=== PATIENT | male | born 1965 | race Caucasian/White ===

== ENCOUNTER → 2020-04-22 16:27 | Outpatient (BNVA) | payer MEDICAID, SELFPAY | PROVIDERS: Family Provider Nurse Practitioner; PCP Nurse Practitioner; Visit Provider Nurse Practitioner | DX: I25.10 Atherosclerotic heart disease of native coronary artery without angina pectoris (principal) | CPT/HCPCS: 80053; 80061; 81003 ==

== ENCOUNTER → 2020-05-21 09:15 | Outpatient (BNVA) | payer MEDICAID, SELFPAY | PROVIDERS: Family Provider Nurse Practitioner; PCP Nurse Practitioner; Visit Provider Nurse Practitioner | DX: R73.09 Other abnormal glucose (principal); N39.0 Urinary tract infection, site not specified; R73.9 Hyperglycemia, unspecified | CPT/HCPCS: 81000; 83036 ==

== ENCOUNTER 2020-07-03 09:45 | Inpatient (IN) | payer MEDICAID, SELFPAY ==
[2020-07-03] VITALS (14 sets, daily range): BP systolic 143–165; BP diastolic 86–100; PULSE 74–83; RESP 16–22; TEMP 36.4–36.7; O2SAT 93–100; BMI 29.9
--- NOTE | 2020-07-03 10:39 | W.ED.ABDPA2 ---
Documented by User: ALPHONSE Rocha 07/03/20 10:41 HPI - Abdominal Pain General: Chief Complaint: Abdominal Pain Stated Complaint: N/V/D Time Seen by Provider: 07/03/20 10:28 History of Present Illness: HPI narrative: Patient complains about abdominal pain for the last couple days. Says pain is worse this morning. Says it is consistent with his pancreatitis he had to 3 years ago. He has been on medication for pancreatitis but he continues to drink 1 pint of whiskey a day and a few beers while at work. Whiskey is after work. Has been nauseous has had some vomiting. Slight diarrhea. Pancreatitis and alcoholism MD elicited complaint: abdominal pain Pertinent past history: other (Pancreatitis and alcoholism) Onset (ago): day(s) Pain Consistency: constant Location: Epigastric, RLQ and LLQ Severity: moderate Pain scale (0-10): 6 Quality: aching Relieving factors: nothing Associated Symptoms: Reports diarrhea, nausea, poor appetite and vomiting; Denies chills and fever(s) Review of Systems Const: Denies: fever(s), chills or body aches Eyes: Denies: change in vision or blurry vision ENMT: Denies: throat pain or nasal congestion Card: Denies: chest pain or dyspnea on exertion Resp: Denies: dyspnea, productive cough or non-productive cough GI: Reports: abdominal pain, nausea, vomiting and diarrhea : Denies: difficulty urinating Musc: Denies: extremity pain Skin/Breast: Denies: rash Neuro: Denies: headache(s) Psych: Denies: anxiety or depression Jah/Lymph: Denies: easy bruising PFSH ED PFSH: Medical History Acute pancreatitis CAD (coronary artery disease) Chronic obstructive pulmonary disease Depression with anxiety History of [place] (myocardial infarction) Hyperlipidemia Surgical History S/P CABG (coronary artery bypass graft) S/P PTCA (percutaneous transluminal coronary angioplasty) Family History Other Diabetes Heart disease Social History Smoking and tobacco status: current every day smoker Second hand smoke exposure: Yes Smoking risk assessment/counseling performed?: Yes Alcohol intake: current Alcohol intake frequency: 3 or more drinks per day Alcohol type: hard liquor Desire information about alcohol rehabilitation?: No Counseling given: Yes Desire information about substance/drug rehabilitation?: No Counseling given: No Adopted: No Caregiver/support person: No Lives independently: Yes Household members: significant other Housing: House Marital status: Single Number of children: 2 service: No Current occupational status: employed Pets and animals: Yes History of recent travel: No Current gender identity: Male Physical Exam Const: COMMON NORMALS: no acute distress, average body habitus and patient oriented x3 HENMT: COMMON NORMALS: normocephalic HEAD & SCALP: normal to inspection and normocephalic FACE & SINUS: normal facial exam Eye: COMMON NORMALS: conjunctivae normal GENERAL EYE: appearance normal, both eyes and all related structures CONJUNCTIVA: Yes conjunctivae normal Neck/C-Spine: COMMON NORMALS: no JVD Chest: COMMONS NORMALS: normal inspection of the chest Resp: COMMON NORMALS: normal respiratory effort and clear to auscultation bilaterally AUSCULTATION: clear to auscultation bilaterally Cardio: COMMON NORMALS: no JVD, regular rate and regular rhythm RATE: regular rate RHYTHM: regular rhythm GI: COMMON NORMALS: Normal to inspection, nondistended, normoactive bowel sounds present PALPATION: Yes Tenderness to palpation present (GI) (Generalized) Extremity: COMMON NORMALS: normal to inspection and full ROM Neuro: COMMON NORMALS: patient oriented x3 Course Vital Signs: Vital signs: Vital Signs Temperature 97.6 F 07/05/20 01:25 Pulse Rate 110 H 07/05/20 04:43 Respiratory Rate 22 H 07/05/20 04:44 Blood Pressure 89/62 07/05/20 04:20 Pulse Oximetry 96 07/05/20 04:43 MDM - Abdominal Pain Lab Data: Labs: Lab Results 07/03/20 07/03/20 07/03/20 Range/Units 10:38 10:43 10:43 WBC 17.0 H (4.0-10.0) 10^3/ uL RBC 4.85 (4.1-5.3) 10^6/u L Hgb 15.8 (11.7-16.6) g/dL Hct 45.8 (42.0-52.0) % MCV 94.4 H (80-94) fL MCH 32.6 (28.0-34.0) pg MCHC 34.5 (30.0-36.0) g/dL RDW 11.8 L (12.1-15.1) % Plt Count 289 (130-400) 10^3/c mm MPV 9.5 (7.4-10.4) fL Neut % (Auto) 73.2 % Lymph % (Auto) 19.5 % [place] % (Auto) 5.8 % Eos % (Auto) 0.5 % Baso % (Auto) 0.5 % Neut # (Auto) 12.42 H (1.8-7.7) 10^3/u L Lymph # (Auto) 3.3 (0.8-4.8) 10^3/u L [place] # (Auto) 1.0 H (0.2-0.9) 10^3/u L Eos # (Auto) 0.1 (0.0-0.8) 10^3/u L Baso # (Auto) 0.1 (0.0-0.1) 10^3/u L Nucleated RBC % (a uto) 0 % Nucleated RBCs # 0.0 /100WBC Sodium 136 (136-145) mmol/L Potassium 4.1 (3.5-5.1) mmol/L Chloride 101 (98-107) mmol/L Carbon Dioxide 24 (22-29) mmol/L Anion Gap 15.1 (5-19) BUN 16 (6-20) mg/dL Creatinine 0.9 (0.7-1.2) mg/dL GFR Calculation 87.3 L (90-130) mL/min Glucose 98 (65-115) mg/dL Calculated Osmolal ity 278 L (285-295) mOsm/k g Calcium 7.9 L (8.5-10.5) mg/dL Total Bilirubin 0.7 (0.15-1.2) mg/dL AST 51 H (0-40) U/L ALT < 5 (0-41) U/L Alkaline Phosphata se 110 (40-130) IU/L Total Protein 7.3 (6.6-8.7) g/dL Albumin 4.1 (3.5-5.2) g/dL Globulin 3.2 (1.3-4.6) g/dL Lipase 263 H (13-60) U/L Urine Color Yellow (Yellow) Urine Appearance Clear (CLEAR) Urine pH 5 (5-7) Ur Specific Gravit y 1.025 (1.005-1.030) Urine Protein 2+ H (Negative) Urine Glucose (UA) Norm (Normal) Urine Ketones Negative (Negative) Urine Blood Neg (Negative) Urine Nitrate Negative (Negative) Urine Bilirubin Neg (NEGATIVE) Urine Urobilinogen Neg (Negative) mg/dL Ur Leukocyte Alea ase Negative (Negative) Urine RBC None (0-2) /hpf Urine WBC Rare (0-5) /hpf Ur Squamous Epith Cells None (0-5) Amorphous Sediment Not Reportable Urine Bacteria Trace (NONE) Hyaline Casts 0-4 H Urine Mucus 2+ Discharge Plan Discharge Patient Disposition: Home Clinical Impression: Acute pancreatitis, Alcohol abuse Condition: Stable Interventions: ED Discharge Assessment Last Done: 07/03/20 13:46 ED Charges Last Done: 07/03/20 13:46 Discharge Date/Time: 07/03/20 13:47 Sign Out Sign Out Data: Patient Sign Out occurred on 07/03/20 at 11:43. Patient's care was discussed, and care was transferred from to Nicholas Marin DO. 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 He still is drinking heavily has had issues with pancreatitis in the past he has not had any hematemesis. MD elicited complaint: abdominal pain Pertinent past history: gastritis Onset (ago): day(s) Pain Consistency: constant Location: Epigastric Severity: severe Quality: cramping Radiation: none Migration to: no migration Exacerbating factors: eating Associated Symptoms: Reports anorexia, bloating, dyspepsia, nausea, poor appetite and vomiting; Denies coffee ground emesis, diarrhea, dysuria, fever(s), hematochezia, hematuria, hematemesis, melena and syncope Review of Systems Const: Denies: fever(s) Card: Denies: syncope GI: Reports: nausea, vomiting and bloating; Denies: hematemesis, coffee ground emesis, diarrhea, hematochezia or melena : Denies: dysuria or hematuria PFSH ED PFSH: Medical History Acute pancreatitis CAD (coronary artery disease) Chronic obstructive pulmonary disease Depression with anxiety History of [place] (myocardial infarction) Hyperlipidemia Surgical History S/P CABG (coronary artery bypass graft) S/P PTCA (percutaneous transluminal coronary angioplasty) Family History Other Diabetes Heart disease Social History Smoking and tobacco status: current every day smoker Second hand smoke exposure: Yes Smoking risk assessment/counseling performed?: Yes Alcohol intake: current Alcohol intake frequency: 3 or more drinks per day Alcohol type: hard liquor Desire information about alcohol rehabilitation?: No Counseling given: Yes Desire information about substance/drug rehabilitation?: No Counseling given: No Adopted: No Caregiver/support person: No Lives independently: Yes Household members: significant other Housing: House Marital status: Single Number of children: 2 service: No Current occupational status: employed Pets and animals: Yes History of recent travel: No Current gender identity: Male Physical Exam Const: COMMON NORMALS: no acute distress GENERAL APPEARANCE: cooperative and comfortable ORIENTATION/CONSCIOUSNESS: Yes awake, Yes oriented to person, Yes oriented to place and Yes oriented to time HENMT: COMMON NORMALS: normocephalic, atraumatic and hearing grossly normal bilaterally HEAD & SCALP: normocephalic and atraumatic Neck/C-Spine: COMMON NORMALS: no JVD Resp: COMMON NORMALS: normal respiratory effort, No retractions, No use of accessory muscles and clear to auscultation bilaterally AUSCULTATION: clear to auscultation bilaterally Cardio: COMMON NORMALS: no JVD, regular rate, regular rhythm and No murmurs present (Cardio) RATE: regular rate RHYTHM: regular rhythm GI: COMMON NORMALS: No hepatosplenomegaly present AUSCULTATION: Yes normoactive bowel sounds PALPATION: Yes Tenderness to palpation present (GI), No Guarding due to palpation present (GI) and Yes No hepatosplenomegaly present Extremity: COMMON NORMALS: normal to inspection, capillary refill normal, no clubbing, cyanosis or edema, no calf tenderness and no pedal edema Neuro: SENSORIUM/ORIENTATION: Yes oriented to person, Yes oriented to place and Yes oriented to time Skin: COMMON NORMALS: no rashes or lesions noted GENERAL SKIN EXAM: no rashes or lesions noted Course Vital Signs: Vital signs: Vital Signs Temperature 97.6 F 07/05/20 01:25 Pulse Rate 110 H 07/05/20 04:43 Respiratory Rate 22 H 07/05/20 04:44 Blood Pressure 89/62 07/05/20 04:20 Pulse Oximetry 96 07/05/20 04:43 MDM - Abdominal Pain MDM Narrative: Medical decision making narrative: Reviewed case with Shawn Pacheco NP who seen the patient in the emergency room. Agree with admission. Discussed with hospitalist orders written. Lab Data: Labs: Lab Results 07/03/20 07/03/20 07/03/20 Range/Units 10:38 10:43 10:43 WBC 17.0 H (4.0-10.0) 10^3/ uL RBC 4.85 (4.1-5.3) 10^6/u L Hgb 15.8 (11.7-16.6) g/dL Hct 45.8 (42.0-52.0) % MCV 94.4 H (80-94) fL MCH 32.6 (28.0-34.0) pg MCHC 34.5 (30.0-36.0) g/dL RDW 11.8 L (12.1-15.1) % Plt Count 289 (130-400) 10^3/c mm MPV 9.5 (7.4-10.4) fL Neut % (Auto) 73.2 % Lymph % (Auto) 19.5 % [place] % (Auto) 5.8 % Eos % (Auto) 0.5 % Baso % (Auto) 0.5 % Neut # (Auto) 12.42 H (1.8-7.7) 10^3/u L Lymph # (Auto) 3.3 (0.8-4.8) 10^3/u L [place] # (Auto) 1.0 H (0.2-0.9) 10^3/u L Eos # (Auto) 0.1 (0.0-0.8) 10^3/u L Baso # (Auto) 0.1 (0.0-0.1) 10^3/u L Nucleated RBC % (a uto) 0 % Nucleated RBCs # 0.0 /100WBC Sodium 136 (136-145) mmol/L Potassium 4.1 (3.5-5.1) mmol/L Chloride 101 (98-107) mmol/L Carbon Dioxide 24 (22-29) mmol/L Anion Gap 15.1 (5-19) BUN 16 (6-20) mg/dL Creatinine 0.9 (0.7-1.2) mg/dL GFR Calculation 87.3 L (90-130) mL/min Glucose 98 (65-115) mg/dL Calculated Osmolal ity 278 L (285-295) mOsm/k g Calcium 7.9 L (8.5-10.5) mg/dL Total Bilirubin 0.7 (0.15-1.2) mg/dL AST 51 H (0-40) U/L ALT < 5 (0-41) U/L Alkaline Phosphata se 110 (40-130) IU/L Total Protein 7.3 (6.6-8.7) g/dL Albumin 4.1 (3.5-5.2) g/dL Globulin 3.2 (1.3-4.6) g/dL Lipase 263 H (13-60) U/L Urine Color Yellow (Yellow) Urine Appearance Clear (CLEAR) Urine pH 5 (5-7) Ur Specific Gravit y 1.025 (1.005-1.030) Urine Protein 2+ H (Negative) Urine Glucose (UA) Norm (Normal) Urine Ketones Negative (Negative) Urine Blood Neg (Negative) Urine Nitrate Negative (Negative) Urine Bilirubin Neg (NEGATIVE) Urine Urobilinogen Neg (Negative) mg/dL Ur Leukocyte Alea ase Negative (Negative) Urine RBC None (0-2) /hpf Urine WBC Rare (0-5) /hpf Ur Squamous Epith Cells None (0-5) Amorphous Sediment Not Reportable Urine Bacteria Trace (NONE) Hyaline Casts 0-4 H Urine Mucus 2+ Discharge Plan Discharge Patient Disposition: Home Clinical Impression: Acute pancreatitis, Alcohol abuse Condition: Stable Interventions: ED Discharge Assessment Last Done: 07/03/20 13:46 ED Charges Last Done: 07/03/20 13:46 Discharge Date/Time: 07/03/20 13:47 Sign Out Sign Out Data: Patient Sign Out occurred on 07/03/20 at 11:43. Patient's care was discussed, and care was transferred from to Nicholas Marin DO. 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
--- NOTE | 2020-07-03 10:41 | CT_ITS ---
WS: [id number] CT ABDOMEN AND PELVIS WITH CONTRAST HISTORY: Pancreatitis and abdominal pain TECHNIQUE: Imaging performed of the abdomen and pelvis with IV contrast. Single phase imaging of the abdomen. Coronal and sagittal reformats are submitted. All CT scans at [facility] use at least one of these dose optimization techniques: automated exposure control; mA and/or kV adjustment per patient size (includes targeted exams where dose is matched to clinical indication); or iterativ e reconstruction. IV CONTRAST: Omnipaque 300; 95 mL IV. Oral contrast: No DLP: 1055.95 mGy.cm COMPARISON: None available. Lower thorax: Lung bases are clear. Heart is normal size. No hiatal hernia. Liver/biliary system: Mild hepatic steatosis with no enlargement of the liver. Gallbladder: Mildly contracted gallbladder, no stones identified. Pancreas: Normal size pancreas. There is mild peripancreatic edema surrounding the body and tail of t he pancreas. No fluid collections or abscess. Spleen: Normal. Adrenal glands: Normal. Right kidney: Normal. Left kidney: Mild perinephric stranding. Cortical hypodensity in the mid kidney similar to the prior study measured 1.5 x 0.6 cm. No solid mass. No obstruction. Aorta: Mild atherosclerosis with no aneurysm. Lymphadenopathy: None. Free fluid: None. GI tract: Normal appendix. No GI tract obstruction or diverticular disease. Abdominal wall: Fat containing umbilical hernia. Pelvis: Normal. Bones: Mild degenerative disc disease and desiccation at L3-4 and L4-5. CT/CT abdomen pelvis w con* [id number] IMPRESSION: 1. Mild acute pancreatitis with no pseudocyst or abscess. No free fluid. 2. Mildly contracted gallbladder. 3. Normal appendix.
[2020-07-03] MEDS: sodium chloride 0.9% 1,000 ML 999 ML IV (10:45)
[2020-07-03] MEDS: ondansetron 2 mg/ML SDV 2 mL 4 MG IVP (10:46)
[2020-07-03] MEDS: morphine 4 mg/mL SDV 1 mL IVP (10:47)
[2020-07-03 10:54] LABS: Urine Appearance Clear (CLEAR); Urine Color Yellow (Yellow); pH Urine 5 (5-7)
[2020-07-03] MEDS: iohexol 300 mg/mL 100 mL Btl IV (10:54)
[2020-07-03 10:55] LABS: Add Urine Microscopic? YES; Bilirubin Urine Neg (NEGATIVE); Blood Urine Neg (Negative); Glucose Urine UA Norm (Normal); Ketones Urine Negative (Negative); Leukocyte Esterase Urine Negative (Negative); Nitrate Urine Negative (Negative); Protein Urine 2+ (Negative); Specific Gravity, Urine 1.025 (1.005-1.030); Urobilinogen Urine Neg (Negative)
--- NOTE | 2020-07-03 10:55 | PC.NURSE ---
report received from [facility].
[2020-07-03 10:56] LABS: Basophils # 0.1 10^3/uL (0.0-0.1); Basophils % 0.5 %; Eosinophils # 0.1 10^3/uL (0.0-0.8); Eosinophils % 0.5 %; Hematocrit 45.8 % (42.0-52.0); Hemoglobin 15.8 g/dL (11.7-16.6); Lymphocytes # 3.3 10^3/uL (0.8-4.8); Lymphocytes % 19.5 %; Mean Corpuscular HGB Conc 34.5 g/dL (30.0-36.0); Mean Corpuscular Hemoglobin 32.6 pg (28.0-34.0); Mean Corpuscular Volume 94.4 fL (80-94); Mean Platelet Volume 9.5 fL (7.4-10.4); Monocytes % 5.8 %; Neutrophils # 12.42 10^3/uL (1.8-7.7); Neutrophils % 73.2 %; Nucleated Red Blood Cells % 0 %; Platelet Count 289 10^3/cmm (130-400); Red Blood Count 4.85 10^6/uL (4.1-5.3); Red Cell Distribution Width 11.8 % (12.1-15.1)
[2020-07-03 11:00] LABS: Add Urine Culture? No; Bacteria Urine TRACE; Hyaline Casts Urine 0-4; Mucus Urine 2+; WBC Urine RARE /hpf (0-5)
[2020-07-03 11:11] LABS: Albumin Level 4.1 g/dL (3.5-5.2); Alkaline Phosphatase 110 IU/L (40-130); Blood Urea Nitrogen 16 mg/dL (6-20); Calcium 7.9 mg/dL (8.5-10.5); Carbon Dioxide 24 mmol/L (22-29); Chloride 101 mmol/L (98-107); Globulin 3.2 g/dL (1.3-4.6); Glomerular Filtration Rate 87.3 mL/min (90-130); Glucose 98 mg/dL (65-115); Lipase 263 U/L (13-60); Osmolality Calculated 278 mOsm/kg (285-295); Sodium 136 mmol/L (136-145); Total Bilirubin 0.7 mg/dL (0.15-1.2); Total Protein 7.3 g/dL (6.6-8.7)
[2020-07-03 11:16] LABS: Anion Gap 15.1 (5-19); Potassium 4.1 mmol/L (3.5-5.1)
[2020-07-03 11:22] LABS: Alanine Aminotransferase < 5 U/L (0-41); Aspartate Amino Transferase 51 U/L (0-40)
--- NOTE | 2020-07-03 11:22 | PC.NURSE ---
while at bedside pt is in nad.
[2020-07-03] MEDS: morphine 4 mg/mL SDV 1 mL 2 MG IVP ×3 (12:49→19:50)
--- NOTE | 2020-07-03 13:04 | PC.NURSE ---
report called to jessie hale rn on med surg.
--- NOTE | 2020-07-03 15:15 | P.HP_ITS ---
Providers/Chief Complaint Admitting Physician: Ree Young DO Primary Care Provider: CECILY Mitchell Chief Complaint: N/V/D History of Present Illness Shadi Hill is a 54 year old male with a past medical history of chronic pancreatitis, coronary artery disease and alcoholism that presented to the emergency department today for increasing abdominal pain. Patient reports that his symptoms have progressed over the past 2 to 3 days. He reported that he is having severe pain in his epigastric region that radiates to his back, associated nausea vomiting and diarrhea. He denies any recent fevers or chills, no sick contacts. Patient denies any exposure to anyone under investigation are positive for COVID-19. He denies any chest pain or shortness of breath, does have a history of coronary artery disease requiring open heart surgery in the past but denies any recent exertional symptoms. Patient reports that he has been under worse depression and is continued to increase the amount of alcohol consumption. He denies any suicidal or homicidal ideation. Patient did note that food seem to make his symptoms worse. Patient was seen and evaluated in the emergency department noted to have concern for acute pancreatitis and admitted for further evaluation and treatment. Given IV fluids antiemetics and IV medication for pain control in the ED. Review of Systems Const: Denies: fever(s) or chills Eyes: Denies: change in vision ENMT: Denies: nasal congestion Card: Denies: chest pain, palpitations or edema Resp: Denies: dyspnea, productive cough or hemoptysis GI: Reports: abdominal pain, nausea, vomiting and diarrhea; Denies: constipation, hematochezia or melena : Denies: dysuria or hematuria Musc: Denies: extremity pain or muscle cramps Skin/Breast: Denies: rash or new lesions Neuro: Denies: headache(s) or dizziness Psych: Reports: depression; Denies: anxiety or suicidal ideation Endo: Denies: polyuria or hot flashes Jah/Lymph: Denies: easy bruising or easy bleeding Medications/Allergies Home Medications Medication Instructions Recorded Confirmed Last Taken Type aspirin 81 mg tablet,delayed 81 mg PO DAILY 01/01/20 07/03/20 07/03/20 History release nitroglycerin 0.4 mg sublingual 0.4 mg SUBLINGUAL Q5M PRN 01/01/20 07/03/20 Unknown History tablet albuterol sulfate 90 mcg/actuation 2 puff INHALATION Q6H PRN #18 gm 04/23/20 07/03/20 Unknown Rx aerosol inhaler budesonide-formoterol HFA 80 2 puff INHALATION BID #10.2 gm 04/23/20 07/03/20 Unknown Rx mcg-4.5 mcg/actuation aerosol inhaler bupropion HCl 150 mg tablet,12 hr 150 mg PO BID #60 tab 04/23/20 07/03/20 07/03/20 Rx sustained-release diltiazem HCl 60 mg tablet 60 mg PO BID #60 tab 04/23/20 07/03/20 07/03/20 Rx metoprolol tartrate 50 mg tablet 25 mg PO BID #30 tab 04/23/20 07/03/20 07/03/20 Rx pantoprazole 40 mg tablet,delayed 40 mg PO DAILY #30 tab 04/23/20 07/03/20 07/03/20 Rx release Mylanta Maximum Strength See Rx Instructions .ROUTE .COMPLEX 07/03/20 07/03/20 07/02/20 History Pepto-Bismol See Rx Instructions .ROUTE .COMPLEX 07/03/20 07/03/20 07/02/20 History simvastatin 40 mg PO DAILY 07/03/20 07/03/20 07/02/20 History Allergies Allergy/AdvReac Type Severity Reaction Status Date / Time No Known Allergies Allergy Verified 07/03/20 12:05 PFSH Acute PFSH: Medical History (Updated 07/03/20 @ 15:22 by Ree Young DO) Alcohol abuse CAD (coronary artery disease) Chronic obstructive pulmonary disease Depression with anxiety History of [place] (myocardial infarction) Hyperlipidemia Personal history of nicotine dependence Surgical History S/P CABG (coronary artery bypass graft) S/P PTCA (percutaneous transluminal coronary angioplasty) Family History Other Diabetes Heart disease Social History Smoking and tobacco status: current every day smoker Second hand smoke exposure: Yes Smoking risk assessment/counseling performed?: Yes Alcohol intake: current Alcohol intake frequency: 3 or more drinks per day Alcohol type: hard liquor Desire information about alcohol rehabilitation?: No Counseling given: Yes Desire information about substance/drug rehabilitation?: No Counseling given: No Adopted: No Caregiver/support person: No Lives independently: Yes Household members: significant other Housing: House Marital status: Single Number of children: 2 service: No Current occupational status: employed Pets and animals: Yes History of recent travel: No Current gender identity: Male Vitals/I&O/Wt Last Vital Signs Temp 97.6 F 07/03/20 14:31 Pulse 79 07/03/20 14:31 Resp 16 07/03/20 14:31 BP 146/96 07/03/20 14:31 Pulse Ox 95 07/03/20 14:31 Weight last 48 hrs Weight 97.522 kg Physical Exam Const: COMMON NORMALS: patient oriented x3 and alert GENERAL APPEARANCE: cooperative and ill appearing ORIENTATION/CONSCIOUSNESS: Yes awake, Yes oriented to person, Yes oriented to place and Yes oriented to time HENMT: COMMON NORMALS: normocephalic and atraumatic HEAD & SCALP: normocephalic and atraumatic Eye: COMMON NORMALS: Equal, round and reactive pupils present PUPIL: Yes Equal, round and reactive pupils present Neck/C-Spine: COMMON NORMALS: supple GENERAL: Yes normal visual inspection Resp: COMMON NORMALS: normal respiratory effort and clear to auscultation bilaterally EFFORT & INSPECTION: Yes able to speak in complete sentences AUSCULTATION: clear to auscultation bilaterally, no rhonchi and no wheezes Cardio: COMMON NORMALS: regular rate, regular rhythm and No murmurs present (Cardio) RATE: regular rate RHYTHM: regular rhythm GI: OTHER: Soft, tenderness to palpation epigastric region, no guarding or rigidity, normal bowel sounds, no appreciable masses Extremity: COMMON NORMALS: no clubbing, cyanosis or edema and no calf tenderness Neuro: COMMON NORMALS: patient oriented x3, CN's II-XII intact bilaterally, moves all extremities and no focal motor deficits SENSORIUM/ORIENTATION: Yes alert, Yes oriented to person, Yes oriented to place and Yes oriented to time SPEECH: speech normal Psych: COMMON NORMALS: mental status grossly normal and cooperative Skin: COMMON NORMALS: no rashes or lesions noted GENERAL SKIN EXAM: no rashes or lesions noted Data : 07/03/20 10:43 07/03/20 10:43 CT Abd/Pel: I personally reviewed and interpreted this imaging study as follows: Radiologist's impression: IMPRESSION: 1. Mild acute pancreatitis with no pseudocyst or abscess. No free fluid. 2. Mildly contracted gallbladder. 3. Normal appendix. A&P Assessment and plan (1) Acute pancreatitis: Admit to the hospital for further evaluation and treatment CT scan of the abdomen and pelvis as above Strongly encouraged alcohol cessation, discussed with patient on admission N.p.o. status for bowel rest IV fluids, antiemetics and IV pain control No evidence of any common bile duct dilatation, no cholelithiasis evident on imaging Status: Acute (2) Chronic obstructive pulmonary disease: Without acute exacerbation, oxygen per protocol Status: Chronic (3) Alcohol abuse: Strongly encourage alcohol cessation, will discuss with case management to provide community resources to patient Status: Chronic (4) CAD (coronary artery disease): With a history of coronary artery bypass grafting and stent placement Continue on aspirin, statin, metoprolol Status: Chronic Qualifiers: Coronary Disease-Associated Artery/Lesion type: [place] artery [place] vs. transplanted heart: [place] heart Associated angina: without angina Qualified Code(s): I25.10 - Atherosclerotic heart disease of [place] coronary artery without angina pectoris Additional A&P Information GI prophylaxis: PPI Diet: N.p.o. 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 transplanted heart: [place] heart Associated angina: without angina
[2020-07-03] MEDS: lactated ringers 1,000 ML 100 ML IV (15:41)
[2020-07-03] MEDS: enoxaparin 40 mg/0.4 mL Syringe SUBCUT (15:50)
[2020-07-03] MEDS: nicotine 21 mg Patch 1 PATCH TRANSDERMA (15:50)
[2020-07-03] MEDS: metoprolol tartrate 25 mg Tablet PO (18:17)
[2020-07-03] MEDS: buPROPion SR (12 HR) 150 mg Tablet PO (18:17)
[2020-07-03] MEDS: dilTIAZem 60 mg Tablet PO (18:17)
[2020-07-03] MEDS: HYDROmorphone 1 mg/mL INJ 1 mL IVP (22:40)
[2020-07-04] VITALS (80 sets, daily range): BP systolic 77–170; BP diastolic 43–103; PULSE 78–114; RESP 14–27; TEMP 36.4–37.1; O2SAT 95–100
[2020-07-04] MEDS: lactated ringers 1,000 ML 100 ML IV ×3 (00:34→19:18)
[2020-07-04] MEDS: morphine 4 mg/mL SDV 1 mL 2 MG IVP (01:47)
[2020-07-04] MEDS: HYDROmorphone 1 mg/mL INJ 1 mL IVP ×3 (04:43→15:17)
[2020-07-04 05:23] LABS: Basophils % 0.2 %; Eosinophils % 0.1 %; Hemoglobin 15.9 g/dL (11.7-16.6); Lymphocytes # 1.1 10^3/uL (0.8-4.8); Lymphocytes % 6.2 %; Mean Corpuscular HGB Conc 34.6 g/dL (30.0-36.0); Mean Corpuscular Hemoglobin 32.8 pg (28.0-34.0); Mean Corpuscular Volume 94.8 fL (80-94); Monocytes # 0.7 10^3/uL (0.2-0.9); Monocytes % 3.8 %; Neutrophils # 15.94 10^3/uL (1.8-7.7); Neutrophils % 89.1 %; Nucleated Red Blood Cells % 0 %; Platelet Count 246 10^3/cmm (130-400); Red Blood Count 4.85 10^6/uL (4.1-5.3); Red Cell Distribution Width 11.8 % (12.1-15.1); White Blood Count 17.9 10^3/uL (4.0-10.0)
--- NOTE | 2020-07-04 05:29 | PC.NURSE ---
SHIFT SUMMARY Has had quite a bit of pain tonight. Morphine IV was not providing good relief for him so order was changed to IV Dilaudid. More comfortable with this. Abdomen is quite tender across upper abdomen. Remains NPO. Has denied any nauses. IV fluids infusing. Ambulates to bathroom and uses urinal for I&O.
[2020-07-04 05:44] LABS: Alanine Aminotransferase 30 U/L (0-41); Albumin Level 3.5 g/dL (3.5-5.2); Alkaline Phosphatase 114 IU/L (40-130); Anion Gap 17.7 (5-19); Aspartate Amino Transferase 42 U/L (0-40); Blood Urea Nitrogen 11 mg/dL (6-20); Calcium 7.5 mg/dL (8.5-10.5); Carbon Dioxide 18 mmol/L (22-29); Chloride 100 mmol/L (98-107); Globulin 3.3 g/dL (1.3-4.6); Glomerular Filtration Rate 116.7 mL/min (90-130); Glucose 99 mg/dL (65-115); Osmolality Calculated 270 mOsm/kg (285-295); Potassium 3.7 mmol/L (3.5-5.1); Sodium 132 mmol/L (136-145); Total Bilirubin 1.2 mg/dL (0.15-1.2); Total Protein 6.8 g/dL (6.6-8.7)
[2020-07-04 08:20] LABS: Lipase 2037 U/L (13-60)
--- NOTE | 2020-07-04 10:22 | CT_ITS ---
WS: [id number] CT ABDOMEN AND PELVIS WITH CONTRAST HISTORY: worsening pain, increased lipase with pancreatitis TECHNIQUE: Imaging performed of the abdomen and pelvis with IV contrast. Single phase imaging of the abdomen. Coronal and sagittal reformats are submitted. All CT scans at [facility] use at least one of these dose optimization techniques: automated exposure control; mA and/or kV adjustment per patient size (includes targeted exams where dose is matched to clinical indication); or iterativ e reconstruction. IV CONTRAST: Omnipaque 300; 95 mL IV. Oral contrast: Yes. DLP: 1093.64 mGy.cm COMPARISON: 07/03/2020 Lower thorax: Subsegmental atelectasis at the RIGHT lung base. Heart is normal size. Small hiatal her efrain. Liver/biliary system: Normal size with no intrahepatic dilatation. Gallbladder: Increased density in the gallbladder from vicarious excretion. Pancreas: Markedly abnormal appearance of the pancreas. There is significant peripancreatic inflammat ion and fluid with marked progression since the study performed on 07/03/2020. Fluid extends along the paracolic gutters. There is also inflammatory change surrounding the duodenal C-loop and SMA. Spleen: Normal. Adrenal glands: Normal. Right kidney: No obstruction or mass. Left kidney: Cortical cyst. No obstruction. Aorta: Mild atherosclerosis. Lymphadenopathy: None. Free fluid: Increase fluid along the paracolic gutters and a small amount of free fluid in the pelvis . GI tract: Significant amount of inflammation surrounding the duodenum and small bowel within the RIGH T abdomen from the pancreatitis. There is wall thickening with no obstruction. Abdominal wall: Small umbilical hernia. Pelvis: New small amount of free fluid in the pelvis. Bones: No interval change. CT/CT abdomen pelvis w con* [id number] IMPRESSION: 1. Significant change in appearance of the abdomen since the prior study. Ther e is marked peripancreatic inflammation and fluid which has significantly progr essed. There is fluid extending along the gutters and surrounding the duodenum and the SMA. Free fluid in the pelvis. Favor this is probably all progression o f the severe pancreatitis. No perforation is evident at this time. Patient is a t risk for developing ischemia due to the involvement of the SMA and duodenum. 2. No free air. Notified Ree Young DO at 07/04/2020 4:13 PM.
--- NOTE | 2020-07-04 10:24 | P.PN_ITS ---
Subjective Subjective: Interval history: Patient resting in bed at time of exam this morning. Upon waking he reported that he continues to have epigastric pain, reports that Dilaudid was given overnight for pain control but continues to have discomfort when it wears off. He reports that he has been swishing water then spitting it out, has not had anything to drink. Discussed with patient concern for pancreatitis and will repeat imaging today, he verbalized understanding and agreed with plan. Vitals/I&O/Wt Last Vital Signs Temp 97.9 F 07/04/20 07:48 Pulse 88 07/04/20 07:48 Resp 18 07/04/20 07:48 BP 152/99 07/04/20 07:48 Pulse Ox 97 07/04/20 07:48 07/03/20 07/04/20 07/04/20 22:59 06:59 14:59 Intake Total 888.333 / 1888.333 Output Total 350 / 350 700 / 1050 Balance -350 / 650 188.333 / 838.333 Weight last 48 hrs Weight 98.248 kg Weight 97.522 kg Physical Exam Const: COMMON NORMALS: patient oriented x3 and alert GENERAL APPEARANCE: cooperative and ill appearing ORIENTATION/CONSCIOUSNESS: Yes awake, Yes oriented to person, Yes oriented to place and Yes oriented to time HENMT: COMMON NORMALS: normocephalic and atraumatic HEAD & SCALP: normocephalic and atraumatic Eye: COMMON NORMALS: Equal, round and reactive pupils present PUPIL: Yes Equal, round and reactive pupils present Neck/C-Spine: COMMON NORMALS: supple GENERAL: Yes normal visual inspection Resp: COMMON NORMALS: normal respiratory effort and clear to auscultation bilaterally EFFORT & INSPECTION: Yes able to speak in complete sentences AUSCULTATION: clear to auscultation bilaterally, no rhonchi and no wheezes Cardio: COMMON NORMALS: regular rate, regular rhythm and No murmurs present (Cardio) RATE: regular rate RHYTHM: regular rhythm GI: OTHER: Soft, tenderness to palpation epigastric region, no guarding or rigidity, normal bowel sounds, no appreciable masses Extremity: COMMON NORMALS: no clubbing, cyanosis or edema and no calf tenderness Neuro: COMMON NORMALS: patient oriented x3, CN's II-XII intact bilaterally, moves all extremities and no focal motor deficits SENSORIUM/ORIENTATION: Yes alert, Yes oriented to person, Yes oriented to place and Yes oriented to time SPEECH: speech normal Psych: COMMON NORMALS: mental status grossly normal and cooperative Skin: COMMON NORMALS: no rashes or lesions noted GENERAL SKIN EXAM: no rashes or lesions noted Data : 07/04/20 04:52 07/04/20 04:52 A&P Assessment and plan (1) Acute pancreatitis: Continue n.p.o. status Continue with IV fluids Increasing lipase today and increasing abdominal pain therefore will repeat abdominal imaging to ensure no acute changes Status: Acute (2) Chronic obstructive pulmonary disease: Without acute exacerbation, oxygen per protocol Status: Chronic (3) Alcohol abuse: Strongly encourage alcohol cessation, will discuss with case management to provide community resources to patient Status: Chronic (4) CAD (coronary artery disease): With a history of coronary artery bypass grafting and stent placement Continue on aspirin, statin, metoprolol Status: Chronic Qualifiers: Coronary Disease-Associated Artery/Lesion type: [place] artery [place] vs. transplanted heart: [place] heart Associated angina: without angina Qualified Code(s): I25.10 - Atherosclerotic heart disease of [place] coronary artery without angina pectoris Additional A&P Information GI prophylaxis: PPI Diet: N.p.o. status DVT prophylaxis: Lovenox CODE STATUS: Full code Attestations Medical Necessity Statement*: Patient requires further hospitalization due to concern for acute pancreatitis Coding Level of Care Code Acute Facetor for Aislinn Swanson Diagnoses Acute pancreatitis K85.90 Chronic obstructive pulmonary disease J44.9 Alcohol abuse F10.10 CAD (coronary artery disease) I25.10 Coronary Disease-Associated Artery/Lesion type: [place] artery [place] vs. transplanted heart: [place] heart Associated angina: without angina
[2020-07-04] MEDS: dilTIAZem 60 mg Tablet PO ×2 (10:52→15:16)
[2020-07-04] MEDS: hyDRALAzine 20 mg/mL INJ 1 mL 10 MG IVP (10:54)
[2020-07-04] MEDS: ondansetron 2 mg/ML SDV 2 mL 4 MG IVP (10:54)
[2020-07-04] MEDS: LORazepam 2 mg/mL INJ 1 mL IM ×2 (10:55→15:17)
[2020-07-04] MEDS: buPROPion SR (12 HR) 150 mg Tablet PO ×2 (10:56→15:16)
[2020-07-04] MEDS: atorvastatin 40 mg Tablet 20 MG PO (11:03)
[2020-07-04] MEDS: pantoprazole DR 40 mg Tablet PO (11:05)
[2020-07-04] MEDS: aspirin 81 mg EC Tablet PO (11:05)
[2020-07-04] MEDS: metoprolol tartrate 25 mg Tablet PO ×2 (11:06→15:16)
[2020-07-04] MEDS: thiamine 100 mg Tablet PO (11:07)
[2020-07-04] MEDS: multivitamin therapeutic Tablet 1 TAB PO (11:08)
[2020-07-04] MEDS: nicotine 21 mg Patch 1 PATCH TRANSDERMA (11:08)
[2020-07-04] MEDS: folic acid 1 mg Tablet PO (11:08)
[2020-07-04] MEDS: enoxaparin 40 mg/0.4 mL Syringe SUBCUT (15:16)
[2020-07-04] MEDS: iohexol 300 mg/mL 100 mL Btl IV (15:43)
--- NOTE | 2020-07-04 16:47 | PM.CONSULT ---
Providers/Reason For Consult Consulting Physican/Specialty*: Dr. Young Reason for Consult*: Attending Physician: Ree Young DO Primary Care Provider: CECILY Mitchell History of Present Illness History of Present Illness Information obtained from the patient's ex- since he is not awake and oriented. Shadi Hill is a 54 year old male who is admitted to the hospital on 07/03/2020 after he had been complaining of worsening abdominal pain associated with nausea and vomiting for the last 48 hours. Patient usually drinks 1 pint of whiskey and sixpack of beers daily since the and has had multiple admissions for acute pancreatitis. He has not been hospitalized for the last couple of years. Patient has been having chronic diarrhea for at least the last 2 to 3 months. Review of Systems General: Reports: ROS unobtainable due to mental status Meds/Allergies Home Medications and Allergies Home Medications Medication Instructions Recorded Confirmed Last Taken Type aspirin 81 mg tablet,delayed 81 mg PO DAILY 01/01/20 07/03/20 07/03/20 History release nitroglycerin 0.4 mg sublingual 0.4 mg SUBLINGUAL Q5M PRN 01/01/20 07/03/20 Unknown History tablet albuterol sulfate 90 mcg/actuation 2 puff INHALATION Q6H PRN #18 gm 04/23/20 07/03/20 Unknown Rx aerosol inhaler budesonide-formoterol HFA 80 2 puff INHALATION BID #10.2 gm 04/23/20 07/03/20 Unknown Rx mcg-4.5 mcg/actuation aerosol inhaler bupropion HCl 150 mg tablet,12 hr 150 mg PO BID #60 tab 04/23/20 07/03/20 07/03/20 Rx sustained-release diltiazem HCl 60 mg tablet 60 mg PO BID #60 tab 04/23/20 07/03/20 07/03/20 Rx metoprolol tartrate 50 mg tablet 25 mg PO BID #30 tab 04/23/20 07/03/20 07/03/20 Rx pantoprazole 40 mg tablet,delayed 40 mg PO DAILY #30 tab 04/23/20 07/03/20 07/03/20 Rx release Mylanta Maximum Strength See Rx Instructions .ROUTE .COMPLEX 07/03/20 07/03/20 07/02/20 History Pepto-Bismol See Rx Instructions .ROUTE .COMPLEX 07/03/20 07/03/20 07/02/20 History simvastatin 40 mg PO DAILY 07/03/20 07/03/20 07/02/20 History Allergies Allergy/AdvReac Type Severity Reaction Status Date / Time No Known Allergies Allergy Verified 07/03/20 12:05 Current Medications Current Medications Generic Name Dose Route Start Last Admin Trade Name Freq PRN Reason Stop Dose Admin Aspirin 81 mg 07/04/20 09:00 07/04/20 11:05 Aspirin Ec PO 81 mg DAILY TAMERA Administration Atorvastatin Calcium 20 mg 07/04/20 09:00 07/04/20 11:03 Lipitor PO 20 mg DAILY TAMERA Administration Bupropion HCl 150 mg 07/03/20 18:00 07/04/20 15:16 Wellbutrin Sr (12 Hr) PO 150 mg BID TAMERA Administration Diltiazem HCl 60 mg 07/03/20 18:00 07/04/20 15:16 Cardizem PO 60 mg BID TAMERA Administration Enoxaparin Sodium 40 mg 07/03/20 16:00 07/04/20 15:16 Lovenox SUBCUT 40 mg Q24H TAMERA Administration Folic Acid 1 mg 07/04/20 09:00 07/04/20 11:08 Folic Acid PO 1 mg DAILY TAMERA Administration Hydralazine HCl 10 mg 07/04/20 00:19 07/04/20 10:54 Apresoline IVP 10 mg Q4H PRN Administration SBP>180 or DBP>100 Hydromorphone HCl 1 mg 07/04/20 04:27 07/04/20 15:17 Dilaudid Inj IVP 1 mg Q4H PRN Administration SEVERE PAIN Lactated Ringer's 1,000 mls @ 100 mls/hr 07/03/20 15:15 07/04/20 11:09 Lactated Ringers IV 100 mls/hr .Q10H TMAERA Administration Lorazepam 2 mg 07/03/20 15:12 07/04/20 15:17 Ativan IM 2 mg PROTOCOL PRN Administration ALCOWD Protocol Metoprolol Tartrate 25 mg 07/03/20 18:00 07/04/20 15:16 Lopressor PO 25 mg BID TAMERA Administration Multivitamins Therapeutic 1 tab 07/04/20 09:00 07/04/20 11:08 Multivitamin Tab PO 1 tab DAILY TAMERA Administration Nicotine 1 patch 07/03/20 15:15 07/04/20 11:08 Nicoderm 21 Mg Patch TRANSDERMA 1 patch DAILY TAMERA Administration Ondansetron HCl 4 mg 07/03/20 13:50 07/04/20 10:54 Zofran IVP 4 mg Q6H PRN Administration NAUSEA AND VOMITING Fluticasone/Salmeterol 1 puff 07/03/20 20:00 07/04/20 07:31 Advair Diskus 250-50 INHALATION 1 puff BID.RESPIRATORY TAMERA Administration Thiamine Mononitrate 100 mg 07/04/20 09:00 07/04/20 11:07 Vitamin B-1 PO 100 mg DAILY TAMERA Administration PFSH Acute PFSH: Medical History Alcohol abuse CAD (coronary artery disease) Chronic obstructive pulmonary disease Depression with anxiety History of NV (myocardial infarction) Hyperlipidemia Personal history of nicotine dependence Surgical History S/P CABG (coronary artery bypass graft) S/P PTCA (percutaneous transluminal coronary angioplasty) Family History Other Diabetes Heart disease Social History Smoking and tobacco status: current every day smoker Second hand smoke exposure: Yes Smoking risk assessment/counseling performed?: Yes Alcohol intake: current Alcohol intake frequency: 3 or more drinks per day Alcohol type: hard liquor Desire information about alcohol rehabilitation?: No Counseling given: Yes Desire information about substance/drug rehabilitation?: No Counseling given: No Adopted: No Caregiver/support person: No Lives independently: Yes Household members: significant other Housing: House Marital status: Single Number of children: 2 service: No Current occupational status: employed Pets and animals: Yes History of recent travel: No Current gender identity: Male Vitals/I&O/Wt Last Vital Signs Temp 97.6 F 07/04/20 15:25 Pulse 114 H 07/04/20 15:25 Resp 16 07/04/20 15:25 BP 103/73 07/04/20 15:25 Pulse Ox 96 07/04/20 15:25 07/04/20 07/04/20 07/04/20 06:59 14:59 22:59 Intake Total 888.333 / 0170.313 6451 / 1075 Output Total 700 / 1050 250 / 250 Balance 188.333 / 683.070 6002 / 825 -250 / 825 Weight last 48 hrs Weight 216 lb 9.6 oz Weight 215 lb Physical Exam Narrative: EXAM NARRATIVE: HEENT: Normocephalic Eye: Sclera /conjunctiva normal Respiratory and chest: Bilateral clear breath sounds on auscultation Cardiovascular: Normal S1 and S2 heart sounds Abdomen: Soft to palpation abdomen is slightly distended, no guarding, no rigidity no evidence of peritonitis. Hypoactive bowel sounds Neurological: Oriented to place person and time Skin: Intact, no lesions appreciated on gross exam Data Other Data: Other data: I have reviewed the CT abdomen pelvis from 12/03/2019 and 07/04/2020. There is significant progression of pancreatitis, no pneumatosis or evidence of free air. A&P Assessment and plan (1) Acute pancreatitis: 54-year-old gentleman with longstanding history of significant alcohol intake who presents with acute pancreatitis. Patient is hemodynamically stable with no evidence of peritonitis. CT abdomen and pelvis shows significant progression of pancreatitis with peripancreatic and mesenteric edema, no evidence of perforation. His white count is stable at 17, lipase is increased from 263 to 2037 today. Surprisingly his LFTs are not significantly elevated. Transfer patient to ICU for close monitoring Betts catheter for accurate I/O monitoring Continue imipenem CIWA protocol Patient could need an NG tube if he starts having nausea and vomiting. Stool cultures due to history of chronic diarrhea Patient probably will need a PICC line placement and be started on TPN as he is unlikely to be able to meet his nutritional goals orally in the near future. At this point patient does not need to be explored surgically and will need aggressive resuscitation and intensive care support. Status: Acute Coding Level of Care Code Acute Study Abroad Coordinator for Aislinn Swanson Diagnoses Acute pancreatitis K85.90
[2020-07-04] MEDS: dexmedetomidine 400 MCG in sodium chloride 0.9% (100 ml) 100 ML 5.1 MCG IV (17:12)
[2020-07-04 17:23] LABS: Lactic Sepsis W/Reflex 2.9 mmol/L (0.5-2.2)
[2020-07-04] MEDS: midazolam 1 mg/mL INJ 5 ML 5 MG (17:43)
[2020-07-04] MEDS: fentaNYL 50 mcg/mL INJ 2mL IVP (17:44)
[2020-07-04] MEDS: rocuronium 10 mg/mL INJ 5mL 50 MG IV (17:47)
[2020-07-04 18:21] LABS: Alanine Aminotransferase 25 U/L (0-41); Albumin Level 3.4 g/dL (3.5-5.2); Alkaline Phosphatase 82 IU/L (40-130); Aspartate Amino Transferase 37 U/L (0-40); Blood Urea Nitrogen 22 mg/dL (6-20); Calcium 6.4 mg/dL (8.5-10.5); Carbon Dioxide 17 mmol/L (22-29); Chloride 99 mmol/L (98-107); Globulin 2.6 g/dL (1.3-4.6); Glomerular Filtration Rate 36.9 mL/min (90-130); Glucose 132 mg/dL (65-115); Osmolality Calculated 269 mOsm/kg (285-295); Sodium 130 mmol/L (136-145); Total Bilirubin 1.3 mg/dL (0.15-1.2)
[2020-07-04] MEDS: propofol 1,000 MG/100 ML INJ 2.9 MG IV (18:40)
--- NOTE | 2020-07-04 18:45 | XR_ITS ---
WS: [id number] Portable AP semiupright chest, 07/04/2020 Clinical Data: et,tube ng,tube,cvl line Comparison: PA and lateral chest, 10/27/2019 Findings: The nasogastric tube, left subclavian catheter, and oral gastric tube are in good position. Endotracheal tube is above the june. The orogastric tube overlies the stomach. Monitor leads are o n the chest wall. No nodules, masses or effusions are seen. The heart is normal. The pulmonary vascul arity is not increased. No pneumonia or pneumothorax is seen. XR/XR chest 1V portable [id number] Impression: 1. Satisfactory position of multiple tubes. 2. No acute cardiopulmonary disease is seen.
[2020-07-04 18:49] LABS: Reflex Lactate Order REFLEX LACTIC ORDERD
--- NOTE | 2020-07-04 19:05 | PM.CONSULT ---
Providers/Reason For Consult Consulting Physican/Specialty*: Pulmonary and critical care medicine Reason for Consult*: Worsening pancreatitis, alcohol withdrawal worsening metabolic acidosis and LENA Attending Physician: Ree Young DO Primary Care Provider: CECILY Mitchell History of Present Illness History of Present Illness Shadi Hill is a 54 year old male with a history of coronary artery disease, alcohol and tobacco abuse who presented to the hospital on July 03 with worsening abdominal pain for 2 to 3 days. The pain was in the epigastric region with radiation to the back. The patient has significant history of coronary artery disease. He had a stent placed in 2014. It appears that following stent placement the patient had not followed up with the cardiology for a year and a half. Patient was evaluated again in 2018 for coronary artery disease and subsequently underwent a single-vessel CABG in 2018. The patient also has a significant history of smoking. He has been smoking since he was 12 a pack a day. Based on his medical record, the patient was on Symbicort at home. I could not find any previous pulmonary function test. The patient recently lost a friend and had been drinking heavily. He was evaluated by his primary care doctor on April 22 for alcohol abuse. It appears that the patient had insight into his addiction however he also stated that he was suicidal. Following presentation to the hospital this time, the patient was found to be suffering from alcoholic pancreatitis. His lipase level was 263. Mild hypocalcemia and leukocytosis. A CT scan of the abdomen and pelvis revealed mild pancreatitis with inflammatory stranding around the pancreas. There was no evidence of bowel ischemia or perforation. The CT scan included the lower part of the chest which revealed emphysematous changes. There is no pleural effusion. The patient was treated with IV fluid, pain control. Today the patient started developing a change in his mental status likely secondary to alcohol withdrawal, worsening abdominal pain and distention as well as questionable mottling of the abdominal wall. The patient received a repeat CT scan of the abdomen pelvis with IV contrast. On the CT scan today there was significant progression of the inflammation. The inflammatory changes also involve the duodenum and the colon. On the blood work the patient had persistent leukocytosis, he has developed acute kidney injury with doubling of the creatinine to 1.9 from 0.7. The patient also has mild anion gap metabolic acidosis. His lactic acid level is 2.9. The patient also has mild elevation of the bilirubin levels to 1.3. His calcium level has dropped to 6.4 and the lipase level today is 2036. I had evaluated the patient in the ICU. Patient appeared confused and not able to answer questions appropriately. The abdomen was visibly tender. His blood pressure was hovering in the low 90s. His was present at bedside. After discussion with the we have decided to have a protected airway to prevent any further episode of aspiration which might complicate the process. Following intubation the abdominal pressure measurement was performed the intra-abdominal pressure was 8. The left internal jugular vein central line was placed. On bedside ultrasound the IVC diameter could not be assessed because of the peripancreatic inflammation. There is no pleural effusion. There is no evidence of RV pressure overload or volume overload. No pericardial effusion, ejection fraction about 50%. Review of Systems Narrative: Unable to obtain because of clinical condition. Meds/Allergies Home Medications and Allergies Home Medications Medication Instructions Recorded Confirmed Last Taken Type aspirin 81 mg tablet,delayed 81 mg PO DAILY 01/01/20 07/03/20 07/03/20 History release nitroglycerin 0.4 mg sublingual 0.4 mg SUBLINGUAL Q5M PRN 01/01/20 07/03/20 Unknown History tablet albuterol sulfate 90 mcg/actuation 2 puff INHALATION Q6H PRN #18 gm 04/23/20 07/03/20 Unknown Rx aerosol inhaler budesonide-formoterol HFA 80 2 puff INHALATION BID #10.2 gm 04/23/20 07/03/20 Unknown Rx mcg-4.5 mcg/actuation aerosol inhaler bupropion HCl 150 mg tablet,12 hr 150 mg PO BID #60 tab 04/23/20 07/03/20 07/03/20 Rx sustained-release diltiazem HCl 60 mg tablet 60 mg PO BID #60 tab 04/23/20 07/03/20 07/03/20 Rx metoprolol tartrate 50 mg tablet 25 mg PO BID #30 tab 04/23/20 07/03/20 07/03/20 Rx pantoprazole 40 mg tablet,delayed 40 mg PO DAILY #30 tab 04/23/20 07/03/20 07/03/20 Rx release Mylanta Maximum Strength See Rx Instructions .ROUTE .COMPLEX 07/03/20 07/03/20 07/02/20 History Pepto-Bismol See Rx Instructions .ROUTE .COMPLEX 07/03/20 07/03/20 07/02/20 History simvastatin 40 mg PO DAILY 07/03/20 07/03/20 07/02/20 History Allergies Allergy/AdvReac Type Severity Reaction Status Date / Time No Known Allergies Allergy Verified 07/03/20 12:05 Current Medications Current Medications Generic Name Dose Route Start Last Admin Trade Name Freq PRN Reason Stop Dose Admin Aspirin 81 mg 07/04/20 09:00 07/04/20 11:05 Aspirin Ec PO 81 mg DAILY TAMERA Administration Atorvastatin Calcium 20 mg 07/04/20 09:00 07/04/20 11:03 Lipitor PO 20 mg DAILY TAMERA Administration Bupropion HCl 150 mg 07/03/20 18:00 07/04/20 15:16 Wellbutrin Sr (12 Hr) PO 150 mg BID TAMERA Administration Diltiazem HCl 60 mg 07/03/20 18:00 07/04/20 15:16 Cardizem PO 60 mg BID TAMERA Administration Enoxaparin Sodium 40 mg 07/03/20 16:00 07/04/20 15:16 Lovenox SUBCUT 40 mg Q24H TAMERA Administration Folic Acid 1 mg 07/04/20 09:00 07/04/20 11:08 Folic Acid PO 1 mg DAILY TAMERA Administration Hydralazine HCl 10 mg 07/04/20 00:19 07/04/20 10:54 Apresoline IVP 10 mg Q4H PRN Administration SBP>180 or DBP>100 Hydromorphone HCl 1 mg 07/04/20 04:27 07/04/20 15:17 Dilaudid Inj IVP 1 mg Q4H PRN Administration SEVERE PAIN Lactated Ringer's 1,000 mls @ 100 mls/hr 07/03/20 15:15 07/04/20 11:09 Lactated Ringers IV 100 mls/hr .Q10H TAMERA Administration Dexmedetomidine HCl 400 mcg/ 104 mls @ 0 mls/hr 07/04/20 16:45 07/04/20 17:12 Sodium Chloride IV 0.2 mcg/kg/hr .Q0M TAMERA 5.1 mls/hr Administration Protocol Per Protocol Norepinephrine Bitartrate 4 mg 254 mls @ 0 mls/hr 07/04/20 17:15 07/04/20 17:46 / Dextrose IV 16 mcg/min .Q0M TAMERA 61 mls/hr Administration Protocol Per Protocol Fentanyl 1,000 mcg/ Sodium 100 mls @ 0 mls/hr 07/04/20 17:15 07/04/20 18:09 Chloride IV 100 mcg/hr .Q0M TAMERA 10 mls/hr Administration Protocol Per Protocol Lorazepam 2 mg 07/03/20 15:12 07/04/20 15:17 Ativan IM 2 mg PROTOCOL PRN Administration ALCOWD Protocol Metoprolol Tartrate 25 mg 07/03/20 18:00 07/04/20 15:16 Lopressor PO 25 mg BID TAMERA Administration Multivitamins Therapeutic 1 tab 07/04/20 09:00 07/04/20 11:08 Multivitamin Tab PO 1 tab DAILY TAMERA Administration Nicotine 1 patch 07/03/20 15:15 07/04/20 11:08 Nicoderm 21 Mg Patch TRANSDERMA 1 patch DAILY TAMERA Administration Ondansetron HCl 4 mg 07/03/20 13:50 07/04/20 10:54 Zofran IVP 4 mg Q6H PRN Administration NAUSEA AND VOMITING Fluticasone/Salmeterol 1 puff 07/03/20 20:00 07/04/20 07:31 Advair Diskus 250-50 INHALATION 1 puff BID.RESPIRATORY TAMERA Administration Thiamine Mononitrate 100 mg 07/04/20 09:00 07/04/20 11:07 Vitamin B-1 PO 100 mg DAILY TAMERA Administration PFSH Acute PFSH: Medical History (Updated 07/04/20 @ 19:46 by Lacey Hooks MD) Acute pancreatitis CAD (coronary artery disease) Chronic obstructive pulmonary disease Depression with anxiety History of MO (myocardial infarction) Hyperlipidemia Surgical History S/P CABG (coronary artery bypass graft) S/P PTCA (percutaneous transluminal coronary angioplasty) Family History Other Diabetes Heart disease Social History Smoking and tobacco status: current every day smoker Second hand smoke exposure: Yes Smoking risk assessment/counseling performed?: Yes Alcohol intake: current Alcohol intake frequency: 3 or more drinks per day Alcohol type: hard liquor Desire information about alcohol rehabilitation?: No Counseling given: Yes Desire information about substance/drug rehabilitation?: No Counseling given: No Adopted: No Caregiver/support person: No Lives independently: Yes Household members: significant other Housing: House Marital status: Single Number of children: 2 service: No Current occupational status: employed Pets and animals: Yes History of recent travel: No Current gender identity: Male Vitals/I&O/Wt Last Vital Signs Temp 97.6 F 07/04/20 15:25 Pulse 114 H 07/04/20 15:25 Resp 14 07/04/20 18:07 BP 103/73 07/04/20 15:25 Pulse Ox 96 07/04/20 15:25 07/04/20 07/04/20 07/04/20 06:59 14:59 22:59 Intake Total 888.333 / 7245.637 8821 / 1075 Output Total 700 / 1050 250 / 250 Balance 188.333 / 568.041 1127 / 1075 -250 / 825 Weight last 48 hrs Weight 216 lb 9.6 oz Weight 215 lb Physical Exam Narrative: EXAM NARRATIVE: General: Patient is intubated and sedated Neck: No JVD Respiratory: Auscultation: Bilateral clear to auscultation both anterior and posteriorly, no crackles wheezing or rhonchi Cardiovascular: Regular rate and rhythm, S1-S2 present, no murmur, no right ventricular heave, no peripheral edema. Abdomen: Soft, distended, very sluggish bowel sound Skin: Mild erythema over the abdomen, no Dill Sagastume sign Neuro: Patient is intubated and sedated Urinary Catheter Management^: Betts: Cath Placed During This Visit: yes Urinary Catheter Date of Insertion: 07/04/20 Urinary Catheter Time of Insertion: 16:45 Data Micro: Micro: Microbiology 07/04/20 16:50 Blood Culture - Pr eliminary Blood SPECIMEN COLLEC VISHAL 07/04/20 16:53 Blood Culture - Pr eliminary Blood SPECIMEN COLLE VISHAL Other Data: Attestation for Other Data: I personally reviewed and interpreted the following: Other data: I have reviewed the laboratory, microbiologic and radiologic data. Please see HPI for detail A&P Assessment and plan (1) Acute pancreatitis: This is a 54-year-old gentleman with alcoholic pancreatitis. Based on the CT scan from yesterday it appears that the patient was suffering from acute interstitial pancreatitis. However currently there is significant progression radiologically. There is no evidence of necrosis on the CT scan. There is significant peripancreatic inflammation and there is a possibility that this could represent hemorrhagic pancreatitis. Patient is currently n.p.o. NG tube with low wall suction. His pain is adequately controlled with fentanyl. He is on IV fluids with lactated Ringer's. Given his acute kidney injury and mild acidosis the lactated Ringer's will be more helpful for him. There is no evidence of abdominal compartment syndrome. His intra-abdominal pressure was 8 mmHg. The patient at this point will require supportive therapy. In the absence of development of multiorgan failure I expect this to get better in the next 72 hours. The patient is empirically covered with imipenem currently. Status: Acute (2) Acute kidney injury: The patient has multiple etiologies for LENA. The patient seems to have intravascular volume depletion on bedside ultrasound. There was hemodynamic instability as well today. I am going to continue with IV hydration for the patient however it is important to make sure that the patient does not get over hydrated which can easily result in ARDS-like picture. The patient will need intense input and output monitoring. The patient had received IV contrast today, there is a possibility that his creatinine level will go up for the next 48 hours. With supportive therapy I expect this to get better as well. Status: Acute (3) Lactic acidosis: The patient is receiving IV fluid we will repeat a lactic acid level around 10:00 tonight. Status: Acute (4) Alcohol withdrawal: The patient is an alcoholic and drinks heavily. Currently the patient is on propofol and Precedex. I am hoping over the next 48 hours his alcohol withdrawal symptoms will be better controlled. He needs to have stable mental status before he can be extubated. The patient was intubated with altered mental status in the setting of borderline hypotension and worsening organ failure. Status: Acute (5) Hyponatremia: The hyponatremia is likely secondary to hypovolemia. We will follow-up with repeat labs. Status: Acute (6) Coronary artery disease: The patient has a history of coronary artery disease and underwent CABG in 2018. Given his borderline hypotension the antihypertensives are currently discontinued. The first antihypertensive medication that will be given to the patient when safely possible would be a beta-fidencio. Thank you for the consultation. Status: Acute Coding Level of Care Code Acute Floor Coverings Salesperson for Chg Fwd Diagnoses Acute pancreatitis K85.90 Acute kidney injury N17.9 Lactic acidosis E87.2 Alcohol withdrawal F10.239 Hyponatremia E87.1 Coronary artery disease I25.10
[2020-07-04 19:10] LABS: Glucose Point of Care 146 mg/dL (70-110)
--- NOTE | 2020-07-04 19:17 | PC.NURSE ---
1814 Time out for Left subclavian central line, placed by Dr. Hooks.
--- NOTE | 2020-07-04 19:21 | PC.NURSE ---
1745 Patient intubated at approx 1745, see MAR for medication administration. 8.0 cm ET tube, 24 at the lip, OG placed. Placement confirmed by auscultation, color changes, and CXR. Vitals WNL. See provider notes.
--- NOTE | 2020-07-04 19:59 | PM.ACPR ---
Procedure/Consent Time out: Time Out Performed: Yes Consent: Consent for Procedure: Consent obtained from other (indicate) Procedure Narrative: Name of the procedure: Endotracheal intubation. Indication: Acute encephalopathy secondary to alcohol withdrawal Medications: Versed: 2 mg IV, fentanyl 50 mcg IV, etomidate 20 mg IV, rocuronium 50 mg. Procedure: Following administration of the appropriate IV medications, the patient was positioned optimally. The patient was oxygenated with 100% oxygen with bag mask ventilation. The laryngoscope was introduced and advanced to vocal cords are visualized. The endotracheal tube was advanced through the vocal cords under direct visualization. There was fogging of the ET tube, positive change in end-tidal CO2 monitor, bilateral chest rise, bilateral positive breath sound. The ET tube was secured at 24 cm at the lips. Complications: There was no immediate complications. Chest x-ray: The ET tube was in good position. Acute Procedures Epistaxis Control: Time out performed: Yes
--- NOTE | 2020-07-04 20:01 | PM.ACPR ---
Procedure/Consent Time out: Time Out Performed: Yes Consent: Consent for Procedure: Consent obtained from other (indicate) Procedure Narrative: Name of the Procedure: Left Internal Jugular Central venous catheter placement under ultrasound guidance. Indication: need for vasopressor Anesthesiia: Lidocaine 1%, 5 ml Description of the procedure: The left IJ vein was identified with the Ultrasound from collapsibility and lack of pulsatility. The site was prepared using sterile technique. The skin and subcuteneous tissue was anesthetized using lidocaine. The introducer needle was advanced under US guidance till flash back was noted. Dark, non pulsatile blood noted. Using seldinger technique the CVC was put in.Blood return was noted in all ports. Catheter was secured with suture and covered with transparent dressing. Complications: None X-ray: The triple-lumen catheter is in the lower SVC. Acute Procedures Epistaxis Control: Time out performed: Yes
[2020-07-04 20:05] LABS: Lactic Acid level (Lactate) 2.5 mmol/L (0.5-2.2)
[2020-07-04 21:01] LABS: ABG PCO2 32.8 mmHg (35-45); ABG PH Result 7.31 (7.35-7.45); Arterial Blood Gas Hematocrit 54.3 % (42-52); Base Excess ABG -8.4 mmol/L (-2.0-2.0); Blood Gas Sample Site Brachial, right; Blood Gas Sample Type Arterial; HCO3 ABG 16.6 mmol/L (22-26); Oxygen Device VENT
[2020-07-04] MEDS: budesonide 0.5 mg/2 mL Neb INHALATION (21:33)
[2020-07-04] MEDS: ipratropium-albuterol 3 mL Neb INHALATION (21:33)
[2020-07-04] MEDS: pantoprazole 40 mg SDV IVP (21:33)
[2020-07-04] MEDS: doxycycline 100 MG in sodium chloride 0.9% (plus) 100 ML IV (22:30)
--- NOTE | 2020-07-04 22:35 | PC.NURSE ---
Two ticks found on groin area, and on right upper leg. Reported find to . ordered for removal of ticks, and start Doxycycline 100mg IV as prophylaxis measures. Ticks removed and intact. Abx hung as well.
[2020-07-05] VITALS (120 sets, daily range): BP systolic 74–143; BP diastolic 55–95; PULSE 88–119; RESP 17–30; TEMP 36.4–37.9; O2SAT 92–99
[2020-07-05] MEDS: dexmedetomidine 400 MCG in sodium chloride 0.9% (100 ml) 100 ML 10.2 MCG IV ×3 (01:34→18:02)
[2020-07-05 04:36] LABS: Basophils % 0.3 %; Eosinophils % 0.2 %; Hematocrit 46.2 % (42.0-52.0); Hemoglobin 15.6 g/dL (11.7-16.6); Lymphocytes # 1.8 10^3/uL (0.8-4.8); Lymphocytes % 12.9 %; Mean Corpuscular HGB Conc 33.8 g/dL (30.0-36.0); Mean Corpuscular Hemoglobin 32.8 pg (28.0-34.0); Mean Corpuscular Volume 97.1 fL (80-94); Mean Platelet Volume 10.5 fL (7.4-10.4); Monocytes # 0.8 10^3/uL (0.2-0.9); Neutrophils # 11.23 10^3/uL (1.8-7.7); Neutrophils % 80.2 %; Nucleated Red Blood Cells % 0 %; Platelet Count 219 10^3/cmm (130-400); Red Blood Count 4.76 10^6/uL (4.1-5.3); Red Cell Distribution Width 12.3 % (12.1-15.1)
[2020-07-05] MEDS: ipratropium-albuterol 3 mL Neb INHALATION ×4 (04:42→20:08)
[2020-07-05 05:01] LABS: INR 1.08 (0.8-1.2)
[2020-07-05 05:16] LABS: Alanine Aminotransferase 20 U/L (0-41); Albumin Level 2.9 g/dL (3.5-5.2); Alkaline Phosphatase 69 IU/L (40-130); Anion Gap 19.4 (5-19); Aspartate Amino Transferase 43 U/L (0-40); Blood Urea Nitrogen 31 mg/dL (6-20); Calcium 6.5 mg/dL (8.5-10.5); Carbon Dioxide 19 mmol/L (22-29); Chloride 99 mmol/L (98-107); Creatinine Clr Calc Pharmacy 33.9859; Globulin 3.3 g/dL (1.3-4.6); Glomerular Filtration Rate 22.6 mL/min (90-130); Glucose 124 mg/dL (65-115); Osmolality Calculated 275 mOsm/kg (285-295); Potassium 4.4 mmol/L (3.5-5.1); Sodium 133 mmol/L (136-145); Total Bilirubin 1.1 mg/dL (0.15-1.2); Total Protein 6.2 g/dL (6.6-8.7)
[2020-07-05] MEDS: sodium chloride 0.9% 500 ML IV (05:22)
[2020-07-05 05:26] LABS: Lipase 1139 U/L (13-60)
--- NOTE | 2020-07-05 05:28 | PC.NURSE ---
LR at 100mL/hr until 0500. Little to no output of 175 throughout shift measured. Pressures continue to remain 70-80's systolic and 50-60's diastolic regardless of the titration of sedatives, and pressors throughout shift. PLR-Cheetah preformed with a not fluid responsive result given. HR climbing into the 123-130's, and BP suddenly dropping regardless of titration throughout shift. MD Guy notified by phone of Cheetah results. then ordered for a 500mL bolus to be initiated, which resulted in a 22% change in SVI. Pressures raised to 102/66 immediately after Bolus initiated within 100 ml into NS Bolus. notified and approved for 500mL bolus of NS, with continued LR fluids running after completion at 100ml/hr. Patient pulses weak by doppler before shift, and profusely sweating regardless of cooling measures. Skin cool to touch. Patient alert at times, and would complain of being hot. After fluid bolus, patient's color returned to a normal shade, and sweating decreased with pulses becoming louder by doppler and felt stronger by palpation.
[2020-07-05 05:41] LABS: ABG PCO2 25.9 mmHg (35-45); ABG PH Result 7.39 (7.35-7.45); Arterial Blood Gas Hematocrit 47.3 % (42-52); Base Excess ABG -7.2 mmol/L (-2.0-2.0); Blood Gas Sample Site Brachial, left; Blood Gas Sample Type Arterial; Carboxyhemoglobin 0.9 %THgb (0.4-20.1); HCO3 ABG 15.8 mmol/L (22-26); HGB O2 Sat 95.1 % (95-100); Ionized Calcium Level - ABG 0.9 mmol/L (1.1-1.4); Methemoglobin 0.8 % (0.4-1.5); Oxygen Device VENT; Oxygen Saturation ABG 96.8; PO2 ABG 78.2 mmHg (80.0-100.0); Potassium Level - ABG 4.1 mmol/L (3.5-5.0); Total Hemoglobin 15.4 g/dL (14-18)
--- NOTE | 2020-07-05 06:00 | USCV_ITS ---
Shadi Hill Age: 54 Gender: M : 1965 Exam Date: 07/05/2020 05:48 Ordering Phys: Ree Young DO Technologist: Dafne Cabrera Exam Location: [facility] – [place] Indication: EVALUATION OF EF BP: 92 / 71 HR: 103 Rhythm: Sinus Technical Quality: Adequate MEASUREMENTS (Male / Female) Normal Values 2D ECHO LV Diastolic Diameter PLAX 4.5 cm 4.2 - 5.9 / 3.9 - 5.3 cm LV Systolic Diameter PLAX 3.3 cm LV Chamber Size 3.8 cm IVS Diastolic Thickness 1.8 cm 0.6 - 1.0 / 0.6 - 0.9 cm IVS Systolic Thickness 1.9 cm LVPW Diastolic Thickness 1.1 cm 0.6 - 1.0 / 0.6 - 0.9 cm LVPW Systolic Thickness 1.5 cm RV Chamber Size 2.3 cm LVOT Diameter 2.0 cm LV Ejection Fraction 2D Teich 54.2 % LV Ejection Fraction MOD 2C 28.3 % LV Ejection Fraction 2C AL 27.2 % LA Diameter 4.3 cm LA Width 2.5 cm LA Height 4.9 cm RA Width 2.8 cm RA Height 4.6 cm Aorta at Sinotubular Diameter 3.9 cm M-MODE LV Diastolic Diameter MM 5.3 cm 4.2 - 5.9 / 3.9 - 5.3 cm LV Systolic Diameter MM 3.6 cm LV Ejection Fraction MM Teich 58.1 % IVS Diastolic Thickness MM 1.2 cm 0.6 - 1.0 / 0.6 - 0.9 cm IVS Systolic Thickness MM 1.5 cm LVPW Diastolic Thickness MM 1.3 cm 0.6 - 1.0 / 0.6 - 0.9 cm LVPW Systolic Thickness MM 2.0 cm RV Diastolic Diameter MM 1.5 cm Aortic Annulus Diameter 4.0 cm LA Ao Ratio MM 1.1 MV E Point Septal Separation 1.9 cm FINDINGS Left Ventricle Normal left ventricular cavity size. Mildly increased left ventricular wall thickness. Mildly decreased left ventricular systolic function. Left ventricular ejection fraction is estimated at 45-50 %. There is hypokinesis of septal and inferior wall. Abnormal (paradoxical) septal motion consistent with postoperative status. Right Ventricle Normal right ventricular size and systolic function. Right Atrium Normal right atrial size. Left Atrium Normal left atrial size. Mitral Valve Structurally normal mitral valve. Aortic Valve Structurally normal trileaflet aortic valve. Tricuspid Valve Structurally normal tricuspid valve. Pulmonic Valve Structurally normal pulmonic valve. Pericardium No pericardial effusion. Echo free space anterior to the right ventricle likely represents a fat pad. Aorta Normal-sized aortic root. CONCLUSIONS 1. This is a limited 2D echo only. 2. Normal left ventricular cavity size. Mildly increased left ventricular wall thickness. Mildly decreased left ventricular systolic function. Left ventricular ejection fraction is estimated at 45-50 %. There is hypokinesis of septal wall. 3. When compared to previous echocardiogram dated 02/03/2019, there may not have been any significant change. Isa Blum MD (Electronically Signed) Final Date: 05 July 2020 12:54 S
[2020-07-05] MEDS: lactated ringers 1,000 ML 100 ML IV (06:19)
--- NOTE | 2020-07-05 07:09 | P.PN_ITS ---
Subjective Subjective: Interval history: The patient was seen and examined this morning. Overnight the patient remained hemodynamically stable. He received IV fluid. He is about 3 L positive since yesterday. Urine output is minimal. The patient is oliguric ATN. His leukocytosis is coming down. Lactate level is normalized. Patient is doing well on the current ventilator setting. His arterial blood gas this morning was good. The patient seems to have a mental status. He was able to look at me on verbal command however he was not following any commands. Currently the patient is sedated with propofol, Precedex and fentanyl. The patient received a dose of doxycycline for tickborne diseases overnight. Medications: Reviewed: Yes Vitals/I&O/Wt Last Vital Signs Temp 97.6 F 07/05/20 01:25 Pulse 110 H 07/05/20 04:43 Resp 22 H 07/05/20 04:44 BP 89/62 07/05/20 04:20 Pulse Ox 96 07/05/20 04:43 07/04/20 07/05/20 07/05/20 22:59 06:59 14:59 Intake Total 1361.887 / 2436.887 1179.9 / 3616.787 Output Total 350 / 350 175 / 525 Balance 1011.887 / 2086.887 1004.9 / 3091.787 Weight last 48 hrs Weight 231 lb Weight 216 lb 9.6 oz Weight 215 lb Physical Exam Narrative: EXAM NARRATIVE: General: Patient is intubated and sedated, opens eyes to command Neck: No JVD Respiratory: Auscultation: Bilateral clear to auscultation both anterior and posteriorly, no crackles wheezing or rhonchi Cardiovascular: Regular rate and rhythm, S1-S2 present, no murmur, no peripheral edema. Abdomen: Soft, mildly distended, very sluggish bowel sound Skin: The erythema over the abdomen is better today, no Dill Sagastume sign Neuro: Patient is intubated and sedated Urinary Catheter Management^: Betts: Cath Placed During This Visit: yes Reason for Continuing Indwelling Catheter: Accurate Measurement of Urinary Output in Critically Ill Patients Urinary Catheter Date of Insertion: 07/04/20 Urinary Catheter Time of Insertion: 16:45 Data : 07/05/20 04:08 07/05/20 04:08 Other Labs: I have reviewed the patient's laboratory, microbiologic and radiologic data. Micro: Microbiology 07/04/20 16:50 Blood Culture - Preliminary Blood SPECIMEN COLLECTED 07/04/20 16:53 Blood Culture - Preliminary Blood SPECIMEN COLLECTED A&P Assessment and plan (1) Acute pancreatitis: This is a 54-year-old gentleman with likely hemorrhagic pancreatitis without any evidence of necrosis on the CT scan of the pancreas with contrast. Currently the patient is covered with imipenem. Overall the patient is getting better. His leukocytosis is coming down, his lactate has normalized his hyponatremia has resolved. We will continue the supportive therapy. Keep him n.p.o. today, will likely be able to start tube feeds tomorrow. Status: Acute (2) Acute kidney injury: The patient has multiple etiologies for LENA. Currently the patient is in oliguric acute tubular necrosis. This is likely to get better with time. The patient will need supportive therapy. The most important thing at this point is to avoid getting the patient profoundly volume overloaded. The patient is 3 L fluid positive. I am discontinuing the maintenance IV fluid. Just with the sedation and vasopressor the patient will receive about 75 cc of fluid an hour. I expect the urine output to get better in the next 48 hours. The patient might benefit from IV diuretics if there is evidence of fluid overload. The patient has a history of coronary artery disease and CABG he is likely to go into heart failure with overhydration. We need to make sure that the patient is not volume overloaded prior to extubation. Status: Acute (3) Lactic acidosis: The patient is receiving IV fluid we will repeat a lactic acid level around 10:00 tonight. Status: Acute (4) Alcohol withdrawal: The patient is on Precedex and propofol. We can continue the Precedex for the time being. Once the patient's mental status is better he will be ready for extubation Status: Acute (5) Hyponatremia: Hyponatremia has resolved with IV fluid resuscitation. Status: Acute (6) Coronary artery disease: Hold off antihypertensives for the time being. Once her blood pressure is stable and off of pressors he will be a candidate to restart intravenous beta-blockers. Status: Acute (7) Hypocalcemia: Likely secondary to deposition of calcium in the inflamed tissue in the peripancreatic area. We should check the ionized calcium level and replace calcium as needed. I expect the patient to get better in the next 48 hours. Status: Acute Attestations Medical Necessity Statement*: Will defer to the primary team Coding Level of Care Code Acute Toe Former Stitchdowns for Aislinn Fwd Diagnoses Acute pancreatitis K85.90 Acute kidney injury N17.9 Lactic acidosis E87.2 Alcohol withdrawal F10.239 Hyponatremia E87.1 Coronary artery disease I25.10 Hypocalcemia E83.51
--- NOTE | 2020-07-05 08:11 | PM.PN ---
Subjective Subjective: Interval history: Patient was intubated last night due to agitation, has been stable overnight. Vitals/I&O/Wt Last Vital Signs Temp 97.6 F 07/05/20 01:25 Pulse 110 H 07/05/20 04:43 Resp 22 H 07/05/20 04:44 BP 89/62 07/05/20 04:20 Pulse Ox 96 07/05/20 04:43 07/04/20 07/05/20 07/05/20 22:59 06:59 14:59 Intake Total 1361.887 / 3616.787 1179.9 / 3616.787 Output Total 350 / 525 175 / 525 Balance 1011.887 / 3091.787 1004.9 / 3091.787 Weight last 48 hrs Weight 231 lb Weight 216 lb 9.6 oz Weight 215 lb Physical Exam Narrative: EXAM NARRATIVE: Abdomen: Soft, distended, no guarding or rigidity Urinary Catheter Management^: Betts: Cath Placed During This Visit: yes Reason for Continuing Indwelling Catheter: Accurate Measurement of Urinary Output in Critically Ill Patients Urinary Catheter Date of Insertion: 07/04/20 Urinary Catheter Time of Insertion: 16:45 Data : 07/06/20 04:20 07/06/20 04:20 Micro: Microbiology 07/04/20 16:50 Blood Culture - Preliminary Blood SPECIMEN COLLECTED 07/04/20 16:53 Blood Culture - Preliminary Blood SPECIMEN COLLECTED A&P Assessment and plan (1) Acute pancreatitis: 54-year-old gentleman with history of alcoholism who is now developed acute pancreatitis with agitation/delirium secondary to alcohol withdrawal and acute renal failure secondary to third spacing. Abdomen is distended but not concerning for compartment syndrome at this point Continue IV antibiotics Aggressive fluid resuscitation to compensate for third spacing No surgical intervention required at this point Status: Acute Attestations Medical Necessity Statement*: Acute pancreatitis with renal failure on the ventilator requiring continued inpatient stay Coding Level of Care Code Acute Sex Offender Treatment Professional for Aislinn Swanson Diagnoses Acute pancreatitis K85.90
[2020-07-05] MEDS: pantoprazole 40 mg SDV IVP ×2 (09:43→21:07)
[2020-07-05] MEDS: propofol 1,000 MG/100 ML INJ 2.9 MG IV ×2 (10:25→18:02)
[2020-07-05] MEDS: bumetanide 0.25 mg/mL SDV 10 mL 1 MG IV (12:00)
--- NOTE | 2020-07-05 12:10 | PC.NURSE ---
severe restless kicking legs etc.. resp faster and diaphoritic called and Bumex given at this time and fentynl restarted
[2020-07-05] MEDS: norepinephrine 8 MG in dextrose 5 % 500 ML 45.7 MG IV (12:59)
--- NOTE | 2020-07-05 14:31 | P.PN_ITS ---
Subjective Subjective: Interval history: Patient intubated and sedated this morning at time of exam. RN at bedside during exam reported the patient has been resting comfortably, no acute concerns Medications: Reviewed: Yes Vitals/I&O/Wt Last Vital Signs Temp 100.3 F H 07/05/20 13:00 Pulse 102 H 07/05/20 14:19 Resp 27 H 07/05/20 14:19 BP 74/55 07/05/20 13:00 Pulse Ox 95 07/05/20 14:19 07/04/20 07/05/20 07/05/20 22:59 06:59 14:59 Intake Total 1361.887 / 2436.887 1179.9 / 3616.787 137.985 / 137.985 Output Total 350 / 350 175 / 525 50 / 50 Balance 1011.887 / 2086.887 1004.9 / 3091.787 87.985 / 87.985 Weight last 48 hrs Weight 104.78 kg Weight 98.248 kg Physical Exam Const: OTHER: Intubated, sedated HENMT: COMMON NORMALS: normocephalic and atraumatic HEAD & SCALP: normocephalic and atraumatic OTHER: ETT in place Eye: COMMON NORMALS: Equal, round and reactive pupils present PUPIL: Yes Equal, round and reactive pupils present Neck/C-Spine: COMMON NORMALS: supple GENERAL: Yes normal visual inspection Resp: AUSCULTATION: no rhonchi and no wheezes OTHER: Intubated, normal breath sounds bilaterally no appreciable wheezing or rhonchi Cardio: COMMON NORMALS: regular rhythm and No murmurs present (Cardio) RATE: tachycardic RHYTHM: regular rhythm GI: OTHER: Soft, tenderness to palpation epigastric region, no guarding or rigidity, normal bowel sounds, no appreciable masses Extremity: COMMON NORMALS: no clubbing, cyanosis or edema and no calf tenderness Psych: OTHER: Sedated, intubated Skin: COMMON NORMALS: no rashes or lesions noted GENERAL SKIN EXAM: no rashes or lesions noted Urinary Catheter Management^: Betts: Cath Placed During This Visit: yes Reason for Continuing Indwelling Catheter: Accurate Measurement of Urinary Output in Critically Ill Patients Urinary Catheter Date of Insertion: 07/04/20 Urinary Catheter Time of Insertion: 16:45 Data : 07/05/20 04:08 07/05/20 04:08 Micro: Microbiology 07/04/20 16:50 Blood Culture - Preliminary Blood SPECIMEN COLLECTED 07/04/20 16:53 Blood Culture - Preliminary Blood SPECIMEN COLLECTED A&P Assessment and plan (1) Acute pancreatitis: N.p.o. Surgery consult, Dr. Gray, appreciate recommendations and assistance in patient's care We will continue with conservative management IVF decreased as do not wish to overload patient due to his history of coronary artery disease status post CABG Repeat CT scan of the abdomen and pelvis yesterday showed significantly increased inflammation and edema surrounding the pancreas we will continue with close monitoring Patient intubated and sedated due to concern for severe alcohol withdrawal and for close monitoring of abdominal pressures Status: Acute (2) Chronic obstructive pulmonary disease: Without acute exacerbation, oxygen per protocol Status: Chronic (3) Alcohol abuse: Concern for severe alcohol withdrawal, appreciate recommendations from critical care consultation Patient remains on CIWA protocol with Ativan Propofol and Precedex drip for sedation Status: Chronic (4) CAD (coronary artery disease): With a history of coronary artery bypass grafting and stent placement Continue on aspirin, statin, metoprolol Status: Chronic Qualifiers: Coronary Disease-Associated Artery/Lesion type: [place] artery [place] vs. transplanted heart: [place] heart Associated angina: without angina Qualified Code(s): I25.10 - Atherosclerotic heart disease of [place] coronary artery without angina pectoris Additional A&P Information Acute kidney injury: Patient has increase in BUN and creatinine due to sepsis secondary to pancreatitis. We will continue to monitor intake and output cl osely, currently 3 L positive. May require IV diuresis but will continue to monitor hemodynamic status Lactic acidosis Hyponatremia Hypocalcemia GI prophylaxis: PPI Diet: NPO DVT prophylaxis: Lovenox CODE STATUS: Full code Attestations Medical Necessity Statement*: Patient requires further hospitalization due to severe alcohol withdrawal and severe alcoholic pancreatitis Coding Level of Care Code Acute Inbound Call Center Representative for [facility] Fwd Diagnoses Acute pancreatitis K85.90 Chronic obstructive pulmonary disease J44.9 Alcohol abuse F10.10 CAD (coronary artery disease) I25.10 Coronary Disease-Associated Artery/Lesion type: [place] artery [place] vs. transplanted heart: [place] heart Associated angina: without angina
[2020-07-05] MEDS: enoxaparin 40 mg/0.4 mL Syringe SUBCUT (15:48)
--- NOTE | 2020-07-05 16:12 | PC.NURSE ---
password [facility]
--- NOTE | 2020-07-05 19:00 | PC.NURSE ---
Report received, care assumed. Monitor alarms, plan of care et previous orders reviewed. Please see physical assessment et vital sign flowsheet for details.
[2020-07-05] MEDS: budesonide 0.5 mg/2 mL Neb INHALATION (20:09)
[2020-07-05] MEDS: propofol 1,000 MG/100 ML INJ 17.7 MG IV (23:55)
[2020-07-06] VITALS (112 sets, daily range): BP systolic 72–131; BP diastolic 55–82; PULSE 84–105; RESP 12–23; TEMP 36.6–37.4; O2SAT 92–98
--- NOTE | 2020-07-06 01:04 | PC.NURSE ---
Patient is intubated et on Precedex gtt. Patient is not showing any signs of ETOH withdrawal on current medications.
--- NOTE | 2020-07-06 01:06 | PC.NURSE ---
Gastric tube is orally placed
--- NOTE | 2020-07-06 01:08 | PC.NURSE ---
Propofol gtt tubing was changed with new bottle. Distal line prn adapter changed.
[2020-07-06] MEDS: norepinephrine 8 MG in dextrose 5 % 500 ML 34.3 MG IV (03:09)
[2020-07-06] MEDS: dexmedetomidine 400 MCG in sodium chloride 0.9% (100 ml) 100 ML 10.2 MCG IV (03:37)
[2020-07-06] MEDS: propofol 1,000 MG/100 ML INJ 17.7 MG IV (03:40)
[2020-07-06 04:39] LABS: Hematocrit 41.4 % (42.0-52.0); Hemoglobin 13.8 g/dL (11.7-16.6); Mean Corpuscular HGB Conc 33.3 g/dL (30.0-36.0); Mean Corpuscular Hemoglobin 32.7 pg (28.0-34.0); Mean Corpuscular Volume 98.1 fL (80-94); Mean Platelet Volume 10.6 fL (7.4-10.4); Platelet Count 153 10^3/cmm (130-400); Red Blood Count 4.22 10^6/uL (4.1-5.3); Red Cell Distribution Width 12.9 % (12.1-15.1); White Blood Count 14.3 10^3/uL (4.0-10.0)
[2020-07-06 04:54] LABS: INR 1.09 (0.8-1.2)
[2020-07-06 05:00] LABS: Arterial Blood Gas Hematocrit 42.3 % (42-52); Base Excess ABG -6.5 mmol/L (-2.0-2.0); Blood Gas Sample Site Brachial, right; Blood Gas Sample Type Arterial; HCO3 ABG 16.8 mmol/L (22-26); Oxygen Device VENT; PO2 ABG 87.6 mmHg (80.0-100.0)
[2020-07-06 05:07] LABS: Alanine Aminotransferase 16 U/L (0-41); Albumin Level 2.5 g/dL (3.5-5.2); Alkaline Phosphatase 62 IU/L (40-130); Aspartate Amino Transferase 36 U/L (0-40); Blood Urea Nitrogen 45 mg/dL (6-20); Calcium 6.3 mg/dL (8.5-10.5); Carbon Dioxide 19 mmol/L (22-29); Chloride 99 mmol/L (98-107); Globulin 3.8 g/dL (1.3-4.6); Glomerular Filtration Rate 22.6 mL/min (90-130); Glucose 153 mg/dL (65-115); Osmolality Calculated 277 mOsm/kg (285-295); Sodium 133 mmol/L (136-145); Total Bilirubin 0.8 mg/dL (0.15-1.2); Total Protein 6.3 g/dL (6.6-8.7)
[2020-07-06 05:08] LABS: Slide Review Slide Review Perform
[2020-07-06 05:10] LABS: Anion Gap 19.5 (5-19); Potassium 4.5 mmol/L (3.5-5.1)
[2020-07-06 05:22] LABS: Absolute Eosinophils 0.1 10^3/cmm (0.0-0.7); Absolute Segmented Neutrophil 5.7 10/cmm (1.6-7.1); Band Neutrophils Absolute 3.9 10^3/cmm (0.0-1.2); Eosinophils 1 %; Lymphocytes 14 %; Monocytes Absolute 1.9 10^3/cmm (0.1-0.6); Segmented Neutrophils 40 %; Total Cells Counted 100 (0-100)
[2020-07-06 05:23] LABS: Absolute Neutrophil 9.6 10^3/cmm (1.4-6.5); Platelet Estimate Normal (Normal); Poikilocytosis Trace; Polychromasia Trace
--- NOTE | 2020-07-06 05:54 | PC.NURSE ---
Patient's lab results reviewed. No critical values to report.
--- NOTE | 2020-07-06 06:38 | PC.NURSE ---
Report given to next shift.
--- NOTE | 2020-07-06 07:10 | XRR_ITS ---
PROCEDURE INFORMATION: Exam: XR Chest, 1 View Exam date and time: 07/06/2020 8:02 AM Age: 54 years old Clinical indication: Cardiovascular condition or disease; Coronary artery disease (cad) or atherosclerosis; Without angina pectoris; Prior surgery; Surgery date: 3-7 days post-operative; Surgery type: Cabg; Additional info: Intubated TECHNIQUE: Imaging protocol: XR of the chest Views: 1 view. COMPARISON: CR XR chest 1V portable [id number] 07/04/2020 6:44 PM FINDINGS: Tubes, catheters and devices: Enteric tube extends to the left abdomen. Central vascular catheter tip resides at the upper superior vena cava. Endotracheal tube tip resides 3.3 cm above the june. Lungs: Unremarkable. No consolidation. Pleural space: Unremarkable. No pleural effusion. No pneumothorax. Heart/Mediastinum: Cardiomegaly. Bones/joints: Chronic fracture deformity lateral lower right rib. XR/XR chest 1V portable [id number] IMPRESSION: No focal consolidation. Stable chest.
--- NOTE | 2020-07-06 07:17 | P.PN_ITS ---
Subjective Subjective: Interval history: Patient remains intubated and sedated. On examination patient is on propofol, fentanyl, Precedex. Patient is on Levophed of 9. Patient is currently intubated on settings of FiO2 35%, PEEP of 10, respiratory rate of 19 the patient is breathing over the vent at rate of 22. Medications: Reviewed: Yes Vitals/I&O/Wt Last Vital Signs Temp 98.9 F 07/06/20 00:00 Pulse 104 H 07/06/20 04:45 Resp 19 H 07/06/20 05:35 BP 107/77 07/06/20 04:45 Pulse Ox 96 07/06/20 04:45 07/05/20 07/06/20 07/06/20 22:59 06:59 14:59 Intake Total 744.053 / 982.038 479.438 / 1461.476 Output Total 450 / 500 1450 / 1950 Balance 294.053 / 482.038 -970.562 / -488.524 Weight last 48 hrs Weight 102.512 kg Weight 104.78 kg Physical Exam Narrative: EXAM NARRATIVE: General: Sedated on ventilator, arousable HEENT: PERRLA, pupils bilaterally equal and reactive Chest: Normal vesicular breath sounds, decreased breath sounds bilaterally in lower zone, no added sounds, equal good air entry bilaterally CVS: S1-S2 regular, no murmurs, no tachycardia, no gallops, no rubs Abdomen: Distended, bowel sounds sluggish, tympanic, no rebound Neuro: Sedated on ventilator, following simple commands on arousal. Urinary Catheter Management^: Betts: Cath Placed During This Visit: yes Reason for Continuing Indwelling Catheter: Accurate Measurement of Urinary Output in Critically Ill Patients Urinary Catheter Date of Insertion: 07/04/20 Urinary Catheter Time of Insertion: 16:45 Data : 07/06/20 04:20 07/06/20 04:20 Micro: Microbiology 07/04/20 16:50 Blood Culture - Preliminary Blood NEGATIVE TO DATE 07/04/20 16:53 Blood Culture - Preliminary Blood NEGATIVE TO DATE A&P Assessment and plan (1) Shock: Status: Acute (2) Acute pancreatitis: Status: Acute (3) Alcohol abuse: Status: Chronic (4) Alcohol withdrawal: Status: Acute (5) Acute kidney injury: Status: Acute (6) Hypocalcemia: Status: Acute (7) Hyponatremia: Status: Acute (8) S/P CABG (coronary artery bypass graft): Status: Acute (9) Chronic obstructive pulmonary disease: Without acute exacerbation, oxygen per protocol Status: Chronic (10) CAD (coronary artery disease): With a history of coronary artery bypass grafting and stent placement Continue on aspirin, statin, metoprolol Status: Chronic Qualifiers: Associated angina: without angina Coronary Disease-Associated Artery/Lesion type: [place] artery [place] vs. transplanted heart: [place] heart Qualified Code(s): I25.10 - Atherosclerotic heart disease of [place] coronary artery without angina pectoris Additional A&P Information 54-year-old gentleman past medical history of CAD with post CABG came in because of alcohol abuse found to be in pancreatitis. He was intubated after he started having abdominal distention and was in shock. Neurology: Acute metabolic encephalopathy most likely because of alcohol withdrawal and walk. Sedation vacation. We will try to wean off propofol. Continue with Precedex and fentanyl. Can increase fentanyl at that point have analgesia as well. Continue with IV thiamine. Cardiovascular: At present patient is in shock. Most likely a combination of hypovolemic and sepsis. Patient has history of CABG. Last echocardiogram in May 2019 shows an EF of 50% with global LV hypokinesis. Keep mean arterial pressure was 65 mmHg. Try weaning of Levophed accordingly. 500 cc IV bolus with normal saline followed by 100 cc/h. Cheetah examination the patient will be false because of abdominal distention. Repeat echocardiogram. For now we will hold off on aspirin. Hold off on antihypertensives as patient is on inotropes at present. Pulmonology: Patient is intubated. Keep saturation over 90%. ABG appreciated. Patient is breathing over the vent. Continue with budesonide and DuoNeb's every 4 hourly. Start chest x-ray today morning. We will plan to keep patient intubated for now. Gastroenterology: Acute pancreatitis. Patient CT abdomen appreciated. Continue with NG tube. Overall patient had 900 cc overnight. Continue with Protonix 40 mg IV twice daily. We will start patient on Reglan. Keep n.p.o. for now. Surgical recommendations appreciated. Nephrology: Patient is in LENA. Most likely from ATN. Cannot rule out abdominal compartment syndrome. Urine output still minimal. Patient is around 3.5 L positive. Creatinine and BUN trending up today. Check urine lites, urinalysis, urine eosinophils. Check magnesium, phosphorus. Give patient 500 cc normal saline bolus followed by 500 cc/h. We will also give patient Lasix 80 mg IV stat. If urine output does not improve we will check abdominal pressures. If creatinine continues to worsen will most likely need to involve nephrology for possible dialysis. Hypocalcemia: Calcium level 6.3. Corrected 7. 2 g IV calcium and 1 mg IV magnesium. Hyponatremia: Sodium 133. We will continue to monitor. High anion gap acidosis: Most likely from acute kidney injury. Infectious disease: Repeat blood cultures. T-max in last 24 hours 100.4 Fahrenheit. Patient is on imipenem. Blood cultures have remained negative. Add vancomycin. We will have to dose antibiotics renally. Nutrition: Patient will most likely be kept n.p.o. for some future. Will most likely plan for TPN. Lines intact. Full code. Lovenox for DVT prophylaxis Protonix for PUD prophylaxis Attestations Medical Necessity Statement*: Shock, acute pancreatitis, alcohol withdrawal, mechanically ventilated Critical Care Time: Critical Care Time (min): 80 Coding Level of Care Code Acute Flyer Maker for [facility] Fwd Diagnoses Shock R57.9 Acute pancreatitis K85.90 Alcohol abuse F10.10 Alcohol withdrawal F10.239 Acute kidney injury N17.9 Hypocalcemia E83.51 Hyponatremia E87.1 S/P CABG (coronary artery bypass graft) Z95.1 Chronic obstructive pulmonary disease J44.9 CAD (coronary artery disease) I25.10 Associated angina: without angina Coronary Disease-Associated Artery/Lesion type: [place] artery [place] vs. transplanted heart: [place] heart
[2020-07-06] MEDS: ipratropium-albuterol 3 mL Neb INHALATION ×4 (07:39→19:52)
[2020-07-06] MEDS: budesonide 0.5 mg/2 mL Neb INHALATION ×2 (07:39→19:52)
[2020-07-06 07:45] LABS: Magnesium 1.4 mg/dL (1.7-2.3); Phosphorus 4.4 mg/dL (2.5-4.5)
[2020-07-06] MEDS: sodium chloride 0.9% 1,000 ML 100 ML IV ×3 (07:54→20:26)
[2020-07-06] MEDS: sodium chloride 0.9% 500 ML 999 ML IV ×2 (07:55→08:03)
[2020-07-06 08:02] LABS: Amorphous Sediment Urine 4+; Bacteria Urine 1+; Bilirubin Urine 1+ (NEGATIVE); Blood Urine 2+ (Negative); Glucose Urine UA Norm (Normal); Ketones Urine 1+ (Negative); Leukocyte Esterase Urine Trace (Negative); Nitrate Urine Negative (Negative); Protein Urine 1+ (Negative); RBC Urine 0-4 /hpf (0-2); Urine Appearance Turbid (CLEAR); Urine Color Dark Yellow (Yellow); Urobilinogen Urine 1 mg/dL (Negative); WBC Urine 0-4 /hpf (0-5); pH Urine 5 (5-7)
[2020-07-06 08:03] LABS: Add Urine Culture? No; Coarse Granular Casts Urine 25-40 /lpf
[2020-07-06 08:20] LABS: Potassium, Radom Urine 49 mmol/L; Urine Creatinine 257 mg/dL (39-259)
[2020-07-06 08:23] LABS: Urine Random Chloride 11 mmol/L; Urine Random Sodium 14 mmol/L
--- NOTE | 2020-07-06 08:34 | PC.NURSE ---
weaning levophed after ivf bouls urine spec down to lab along with sputum spec.. propofol decreased and fentynl increased
[2020-07-06] MEDS: FUROsemide 10 mg/mL SDV 10mL 80 MG IVP (08:45)
[2020-07-06] MEDS: pantoprazole 40 mg SDV IVP ×2 (09:28→20:25)
[2020-07-06 09:30] LABS: Eosinophil Urine No Eosinophils Seen; Urine Eosinophil Count 0 (0-0)
[2020-07-06] MEDS: dexmedetomidine 400 MCG in sodium chloride 0.9% (100 ml) 100 ML 12.8 MCG IV ×2 (11:49→20:26)
--- NOTE | 2020-07-06 14:03 | P.PN_ITS ---
Subjective Subjective: Interval history: Patient is awake today, following commands, receiving IV fluid boluses is currently on 2 mcg of Levophed Vitals/I&O/Wt Last Vital Signs Temp 99.3 F 07/06/20 11:15 Pulse 93 07/06/20 12:15 Resp 22 H 07/06/20 11:44 BP 100/66 07/06/20 12:15 Pulse Ox 97 07/06/20 12:15 07/05/20 07/06/20 07/06/20 22:59 06:59 14:59 Intake Total 744.053 / 1461.476 479.438 / 1461.476 431.893 / 431.893 Output Total 450 / 1950 1450 / 1950 50 / 50 Balance 294.053 / -488.524 -970.562 / -488.524 381.893 / 381.893 Weight last 48 hrs Weight 226 lb Weight 231 lb Physical Exam Narrative: EXAM NARRATIVE: Abdomen: Soft, distended, no guarding or rigidity Urinary Catheter Management^: Betts: Cath Placed During This Visit: yes Reason for Continuing Indwelling Catheter: Accurate Measurement of Urinary Output in Critically Ill Patients Urinary Catheter Date of Insertion: 07/04/20 Urinary Catheter Time of Insertion: 16:45 Data : 07/06/20 04:20 07/06/20 04:20 Micro: Microbiology 07/06/20 07:54 Gram Stain - Final Sputum - Endotracheal Tube Aspirate 07/04/20 16:50 Blood Culture - Preliminary Blood NEGATIVE TO DATE 07/04/20 16:53 Blood Culture - Preliminary Blood NEGATIVE TO DATE A&P Assessment and plan (1) Acute pancreatitis: 54-year-old gentleman with history of alcoholism who is now developed acute pancreatitis with agitation/delirium secondary to alcohol withdrawal and acute renal failure secondary to third spacing. Abdomen is distended but not concerning for compartment syndrome at this point Continue IV antibiotics Recommend starting TPN as patient is likely to have a prolonged ileus based on the last CT scan Aggressive fluid resuscitation to compensate for third spacing No surgical intervention required at this point Status: Acute Attestations Medical Necessity Statement*: Acute pancreatitis requiring continued ICU stay Coding Level of Care Code Acute Radio Adjuster for [facility] Diagnoses Acute pancreatitis K85.90
[2020-07-06] MEDS: metoclopramide 5 mg/mL SDV 2 mL IVP ×2 (14:46→21:54)
--- NOTE | 2020-07-06 14:50 | PC.NURSE ---
weaned off levophed gtt at this time and sat up in bed more alert tv on wathcing at this time total of 1000 urine out
[2020-07-06] MEDS: enoxaparin 40 mg/0.4 mL Syringe SUBCUT (15:41)
--- NOTE | 2020-07-06 16:37 | PC.NURSE ---
son called requesting information has no password ..started threatening to come up here talked with security
--- NOTE | 2020-07-06 16:59 | PC.NURSE ---
lainey Mcdaniel and christos are the 2 that are threating to come to hospital and see dad no matter what
[2020-07-06 18:40] LABS: Anion Gap 17.5 (5-19); Blood Urea Nitrogen 41 mg/dL (6-20); Calcium 6.6 mg/dL (8.5-10.5); Carbon Dioxide 21 mmol/L (22-29); Chloride 99 mmol/L (98-107); Glomerular Filtration Rate 29.6 mL/min (90-130); Glucose 130 mg/dL (65-115); Osmolality Calculated 275 mOsm/kg (285-295); Potassium 4.5 mmol/L (3.5-5.1); Sodium 133 mmol/L (136-145)
--- NOTE | 2020-07-06 19:00 | PC.NURSE ---
Fentanyl gtt infusing at 50 mcg/ hr. MAR has it documented as running at 100 mcg/hr. Dose corrected in MAR as current dose as 50 mcg/hr.
--- NOTE | 2020-07-06 22:09 | PC.NURSE ---
Patient is orally intubated et receiving mechanical ventilation. Patient is also on Fentanyl et Precedex gtts for ETT tolerance et sedation for mechanical ventilation. Some of the assessment questions are not able to be fully assessed at this time. Will continue to monitor.
--- NOTE | 2020-07-06 22:19 | PC.NURSE ---
Left IJ triple lumen line's dressing changed, all primary et secondary tubing changed et all prn adaptors/ end caps changed. Line is patent but unable to get a blood return from the medial et proximal lumens when assessing/ flushing.
--- NOTE | 2020-07-06 23:05 | PC.NURSE ---
Fentanyl bag chagned. Fentanyl gtt currently infusing at 50 mcg/hr. Previous bag has 0 mls to waste. Fentanyl gtt tubing changed at the start of this bag.
[2020-07-06] MEDS: propofol 1,000 MG/100 ML INJ 8.8 MG IV (23:59)
[2020-07-07] VITALS (113 sets, daily range): BP systolic 92–145; BP diastolic 52–88; PULSE 78–98; RESP 10–22; TEMP 36.8–37.2; O2SAT 73–100
--- NOTE | 2020-07-07 00:08 | PC.NURSE ---
Patient orally intubated et on Fentanyl et Precedex gtts. Adjustments in patient's gtt rates have been made d/t patient's inability to rest et tolerate his ETT. Please see MAR for further details.
--- NOTE | 2020-07-07 00:10 | PC.NURSE ---
Patient isn't agitated or aggressive. Patient is having difficulty tolerating ETT et resting. Precedex gtt decreased to 0.3 mcg/kg/ hr et Propofol gtt started at 15 mcg/kg/min. Will follow reassess et follow up in 15 mins.
--- NOTE | 2020-07-07 00:15 | PC.NURSE ---
Patient on fentanyl gtt et states that pain is manageable currently. Will continue to monitor.
--- NOTE | 2020-07-07 00:26 | PC.NURSE ---
Patient is currently resting with eyes closed in bed (Mathur of 2) Vital signs are within normal limits. Will continue to monitor.
[2020-07-07] MEDS: dexmedetomidine 400 MCG in sodium chloride 0.9% (100 ml) 100 ML 7.7 MCG IV ×3 (02:02→17:49)
--- NOTE | 2020-07-07 03:03 | PC.NURSE ---
Patient's fentanyl increased to 75mcg/hr. Will reassess in 15-30 mins.
[2020-07-07 04:43] LABS: Basophils # 0.1 10^3/uL (0.0-0.1); Basophils % 0.5 %; Eosinophils # 0.1 10^3/uL (0.0-0.8); Eosinophils % 0.9 %; Hematocrit 32.2 % (42.0-52.0); Hemoglobin 10.6 g/dL (11.7-16.6); Lymphocytes # 1.1 10^3/uL (0.8-4.8); Lymphocytes % 10.9 %; Mean Corpuscular HGB Conc 32.9 g/dL (30.0-36.0); Mean Corpuscular Hemoglobin 32.4 pg (28.0-34.0); Mean Corpuscular Volume 98.5 fL (80-94); Mean Platelet Volume 10.8 fL (7.4-10.4); Monocytes % 9.9 %; Neutrophils # 8.02 10^3/uL (1.8-7.7); Neutrophils % 76.7 %; Nucleated Red Blood Cells % 0 %; Platelet Count 152 10^3/cmm (130-400); Red Blood Count 3.27 10^6/uL (4.1-5.3); Red Cell Distribution Width 13.2 % (12.1-15.1); White Blood Count 10.5 10^3/uL (4.0-10.0)
[2020-07-07 05:03] LABS: ABG PH Result 7.38 (7.35-7.45); Arterial Blood Gas Hematocrit 34.1 % (42-52); Base Excess ABG -4.7 mmol/L (-2.0-2.0); Blood Gas Allen Test Pos; Blood Gas Sample Site Radial, left; Blood Gas Sample Type Arterial; HCO3 ABG 19.6 mmol/L (22-26); Oxygen Device VENT; PO2 ABG 72.9 mmHg (80.0-100.0)
[2020-07-07 05:07] LABS: Alanine Aminotransferase 12 U/L (0-41); Albumin Level 2.3 g/dL (3.5-5.2); Alkaline Phosphatase 62 IU/L (40-130); Aspartate Amino Transferase 35 U/L (0-40); Blood Urea Nitrogen 38 mg/dL (6-20); Calcium 6.4 mg/dL (8.5-10.5); Carbon Dioxide 21 mmol/L (22-29); Chloride 105 mmol/L (98-107); Globulin 3.4 g/dL (1.3-4.6); Glomerular Filtration Rate 48.4 mL/min (90-130); Glucose 109 mg/dL (65-115); Osmolality Calculated 286 mOsm/kg (285-295); Sodium 139 mmol/L (136-145); Total Bilirubin 0.9 mg/dL (0.15-1.2); Total Protein 5.7 g/dL (6.6-8.7)
--- NOTE | 2020-07-07 05:20 | PC.NURSE ---
Patient confirms that pain level is at a manageable level for him. Will continue to monitor
[2020-07-07] MEDS: metoclopramide 5 mg/mL SDV 2 mL IVP ×3 (07:20→21:32)
[2020-07-07] MEDS: ondansetron 2 mg/ML SDV 2 mL 4 MG IVP (07:20)
[2020-07-07] MEDS: sodium chloride 0.9% 1,000 ML 100 ML IV (07:23)
--- NOTE | 2020-07-07 07:50 | XRR_ITS ---
PROCEDURE INFORMATION: Exam: XR Chest, 1 View Exam date and time: 07/07/2020 7:52 AM Age: 54 years old Clinical indication: Device placement; Ett placement (vent status); Additional info: Intubated TECHNIQUE: Imaging protocol: XR of the chest Views: Frontal portable upright view of the chest. COMPARISON: CR (CHEST, ) 07/06/2020 7:50 AM FINDINGS: Tubes, catheters and devices: The feeding tube enters the stomach with the tip off the limits of the image. The endotracheal tube tip is approximately 4.5 cm above the june. The left internal jugular venous catheter tip is in the mid SVC. Lungs: The lungs are clear bilaterally. The pulmonary vasculature is normal. Pleural space: No pleural effusion. No pneumothorax. Heart/Mediastinum: The heart is normal in size and contour. Mediastinum: Stable. Bones/joints: The patient is status post median sternotomy with intact sternal cerclage wires. XR/XR chest 1V portable [id number] IMPRESSION: 1. No acute cardiopulmonary abnormality identified. 2. Endotracheal tube placement as above.
[2020-07-07] MEDS: budesonide 0.5 mg/2 mL Neb INHALATION ×2 (08:05→19:45)
[2020-07-07] MEDS: ipratropium-albuterol 3 mL Neb INHALATION ×4 (08:05→19:45)
[2020-07-07] MEDS: pantoprazole 40 mg SDV IVP ×2 (08:55→21:32)
[2020-07-07] MEDS: propofol 1,000 MG/100 ML INJ 8.8 MG IV ×3 (09:07→17:33)
--- NOTE | 2020-07-07 09:09 | PM.PN ---
Subjective Subjective: Interval history: No acute events overnight. Patient's hemodynamics are a lot better. Levophed has been stopped. Today morning on evaluation patient is wide awake following simple commands and able to converse through sign language. He still has had a lot of output through the NG tube. Overnight he had over 600 cc. Urine output has improved as well. At present he is on fentanyl 25 and Precedex 0.5. He is on pressure support through ventilator support with FiO2 of 28% and PEEP of 5. Vitals, lab, input output appreciated. Medications: Reviewed: Yes Vitals/I&O/Wt Last Vital Signs Temp 99 F 07/07/20 07:00 Pulse 84 07/07/20 08:15 Resp 21 H 07/07/20 08:09 BP 124/72 07/07/20 08:15 Pulse Ox 93 07/07/20 08:15 07/06/20 07/07/20 07/07/20 22:59 06:59 14:59 Intake Total 1454 / 2235.893 1181.822 / 3417.715 112.623 / 112.623 Output Total 500 / 1550 1550 / 3100 Balance 954 / 685.893 -368.178 / 317.715 112.623 / 112.623 Weight last 48 hrs Weight 101.605 kg Weight 102.512 kg Physical Exam Narrative: EXAM NARRATIVE: General: Awake and alert on ventilator, calm HEENT: PERRLA, pupils bilaterally equal and reactive Chest: Normal vesicular breath sounds, decreased breath sounds bilaterally in lower zone, no added sounds, equal good air entry bilaterally CVS: S1-S2 regular, no murmurs, no tachycardia, no gallops, no rubs Abdomen: Distended, bowel sounds sluggish, tympanic, no rebound Neuro: Sedated on ventilator, following simple commands on arousal. Urinary Catheter Management^: Betts: Cath Placed During This Visit: yes Reason for Continuing Indwelling Catheter: Accurate Measurement of Urinary Output in Critically Ill Patients Urinary Catheter Date of Insertion: 07/04/20 Urinary Catheter Time of Insertion: 16:45 Data : 07/07/20 04:15 07/07/20 04:15 Micro: Microbiology 07/06/20 07:54 Gram Stain - Final Sputum - Endotracheal Tube Aspirate A&P Assessment and plan (1) Shock: Status: Acute (2) Acute pancreatitis: Status: Acute (3) Alcohol abuse: Status: Chronic (4) Alcohol withdrawal: Status: Acute (5) Acute kidney injury: Status: Acute (6) Hypocalcemia: Status: Acute (7) Hyponatremia: Status: Acute (8) S/P CABG (coronary artery bypass graft): Status: Acute (9) Chronic obstructive pulmonary disease: Without acute exacerbation, oxygen per protocol Status: Chronic (10) CAD (coronary artery disease): With a history of coronary artery bypass grafting and stent placement Continue on aspirin, statin, metoprolol Status: Chronic Qualifiers: Coronary Disease-Associated Artery/Lesion type: [place] artery [place] vs. transplanted heart: [place] heart Associated angina: without angina Qualified Code(s): I25.10 - Atherosclerotic heart disease of [place] coronary artery without angina pectoris Additional A&P Information 54-year-old gentleman past medical history of CAD with post CABG came in because of alcohol abuse found to be in pancreatitis. He was intubated after he started having abdominal distention and was in shock. Neurology: Acute metabolic encephalopathy most likely because of alcohol withdrawal and walk. Mentation is improving. He is more awake. Sedation vacation. We will try to wean off propofol. Continue with Precedex and fentanyl. Can increase fentanyl at that point have analgesia as well. Put him back on sedation later in the day. Continue with IV thiamine. Cardiovascular: Shock resolved. Most likely a combination of hypovolemic and sepsis. Patient has history of CABG. Last echocardiogram in May 2019 shows an EF of 50% with global LV hypokinesis. Keep mean arterial pressure was 65 mmHg. Normal saline 100 cc/h for now. Once the TPN is started we will cut down to make sure that patient takes overall 100 cc of fluid per hour. Echocardiogram shows an EF of 45 to 50%, hypokinesia of septal wall. For now we will hold off on aspirin. Hold off on antihypertensives as patient is on inotropes at present. Pulmonology: Patient is intubated. Keep saturation over 90%. ABG appreciated. Continue with budesonide and DuoNeb's every 4 hourly. Even though as of now he is on minimal ventilator support, patient is having a lot of GI secretions as high as 1800 cc in last 24 hours which keeps him had a high risk of aspiration so for now we will keep him intubated. We will put him back on sedation. Gastroenterology: Acute pancreatitis. Patient CT abdomen appreciated. Increased secretions through the OG tube. Once patient is completely sedated would put him on NG tube. Continue with Protonix 40 mg IV twice daily. We will start patient on Reglan. N.p.o. for now. Start TPN for nutrition. Surgical recommendations appreciated. Plan for CT abdomen tomorrow morning. Nephrology: Patient is in LENA. Most likely from ATN. Creatinine down to 1.5. Output has improved yesterday. Overall 2400 cc of urine output in last 24 hours. We will give him 40 mg of IV Lasix today along with continuing the IV fluid. Hypocalcemia: Calcium level 6.3. Corrected 7. 2 g IV calcium and 1 mg IV magnesium. Hyponatremia: Resolving. We will continue to monitor. High anion gap acidosis: Resolved. Infectious disease: Repeat blood cultures. T-max in last 24 hours 100.4 Fahrenheit. Patient has remained hemodynamically stable, afebrile. For now we will continue on imipenem and vancomycin as patient is at high risk of developing infection. Check MRSA swab Nutrition: Patient will most likely be kept n.p.o. for some future. Will most likely plan for TPN. Lines intact. Full code. Lovenox for DVT prophylaxis Protonix for PUD prophylaxis Patient's care discussed in detail with Alma on [phone]. She is patient's D POA. All the questions were answered. Attestations Medical Necessity Statement*: Hypoxic respiratory failure, acute pancreatitis Critical Care Time: Critical Care Time (min): 80 Coding Level of Care Code Acute Field Reviewer for [facility] Diagnoses Shock R57.9 Acute pancreatitis K85.90 Alcohol abuse F10.10 Alcohol withdrawal F10.239 Acute kidney injury N17.9 Hypocalcemia E83.51 Hyponatremia E87.1 S/P CABG (coronary artery bypass graft) Z95.1 Chronic obstructive pulmonary disease J44.9 CAD (coronary artery disease) I25.10 Coronary Disease-Associated Artery/Lesion type: [place] artery [place] vs. transplanted heart: [place] heart Associated angina: without angina
--- NOTE | 2020-07-07 09:31 | PC.NURSE ---
increased secrtions with increase in oral care .. sx large amts doctor here with exam done ... magui restarted today and vent in place
[2020-07-07 10:09] LABS: Magnesium 1.7 mg/dL (1.7-2.3)
--- NOTE | 2020-07-07 10:40 | P.PN_ITS ---
Subjective Subjective: Interval history: Patient is awake, follows commands, significant NG output yesterday Vitals/I&O/Wt Last Vital Signs Temp 99 F 07/07/20 07:00 Pulse 84 07/07/20 08:15 Resp 12 07/07/20 10:21 BP 124/72 07/07/20 08:15 Pulse Ox 93 07/07/20 08:15 07/06/20 07/07/20 07/07/20 22:59 06:59 14:59 Intake Total 1454 / 3417.715 1181.822 / 3417.715 112.623 / 112.623 Output Total 500 / 3100 1550 / 3100 Balance 954 / 317.715 -368.178 / 317.715 112.623 / 112.623 Weight last 48 hrs Weight 224 lb Weight 226 lb Physical Exam Narrative: EXAM NARRATIVE: Abdomen: Soft, nondistended, minimally tender, no guarding or rigidity Urinary Catheter Management^: Betts: Cath Placed During This Visit: yes Reason for Continuing Indwelling Catheter: Accurate Measurement of Urinary Output in Critically Ill Patients Urinary Catheter Date of Insertion: 07/04/20 Urinary Catheter Time of Insertion: 16:45 Data : 07/07/20 04:15 07/07/20 04:15 Micro: Microbiology 07/06/20 07:54 Gram Stain - Final Sputum - Endotracheal Tube Aspirate A&P Assessment and plan (1) Acute pancreatitis: 54-year-old gentleman with history of alcoholism who has now developed acute pancreatitis with agitation/delirium secondary to alcohol withdrawal. Abdomen is distended but not concerning for compartment syndrome at this point Continue IV antibiotics Significant NG output consistent with ileus/functional obstruction - start TPN Creatinine down to 1.5 today with aggressive resuscitation No surgical intervention required at this point Status: Acute Attestations Medical Necessity Statement*: Acute pancreatitis with acute renal failure which is improved, requiring continued inpatient stay as he is on the ventilator Coding Level of Care Code Acute Garage Door Service Technician for Aislinn Swanson Diagnoses Acute pancreatitis K85.90
[2020-07-07] MEDS: LORazepam 2 mg/mL INJ 1 mL IVP ×3 (11:12→23:47)
[2020-07-07] MEDS: FUROsemide 10 mg/mL SDV 4mL 40 MG IVP (11:13)
[2020-07-07 11:23] LABS: Glucose Point of Care 119 mg/dL (70-110)
[2020-07-07 17:16] LABS: Glucose Point of Care 150 mg/dL (70-110)
[2020-07-07] MEDS: enoxaparin 40 mg/0.4 mL Syringe SUBCUT (17:16)
[2020-07-07] MEDS: nicotine 14 mg Patch 1 PATCH TRANSDERMA (18:29)
--- NOTE | 2020-07-07 18:35 | PC.NURSE ---
abdomen now mottled and pt more restless requesting cigarette ect dr garces and dr vitale here
[2020-07-08] VITALS (106 sets, daily range): BP systolic 97–164; BP diastolic 55–99; PULSE 82–111; RESP 13–20; TEMP 36.9–38.5; O2SAT 88–97
[2020-07-08] MEDS: propofol 1,000 MG/100 ML INJ 8.8 MG IV (00:09)
[2020-07-08] MEDS: dexmedetomidine 400 MCG in sodium chloride 0.9% (100 ml) 100 ML 7.7 MCG IV ×2 (00:10→06:46)
[2020-07-08 00:27] LABS: Glucose Point of Care 127 mg/dL (70-110)
[2020-07-08] MEDS: LORazepam 2 mg/mL INJ 1 mL IVP ×3 (03:19→23:08)
[2020-07-08] MEDS: propofol 1,000 MG/100 ML INJ 29.5 MG IV ×3 (03:34→09:39)
--- NOTE | 2020-07-08 03:38 | PC.NURSE ---
Diprivan running at 50 mcg/hr during shift change at 1900. Titrated the medication in Dec.
[2020-07-08] MEDS: ipratropium-albuterol 3 mL Neb INHALATION ×5 (03:47→19:37)
[2020-07-08 04:53] LABS: Basophils # 0.1 10^3/uL (0.0-0.1); Basophils % 0.6 %; Eosinophils # 0.1 10^3/uL (0.0-0.8); Eosinophils % 0.8 %; Hematocrit 30.2 % (42.0-52.0); Hemoglobin 10.1 g/dL (11.7-16.6); Lymphocytes # 0.9 10^3/uL (0.8-4.8); Lymphocytes % 9.6 %; Mean Corpuscular HGB Conc 33.4 g/dL (30.0-36.0); Mean Corpuscular Hemoglobin 32.3 pg (28.0-34.0); Mean Corpuscular Volume 96.5 fL (80-94); Mean Platelet Volume 10.6 fL (7.4-10.4); Monocytes # 1.7 10^3/uL (0.2-0.9); Neutrophils # 6.15 10^3/uL (1.8-7.7); Neutrophils % 63.9 %; Nucleated Red Blood Cells % 0.2 %; Platelet Count 176 10^3/cmm (130-400); Red Blood Count 3.13 10^6/uL (4.1-5.3); Red Cell Distribution Width 13.3 % (12.1-15.1); White Blood Count 9.6 10^3/uL (4.0-10.0)
[2020-07-08 05:14] LABS: ABG PH Result 7.42 (7.35-7.45); Arterial Blood Gas Hematocrit 32.4 % (42-52); Base Excess ABG -0.9 mmol/L (-2.0-2.0); Blood Gas Sample Site Brachial, left; Blood Gas Sample Type Arterial; HCO3 ABG 23.3 mmol/L (22-26); Oxygen Device VENT; PO2 ABG 68.4 mmHg (80.0-100.0)
[2020-07-08 05:22] LABS: Alanine Aminotransferase 10 U/L (0-41); Albumin Level 2.4 g/dL (3.5-5.2); Alkaline Phosphatase 67 IU/L (40-130); Anion Gap 14.4 (5-19); Aspartate Amino Transferase 25 U/L (0-40); Blood Urea Nitrogen 25 mg/dL (6-20); Calcium 7.4 mg/dL (8.5-10.5); Carbon Dioxide 22 mmol/L (22-29); Chloride 104 mmol/L (98-107); Creatinine Clr Calc Pharmacy 91.0233; Globulin 3.4 g/dL (1.3-4.6); Glomerular Filtration Rate 69.2 mL/min (90-130); Glucose 134 mg/dL (65-115); Osmolality Calculated 283 mOsm/kg (285-295); Potassium 3.4 mmol/L (3.5-5.1); Sodium 137 mmol/L (136-145); Total Bilirubin 1.3 mg/dL (0.15-1.2); Total Protein 5.8 g/dL (6.6-8.7)
--- NOTE | 2020-07-08 06:00 | CTR_ITS ---
PROCEDURE INFORMATION: Exam: CT Abdomen And Pelvis Without Contrast Exam date and time: 07/08/2020 7:57 AM Age: 54 years old Clinical indication: Prior surgery; Surgery type: Cabg; Patient HX: Persistent pancreatitis. Intubated. TECHNIQUE: Imaging protocol: Computed tomography of the abdomen and pelvis without contrast. Radiation optimization: All CT scans at this facility use at least one of these dose optimization techniques: automated exposure control; mA and/or kV adjustment per patient size (includes targeted exams where dose is matched to clinical indication); or iterative reconstruction. COMPARISON: CT abdomen pelvis w con* [id number] 07/04/2020 3:37 PM RADIATION DOSE METRICS: Total DLP (mGy-cm): 1436.76 FINDINGS: Tubes, catheters and devices: The feeding tube enters the stomach with the tip in the second portion duodenum. Abandoned epicardial pacemaker leads. Lungs: Bibasilar posterior pulmonary partial atelectasis is present. Pleural space: Small left pleural effusion. Minimal right pleural effusion. Heart: Moderate cardiomegaly. Liver: Mural edema of the colonic splenic and hepatic flexures which is felt to be secondary. Gallbladder and bile ducts: The nondistended gallbladder is filled with high attenuation contrast remaining from prior vicarious excretion. Pancreas: The pancreas is mildly enlarged with severe peripancreatic edema. Thickening of the anterior bilateral Gerota fascia is present. No pancreatic ductal dilatation. No definite intrapancreatic or peripancreatic pseudocyst identified. Spleen: Normal. No splenomegaly. Adrenals: Normal. No mass. Kidneys and ureters: Mild left pelvic ureteral dilatation without evidence of renal hydronephrosis, probably representing ureteral peristalsis. Stomach and bowel: Possible developing fluid collection of the transverse mesocolon measuring approximately 7.1 x 3.9 x 2.9 cm (series 2, image 45; series 602, image 55), interval increase. Appendix: The vermiform appendix is normal. Intraperitoneal space: Unremarkable. No free air. No significant fluid collection. Vasculature: Left pelvic phleboliths. Mild aortic atherosclerotic calcification without aneurysm. The iliac arteries show mild bilateral atherosclerotic calcifications without evidence of aneurysm. Lymph nodes: No enlarged lymph nodes. Bladder: The urinary bladder is drained by a Betts catheter. Reproductive: Unremarkable as visualized. Bones/joints: The patient is status post median sternotomy with sternal cerclage wires. Soft tissues: Unremarkable. CT/CT abdomen pelvis wo con [id number] IMPRESSION: 1. Pancreatitis, interval increase in peripancreatic edema. 2. Possible developing transverse mesocolonic pseudocyst. 3. Feeding tube tip in the second portion duodenum. 4. Small left pleural effusion. 5. Minimal right pleural effusion. Radiation Dose CTDIVOL = (mGy): DLP = 1436.76 (mGy-cm)
[2020-07-08] MEDS: metoclopramide 5 mg/mL SDV 2 mL IVP ×3 (06:29→21:51)
--- NOTE | 2020-07-08 06:58 | PC.NURSE ---
Change of shift report given to oncoming shift RN. Pt remains asleep in bed with pain and sedation meds running. Vent settings running at 30 FiO2 with RR at 10. TPN, Precedex, Propofol, Fentanyl, and NS running into Left IJ. Some mottling noted across the abdomen, with red heat rash to upper chest. No events overnight. Vital Signs remain stable. 650mL U/O through indwelling cath, with 400 measured in NG suction device.
[2020-07-08] MEDS: budesonide 0.5 mg/2 mL Neb INHALATION ×2 (07:40→19:37)
--- NOTE | 2020-07-08 07:47 | XRR_ITS ---
PROCEDURE INFORMATION: Exam: XR Chest, 1 View Exam date and time: 07/08/2020 11:03 AM Age: 54 years old Clinical indication: Shortness of breath; Prior surgery; Surgery type: Cabg; Patient HX: SOB. Intubated. TECHNIQUE: Imaging protocol: XR of the chest Views: Frontal portable semiupright view of the chest. COMPARISON: CR (CHEST, ) 07/07/2020 7:50 AM FINDINGS: Tubes, catheters and devices: The left internal jugular venous catheter tip is in the upper SVC. The feeding tube enters the stomach with the tip off the limits of the image. The endotracheal tube tip is approximately 2.2 cm above the june. Lungs: Increased left basilar pulmonary subsegmental atelectasis. The pulmonary vasculature is slightly more congested and ill-defined. Pleural space: No definite pleural effusion. No pneumothorax. Heart/Mediastinum: Stable mild cardiomegaly. Mediastinum: Stable. Bones/joints: The patient is status post median sternotomy with intact sternal cerclage wires. XR/XR chest 1V portable [id number] IMPRESSION: 1. Increased left basilar pulmonary subsegmental atelectasis. 2. Slightly increased pulmonary vascular congestion.
--- NOTE | 2020-07-08 07:51 | PC.NURSE ---
prop at 50 and fentanyl at 100 from previous nightshift RN. came in room and stated to turn down sedation and plan to extubate but leave precedex on
--- NOTE | 2020-07-08 08:00 | PC.NURSE ---
report taken and propofol at 50, fentanyl at 100, and precedex at 0.7.
[2020-07-08 08:31] LABS: Magnesium 1.9 mg/dL (1.7-2.3); Vancomycin Trough < 4.0 ug/mL (10-15)
--- NOTE | 2020-07-08 09:01 | PC.NURSE ---
md moss called to let me know to go ahead and do CT this morning and keep sedation on and then work on weaning off sedation when return and plan to extubate as long as patient not agitated, also md order to d/c NS fluids.
[2020-07-08] MEDS: FUROsemide 10 mg/mL SDV 4mL 40 MG IVP ×2 (09:40→11:44)
[2020-07-08] MEDS: pantoprazole 40 mg SDV IVP ×2 (09:40→21:03)
[2020-07-08] MEDS: nicotine 14 mg Patch 1 PATCH TRANSDERMA (09:43)
--- NOTE | 2020-07-08 10:25 | PM.PN ---
Subjective Subjective: Interval history: Patient is currently on the ventilator, has been hemodynamically stable on minimal vent settings. He continues to be on Precedex and was started on TPN yesterday Vitals/I&O/Wt Last Vital Signs Temp 98.5 F 07/08/20 08:30 Pulse 87 07/08/20 09:15 Resp 14 07/08/20 10:00 BP 113/68 07/08/20 09:15 Pulse Ox 96 07/08/20 09:15 07/07/20 07/08/20 07/08/20 22:59 06:59 14:59 Intake Total 291.208 / 2454.582 1433.455 / 2454.582 116.083 / 116.083 Output Total 2350 / 4250 1000 / 4250 250 / 250 Balance -2058.792 / -1795.418 433.455 / -1795.418 -133.917 / -133.917 Weight last 48 hrs Weight 234 lb 8.254 oz Weight 224 lb Physical Exam Narrative: EXAM NARRATIVE: Abdomen: Soft, distended, no guarding or rigidity Urinary Catheter Management^: Betts: Cath Placed During This Visit: yes Reason for Continuing Indwelling Catheter: Accurate Measurement of Urinary Output in Critically Ill Patients Urinary Catheter Date of Insertion: 07/04/20 Urinary Catheter Time of Insertion: 16:45 Data : 07/16/20 03:55 07/16/20 03:55 Micro: Microbiology 07/06/20 07:54 Gram Stain - Final Sputum - Endotracheal Tube Aspirate Sputum Culture - Final 07/06/20 14:40 MRSA Culture - Final Nose A&P Assessment and plan (1) Acute pancreatitis: 54-year-old gentleman with acute severe pancreatitis currently on the ventilator due to altered mental status. Precedex is being weaned off Patient is expected to have continued ileus and will need nutrition through TPN for the foreseeable future No evidence of peritonitis, continue with observation, no surgical intervention required at this point Status: Acute Attestations Medical Necessity Statement*: Acute severe pancreatitis on the ventilator requiring continued ICU stay Coding Level of Care Code Acute Decorating Equipment Setter for Aislinn Swanson Diagnoses Acute pancreatitis K85.90
--- NOTE | 2020-07-08 11:40 | PC.NURSE ---
returned from CT. vitals stable.
[2020-07-08] MEDS: potassium chloride premix 40 MEQ/100 ML PREMIX 25 MEQ IV (11:43)
[2020-07-08 11:45] LABS: Glucose Point of Care 132 mg/dL (70-110)
[2020-07-08] MEDS: dexmedetomidine 400 MCG in sodium chloride 0.9% (100 ml) 100 ML 17.9 MCG IV ×2 (12:27→19:43)
--- NOTE | 2020-07-08 14:02 | PC.NURSE ---
gave report to nereyda lindsey. handed over propofol at 25 with 15mls remaining, fentanyl at 50mcg with 43 mls remaining. Patient stable and vital signs wnl.
[2020-07-08] MEDS: enoxaparin 40 mg/0.4 mL Syringe SUBCUT (16:09)
--- NOTE | 2020-07-08 16:31 | P.PN_ITS ---
Subjective Subjective: Interval history: This morning patient was seen in the ICU, currently intubated, sedated, T-max of 101 overnight, had 400 cc output from his OG tube, abdomen is still distended, TPN was started last night, reviewed CT scan shows increased peripancreatic edema, chest x-ray shows increased [place] vascular congestion, was given 40 mg of Lasix, put out 1100 cc, patient was re examined this afternoon, on minimal pressure support, 30% FiO2, RSB I in the 30s, follows commands on Precedex, currently weaning Precedex, passed weaning trial, plan on extubating onto minimal Precedex, will place an NG tube before extubation Medications: Reviewed: Yes Vitals/I&O/Wt Last Vital Signs Temp 101 F H 07/08/20 15:00 Pulse 96 07/08/20 16:15 Resp 18 07/08/20 16:11 BP 125/73 07/08/20 16:15 Pulse Ox 94 07/08/20 16:15 07/08/20 07/08/20 07/08/20 06:59 14:59 22:59 Intake Total 1433.455 / 2454.582 1726.204 / 1726.204 Output Total 1000 / 4250 2175 / 2175 Balance 433.455 / -1795.418 -448.796 / -448.796 Weight last 48 hrs Weight 106.375 kg Weight 101.605 kg Physical Exam Narrative: EXAM NARRATIVE: Intubated sedated, but does follow commands on minimal sedation Const: COMMON NORMALS: no acute distress Neck/C-Spine: COMMON NORMALS: no JVD Chest: COMMONS NORMALS: normal inspection of the chest Resp: COMMON NORMALS: normal respiratory effort, No retractions, No use of accessory muscles and clear to auscultation bilaterally AUSCULTATION: clear to auscultation bilaterally Cardio: COMMON NORMALS: no JVD, regular rate, regular rhythm, S1 normal heart sound present and S2 normal heart sound present RATE: regular rate RHYTHM: regular rhythm HEART SOUNDS: S1 normal heart sound present and S2 normal heart sound present GI: COMMON NORMALS: negative for No hepatosplenomegaly present INSPECTION: Yes abdominal distension AUSCULTATION: Yes Hypoactive bowel sounds present PALPATION: No Tenderness to palpation present (GI), No Guarding due to palpation present (GI), No Rigid due to palpation and No No hepatosplenomegaly present : OTHER: Betts catheter in place Extremity: COMMON NORMALS: full ROM and capillary refill normal NARRATIVE EXTREMITY EXAM: 1+ edema Neuro: OTHER: Does follow commands on minimal sedation, gets up in the thumbs up about extubation Urinary Catheter Management^: Betts: Cath Placed During This Visit: yes Reason for Continuing Indwelling Catheter: Accurate Measurement of Urinary Outpu t in Critically Ill Patients Urinary Catheter Date of Insertion: 07/04/20 Urinary Catheter Time of Insertion: 16:45 Data : 07/08/20 04:26 07/08/20 04:26 Micro: Microbiology 07/06/20 07:54 Gram Stain - Final Sputum - Endotracheal Tube Aspirate Sputum Culture - Final A&P Assessment and plan (1) Shock: Status: Acute (2) Acute pancreatitis: Status: Acute (3) Alcohol abuse: Status: Chronic (4) Alcohol withdrawal: Status: Acute (5) Acute kidney injury: Status: Acute (6) Hypocalcemia: Status: Acute (7) Hyponatremia: Status: Acute (8) S/P CABG (coronary artery bypass graft): Status: Acute (9) Chronic obstructive pulmonary disease: Without acute exacerbation, oxygen per protocol Status: Chronic (10) CAD (coronary artery disease): With a history of coronary artery bypass grafting and stent placement Continue on aspirin, statin, metoprolol Status: Chronic Qualifiers: Coronary Disease-Associated Artery/Lesion type: [place] artery [place] vs. transplanted heart: [place] heart Associated angina: without angina Qualified Code(s): I25.10 - Atherosclerotic heart disease of [place] coronary artery without angina pectoris Additional A&P Information 54-year-old gentleman past medical history of CAD with post CABG came in because of alcohol abuse found to be in pancreatitis. He was intubated after he started having abdominal distention and was in shock. Neurology: Acute metabolic encephalopathy most likely because of alcohol withdrawal and walk. Mentation is improving. He is more awake. Follows commands on sedation, plan extubation today Extubate him to minimal Precedex, place NG tube Continue with IV thiamine. Cardiovascular: Shock resolved. Most likely a combination of hypovolemic and sepsis. Patient has history of CABG. Last echocardiogram in May 2019 shows an EF of 50% with global LV hypokinesis. Keep mean arterial pressure was 65 mmHg. Stop IV fluids. Continue TPN Echocardiogram shows an EF of 45 to 50%, hypokinesia of septal wall. For now we will hold off on aspirin. Hold off on antihypertensives as patient is on inotropes at present. Pulmonology: Patient is intubated. Keep saturation over 90%. ABG appreciated. Continue with budesonide and DuoNeb's every 4 hourly. Minimal secretions, did well with weaning trial, plan on extubation today, decreasing OG tube output to 400 cc Gastroenterology: Acute pancreatitis. Patient CT abdomen appreciated. OG tube output [address] NG tube before extubating Continue with Protonix 40 mg IV twice daily. Continue Reglan N.p.o. for now. Continue TPN Surgical recommendations appreciated. CT scan of the abdomen today shows increased peripancreatic edema, pancreatitis Nephrology: Patient is in LENA. Most likely from ATN. Creatinine down to 1.1. Output has improved yesterday. Put out 1100 cc after giving 40 mg of Lasix Hypocalcemia: Calcium level 7.4 . Hyponatremia: Resolving. We will continue to monitor. High anion gap acidosis: Resolved. Infectious disease: Repeat blood cultures. T-max in last 24 hours 100.4 Fahrenheit. Patient has remained hemodynamically stable, afebrile. For now we will continue on imipenem and vancomycin as patient is at high risk of developing infection. Check MRSA swab Nutrition: Patient will most likely be kept n.p.o. for some future. Continue TPN, NG tube placement Lines intact. Full code. Lovenox for DVT prophylaxis Protonix for PUD prophylaxis Patient's care discussed in detail with Alma on [phone]. She is patient's D POA. All the questions were answered. 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 transplanted heart: [place] heart Associated angina: without angina
[2020-07-08 17:35] LABS: Glucose Point of Care 113 mg/dL (70-110)
--- NOTE | 2020-07-08 18:58 | XRR_ITS ---
PROCEDURE INFORMATION: Exam: XR Abdomen, 1 View Exam date and time: 07/08/2020 9:00 PM Age: 54 years old Clinical indication: Device placement; Gi device; Nasogastric tube; Additional info: Ng tube placement TECHNIQUE: Imaging protocol: XR of the abdomen. Views: Frontal supine view of the abdomen. 1 View. COMPARISON: CT abdomen pelvis wo con [id number] 07/08/2020 11:07 AM FINDINGS: Tubes, catheters and devices: exam tailored for nasogastric tube placement. Limited characterization of the lung bases and soft tissues below the diaphragm. Nevertheless, nasogastric tube is seen to extend below the diaphragm with the tip adjacent to the antrum. Gastrointestinal tract: Limited. Air-filled transverse colon. Bones/joints: Unremarkable. XR/XR abdomen 1V* [id number] IMPRESSION: Limited exam. Nasogastric tube adjacent to the gastric antrum
--- NOTE | 2020-07-08 19:44 | PC.NURSE ---
Addendum entered by Ashley Zurita RN 07/08/20 20:04: Fentanyl infusion stopped @ 1500 and propofol infusion stopped at about 15:45. Original Note: Pt successfully extubated at 17:15. Pt doing well on 4L/min oxygen per nasal cannula. VSS. He is alert and oriented, and cooperative, but constantly asking for water and ice chips. Dr. Villafana advised to keep pt NPO for now. Mouth swab provided with small amount of water and mouth moisturizer. Reminded pt that the mouth swabs will not be frequent because pt is not supposed to be swallowing any water at this time. Pt verbalized understanding. NG tube in place per order from Dr. Villafana, and is connected to low intermittent suction. Abdominal x-ray ordered to confirm placement. Spoke with Alma via telephone at about 17:25; all questions answered. Precedex currently infusing at 0.5 mcg/kg/min and being weaned slowly as pt tolerates. Report given to Jamey GRAMAJO and Karma GRAMAJO.
--- NOTE | 2020-07-08 19:57 | PC.NURSE ---
Addendum entered by Kayleen Dunaway RN 07/08/20 20:02: Witnessed 62.5 mL waste from Fentanyl drip by Ashley Escamilla RN. Original Note: Fentanyl wasted from stopped infusion, 62.5ml wasted plus volume in tubing. Waste witnessed by Karma Dunaway RN.
[2020-07-08] MEDS: ondansetron 2 mg/ML SDV 2 mL 4 MG IVP (21:14)
[2020-07-08 21:58] LABS: Glucose Point of Care 134 mg/dL (70-110)
--- NOTE | 2020-07-08 23:14 | PC.NURSE ---
Pt showing increased episodes of anxiety, restlessness, agitation, and fidgeting. IVP Ativan 2mg given at 1900, and again at 2310. Educated and directed pt on deep breathing exercises, repositioning, and distraction techniques to try and decrease episodes of anxiety.
[2020-07-09] VITALS (87 sets, daily range): BP systolic 78–149; BP diastolic 46–85; PULSE 85–113; RESP 15–30; TEMP 36.9–37.7; O2SAT 87–98
[2020-07-09] MEDS: dexmedetomidine 400 MCG in sodium chloride 0.9% (100 ml) 100 ML 17.9 MCG IV ×2 (02:15→23:02)
[2020-07-09] MEDS: ondansetron 2 mg/ML SDV 2 mL 4 MG IVP ×2 (03:01→07:36)
[2020-07-09] MEDS: LORazepam 2 mg/mL INJ 1 mL IVP ×4 (03:01→21:33)
[2020-07-09] MEDS: ipratropium-albuterol 3 mL Neb INHALATION ×4 (04:15→20:49)
[2020-07-09 04:28] LABS: Basophils # 0.1 10^3/uL (0.0-0.1); Basophils % 0.7 %; Eosinophils # 0.1 10^3/uL (0.0-0.8); Eosinophils % 0.4 %; Hemoglobin 8.8 g/dL (11.7-16.6); Lymphocytes # 1.4 10^3/uL (0.8-4.8); Lymphocytes % 8.4 %; Mean Corpuscular HGB Conc 32.6 g/dL (30.0-36.0); Mean Corpuscular Hemoglobin 32.5 pg (28.0-34.0); Mean Corpuscular Volume 99.6 fL (80-94); Mean Platelet Volume 10.8 fL (7.4-10.4); Monocytes # 2.5 10^3/uL (0.2-0.9); Monocytes % 15.2 %; Neutrophils # 11.16 10^3/uL (1.8-7.7); Neutrophils % 67.3 %; Nucleated Red Blood Cells % 0.1 %; Platelet Count 256 10^3/cmm (130-400); Red Blood Count 2.71 10^6/uL (4.1-5.3); Red Cell Distribution Width 13.4 % (12.1-15.1); White Blood Count 16.6 10^3/uL (4.0-10.0)
[2020-07-09 04:48] LABS: Phosphorus 2.7 mg/dL (2.5-4.5)
[2020-07-09 04:51] LABS: Alanine Aminotransferase 12 U/L (0-41); Albumin Level 2.5 g/dL (3.5-5.2); Alkaline Phosphatase 80 IU/L (40-130); Aspartate Amino Transferase 28 U/L (0-40); Blood Urea Nitrogen 19 mg/dL (6-20); C Reactive Protein 325.1 mg/L (0.0-4.9); Calcium 7.7 mg/dL (8.5-10.5); Carbon Dioxide 24 mmol/L (22-29); Chloride 106 mmol/L (98-107); Globulin 3.7 g/dL (1.3-4.6); Glucose 128 mg/dL (65-115); Osmolality Calculated 290 mOsm/kg (285-295); Sodium 141 mmol/L (136-145); Total Bilirubin 2.1 mg/dL (0.15-1.2); Total Protein 6.2 g/dL (6.6-8.7)
[2020-07-09 04:55] LABS: Anion Gap 14.5 (5-19); Potassium 3.5 mmol/L (3.5-5.1)
--- NOTE | 2020-07-09 05:18 | PC.NURSE ---
Mottling spread noted to bilateral lower extremities, with darker shades/more noticeable spread across abdomen.
[2020-07-09] MEDS: metoclopramide 5 mg/mL SDV 2 mL IVP ×3 (06:03→21:33)
--- NOTE | 2020-07-09 06:44 | PC.NURSE ---
Change of shift report given to ROX Ramirez. Pt currently restless in bed. Has had multiple episodes of anxiety, pain, and restlessness with a total of 1hr slept. 2mg Ativan IVP, and Zofran 4mg IVP given to try and decrease anxiety and abdominal pain throughout shift. Pt states at times he is leaving AMA, and states he is going to go home and have a glass of whiskey to drink Mottled color shades appear darker and more prominent on abdomen, and has started to spread down to bilateral lower leg extremities. 1250 u/o 850 NG suction output. TPN running at 50mL/hr Precedex titrated up to 0.7mcg NS 5mL/hr
--- NOTE | 2020-07-09 07:50 | XR_ITS ---
WS: [id number] CHEST XRAY TECHNIQUE: Portable chest. CLINICAL INFORMATION: requirong 4L o2 COMPARISON: July 08, 2020 FINDINGS: Heart: Cardiomegaly. Sternotomy. Enteric tube with tip in stomach. Left central venous catheter tip i n the proximal SVC. Lungs: Improved lung aeration today. Patchy hazy infiltrates in right upper lobe are new. Subsegmenta l atelectasis left hilum and right lower lobe. Bones: Normal visualized bony structures. XR/XR chest 1V portable [id number] IMPRESSION: 1. New hazy groundglass infiltrates in the right upper lobe. Correlation for p neumonia. 2. Lung volumes are improved since July 08, 2020 with slight subsegmental atelectasis left hilum and right lower lobe. 3. Interval removal of ETT.
[2020-07-09] MEDS: budesonide 0.5 mg/2 mL Neb INHALATION ×2 (07:56→20:48)
[2020-07-09 08:24] LABS: Vancomycin Trough 10.8 ug/mL (10-15)
[2020-07-09] MEDS: chlordiazePOXIDE 25 mg Capsule PO ×3 (08:48→21:07)
[2020-07-09] MEDS: nicotine 14 mg Patch 1 PATCH TRANSDERMA (08:49)
[2020-07-09] MEDS: FUROsemide 10 mg/mL SDV 4mL 40 MG IVP (08:49)
[2020-07-09] MEDS: pantoprazole 40 mg SDV IVP ×2 (08:49→21:07)
--- NOTE | 2020-07-09 11:34 | CT_ITS ---
WS: [id number] CT CHEST, ABDOMEN, AND PELVIS TECHNIQUE: Contrast-enhanced CT of the chest, abdomen, and pelvis with coronal and sagittal reformatt ed images. CLINICAL INFORMATION: shortness of breath increased o2 requirment COMPARISON: CT abdomen pelvis July 08, 2020 DLP: 2202.[address] scans at [facility] use at least one of these dose optimization techniques: automat ed exposure control; mA and/or kV adjustment per patient size (includes targeted exams where dose is matched to clinical indication); or iterative reconstruction. CT CHEST: Moderate chronic erythematous changes. Small bilateral pleural effusions. Compressive atelectasis in the lung bases. Patchy nodular infiltrates right upper lobe with pleural thickening. Additional patchy infiltrates along the right fissure in the right upper lobe. Normal thyroid gland. No mediastinal or hilar lymphadenopathy. Coronary stent. No axillary lymphadeno alex. Correlation for pneumonia. CT ABDOMEN AND PELVIS: Mild diffuse fatty infiltration the liver. Normal portal vein. Enteric tube with tip in stomach. Diff use peripancreatic edema similar to yesterday consistent with pancreatitis. Poor flow in the distal s plenic vein suspicious for splenic artery thrombosis. Small filling defect in the SMV suspicious for small amount of thrombus. Fluid along the transverse mesocolon. No pseudocyst. Peripancreatic edema a nd mesenteric fluid similar to yesterday. Slightly heterogeneous pancreatic parenchymal enhancement. No definite evidence of necrotizing pancreatitis. Persistent parenchymal enhancement Normal adrenal glands. No hydronephrosis. Normal renal parenchymal enhancement. Slightly ectatic dist al left ureter unchanged. Betts catheter in place. Bladder is decompressed. Small amount of fluid in the pelvis. CT/CT chest abd pel w con* IMPRESSION: 1. Patchy infiltrates within the right upper lobe suspicious for pneumonia. 2. Small bilateral pleural effusions with compressive atelectasis in the lung bases. 3. Changes of pancreatitis as described above with similar appearing peripancr eatic edema and fluid. No pseudocyst. 4. Poor flow in the distal splenic vein today suspicious for thrombus. Small f illing defect in the SMV suspicious for thrombus Notified Lisandro Villafana MD at 07/09/2020 12:47 PM.
[2020-07-09 11:40] LABS: Glucose Point of Care 128 mg/dL (70-110)
[2020-07-09] MEDS: iohexol 300 mg/mL 100 mL Btl IV (12:17)
[2020-07-09 12:45] LABS: Procalcitonin 1.44 ng/mL (0-0.5)
[2020-07-09 12:57] LABS: Lyme AB Screen <0.90 index
--- NOTE | 2020-07-09 14:01 | XRR_ITS ---
PROCEDURE INFORMATION: Exam: XR Abdomen, 1 View Exam date and time: 07/09/2020 2:02 PM Age: 54 years old Clinical indication: Device placement; Gi device; Nasogastric tube; Additional info: Ng tube placement TECHNIQUE: Imaging protocol: XR of the abdomen. Views: Frontal supine view of the abdomen. 1 View. COMPARISON: CT chest abd pel w con* 07/09/2020 12:08 PM FINDINGS: Tubes, catheters and devices: There is a nasogastric tube whose tip is in the gastric antrum. Gastrointestinal tract: There is bowel gas without dilation. Bones/joints: Unremarkable. XR/XR abdomen 1V* [id number] IMPRESSION: There is a nasogastric tube whose tip is in the gastric antrum.
--- NOTE | 2020-07-09 14:01 | PC.NURSE ---
Pt found with NG tube out. When asked why he pulled his NG tube out, pt stated, it was in the way. He was instructed several times throughout the day to leave all of his lines alone, but still he managed to pull the NG tube out. NG tube replaced without difficulty. Abdominal x-ray ordered to confirm placement. Pt is still constantly asking to eat and drink. Dr. Gray rounded earlier did permit pt to have ice chips while NG tube is connected to low intermittent suction. Pt is oriented to person, place, date, and situation, but is still having frequent periods of restlessness and agitation. Unable to wean Precedex infusion so far today; current rate is 0.7mcg/kg/min. Pt taken to CT earlier without incident; results pending.
[2020-07-09] MEDS: heparin 5,000 unit/mL INJ 1 mL IV (18:00)
[2020-07-09] MEDS: heparin drip 25,000 UNIT/500 ML PREMIX 29.8 UNIT IV (18:01)
[2020-07-09 18:08] LABS: Partial Thromboplastin Time 30.3 SECONDS (23.9-36.7)
--- NOTE | 2020-07-09 18:13 | PM.PN ---
Subjective Subjective: Interval history: This morning patient was examined in the ICU, he is alert oriented x3, answers most questions appropriately, he is wondering when he can eat something, still has not had a bowel movement, abdomen still distended, has generalized abdominal pain, no cough, no shortness of breath, he did have fevers overnight, NG tube is in place, minimal output, no episodes of agitation overnight, Vitals/I&O/Wt Last Vital Signs Temp 98.4 F 07/09/20 07:00 Pulse 99 07/09/20 15:15 Resp 24 H 07/09/20 15:15 BP 130/69 07/09/20 15:15 Pulse Ox 93 07/09/20 15:15 07/09/20 07/09/20 07/09/20 06:59 14:59 22:59 Intake Total 1554 / 3515.387 100 / 100 Output Total 1300 / 4875 1400 / 1400 Balance 254 / -1359.613 -1300 / -1300 Weight last 48 hrs Weight 106.396 kg Weight 106.375 kg Physical Exam Const: COMMON NORMALS: no acute distress and patient oriented x3 GENERAL APPEARANCE: cooperative Eye: COMMON NORMALS: Equal, round and reactive pupils present and EOMs intact bilaterally PUPIL: Yes Equal, round and reactive pupils present Neck/C-Spine: COMMON NORMALS: no JVD Lymph: LYMPHATIC: no lymphadenopathy noted Resp: COMMON NORMALS: normal respiratory effort, No retractions, No use of accessory muscles and clear to auscultation bilaterally AUSCULTATION: clear to auscultation bilaterally and crackles Cardio: COMMON NORMALS: no JVD, regular rate, regular rhythm, S1 normal heart sound present and S2 normal heart sound present RATE: regular rate RHYTHM: regular rhythm HEART SOUNDS: S1 normal heart sound present and S2 normal heart sound present GI: INSPECTION: Yes abdominal distension AUSCULTATION: Yes Hypoactive bowel sounds present PALPATION: Yes Firmness to palpation present (GI), Yes Tenderness to palpation present (GI) (Generalized), No Guarding due to palpation present (GI) and No Rigid due to palpation PERCUSSION: tympanic to percussion OTHER: Skin mottling over abdomen, : COMMON NORMALS: Yes no CVA tenderness BLADDER/KIDNEY EXAM: Yes no CVA tenderness Back/Pelvis: COMMON NORMALS: no CVA tenderness Extremity: COMMON NORMALS: capillary refill normal and no clubbing, cyanosis or edema NARRATIVE EXTREMITY EXAM: 1+ pitting edema Neuro: COMMON NORMALS: patient oriented x3 Psych: COMMON NORMALS: mental status grossly normal Urinary Catheter Management^: Betts: Cath Placed During This Visit: yes Reason for Continuing Indwelling Catheter: Accurate Measurement of Urinary Output in Critically Ill Patients Urinary Catheter Date of Insertion: 07/04/20 Urinary Catheter Time of Insertion: 16:45 Data : 07/09/20 03:50 07/09/20 03:50 Micro: Microbiology 07/04/20 16:50 Blood Culture - Final Blood NO GROWTH AFTER 5 DAYS 07/04/20 16:53 Blood Culture - Final Blood NO GROWTH AFTER 5 DAYS 07/09/20 13:24 Blood Culture - Preliminary Blood SPECIMEN COLLECTED 07/09/20 13:22 Blood Culture - Preliminary Blood SPECIMEN COLLECTED A&P Assessment and plan (1) Acute respiratory failure with hypoxia: -Patient was intubated 07/03/2020 for acute encephalopathy secondary to alcohol withdrawal, concerns for acute respiratory failure -Successfully extubated on 07/08/2020 -Fevers overnight T-max 101.3, white blood cell count elevated to 16,000, pro-Scott 1.44, chest x-ray this morning shows new hazy groundglass infiltrates in the right upper lobe -I am concerned for the risk of recurrent aspiration pneumonia, given fevers, elevated white count, crackles heard on exam -He is requiring 3 to 4 L nasal cannula -Is on vancomycin and Primaxin since admission -Patient is a high risk of reintubation Plan: -Continue to monitor respiratory status closely - unfortunately patient will be a poor candidate for BiPAP, given the risk of aspiration, I am not sure if he is able to tolerate BiPAP, high flow if needed -We will consult pulmonary -Continue broad-spectrum antibiotics vancomycin and Primaxin -Redraw blood cultures, sputum cultures, urine bacterial antigens -Aspiration precautions, keep head of bed elevated -We will repeat CT of the chest today Status: Acute (2) Aspiration pneumonia: Status: Acute (3) Severe acute pancreatitis: -Severe and pancreatitis -G-tube in place, minimal output -CT scan yesterday showed pancreatitis, with interval increase in peripancreatic edema, no significant pancreatic necrosis, no abscess, small bilateral pleural effusions -White blood cell count 16.6, glucose 128, CRP 325 -Serum calcium 7.7 -Blood sugars 100-130's -Decrease IV fluids to 50 cc/h -Has concerns for ileus, NG tube in place, continue TPN, central line will be removed, culture trip, PICC line to be placed -This morning is a bit more distended, a bit more rigid, has skin mottling -Will monitor for abdominal compartment syndrome, skin mottling -We will repeat CT scan with contrast today, to evaluate for pancreatic necrosis, abscess, hemorrhagic pancreatitis -Continue Precedex drip, for agitation -Continue Librium for alcohol withdrawal -Pain control with Dilaudid -General surgery on consult Status: Acute (4) Shock: Resolved- Status: Acute (5) Alcohol withdrawal: -Continue Librium, Precedex, Ativan as needed Status: Acute (6) Acute pancreatitis: Status: Acute (7) Alcohol abuse: Status: Chronic (8) Acute kidney injury: Status: Acute (9) Hypocalcemia: Status: Acute (10) Hyponatremia: Status: Acute (11) S/P CABG (coronary artery bypass graft): Status: Acute (12) Chronic obstructive pulmonary disease: Without acute exacerbation, oxygen per protocol Status: Chronic (13) CAD (coronary artery disease): With a history of coronary artery bypass grafting and stent placement Continue on aspirin, statin, metoprolol Status: Chronic Qualifiers: Coronary Disease-Associated Artery/Lesion type: [place] artery Teller vs. transplanted heart: [place] heart Associated angina: without angina Qualified Code(s): I25.10 - Atherosclerotic heart disease of [place] coronary artery without angina pectoris Additional A&P Information 54-year-old gentleman past medical history of CAD with post CABG came in because of alcohol abuse found to be in pancreatitis. He was intubated after he started having abdominal distention and was in shock. Overnight patient had T-max of one 1.3, white blood cell count elevated 16.3, requiring up to 3 to 4 L nasal cannula -Repeat blood cultures, urine cultures, will remove central line culture tip -We will place PICC line for TPN -We will repeat CT scan of the abdomen to evaluate for pancreatic necrosis, or abscess -Patient does have concerns for recurrent aspiration, placed on aspiration precautions, dysphasia diet, will order CT of the chest -Is on vancomycin and Primaxin -We will give him another dose of Lasix today -We will consult pulmonary Neurology: Acute metabolic encephalopathy, has mostly resolved, minimal agitation, Successfully extubated yesterday, currently on Precedex, NG tube in place Continue with IV thiamine. Cardiovascular: Shock resolved. Most likely a combination of hypovolemic and sepsis. Patient has history of CABG. Last echocardiogram in May 2019 shows an EF of 50% with global LV hypokinesis. Keep mean arterial pressure was 65 mmHg. Stop IV fluids. Continue TPN Echocardiogram shows an EF of 45 to 50%, hypokinesia of septal wall. For now we will hold off on aspirin. Hold off on antihypertensives as patient is on inotropes at present. Pulmonology: Concerns for aspiration pneumonia, currently on 3 to 4 L nasal cannula Gastroenterology: Acute pancreatitis. Patient CT abdomen appreciated. Nephrology: Patient is in LENA. Resolved, monitor for now Hypocalcemia: Calcium level 7.4 . Hyponatremia: Resolving. We will continue to monitor. High anion gap acidosis: Resolved. Infectious disease: Repeat blood cultures. T-max in last 24 hours 101.3Fahrenheit. Patient has remained hemodynamically stable, afebrile. For now we will continue on imipenem and vancomycin as patient is at high risk of developing infection. Nutrition: NG tube in place, continue TPN Will remove central line, place PICC line Full code. Lovenox for DVT prophylaxis Protonix for PUD prophylaxis Patient's care discussed in detail with Alma on [phone]. She is patient's D POA. All the questions were answered. 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 transplanted heart: [place] heart Associated angina: without angina
[2020-07-09 18:36] LABS: Glucose Point of Care 147 mg/dL (70-110)
[2020-07-09 20:17] LABS: Glucose Point of Care 147 mg/dL (70-110)
[2020-07-09] MEDS: sodium chloride 0.9% 1,000 ML 50 ML IV (20:44)
[2020-07-09 21:01] LABS: Glucose Point of Care 130 mg/dL (70-110)
[2020-07-09] MEDS: haloperidol inj 5 mg/mL INJ 1 mL 2 MG IVP (23:19)
[2020-07-09] MEDS: LORazepam 2 mg Tablet PO (23:19)
[2020-07-10] VITALS (38 sets, daily range): BP systolic 91–152; BP diastolic 54–85; PULSE 81–103; RESP 18–36; TEMP 36.3–38; O2SAT 87–96
--- NOTE | 2020-07-10 | PC.NURSE ---
Patient still remains agitated et moving around in bed. Patient does not redirect. Patient states he is miserable et is attempting to get up out of bed. Precedex gtt increased.
--- NOTE | 2020-07-10 | PC.NURSE ---
Precedex gtt increased to 1.0 mcg/kg/hr. Dr. Maurice provided a telephone order allowing Precedex to be increased to a max of 1.4 mcg/kg/hr.
--- NOTE | 2020-07-10 00:15 | PC.NURSE ---
Precedex gtt increased to 1.4 mcg/kg/hr due to patients elevated CIWA. Will continue to monitor.
[2020-07-10] MEDS: ipratropium-albuterol 3 mL Neb INHALATION ×5 (00:18→20:17)
--- NOTE | 2020-07-10 00:33 | PC.NURSE ---
Please see CIWA assessments for changes in patient condition et reason for ETOH withdrawal medications.
[2020-07-10 00:37] LABS: Partial Thromboplastin Time 41.7 SECONDS (23.9-36.7)
--- NOTE | 2020-07-10 00:41 | PC.NURSE ---
Patient resting in bed after increasing precedex gtt. Will continue to monitor.
[2020-07-10] MEDS: HYDROmorphone 1 mg/mL INJ 1 mL IVP (01:03)
[2020-07-10] MEDS: LORazepam 2 mg Tablet PO (01:04)
[2020-07-10] MEDS: heparin 5,000 unit/mL INJ 1 mL IV ×2 (01:08→21:20)
--- NOTE | 2020-07-10 01:15 | PC.NURSE ---
Patient's PTT 41.7. Heparin bolused et gtt titrated per protocol. See MAR for details.
[2020-07-10] MEDS: chlordiazePOXIDE 25 mg Capsule PO ×4 (01:36→21:38)
[2020-07-10] MEDS: dexmedetomidine 400 MCG in sodium chloride 0.9% (100 ml) 100 ML 17.9 MCG IV (02:14)
[2020-07-10] MEDS: LORazepam 2 mg/mL INJ 1 mL IVP (03:19)
[2020-07-10 04:44] LABS: Ionized Calcium 1.1 mmol/L (1.1-1.4)
[2020-07-10 04:45] LABS: Hematocrit 29.4 % (42.0-52.0); Hemoglobin 9.8 g/dL (11.7-16.6); Mean Corpuscular HGB Conc 33.3 g/dL (30.0-36.0); Mean Corpuscular Hemoglobin 32.6 pg (28.0-34.0); Mean Corpuscular Volume 97.7 fL (80-94); Mean Platelet Volume 10.6 fL (7.4-10.4); Platelet Count 245 10^3/cmm (130-400); Red Blood Count 3.01 10^6/uL (4.1-5.3); Red Cell Distribution Width 13.3 % (12.1-15.1); White Blood Count 20.5 10^3/uL (4.0-10.0)
[2020-07-10 05:35] LABS: Lactic Sepsis W/Reflex 0.9 mmol/L (0.5-2.2)
[2020-07-10 05:51] LABS: Lipase 57 U/L (13-60); Phosphorus 3.6 mg/dL (2.5-4.5)
[2020-07-10 05:52] LABS: Alanine Aminotransferase 17 U/L (0-41); Albumin Level 2.6 g/dL (3.5-5.2); Alkaline Phosphatase 83 IU/L (40-130); Anion Gap 13.4 (5-19); Aspartate Amino Transferase 37 U/L (0-40); Blood Urea Nitrogen 19 mg/dL (6-20); C Reactive Protein 241.2 mg/L (0.0-4.9); Calcium 7.5 mg/dL (8.5-10.5); Carbon Dioxide 27 mmol/L (22-29); Chloride 108 mmol/L (98-107); Globulin 2.5 g/dL (1.3-4.6); Glucose 141 mg/dL (65-115); Osmolality Calculated 299 mOsm/kg (285-295); Potassium 3.4 mmol/L (3.5-5.1); Sodium 145 mmol/L (136-145); Total Bilirubin 1.7 mg/dL (0.15-1.2); Total Protein 5.1 g/dL (6.6-8.7)
[2020-07-10 06:08] LABS: Slide Review Slide Review Perform
[2020-07-10 06:11] LABS: Absolute Eosinophils 0.2 10^3/cmm (0.0-0.7); Absolute Segmented Neutrophil 7.4 10/cmm (1.6-7.1); Band Neutrophils Absolute 10.5 10^3/cmm (0.0-1.2); Eosinophils 1 %; Lymphocytes 3 %; Monocytes Absolute 1.2 10^3/cmm (0.1-0.6); Segmented Neutrophils 36 %; Total Cells Counted 100 (0-100)
[2020-07-10 06:12] LABS: Absolute Neutrophil 17.8 10^3/cmm (1.4-6.5); Platelet Estimate Normal (Normal)
[2020-07-10] MEDS: metoclopramide 5 mg/mL SDV 2 mL IVP ×3 (06:42→22:27)
[2020-07-10] MEDS: dexmedetomidine 400 MCG in sodium chloride 0.9% (100 ml) 100 ML 35.8 MCG IV (06:43)
[2020-07-10 07:42] LABS: Glucose Point of Care 127 mg/dL (70-110)
[2020-07-10 07:48] LABS: Partial Thromboplastin Time 52.5 SECONDS (23.9-36.7)
[2020-07-10] MEDS: budesonide 0.5 mg/2 mL Neb INHALATION ×2 (07:58→20:17)
--- NOTE | 2020-07-10 08:06 | USCV_ITS ---
Shadi Hill Age: 54 Gender: M : 1965 Exam Date: 07/10/2020 09:24 Ordering Phys: Lisandro Villafana MD Technologist: Francisco Merlos [place] [facility] [place]B BP: 121 / 67 HR: 88 Rhythm: Sinus Technical Quality: Adequate MEASUREMENTS (Male / Female) Normal Values 2D ECHO LV Diastolic Diameter PLAX 5.5 cm 4.2 - 5.9 / 3.9 - 5.3 cm LV Systolic Diameter PLAX 3.3 cm IVS Diastolic Thickness 0.8 cm 0.6 - 1.0 / 0.6 - 0.9 cm IVS Systolic Thickness 1.1 cm LVPW Diastolic Thickness 1.0 cm 0.6 - 1.0 / 0.6 - 0.9 cm LVPW Systolic Thickness 1.3 cm LVOT Diameter 2.0 cm LV Ejection Fraction 2D Teich 69.2 % LA Diameter 4.7 cm LA Width 4.8 cm LA Height 6.1 cm RA Width 3.6 cm RA Height 5.6 cm M-MODE LV Diastolic Diameter MM 4.7 cm 4.2 - 5.9 / 3.9 - 5.3 cm LV Systolic Diameter MM 3.9 cm LV Ejection Fraction MM Teich 37.2 % IVS Diastolic Thickness MM 1.9 cm 0.6 - 1.0 / 0.6 - 0.9 cm IVS Systolic Thickness MM 1.6 cm LVPW Diastolic Thickness MM 1.3 cm 0.6 - 1.0 / 0.6 - 0.9 cm LVPW Systolic Thickness MM 2.1 cm RV Diastolic Diameter MM 2.3 cm Aortic Annulus Diameter 4.0 cm LA Ao Ratio MM 1.2 MV E Point Septal Separation 1.4 cm DOPPLER AV Peak Velocity 171.0 cm/s LVOT Peak Velocity 102.0 cm/s AV Area Cont Eq vti 1.8 cm squared AV Area Cont Eq pk 1.9 cm squared MV Area PHT 5.0 cm squared Mitral E to A Ratio 1.1 MV E' Velocity 15.0 cm/s Mitral E to MV E' Ratio 6.0 Mitral E to LV E' Lateral Ratio 5.0 Mitral E to LV E' Septal Ratio 7.7 TR Peak Velocity 141.0 cm/s TR Peak Gradient 8.0 mmHg TV Peak E Velocity 116.0 cm/s Right Atrial Pressure 3.0 mmHg Pulmonary Artery Systolic Pressu 11.0 mmHg PV Peak Velocity 136.0 cm/s FINDINGS Left Ventricle Normal left ventricular cavity size. Normal left ventricular systolic function. No regional wall motion abnormalities. Left ventricular ejection fraction is estimated at 55 %. Grade II/IV diastolic dysfunction, moderately elevated filling pressures. Right Ventricle The right ventricle is normal in size and function. Right Atrium The right atrium is normal in size. Left Atrium The left atrium is normal in size. Mitral Valve Moderately thickened mitral valve. Moderate mitral annular calcification. No mitral valve stenosis. No mitral valve regurgitation. Aortic Valve Moderate aortic valve calcification. No aortic valve stenosis. Trace aortic valve regurgitation. Tricuspid Valve Structurally normal tricuspid valve without significant stenosis or regurgitation. Pulmonary artery systolic pressure is normal. Pulmonic Valve Structurally normal pulmonic valve without significant stenosis. There is no pulmonic regurgitation. Pericardium Normal pericardium without effusion. Aorta Normal ascending aorta dimension. CONCLUSIONS 1-Normal left ventricular cavity size. Normal left ventricular systolic function. No regional wall motion abnormalities. Left ventricular ejection fraction is estimated at 55 %. Grade II/IV diastolic dysfunction, moderately elevated filling pressures. 2-Moderate aortic valve calcification. No aortic valve stenosis. Trace aortic valve regurgitation. 3-Moderately thickened mitral valve. Moderate mitral annular calcification. No mitral valve stenosis. No mitral valve regurgitation. 4-There is no pericardial effusion. 5-Pulmonary artery systolic pressure is within normal limits. 6-When compared to the prior echocardiogram dated 07/05/2020 left ventricle ejection fraction has slightly improved from 45 to 50% to 55% now. Mioses Herring MD (Electronically Signed) Final Date: 10 July 2020 22:23 S
--- NOTE | 2020-07-10 08:24 | PC.NURSE ---
staff called Marian with the PICC team to get a line. Consent was signed.
--- NOTE | 2020-07-10 08:55 | XR_ITS ---
WS: [id number] CHEST XRAY TECHNIQUE: Portable chest. CLINICAL INFORMATION: PICC PLACEMENT COMPARISON: None. FINDINGS: Right PICC line with tip in the mid SVC in good position. No pneumothorax. Left Port-A-Cath stable. E nteric tube tip below the diaphragm. Cardiomegaly. Sternotomy. XR/XR chest 1V portable [id number] IMPRESSION: Right PICC line with tip in the mid SVC position. No pneumothorax.
--- NOTE | 2020-07-10 10:15 | PC.NURSE ---
abdomen pressure reading done. reads at 15. Dr. Villafana notified.
--- NOTE | 2020-07-10 10:47 | PM.PN ---
Subjective Subjective: Interval history: Patient continues to be distended, had over 1,000 L cc in NG output yesterday, no nausea or vomiting, no flatus or BM Vitals/I&O/Wt Last Vital Signs Temp 97.4 F L 07/10/20 09:00 Pulse 86 07/10/20 09:00 Resp 23 H 07/10/20 08:00 BP 121/65 07/10/20 09:00 Pulse Ox 90 07/10/20 09:00 07/09/20 07/10/20 07/10/20 22:59 06:59 14:59 Intake Total 500 / 2649.840 1695.840 / 2649.840 Output Total 1350 / 3675 925 / 3675 Balance -850 / -1025.160 770.840 / -1025.160 Weight last 48 hrs Weight 224 lb 4.8 oz Weight 234 lb 9 oz Physical Exam Narrative: EXAM NARRATIVE: Abdomen: Soft, distended, nontender, no guarding or rigidity Urinary Catheter Management^: Betts: Cath Placed During This Visit: yes Reason for Continuing Indwelling Catheter: Accurate Measurement of Urinary Output in Critically Ill Patients Urinary Catheter Date of Insertion: 07/04/20 Urinary Catheter Time of Insertion: 16:45 Data : 07/16/20 03:55 07/16/20 03:55 Micro: Microbiology 07/09/20 18:24 Bacterial Antigens - Final Urine Kidney 07/04/20 16:50 Blood Culture - Final Blood NO GROWTH AFTER 5 DAYS 07/04/20 16:53 Blood Culture - Final Blood NO GROWTH AFTER 5 DAYS 07/09/20 13:24 Blood Culture - Preliminary Blood SPECIMEN COLLECTED 07/09/20 13:22 Blood Culture - Preliminary Blood SPECIMEN COLLECTED A&P Assessment and plan (1) Acute pancreatitis: 54-year-old gentleman with history of alcoholism who has now developed acute pancreatitis with agitation/delirium secondary to alcohol withdrawal with expected ileus Continue NG tube to low intermittent suction, TPN for nutrition No surgical intervention required at this point Patient has been spiking fevers currently on vancomycin and Primaxin, might need to add antifungal therapy in the future Patient continues to have leukocytosis though is been stable. 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
[2020-07-10] MEDS: heparin drip 25,000 UNIT/500 ML PREMIX 33 UNIT IV (11:14)
[2020-07-10] MEDS: nicotine 14 mg Patch 1 PATCH TRANSDERMA (11:15)
[2020-07-10] MEDS: FUROsemide 10 mg/mL SDV 4mL 40 MG IVP ×2 (11:17→22:26)
[2020-07-10] MEDS: pantoprazole 40 mg SDV IVP ×2 (11:20→21:20)
[2020-07-10] MEDS: potassium chloride premix 40 MEQ/100 ML PREMIX 25 MEQ IV (11:23)
[2020-07-10 11:50] LABS: Glucose Point of Care 120 mg/dL (70-110)
[2020-07-10 14:22] LABS: Partial Thromboplastin Time 40.7 SECONDS (23.9-36.7)
[2020-07-10] MEDS: sodium chloride 0.9% 1,000 ML 34.3 ML IV (15:26)
--- NOTE | 2020-07-10 15:56 | P.PN_ITS ---
Subjective Subjective: Interval history: This morning patient was examined, he is a bit sleepy as he got Dilaudid over night due to complaints of pain and agitation, has no specific complaints just complaining of hunger, has been eating ice chips, overall he is doing better, abdomen is slightly but is less distended, still slightly mottled, NG tube output was 1000 cc, afebrile, respiratory rate between 50 and 220s, still on 4 L nasal cannula Medications: Reviewed: Yes Vitals/I&O/Wt Last Vital Signs Temp 98.9 F 07/10/20 13:00 Pulse 90 07/10/20 13:00 Resp 30 H 07/10/20 13:00 BP 106/62 07/10/20 13:00 Pulse Ox 91 07/10/20 13:00 07/10/20 07/10/20 07/10/20 06:59 14:59 22:59 Intake Total 1695.840 / 2649.840 385.44 / 385.44 487.632 / 873.072 Output Total 925 / 3675 Balance 770.840 / -1025.160 385.44 / 385.44 487.632 / 873.072 Weight last 48 hrs Weight 101.741 kg Weight 106.396 kg Physical Exam Const: COMMON NORMALS: no acute distress and alert GENERAL APPEARANCE: cooperative ORIENTATION/CONSCIOUSNESS: Yes oriented to person and Yes oriented to place; not oriented to time Neck/C-Spine: COMMON NORMALS: no JVD Lymph: LYMPHATIC: no lymphadenopathy noted Chest: COMMONS NORMALS: normal inspection of the chest Resp: COMMON NORMALS: normal respiratory effort, No retractions, No use of accessory muscles and clear to auscultation bilaterally AUSCULTATION: clear to auscultation bilaterally and crackles Cardio: COMMON NORMALS: no JVD, regular rate, regular rhythm, S1 normal heart sound present and S2 normal heart sound present RATE: regular rate RHYTHM: regular rhythm HEART SOUNDS: S1 normal heart sound present and S2 normal heart sound present GI: COMMON NORMALS: negative for No hepatosplenomegaly present INSPECTION: Yes abdominal distension AUSCULTATION: Yes Hypoactive bowel sounds present PALPATION: Yes Firmness to palpation present (GI), Yes Tenderness to palpation present (GI) (Generalized), No Guarding due to palpation present (GI), No Rigid due to palpation and No No hepatosplenomegaly present PERCUSSION: tympanic to percussion OTHER: Skin mottling over abdomen, : OTHER: Betts catheter in place Extremity: COMMON NORMALS: full ROM, capillary refill normal and no clubbing, cyanosis or edema NARRATIVE EXTREMITY EXAM: 1+ pitting edema Neuro: SENSORIUM/ORIENTATION: Yes alert, Yes oriented to person, Yes oriented to place and No oriented to time OTHER: Is sleeping this morning Psych: COMMON NORMALS: mental status grossly normal Urinary Catheter Management^: Betts: Cath Placed During This Visit: yes Reason for Continuing Indwelling Catheter: Accurate Measurement of Urinary Output in Critically Ill Patients Urinary Catheter Date of Insertion: 07/04/20 Urinary Catheter Time of Insertion: 16:45 Data : 07/10/20 04:27 07/10/20 04:27 Micro: Microbiology 07/09/20 13:24 Blood Culture - Preliminary Blood NEGATIVE TO DATE 07/09/20 13:22 Blood Culture - Preliminary Blood NEGATIVE TO DATE 07/09/20 18:24 Bacterial Antigens - Final Urine Kidney 07/04/20 16:50 Blood Culture - Final Blood NO GROWTH AFTER 5 DAYS 07/04/20 16:53 Blood Culture - Final Blood NO GROWTH AFTER 5 DAYS A&P Assessment and plan (1) Acute respiratory failure with hypoxia: -Patient was intubated 07/03/2020 for acute encephalopathy secondary to alcohol withdrawal, concerns for acute respiratory failure -Successfully extubated on 07/08/2020 -Fevers T-max 101.3 on 07/08/2020, -white blood cell count elevated to 20.5, with bandemia, CRP to 41.2, pro-Scott 1.44 -chest x-ray this morning shows new hazy groundglass infiltrates in the right upper lobe -CT of the chest with contrast yesterday did not show any pulmonary embolism, patchy infiltrates in the right upper lobe suspicious for pneumonia -I am concerned for the risk of recurrent aspiration pneumonia, given fevers, elevated white count, crackles heard on exam -He is requiring 3 to 4 L nasal cannula -Is on vancomycin and Primaxin since admission -Patient is a high risk of reintubation -The other thought is is that he is at high risk of fungal infection Plan: -Continue to monitor respiratory status closely -unfortunately patient will be a poor candidate for BiPAP, given the risk of aspiration, I am not sure if he is able to tolerate BiPAP, high flow if needed -Continue broad-spectrum antibiotics vancomycin and Primaxin -Redraw blood cultures, sputum cultures, urine bacterial antigens -Central line removed, tip cultured -PICC line placed -Encourage incentive spirometer use, inhaler therapy budesonide and DuoNeb -Aspiration precautions, keep head of bed elevated -Encourage ambulation, up out of bed as best as he can Status: Acute (2) Aspiration pneumonia: Status: Acute (3) Severe acute pancreatitis: -Severe and pancreatitis -NG-tube in place, m output 1100 inimal output -CT scan yesterday showed pancreatitis, with interval increase in peripancreatic edema, no significant pancreatic necrosis, no abscess, small bilateral pleural effusions -White blood cell count 20.5, glucose 128, CRP 241.2 -Serum calcium 7.5 -Blood sugars 100-15, on sliding scale -Decrease IV fluids to 50 cc/h -Has concerns for ileus, NG tube in place, continue TPN, central line will be removed, culture trip, PICC line in place -This morning abdomen is still slightly distended, less rigid, still has skin mottling, measured abdominal compartment was 15, elevated, continue to monitor abdominal compartment pressures every shift -Will monitor for abdominal compartment syndrome, skin mottling -Repeat CT scan shows significant peripancreatic edema, no significant necrosis, or hemorrhagic pancreatitis, no abscess, no cyst -Continue Librium for alcohol withdrawal -Pain control with Dilaudid -General surgery on consult Status: Acute (4) Shock: Resolved- Status: Acute (5) Alcohol withdrawal: -Continue Librium, Precedex, Ativan as needed Status: Acute (6) Acute pancreatitis: Status: Acute (7) Alcohol abuse: Status: Chronic (8) Acute kidney injury: Status: Acute (9) Hypocalcemia: Status: Acute (10) Hyponatremia: Status: Acute (11) S/P CABG (coronary artery bypass graft): Status: Acute (12) Chronic obstructive pulmonary disease: Without acute exacerbation, oxygen per protocol Status: Chronic (13) CAD (coronary artery disease): With a history of coronary artery bypass grafting and stent placement Continue on aspirin, statin, metoprolol Status: Chronic Qualifiers: Coronary Disease-Associated Artery/Lesion type: [place] artery [place] vs. transplanted heart: [place] heart Associated angina: without angina Qualifi ed Code(s): I25.10 - Atherosclerotic heart disease of [place] coronary artery without angina pectoris (14) Abdominal compartment syndrome: Status: Acute Additional A&P Information 54-year-old gentleman past medical history of CAD with post CABG came in because of alcohol abuse found to be in pancreatitis. He was intubated after he started having abdominal distention and was in shock. Neurology: Acute metabolic encephalopathy, has mostly resolved, minimal agitation, Successfully extubated yesterday, currently on Precedex, NG tube in place Continue with IV thiamine. Cardiovascular: Shock resolved. Most likely a combination of hypovolemic and sepsis. Patient has history of CABG. Last echocardiogram in May 2019 shows an EF of 50% with global LV hypokinesis. Keep mean arterial pressure was 65 mmHg. Echocardiogram shows an EF of 45 to 50%, hypokinesia of septal wall. For now we will hold off on aspirin. Hold off on antihypertensives as patient is on inotropes at present. Pulmonology: Concerns for aspiration pneumonia, currently on 3 to 4 L nasal cannula Gastroenterology: Acute pancreatitis. Nephrology: Patient is in LENA. Resolved, monitor for now Hypocalcemia: Calcium level 7.5 . Hyponatremia: Resolving. We will continue to monitor. High anion gap acidosis: Resolved. Infectious disease: Repeat blood cultures. Patient has remained hemodynamically stable, afebrile. For now we will continue on imipenem and vancomycin as patient is at high risk of developing infection. Nutrition: NG tube in place, to suction, continue TPN Left central line note, PICC line in place Full code. Lovenox for DVT prophylaxis Protonix for PUD prophylaxis Patient's care discussed in detail with Alma on [phone]. She is patient's D POA. All the questions were answered. Attestations Medical Necessity Statement*: Patient requires hospitalization for acute respiratory failure, acute severe pancreatitis Coding Level of Care Code Acute Staff Development Manager for [facility] Diagnoses Acute respiratory failure with hypoxia J96.01 Aspiration pneumonia J69.0 Severe acute pancreatitis K85.90 Shock R57.9 Alcohol withdrawal F10.239 Acute pancreatitis K85.90 Alcohol abuse F10.10 Acute kidney injury N17.9 Hypocalcemia E83.51 Hyponatremia E87.1 S/P CABG (coronary artery bypass graft) Z95.1 Chronic obstructive pulmonary disease J44.9 CAD (coronary artery disease) I25.10 Coronary Disease-Associated Artery/Lesion type: [place] artery [place] vs. transplanted heart: [place] heart Associated angina: without angina Abdominal compartment syndrome T79.A3XA
[2020-07-10 16:52] LABS: RMSF IGG NOT DETECTED; RMSF IGM NOT DETECTED
[2020-07-10 17:22] LABS: E. Chaffeensis AB IGG <1:64; E. Chaffeensis AB IGM <1:20
[2020-07-10 17:24] LABS: Glucose Point of Care 110 mg/dL (70-110)
[2020-07-10 21:01] LABS: Partial Thromboplastin Time 52.1 SECONDS (23.9-36.7)
[2020-07-10 21:35] LABS: Glucose Point of Care 132 mg/dL (70-110)
--- NOTE | 2020-07-10 21:43 | PC.NURSE ---
CHANGE OF SHIFT/DRIPS Report given to current nurse from [facility] at 1845. DRIPS at 1900 Precedex found at 1.4 mcg/kg/hr per physician order Heparin found at 39 mL/hour per heparin protocol. Last titration documentation from day shift nurse shows 33 mL/hr, so increased titration to 39 mL/hour on DEC at 1900.
--- NOTE | 2020-07-10 21:47 | PC.NURSE ---
PTT/HEPARIN GTT Upon change of shift report, day shift nurse informed current nurse of 6 hour PTT ordered for 1930. Lab called at 2014 to remind of timed PTT. Lab came to draw at 2029. Resulted at 2114 at 52.1. Per heparin protocol, 2100 unit bolus given to patient and drip increased by 2 mL/hour. 2nd RN verification with Kenisha Koroma RN.
--- NOTE | 2020-07-10 23:29 | XRR_ITS ---
PROCEDURE INFORMATION: Exam: XR Chest, 1 View Exam date and time: 07/10/2020 11:51 PM Age: 54 years old Clinical indication: Device placement; Picc; Additional info: Picc verification TECHNIQUE: Imaging protocol: XR of the chest Views: 1 view. COMPARISON: CR XR chest 1V portable [id number] 07/10/2020 8:58 AM FINDINGS: Tubes, catheters and devices: The nasogastric tube is positioned in the stomach, well beyond the diaphragmatic hiatus. The tip is not imaged. The right PICC line has been withdrawn. The tip projects over the right clavicular head. Lungs: Lungs are clear. Pleural space: There is no pleural effusion or pneumothorax. Heart/Mediastinum: Mild cardiac enlargement. Bones/joints: Sternal wires are present. There is no displacement to suggest sternal dehiscence. XR/XR chest 1V portable [id number] IMPRESSION: 1. The right PICC line tip has been withdrawn into the subclavian vein. 2. NG tube is in the stomach. The tip is not imaged.
[2020-07-11] VITALS (81 sets, daily range): BP systolic 80–162; BP diastolic 48–90; PULSE 79–102; RESP 16–39; TEMP 36.2–36.8; O2SAT 69–96
[2020-07-11] MEDS: HYDROmorphone 1 mg/mL INJ 1 mL IVP ×2 (00:39→20:32)
--- NOTE | 2020-07-11 00:57 | PC.NURSE ---
PICC LINE Patient PICC line resistant and hard to flush in both lumens. Nurse maneuvered arm into different positions to attempt to check blood return and flush. Line still extremely resistant to flush. Chest X-ray ordered to check line placement and showed that PICC line tip had been withdrawn and is projecting over the right clavicular head. Dr. Maurice called to notify of findings and clarify TPN. Gave order to attempt peripheral line to give TPN through with close monitoring until PICC placement could be corrected in AM. If additional IV access could not be established, physician stated to hold TPN until PICC line could be corrected. Additional IV access established and TPN running again at 50 mL/hour through 18 guage in right AC.
--- NOTE | 2020-07-11 01:17 | PC.NURSE ---
INTRA-ABDOMINAL PRESSURE Obtained intra-abdominal pressure on patient. Reading of 8. Will recheck in early AM.
[2020-07-11] MEDS: chlordiazePOXIDE 25 mg Capsule PO (01:53)
[2020-07-11] MEDS: sodium chloride 0.9% 1,000 ML 50 ML IV (02:54)
[2020-07-11 03:29] LABS: Ionized Calcium 1.1 mmol/L (1.1-1.4)
[2020-07-11 03:35] LABS: Basophils # 0.1 10^3/uL (0.0-0.1); Basophils % 0.4 %; Eosinophils # 0.1 10^3/uL (0.0-0.8); Eosinophils % 0.3 %; Hematocrit 28.9 % (42.0-52.0); Hemoglobin 9.7 g/dL (11.7-16.6); Lymphocytes # 1.9 10^3/uL (0.8-4.8); Lymphocytes % 6.9 %; Mean Corpuscular HGB Conc 33.6 g/dL (30.0-36.0); Mean Corpuscular Hemoglobin 32.3 pg (28.0-34.0); Mean Corpuscular Volume 96.3 fL (80-94); Monocytes # 1.7 10^3/uL (0.2-0.9); Monocytes % 6.3 %; Neutrophils # 21.27 10^3/uL (1.8-7.7); Neutrophils % 79.1 %; Nucleated Red Blood Cells % 0.1 %; Platelet Count 277 10^3/cmm (130-400); Red Cell Distribution Width 13.3 % (12.1-15.1); White Blood Count 26.9 10^3/uL (4.0-10.0)
[2020-07-11] MEDS: ipratropium-albuterol 3 mL Neb INHALATION ×4 (03:46→19:56)
[2020-07-11 03:57] LABS: Lactic Sepsis W/Reflex 0.8 mmol/L (0.5-2.2)
[2020-07-11 03:58] LABS: Alanine Aminotransferase 15 U/L (0-41); Albumin Level 2.1 g/dL (3.5-5.2); Alkaline Phosphatase 88 IU/L (40-130); Anion Gap 12.1 (5-19); Aspartate Amino Transferase 37 U/L (0-40); Blood Urea Nitrogen 20 mg/dL (6-20); Calcium 7.9 mg/dL (8.5-10.5); Carbon Dioxide 27 mmol/L (22-29); Chloride 109 mmol/L (98-107); Globulin 3.6 g/dL (1.3-4.6); Glomerular Filtration Rate 69.2 mL/min (90-130); Glucose 149 mg/dL (65-115); Magnesium 1.9 mg/dL (1.7-2.3); Osmolality Calculated 299 mOsm/kg (285-295); Potassium 3.1 mmol/L (3.5-5.1); Sodium 145 mmol/L (136-145); Total Bilirubin 2.1 mg/dL (0.15-1.2); Total Protein 5.7 g/dL (6.6-8.7)
[2020-07-11 04:06] LABS: Partial Thromboplastin Time 65.7 SECONDS (23.9-36.7)
[2020-07-11 04:28] LABS: Slide Review Slide Review Perform
[2020-07-11 04:29] LABS: C Reactive Protein 273.3 mg/L (0.0-4.9)
[2020-07-11 04:33] LABS: Lipase 71 U/L (13-60)
--- NOTE | 2020-07-11 05:19 | PC.NURSE ---
Due to patient requiring PICC line placement verification around midnight, morning chest x-ray cancelled as this would be a duplicate image.
[2020-07-11] MEDS: metoclopramide 5 mg/mL SDV 2 mL IVP ×3 (05:32→22:10)
--- NOTE | 2020-07-11 05:57 | PC.NURSE ---
SHIFT SUMMARY Patient rested well this shift. Last PTT came back within therapeutic level at 65.7 so no change was made to heparin gtt, remains at 41 mL/hour. Precedex gtt remained at 1.4 mcg/kg/hr. NS @ 50 mL/hr. TPN @ 50 mL/hr. Patient has had minimal complaints of pain tonight with one instance and dilaudid was given with relief. Patient remained sinus rhythm in the 80s this shift and an oxygen saturation above 92% on 4L NC. 2850 mL urine output. 900 mL gastric contents from NG tube. Patient has been afebrile. Dr. Maurice notified of potassium of 3.1. Patient needed no HS insulin coverage. Chest x-ray obtained for PICC line resistance with flush to reveal misplacement. Dr. Maurice okay'd TPN through peripheral line until PICC line placement corrected. First intra-abdominal pressure this shift was 8, with a reading of 5 at 0600.
[2020-07-11] MEDS: potassium chloride premix 40 MEQ/100 ML PREMIX 25 MEQ IV (06:49)
[2020-07-11] MEDS: lidocaine 1% INJ 20 mL 5 ML IV (06:50)
[2020-07-11] MEDS: budesonide 0.5 mg/2 mL Neb INHALATION ×2 (07:35→19:55)
[2020-07-11 08:51] LABS: Procalcitonin 0.99 ng/mL (0-0.5)
--- NOTE | 2020-07-11 09:38 | P.PN_ITS ---
Subjective Subjective: Interval history: This morning patient was examined, nurses at bedside, patient states that he is really hungry, really wants to drink something, abdomen is less distended this morning, no bowel movement, no fevers overnight, still on 3 to 4 L nasal cannula, normotensive, has episodes of tachypnea, has complaints of abdominal pain, states that he just feels ill, patient did get up to a chair yesterday, is ambulating a bit more, had 900 cc of NG tube output, had 2.1 L of urine output, white blood cell count elevated to 26.9, there is been issues with his PICC line, which needs to be repositioned Vitals/I&O/Wt Last Vital Signs Temp 98.1 F 07/11/20 04:00 Pulse 83 07/11/20 07:44 Resp 22 H 07/11/20 07:36 BP 119/76 07/11/20 04:00 Pulse Ox 93 07/11/20 07:36 07/10/20 07/11/20 07/11/20 22:59 06:59 14:59 Intake Total 2414.582 / 3050.022 733.307 / 3783.329 Output Total 3075 / 3075 2400 / 5475 Balance -660.418 / -24.978 -1666.693 / -1691.671 Weight last 48 hrs Weight 102.24 kg Weight 101.741 kg Physical Exam Const: COMMON NORMALS: no acute distress and patient oriented x3 HENMT: COMMON NORMALS: normocephalic HEAD & SCALP: normocephalic OTHER: NG tube in place Neck/C-Spine: COMMON NORMALS: no JVD Resp: COMMON NORMALS: normal respiratory effort, No retractions, No use of accessory muscles and clear to auscultation bilaterally AUSCULTATION: clear to auscultation bilaterally Cardio: COMMON NORMALS: no JVD, regular rate, regular rhythm, S1 normal heart sound present and S2 normal heart sound present RATE: regular rate RHYTHM: regular rhythm HEART SOUNDS: S1 normal heart sound present and S2 normal heart sound present GI: COMMON NORMALS: Soft to palpation INSPECTION: Yes abdominal distension AUSCULTATION: Yes Hypoactive bowel sounds present PALPATION: Yes Soft to palpation, Yes Tenderness to palpation present (GI) (diffus tenderness), No Guarding due to palpation present (GI) and No Rigid due to palpation OTHER: Mottling over abdomen, improved Extremity: COMMON NORMALS: capillary refill normal, no clubbing, cyanosis or edema, no calf tenderness and no pedal edema Neuro: COMMON NORMALS: patient oriented x3 Psych: COMMON NORMALS: mental status grossly normal Urinary Catheter Management^: Betts: Cath Placed During This Visit: yes Reason for Continuing Indwelling Catheter: Accurate Measurement of Urinary Output in Critically Ill Patients Urinary Catheter Date of Insertion: 07/04/20 Urinary Catheter Time of Insertion: 16:45 Data : 07/11/20 03:15 07/11/20 03:15 Micro: Microbiology 07/09/20 13:24 Blood Culture - Preliminary Blood NEGATIVE TO DATE 07/09/20 13:22 Blood Culture - Preliminary Blood NEGATIVE TO DATE 07/09/20 18:24 Bacterial Antigens - Final Urine Kidney A&P Assessment and plan (1) Acute respiratory failure with hypoxia: -Patient was intubated 07/03/2020 for acute encephalopathy secondary to alcohol withdrawal, concerns for acute respiratory failure -Successfully extubated on 07/08/2020 -Fevers T-max 101.3 on 07/08/2020, -white blood cell count elevated to 26.9, with bandemia, CRP to 273.3, pro-Scott 0.99 -Still on 3 to 4 L nasal cannula -CT of the chest with contrast yesterday did not show any pulmonary embolism, patchy infiltrates in the right upper lobe suspicious for pneumonia -Concerns for recurrent aspiration pneumonia, aspiration pneumonitis, other concerns for possible fungal infection -He is requiring 3 to 4 L nasal cannula -Is on vancomycin and Primaxin since admission -Patient is a high risk of reintubation -Change out Betts, send catheter tip -Central line removed, catheter tip sent for culture -Repeat blood cultures, urine cultures pending -Given patient's persistent elevation in his white blood cell count, antibiotic use, there is concern for C. difficile Plan: -Continue to monitor respiratory status closely -unfortunately patient will be a poor candidate for BiPAP, given the risk of aspiration, I am not sure if he is able to tolerate BiPAP, high flow if needed -Continue br 6 oad-spectrum antibiotics vancomycin and Primaxin -Send stool for C. difficile, start p.o. vancomycin for possible C. difficile -Follow blood cultures, sputum cultures, urine bacterial antigens, urine cultures, Betts catheter tip culture, central line tip culture -PICC line placed needs to be fixed -Encourage incentive spirometer use, inhaler therapy budesonide and DuoNeb -Aspiration precautions, keep head of bed elevated -Encourage ambulation, up out of bed as best as he can Status: Acute (2) Aspiration pneumonia: Status: Acute (3) Severe acute pancreatitis: -Severe pancreatitis -Splenic vein thrombosis seen on CAT scan, currently on heparin drip -NG-tube in place, m output 900cc -CT scan on 07/09/2020 showed pancreatitis, with interval increase in peripancreatic edema, no significant pancreatic necrosis, no abscess, small bilateral pleural effusions -White blood cell count 26.9, glucose 128, CRP 241.2 -Serum calcium 7.9, ionized calcium 1.1 -Blood sugars 100-15, on sliding scale -Decrease IV fluids to 50 cc/h -Has concerns for ileus, NG tube in place -PICC line position issues, to be fixed, continue TPN -This morning abdomen is still slightly distended, less rigid, still has skin mottling, measured abdominal compartment was 5 -Will monitor for abdominal compartment syndrome, skin mottling -Repeat CT scan possibly tomorrow -Continue Librium for alcohol withdrawal -Pain control with Dilaudid -General surgery on consult Status: Acute (4) Shock: Resolved- Status: Acute (5) Alcohol withdrawal: -Continue Librium, Precedex, Ativan as needed Status: Acute (6) Acute pancreatitis: Status: Acute (7) Alcohol abuse: Status: Chronic (8) Acute kidney injury: Status: Acute (9) Hypocalcemia: Status: Acute (10) Hyponatremia: Status: Acute (11) S/P CABG (coronary artery bypass graft): Status: Acute (12) Chronic obstructive pulmonary disease: Without acute exacerbation, oxygen per protocol Status: Chronic (13) CAD (coronary artery disease): With a history of coronary artery bypass grafting and stent placement Continue on aspirin, statin, metoprolol Status: Chronic Qualifiers: Associated angina: without angina Coronary Disease-Associated Artery/ Lesion type: [place] artery [place] vs. transplanted heart: [place] heart Qualified Code(s): I25.10 - Atherosclerotic heart disease of [place] coronary artery without angina pectoris (14) Abdominal compartment syndrome: Status: Acute (15) Splenic vein thrombosis: Status: Acute Additional A&P Information 54-year-old gentleman past medical history of CAD with post CABG came in because of alcohol abuse found to be in pancreatitis. He was intubated after he started having abdominal distention and was in shock. Neurology: Acute metabolic encephalopathy, has mostly resolved, minimal agitation, Successfully extubated yesterday, currently on Precedex, NG tube in place Continue with IV thiamine. Cardiovascular: Shock resolved. Most likely a combination of hypovolemic and sepsis. Patient has history of CABG. Last echocardiogram in May 2019 shows an EF of 50% with global LV hypokinesis. Keep mean arterial pressure was 65 mmHg. Echocardiogram shows an EF of 45 to 50%, hypokinesia of septal wall. For now we will hold off on aspirin. Hold off on antihypertensives as patient is on inotropes at present. Pulmonology: Concerns for aspiration pneumonia, currently on 3 to 4 L nasal cannula Gastroenterology: Acute pancreatitis. Nephrology: Patient is in LENA. Resolved, monitor for now . Hyponatremia: Resolving. We will continue to monitor. High anion gap acidosis: Resolved. Infectious disease: Repeat blood cultures. Patient has remained hemodynamically stable, afebrile. For now we will continue on imipenem and vancomycin as patient is at high risk of developing infection. Nutrition: NG tube in place, to suction, continue TPN Left central line removed, PICC line in place Full code. Lovenox for DVT prophylaxis Protonix for PUD prophylaxis Patient's care discussed in detail with Alma on [phone]. She is patient's D POA. All the questions were answered. Attestations Medical Necessity Statement*: She requires hospitalization for acute respiratory failure, pancreatitis Coding Level of Care Code Acute Science And Operations Officer for [facility] Fwd Exam Comprehensive Diagnoses Acute respiratory failure with hypoxia J96.01 Aspiration pneumonia J69.0 Severe acute pancreatitis K85.90 Shock R57.9 Alcohol withdrawal F10.239 Acute pancreatitis K85.90 Alcohol abuse F10.10 Acute kidney injury N17.9 Hypocalcemia E83.51 Hyponatremia E87.1 S/P CABG (coronary artery bypass graft) Z95.1 Chronic obstructive pulmonary disease J44.9 CAD (coronary artery disease) I25.10 Associated angina: without angina Coronary Disease-Associated Artery/Lesion type: [place] artery [place] vs. transplanted heart: [place] heart Abdominal compartment syndrome T79.A3XA Splenic vein thrombosis I82.890
[2020-07-11] MEDS: nicotine 14 mg Patch 1 PATCH TRANSDERMA (10:55)
[2020-07-11] MEDS: chlordiazePOXIDE 25 mg Capsule 50 MG PO ×3 (10:55→20:31)
[2020-07-11] MEDS: pantoprazole 40 mg SDV IVP ×2 (10:56→20:31)
[2020-07-11 11:23] LABS: Partial Thromboplastin Time 50.1 SECONDS (23.9-36.7)
--- NOTE | 2020-07-11 11:23 | PC.NURSE ---
Pharmacy called regarding vanc. trough. medication to be held.
[2020-07-11] MEDS: heparin 5,000 unit/mL INJ 1 mL IV ×2 (11:34→20:31)
--- NOTE | 2020-07-11 12:17 | PM.PN ---
Subjective Subjective: Interval history: Patient is awake and alert, follows commands, complains of mild abdominal pain, no BM, Vitals/I&O/Wt Last Vital Signs Temp 98.3 F 07/11/20 08:00 Pulse 88 07/11/20 12:01 Resp 36 H 07/11/20 12:01 BP 92/55 07/11/20 12:01 Pulse Ox 92 07/11/20 12:01 07/10/20 07/11/20 07/11/20 22:59 06:59 14:59 Intake Total 2414.582 / 3883.329 833.307 / 3883.329 310 / 310 Output Total 3075 / 5475 2400 / 5475 650 / 650 Balance -660.418 / -1591.671 -1566.693 / -1591.671 -340 / -340 Weight last 48 hrs Weight 225 lb 6.4 oz Weight 224 lb 4.8 oz Physical Exam Narrative: EXAM NARRATIVE: Abdomen: Soft, distended, minimally tender, no guarding or rigidity, output is bilious Urinary Catheter Management^: Betts: Cath Placed During This Visit: yes Reason for Continuing Indwelling Catheter: Accurate Measurement of Urinary Output in Critically Ill Patients Urinary Catheter Date of Insertion: 07/04/20 Urinary Catheter Time of Insertion: 16:45 Data : 07/11/20 03:15 07/11/20 03:15 Micro: Microbiology 07/09/20 18:24 Urine Culture - Preliminary Urine Catheterized 07/09/20 13:24 Blood Culture - Preliminary Blood NEGATIVE TO DATE 07/09/20 13:22 Blood Culture - Preliminary Blood NEGATIVE TO DATE 07/09/20 18:24 Bacterial Antigens - Final Urine Kidney A&P Assessment and plan (1) Acute pancreatitis: 54-year-old gentleman with history of alcoholism who has now developed acute pancreatitis with agitation/delirium secondary to alcohol withdrawal. Abdomen is distended but not concerning for compartment syndrome at this point WBC trending up, patient's T-max was 100.4 but otherwise has been afebrile, tachycardic - continue IV antibiotics, will need repeat CT abdomen pelvis to identify extent of pancreatitic necrosis Significant NG output consistent with ileus/functional obstruction - continue TPN No surgical intervention required at this point Status: Acute Attestations Medical Necessity Statement*: Acute severe pancreatitis requiring continued inpatient stay Coding Level of Care Code Acute Screw Machine Operator [place] Type for Chg Fwd Diagnoses Acute pancreatitis K85.90
[2020-07-11 13:33] LABS: Glucose Point of Care 123 mg/dL (70-110)
[2020-07-11] MEDS: heparin drip 25,000 UNIT/500 ML PREMIX 41 UNIT IV (13:54)
--- NOTE | 2020-07-11 16:32 | XRR_ITS ---
PROCEDURE INFORMATION: Exam: XR Chest, 1 View Exam date and time: 07/11/2020 5:01 PM Age: 54 years old Clinical indication: Device placement; Picc; Prior surgery; Surgery date: 6+ months; Additional info: Picc placement////please call [facility] for placement verification TECHNIQUE: Imaging protocol: XR of the chest Views: 1 view. COMPARISON: CR XR chest 1V portable [id number] 07/10/2020 11:38 PM FINDINGS: Tubes, catheters and devices: Right PICC line with tip over the proximal SVC. NG tube extends into the gastric body, beyond the field of view. Lungs: Shallow inspiration with mild basilar atelectasis. Pleural space: Unremarkable. No pleural effusion. No pneumothorax. Heart/Mediastinum: Unremarkable. No cardiomegaly. Bones/joints: Median sternotomy wires. XR/XR chest 1V portable [id number] IMPRESSION: 1. PICC line tip over the proximal SVC.
[2020-07-11 17:09] LABS: Glucose Point of Care 148 mg/dL (70-110)
[2020-07-11 21:15] LABS: Glucose Point of Care 137 mg/dL (70-110)
--- NOTE | 2020-07-11 21:49 | PC.NURSE ---
URINARY CATHETER REMOVAL Day shift RN removed urinary catheter. Current nurse charted removal to complete off worklist.
[2020-07-11] MEDS: alteplase 1 mg/mL SDV 2 mL 2 MG INTRACATH (23:21)
[2020-07-12] VITALS (93 sets, daily range): BP systolic 88–155; BP diastolic 41–106; PULSE 83–96; RESP 19–36; TEMP 37.2–37.7; O2SAT 87–99
[2020-07-12] MEDS: sodium chloride 0.9% 1,000 ML 50 ML IV ×2 (00:06→20:24)
[2020-07-12] MEDS: LORazepam 2 mg Tablet PO ×3 (00:16→22:18)
[2020-07-12] MEDS: HYDROmorphone 1 mg/mL INJ 1 mL IVP ×5 (00:16→23:30)
--- NOTE | 2020-07-12 00:49 | PC.NURSE ---
CATHFLO Cathflo was instilled into PICC line at 0000. After 30 minutes, PICC was aspirated to check for blood return. Catheter was still not funtional, so will be assessed again at 0200 after 120 minutes per Cathflo administration directions.
[2020-07-12] MEDS: ipratropium-albuterol 3 mL Neb INHALATION ×4 (02:16→12:30)
[2020-07-12] MEDS: chlordiazePOXIDE 25 mg Capsule 50 MG PO ×4 (02:44→20:26)
[2020-07-12 02:46] LABS: Basophils # 0.1 10^3/uL (0.0-0.1); Basophils % 0.4 %; Eosinophils # 0.1 10^3/uL (0.0-0.8); Eosinophils % 0.4 %; Hematocrit 30.8 % (42.0-52.0); Hemoglobin 9.9 g/dL (11.7-16.6); Lymphocytes % 7.4 %; Mean Corpuscular HGB Conc 32.1 g/dL (30.0-36.0); Mean Corpuscular Volume 99.7 fL (80-94); Mean Platelet Volume 11.1 fL (7.4-10.4); Monocytes # 1.6 10^3/uL (0.2-0.9); Monocytes % 5.9 %; Neutrophils # 21.18 10^3/uL (1.8-7.7); Neutrophils % 80.1 %; Nucleated Red Blood Cells % 0.1 %; Platelet Count 306 10^3/cmm (130-400); Red Blood Count 3.09 10^6/uL (4.1-5.3); Red Cell Distribution Width 13.8 % (12.1-15.1); White Blood Count 26.4 10^3/uL (4.0-10.0)
--- NOTE | 2020-07-12 02:57 | PC.NURSE ---
PICC/CATHFLO After 120 minutes, aspiration of blood from line was attempted with no success. Will evaluate placement with AM chest x-ray.
[2020-07-12] MEDS: dexmedetomidine 400 MCG in sodium chloride 0.9% (100 ml) 100 ML 15.3 MCG IV (03:06)
[2020-07-12 03:16] LABS: Partial Thromboplastin Time 57.6 SECONDS (23.9-36.7)
[2020-07-12 03:26] LABS: Alanine Aminotransferase 20 U/L (0-41); Alkaline Phosphatase 92 IU/L (40-130); Anion Gap 14.1 (5-19); Aspartate Amino Transferase 46 U/L (0-40); Blood Urea Nitrogen 19 mg/dL (6-20); Calcium 8.1 mg/dL (8.5-10.5); Carbon Dioxide 23 mmol/L (22-29); Chloride 114 mmol/L (98-107); Glomerular Filtration Rate 69.2 mL/min (90-130); Glucose 165 mg/dL (65-115); Magnesium 2.3 mg/dL (1.7-2.3); Osmolality Calculated 306 mOsm/kg (285-295); Phosphorus 3.5 mg/dL (2.5-4.5); Potassium 3.1 mmol/L (3.5-5.1); Sodium 148 mmol/L (136-145); Total Bilirubin 1.7 mg/dL (0.15-1.2)
[2020-07-12 03:27] LABS: C Reactive Protein 287.1 mg/L (0.0-4.9)
[2020-07-12 04:08] LABS: Slide Review Slide Review Perform
[2020-07-12] MEDS: heparin drip 25,000 UNIT/500 ML PREMIX 45 UNIT IV ×2 (04:15→13:50)
[2020-07-12 04:32] LABS: Ionized Calcium 1.1 mmol/L (1.1-1.4)
[2020-07-12 05:02] LABS: Procalcitonin 1.07 ng/mL (0-0.5)
[2020-07-12 05:12] LABS: Lipase 69 U/L (13-60)
[2020-07-12 05:16] LABS: Lactic Sepsis W/Reflex 1.1 mmol/L (0.5-2.2)
[2020-07-12] MEDS: metoclopramide 5 mg/mL SDV 2 mL IVP ×3 (06:01→22:17)
--- NOTE | 2020-07-12 06:27 | PC.NURSE ---
SHIFT SUMMARY Patient had restless night with complaints of back pain. Patient received pain medication frequently throughout the shift and only slept in small intervals. Patients last dose of dilaudid at 0414. Patient had 750 mL out of NG tube. 865 mL urine output with one small liquid BM. Last PTT was within therapeutic range, so Heparin gtt remains the same at 45 mL/hour. Precedex drip at 0.8 mcg/kg/hour. TPN @ 50 mL/hour. NS @ 50 mL/hour. PICC line continues to not flush or aspirate blood.
--- NOTE | 2020-07-12 07:00 | XR_ITS ---
WS: [id number] Portable AP upright chest, 07/12/2020, 0515 hours. Clinical Data: sob Comparison: Portable chest, 07/11/2020 Findings: The oral gastric tube and right PICC line remain in same position. There is a right lower l obe patchy opacity. There is blunting of both costophrenic angles. The heart is enlarged. Midline masha rnotomy sutures are present. No pneumothorax is seen. Monitor leads are on the chest wall. XR/XR chest 1V portable [id number] Impression: 1. Right lower lobe patchy opacity which may represent atelectasis and/or pneum onia. 2. Blunting of both costophrenic angles which could indicate small effusions. 3. Cardiomegaly. 4. Right PICC line barely enters superior vena cava and the oral gastric tube r emains in good position.
[2020-07-12 07:17] LABS: Glucose Point of Care 132 mg/dL (70-110)
[2020-07-12] MEDS: budesonide 0.5 mg/2 mL Neb INHALATION (07:41)
--- NOTE | 2020-07-12 08:32 | XR_ITS ---
WS: [id number] CHEST XRAY TECHNIQUE: Portable chest. CLINICAL INFORMATION: PICC Line Placement COMPARISON: July 12, 2020 FINDINGS: Right PICC line with tip in mid SVC. No visualized pneumothorax. Enteric tube with tip belo w the diaphragm. No other significant changes from previous. XR/XR chest 1V portable [id number] IMPRESSION: Right PICC line with tip in the mid SVC. No pneumothorax.
[2020-07-12] MEDS: nicotine 14 mg Patch 1 PATCH TRANSDERMA (08:54)
[2020-07-12] MEDS: pantoprazole 40 mg SDV IVP ×2 (08:54→20:26)
[2020-07-12] MEDS: potassium chloride premix 40 MEQ/100 ML PREMIX 25 MEQ IV (08:57)
[2020-07-12 10:26] LABS: Partial Thromboplastin Time 66.3 SECONDS (23.9-36.7)
--- NOTE | 2020-07-12 14:24 | PC.NURSE ---
Intra-abdominal pressure measured 10 mmHG. Patient tolerated well.
--- NOTE | 2020-07-12 14:40 | P.PN_ITS ---
Subjective Subjective: Interval history: This morning patient was examined, in the intensive care unit, nurses present, abdomen is less distended, less mottled, afebrile overnight, currently working on ice chips, wants to try something more substantial, no episodes of agitation overnight, has back pain, NG tube output was 700 cc, had a bowel movement yesterday, no shortness of breath, currently on 3 L nasal cannula, Medications: Reviewed: Yes Vitals/I&O/Wt Last Vital Signs Temp 99.6 F 07/12/20 12:43 Pulse 88 07/12/20 12:30 Resp 33 H 07/12/20 13:57 BP 141/83 07/12/20 11:45 Pulse Ox 94 07/12/20 12:30 07/11/20 07/12/20 07/12/20 22:59 06:59 14:59 Intake Total 2930 / 3724.3 1202.000 / 4926.300 1927.083 / 1927.083 Output Total 865 / 2665 1400 / 1400 Balance 2930 / 1924.3 337.000 / 2261.300 527.083 / 527.083 Weight last 48 hrs Weight 104.916 kg Weight 102.24 kg Physical Exam Const: COMMON NORMALS: no acute distress, patient oriented x3 and alert GENERAL APPEARANCE: cooperative ORIENTATION/CONSCIOUSNESS: Yes oriented to person and Yes oriented to place; not oriented to time HENMT: COMMON NORMALS: normocephalic HEAD & SCALP: normocephalic OTHER: NG tube in place Neck/C-Spine: COMMON NORMALS: no JVD Lymph: LYMPHATIC: no lymphadenopathy noted Chest: COMMONS NORMALS: normal inspection of the chest Resp: COMMON NORMALS: normal respiratory effort, No retractions, No use of accessory muscles and clear to auscultation bilaterally AUSCULTATION: clear to auscultation bilaterally Cardio: COMMON NORMALS: no JVD, regular rate, regular rhythm, S1 normal heart sound present and S2 normal heart sound present RATE: regular rate RHYTHM: regular rhythm HEART SOUNDS: S1 normal heart sound present and S2 normal heart sound present GI: COMMON NORMALS: Soft to palpation INSPECTION: Yes abdominal distension AUSCULTATION: Yes Hypoactive bowel sounds present PALPATION: Yes Soft to palpation, Yes Firmness to palpation present (GI), No Tenderness to palpation present (GI) (diffus tenderness), No Guarding due to palpation present (GI) and No Rigid due to palpation PERCUSSION: tympanic to percussion OTHER: Mottling over abdomen, improved : COMMON NORMALS: Yes no CVA tenderness BLADDER/KIDNEY EXAM: Yes no CVA tenderness OTHER: Betts catheter was removed Back/Pelvis: COMMON NORMALS: no CVA tenderness Extremity: COMMON NORMALS: full ROM, capillary refill normal, no clubbing, cyanosis or edema, no calf tenderness and no pedal edema NARRATIVE EXTREMITY EXAM: 1+ pitting edema Neuro: COMMON NORMALS: patient oriented x3 SENSORIUM/ORIENTATION: Yes alert, Yes oriented to person, Yes oriented to place and No oriented to time OTHER: A bit drowsy this morning Psych: COMMON NORMALS: mental status grossly normal Urinary Catheter Management^: Betts: Cath Placed During This Visit: yes, but has since been removed by the nurse Reason for Continuing Indwelling Catheter: Accurate Measurement of Urinary Output in Critically Ill Patients Urinary Catheter Date of Insertion: 07/12/20 Urinary Catheter Time of Insertion: 09:50 Date Urinary Catheter Removed: 07/11/20 Time Urinary Catheter Discontinued: 12:00 Data : 07/12/20 02:30 07/12/20 02:30 Micro: Microbiology 07/10/20 14:00 Catheter Tip Culture - Preliminary Central Line 07/09/20 18:24 Urine Culture - Final Urine Catheterized 07/11/20 00:00 C.difficile Toxin B Gene (PCR) - Final Stool Routine Collection A&P Assessment and plan (1) Acute respiratory failure with hypoxia: -Patient was intubated 07/03/2020 for acute encephalopathy secondary to alcohol withdrawal, concerns for acute respiratory failure -Successfully extubated on 07/08/2020 -Fevers T-max 101.3 on 07/08/2020, -white blood cell count elevated to 26.9, with bandemia, CRP to 273.3, pro-Scott 0.99 -Still on 3 to 4 L nasal cannula -CT of the chest with did not show any pulmonary embolism, patchy infiltrates in the right upper lobe suspicious for pneumonia -Concerns for recurrent aspiration pneumonia, aspiration pneumonitis, other concerns for possible fungal infection -He is requiring 3 to 4 L nasal cannula -Is on vancomycin and Primaxin since admission -Patient is a high risk of reintubation -Change out Betts, send catheter tip -Central line removed, catheter tip sent for culture -Repeat blood cultures, urine cultures no growth so far -C. difficile is negative -Patient's white blood cell count is persistently elevated at 26.4, antibiotic use -Continue to monitor respiratory status closely -unfortunately patient will be a poor candidate for BiPAP, given the risk of aspiration, I am not sure if he is able to tolerate BiPAP, high flow if needed -Continue broad-spectrum antibiotics vancomycin and Primaxin -I am still highly suspicious for C. difficile colitis, continue p.o. vancomycin -Follow blood cultures, sputum cultures, urine bacterial antigens, urine cultures, Betts catheter tip culture, central line tip culture -PICC line placed needs to be fixed -Encourage incentive spirometer use, inhaler therapy budesonide and DuoNeb -Aspiration precautions, keep head of bed elevated -Encourage ambulation, up out of bed as best as he can -1 dose of IV Lasix 40 mg today Status: Acute (2) Aspiration pneumonia: Status: Acute (3) Severe acute pancreatitis: -Severe pancreatitis -Splenic vein thrombosis seen on CAT scan, currently on heparin drip -NG-tube in place, m output 900cc -CT scan on 07/09/2020 showed pancreatitis, with interval increase in peripancreatic edema, no significant pancreatic necrosis, no abscess, small bilateral pleural effusions -White blood cell count 26.94, glucose 128, CRP 241.2 -Serum calcium 8.1, ionized calcium 1.1 -Blood sugars 100-15, on sliding scale -Decrease IV fluids to 50 cc/h -Has concerns for ileus, NG tube in place -PICC line position issues, to be fixed, continue TPN -This morning abdomen is still slightly distended, less rigid, still has skin mottling, measured abdominal compartment was 5 on last shift -Will monitor for abdominal compartment syndrome, skin mottling -Repeat CT scan in the near future -Continue Librium for alcohol withdrawal -Pain control with Dilaudid -General surgery on consult Status: Acute (4) Shock: Resolved- Status: Acute (5) Alcohol withdrawal: -Continue Librium, Precedex, Ativan as needed Status: Acute (6) Acute pancreatitis: Status: Acute (7) Alcohol abuse: Status: Chronic (8) Acute kidney injury: Status: Acute (9) Hypocalcemia: Status: Acute (10) Hyponatremia: Status: Acute (11) S/P CABG (coronary artery bypass graft): Status: Acute (12) Chronic obstructive pulmonary disease: Without acute exacerbation, oxygen per protocol Status: Chronic (13) CAD (coronary artery disease): With a history of coronary artery bypass grafting and stent placement Continue on aspirin, statin, metoprolol Status: Chronic Qualifiers: Coronary Disease-Associated Artery/Lesion type: [place] artery [place] vs. transplanted heart: [place] heart Associated angina: without angina Qualified Code(s): I25.10 - Atherosclerotic heart disease of [place] coronary artery without angina pectoris (14) Abdominal compartment syndrome: Status: Acute (15) Splenic vein thrombosis: Status: Acute Additional A&P Information 54-year-old gentleman past medical history of CAD with post CABG came in because of alcohol abuse found to be in pancreatitis. He was intubated after he started having abdominal distention and was in shock. Neurology: Acute metabolic encephalopathy, has mostly resolved, minimal agitation, Successfully extubated yesterday, currently on Precedex, NG tube in place Continue with IV thiamine. Cardiovascular: Shock resolved. Most likely a combination of hypovolemic and sepsis. Patient has history of CABG. Last echocardiogram in May 2019 shows an EF of 50% with global LV hypokinesis. Keep mean arterial pressure was 65 mmHg. Echocardiogram shows an EF of 45 to 50%, hypokinesia of septal wall. For now we will hold off on aspirin. Hold off on antihypertensives as patient is on inotropes at present. Pulmonology: Concerns for aspiration pneumonia, currently on 3 to 4 L nasal cannula Gastroenterology: Acute pancreatitis. Nephrology: Patient is in [facility]. Resolved, monitor for now . Hyponatremia: Resolving. We will continue to monitor. High anion gap acidosis: Resolved. Infectious disease: Repeat blood cultures. Patient has remained hemodynamically stable, afebrile. For now we will continue on imipenem and vancomycin as patient is at high risk of developing infection. Nutrition: NG tube in place, to suction, continue TPN Left central line removed, PICC line in place Full code. Lovenox for DVT prophylaxis Protonix for PUD prophylaxis Patient's care discussed in detail with Alma on [phone]. She is patient's D POA. All the questions were answered. Attestations Medical Necessity Statement*: Patient requires hospitalization for acute respiratory failure, acute severe pancreatitis Coding Level of Care Code Acute [place] Worker for [facility] Fwd Diagnoses Acute respiratory failure with hypoxia J96.01 Aspiration pneumonia J69.0 Severe acute pancreatitis K85.90 Shock R57.9 Alcohol withdrawal F10.239 Acute pancreatitis K85.90 Alcohol abuse F10.10 Acute kidney injury N17.9 Hypocalcemia E83.51 Hyponatremia E87.1 S/P CABG (coronary artery bypass graft) Z95.1 Chronic obstructive pulmonary disease J44.9 CAD (coronary artery disease) I25.10 Coronary Disease-Associated Artery/Lesion type: [place] artery [place] vs. transplanted heart: [place] heart Associated angina: without angina Abdominal compartment syndrome T79.A3XA Splenic vein thrombosis I82.890
[2020-07-12] MEDS: FUROsemide 10 mg/mL SDV 4mL 40 MG IVP (15:07)
[2020-07-12 16:39] LABS: Partial Thromboplastin Time 52.6 SECONDS (23.9-36.7)
[2020-07-12] MEDS: heparin 5,000 unit/mL INJ 1 mL IV (17:21)
[2020-07-12 19:20] LABS: Glucose Point of Care 156 mg/dL (70-110)
[2020-07-12 19:20] LABS: Glucose Point of Care 124 mg/dL (70-110)
[2020-07-12 19:26] LABS: Vancomycin Trough 13.9 ug/mL (10-15)
[2020-07-12 20:49] LABS: Glucose Point of Care 146 mg/dL (70-110)
--- NOTE | 2020-07-12 21:25 | PC.NURSE ---
INTRA-ABDOMINAL PRESSURE Patients intra-abdominal pressure was measured via urinary catheter. Reading of 10 after 60 seconds.
--- NOTE | 2020-07-12 21:26 | PC.NURSE ---
EDUCATION Upon initial assessment, patient was noted to have coarse rhonchi lung sounds bilaterally. Education was provided to patient on importance of using the incentive spirometer. Patient used it 8 consecutive times with a maximum inspiration measurement of 500. Will continue to encourage use of IS.
[2020-07-12 22:25] LABS: Partial Thromboplastin Time 65.1 SECONDS (23.9-36.7)
--- NOTE | 2020-07-12 23:35 | CTR_ITS ---
PROCEDURE INFORMATION: Exam: CT Abdomen And Pelvis Without Contrast Exam date and time: 07/12/2020 2:16 AM Age: 54 years old Clinical indication: Bloating; Additional info: Increased abdominal distention, pain, increased ngt output TECHNIQUE: Imaging protocol: Computed tomography of the abdomen and pelvis without contrast. Radiation optimization: All CT scans at this facility use at least one of these dose optimization techniques: automated exposure control; mA and/or kV adjustment per patient size (includes targeted exams where dose is matched to clinical indication); or iterative reconstruction. COMPARISON: CT chest abd pel w con* 07/09/2020 12:08 PM RADIATION DOSE METRICS: Total DLP (mGy-cm): 1558.71 FINDINGS: Pleural space: Bilateral small to moderate pleural effusions are seen with underlying atelectasis showing worsening since previous exam. Median sternotomy sutures are in place. Liver: Normal. No mass. Gallbladder and bile ducts: Gallbladder is filled with dense bile consistent with milk of calcium similar to the previous. No ductal dilation. Pancreas: The pancreas is a thickened with severe inflammation and fluid density surrounding the pancreas and extending along the perinephric space into the lateral gutters and pelvis no pseudocyst is seen. No abscess is identified worsening is seen as compared to previous exam. Spleen: Normal. No splenomegaly. Adrenals: Normal. No mass. Kidneys and ureters: Normal. No hydronephrosis. Stomach and bowel: An NG tube is present with the tip in the distal stomach. No obstruction. No mucosal thickening. Appendix: No evidence of appendicitis. The appendix is distinctly seen. Intraperitoneal space: Unremarkable. No free air. No significant fluid collection. Vasculature: Unremarkable. No abdominal aortic aneurysm. Lymph nodes: Unremarkable. No enlarged lymph nodes. Bladder: The bladder is empty with a Betts catheter in position. Reproductive: Calcifications are seen in the prostate. Unremarkable as visualized. Bones/joints: Multilevel degenerative changes are present.. No acute fracture. Soft tissues: Unremarkable. CT/CT abdomen pelvis wo con [id number] IMPRESSION: 1. Pancreatitis is a present showing no worsening since previous examination. Negative for pseudocyst or abscess. 2. Negative for small bowel obstruction. 3. Bilateral small to moderate pleural effusions with underlying atelectasis showing worsening since previous exam. Radiation Dose CTDIVOL = (mGy): DLP = 1558.71 (mGy-cm)
--- NOTE | 2020-07-12 23:37 | P.EN_ITS ---
Event Note Event Note: Patient noted to be quite restless, noted increased abdominal distention, complains of increased back pain as well. Per nursing staff has had increased NG tube output today. Will hold TPN, keep n.p.o. and repeat CT scan of the abdomen and pelvis. Nurses at bedside updated. Vital signs currently stable other than noted low-grade temp of 99.9F and tachypnea. Event Notes Attestations Time Spent in Patient Care: less than 15 minutes (>than 50% of time spent in counselling and/or direct pt care on unit) .
[2020-07-13] VITALS (84 sets, daily range): BP systolic 86–152; BP diastolic 42–109; PULSE 79–117; RESP 16–36; TEMP 37.1–37.2; O2SAT 89–97
[2020-07-13] MEDS: heparin drip 25,000 UNIT/500 ML PREMIX 47 UNIT IV (00:46)
[2020-07-13] MEDS: haloperidol inj 5 mg/mL INJ 1 mL 2 MG IVP (01:05)
[2020-07-13] MEDS: chlordiazePOXIDE 25 mg Capsule 50 MG PO ×4 (01:06→19:11)
[2020-07-13] MEDS: ipratropium-albuterol 3 mL Neb INHALATION ×6 (01:30→23:32)
--- NOTE | 2020-07-13 01:37 | PC.NURSE ---
ANXIETY Patient has appeared increasingly anxious and restless this shift with frequent complaints of back pain. Patient has not been able to get comfortable in any position and has been groaning with pain. Patient has been given IV dilaudid Q4H as ordered, PO ativan and still has appeared restless without much relief. IV Haldol given as ordered and patient is asleep and appears to be resting comfortaly at this time.
[2020-07-13] MEDS: HYDROmorphone 1 mg/mL INJ 1 mL IVP ×4 (03:39→23:15)
--- NOTE | 2020-07-13 05:07 | PC.NURSE ---
WEANING TPN Patient to be weaned off TPN per Dr. Maurice. Nurse discussed increased pain, increased gastric output, and increased restlessness with physician. Physician gave order to wean off TPN by 10 mL/hour and check sugar Q1-2Hours to ensure patient does not become hypoglycemic.
[2020-07-13 05:24] LABS: Basophils # 0.1 10^3/uL (0.0-0.1); Basophils % 0.4 %; Eosinophils # 0.2 10^3/uL (0.0-0.8); Eosinophils % 0.7 %; Hematocrit 28.5 % (42.0-52.0); Lymphocytes # 1.9 10^3/uL (0.8-4.8); Lymphocytes % 8.7 %; Mean Corpuscular HGB Conc 31.6 g/dL (30.0-36.0); Mean Corpuscular Hemoglobin 31.9 pg (28.0-34.0); Mean Corpuscular Volume 101.1 fL (80-94); Mean Platelet Volume 12.8 fL (7.4-10.4); Monocytes # 1.2 10^3/uL (0.2-0.9); Monocytes % 5.6 %; Neutrophils # 18.12 10^3/uL (1.8-7.7); Neutrophils % 81.7 %; Nucleated Red Blood Cells % 0.1 %; Platelet Count 216 10^3/cmm (130-400); Red Blood Count 2.82 10^6/uL (4.1-5.3); Red Cell Distribution Width 14.4 % (12.1-15.1); White Blood Count 22.2 10^3/uL (4.0-10.0)
[2020-07-13 05:36] LABS: Partial Thromboplastin Time 46.9 SECONDS (23.9-36.7)
[2020-07-13 05:42] LABS: Alanine Aminotransferase 21 U/L (0-41); Albumin Level 2.2 g/dL (3.5-5.2); Alkaline Phosphatase 81 IU/L (40-130); Blood Urea Nitrogen 17 mg/dL (6-20); Calcium 7.8 mg/dL (8.5-10.5); Carbon Dioxide 22 mmol/L (22-29); Chloride 113 mmol/L (98-107); Globulin 2.8 g/dL (1.3-4.6); Glomerular Filtration Rate 69.2 mL/min (90-130); Glucose 129 mg/dL (65-115); Magnesium 2.1 mg/dL (1.7-2.3); Osmolality Calculated 300 mOsm/kg (285-295); Phosphorus 3.8 mg/dL (2.5-4.5); Sodium 146 mmol/L (136-145); Total Bilirubin 1.9 mg/dL (0.15-1.2)
[2020-07-13 05:52] LABS: Anion Gap 15.8 (5-19); Aspartate Amino Transferase 46 U/L (0-40); Potassium 4.8 mmol/L (3.5-5.1)
[2020-07-13 05:56] LABS: Procalcitonin 0.66 ng/mL (0-0.5)
[2020-07-13] MEDS: metoclopramide 5 mg/mL SDV 2 mL IVP ×3 (06:11→21:45)
[2020-07-13] MEDS: heparin 5,000 unit/mL INJ 1 mL IV ×2 (06:12→18:06)
[2020-07-13 06:24] LABS: Glucose Point of Care 127 mg/dL (70-110)
--- NOTE | 2020-07-13 06:26 | PC.NURSE ---
SHIFT SUMMARY Patient appeared to have increased anxiety and pain this shift. Patient currently on 0.7 mcg/kg/hour of precedex, 49 mL/hour of heparin, 20 mL/hour of TPN (see TPN weaning note), and 50 mL/hour of NS. Blood sugar just taken and was 127. Last dose of dilaudid given at 0339. Patient has had 1225 mL of urine output this shift and 700 mL dark green gastric contents out of NG tube. Patient was bathed and linens were changed. See IAP note. Patient currently resting in bed at this time.
--- NOTE | 2020-07-13 07:00 | XRR_ITS ---
PROCEDURE INFORMATION: Exam: XR Chest, 1 View Exam date and time: 07/13/2020 6:12 AM Age: 54 years old Clinical indication: Shortness of breath; Additional info: SOB TECHNIQUE: Imaging protocol: XR of the chest Views: 1 view. COMPARISON: CR XR chest 1V portable [id number] 07/12/2020 8:57 AM FINDINGS: Tubes, catheters and devices: PICC line from the right with the tip projecting over the right atrium. Lungs: Patchy airspace disease most pronounced within the left lung base/retrocardiac region and to a lesser degree on the right. Pleural space: Unremarkable. No pleural effusion. No pneumothorax. Heart/Mediastinum: Unremarkable. No cardiomegaly. Bones/joints: Prior sternotomy XR/XR chest 1V portable [id number] IMPRESSION: Patchy airspace disease most pronounced within the left lung base/retrocardiac region and to a lesser degree on the right. Small subpulmonic effusion on the left. Overall, minimal change.
[2020-07-13 08:07] LABS: Glucose Point of Care 124 mg/dL (70-110)
[2020-07-13] MEDS: budesonide 0.5 mg/2 mL Neb INHALATION ×2 (08:30→20:14)
[2020-07-13] MEDS: pantoprazole 40 mg SDV IVP ×2 (08:51→20:42)
[2020-07-13] MEDS: nicotine 14 mg Patch 1 PATCH TRANSDERMA (08:51)
[2020-07-13] MEDS: FUROsemide 10 mg/mL SDV 4mL 40 MG IVP ×2 (08:51→20:41)
[2020-07-13 09:07] LABS: Alanine Aminotransferase 20 U/L (0-41); Alkaline Phosphatase 90 IU/L (40-130); Anion Gap 15.1 (5-19); Aspartate Amino Transferase 45 U/L (0-40); Blood Urea Nitrogen 18 mg/dL (6-20); Carbon Dioxide 22 mmol/L (22-29); Chloride 112 mmol/L (98-107); Globulin 3.4 g/dL (1.3-4.6); Glomerular Filtration Rate 69.2 mL/min (90-130); Glucose 336 mg/dL (65-115); Magnesium 2.5 mg/dL (1.7-2.3); Osmolality Calculated 310 mOsm/kg (285-295); Phosphorus 4.8 mg/dL (2.5-4.5); Potassium 4.1 mmol/L (3.5-5.1); Sodium 145 mmol/L (136-145); Total Bilirubin 1.7 mg/dL (0.15-1.2); Total Protein 5.4 g/dL (6.6-8.7)
[2020-07-13 09:12] LABS: NT Pro B Type Natriuretic Pept 1448 pg/mL (0-125)
--- NOTE | 2020-07-13 09:22 | PM.PN ---
Vitals/I&O/Wt Last Vital Signs Temp 98.8 F 07/13/20 07:57 Pulse 90 07/13/20 08:38 Resp 22 H 07/13/20 08:30 BP 127/74 07/13/20 07:46 Pulse Ox 94 07/13/20 08:30 07/12/20 07/13/20 07/13/20 22:59 06:59 14:59 Intake Total 1651.903 / 4275.236 696.25 / 4275.236 480.31 / 480.31 Output Total 2475 / 5275 1400 / 5275 Balance -823.097 / -999.764 -703.75 / -999.764 480.31 / 480.31 Weight last 48 hrs Weight 229 lb 3.2 oz Weight 231 lb 4.8 oz Physical Exam Urinary Catheter Management^: Betts: Cath Placed During This Visit: yes, but has since been removed by the nurse Reason for Continuing Indwelling Catheter: Accurate Measurement of Urinary Output in Critically Ill Patients Urinary Catheter Date of Insertion: 07/12/20 Urinary Catheter Time of Insertion: 09:50 Date Urinary Catheter Removed: 07/11/20 Time Urinary Catheter Discontinued: 12:00 Data : 07/13/20 04:41 07/13/20 08:30 Micro: Microbiology 07/10/20 14:00 Catheter Tip Culture - Preliminary Central Line 07/09/20 18:24 Urine Culture - Final Urine Catheterized Coding Level of Care Code 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
[2020-07-13 11:39] LABS: Glucose Point of Care 440 mg/dL (70-110)
[2020-07-13] MEDS: heparin drip 25,000 UNIT/500 ML PREMIX 49 UNIT IV (13:02)
[2020-07-13 13:11] LABS: Glucose Point of Care 99 mg/dL (70-110)
--- NOTE | 2020-07-13 14:32 | P.PN_ITS ---
Subjective Subjective: Interval history: This morning patient was examined, abdomen is less distended, minimal skin mottling, still has significant NG tube output up to 700 cc overnight, there was concerns for abdominal distention overnight, so his tube feeds were weaned down, oxygen requirements did increase to 6 L, has no complaints of shortness of breath, no fevers Vitals/I&O/Wt Last Vital Signs Temp 99.0 F 07/13/20 12:12 Pulse 87 07/13/20 14:16 Resp 22 H 07/13/20 14:13 BP 98/51 07/13/20 12:00 Pulse Ox 94 07/13/20 14:13 07/12/20 07/13/20 07/13/20 22:59 06:59 14:59 Intake Total 1651.903 / 3578.986 796.25 / 4375.236 1103.633 / 1103.633 Output Total 2475 / 3875 1400 / 5275 1200 / 1200 Balance -823.097 / -296.014 -603.75 / -899.764 -96.367 / -96.367 Weight last 48 hrs Weight 103.963 kg Weight 104.916 kg Physical Exam Const: COMMON NORMALS: no acute distress GENERAL APPEARANCE: cooperative NUTRITIONAL APPEARANCE: obese HENMT: COMMON NORMALS: normocephalic HEAD & SCALP: normocephalic Neck/C-Spine: COMMON NORMALS: no JVD Chest: COMMONS NORMALS: normal inspection of the chest Resp: COMMON NORMALS: normal respiratory effort, No retractions and No use of accessory muscles AUSCULTATION: crackles Cardio: COMMON NORMALS: no JVD, regular rate, regular rhythm, S1 normal heart sound present and S2 normal heart sound present RATE: regular rate RHYTHM: regular rhythm HEART SOUNDS: S1 normal heart sound present and S2 normal heart sound present GI: COMMON NORMALS: Soft to palpation INSPECTION: Yes normal to inspection and Yes abdominal distension AUSCULTATION: Yes normoactive bowel sounds PALPATION: Yes Soft to palpation, No Firmness to palpation present (GI), No Te nderness to palpation present (GI), No Guarding due to palpation present (GI) and No Rigid due to palpation OTHER: Minimal skin mottling over abdomen Extremity: COMMON NORMALS: capillary refill normal, no clubbing, cyanosis or edema, no calf tenderness and no pedal edema Psych: COMMON NORMALS: mental status grossly normal Urinary Catheter Management^: Betts: Cath Placed During This Visit: yes, but has since been removed by the nurse Reason for Continuing Indwelling Catheter: Accurate Measurement of Urinary O utput in Critically Ill Patients Urinary Catheter Date of Insertion: 07/12/20 Urinary Catheter Time of Insertion: 09:50 Date Urinary Catheter Removed: 07/11/20 Time Urinary Catheter Discontinued: 12:00 Data : 07/13/20 04:41 07/13/20 08:30 Micro: Microbiology 07/10/20 14:00 Catheter Tip Culture - Preliminary Central Line Coagulase negativ staphylococc 07/11/20 11:45 Catheter Tip Culture - Preliminary Betts Tip Yeast species A&P Assessment and plan (1) Acute respiratory failure with hypoxia: -Patient was intubated 07/03/2020 for acute encephalopathy secondary to alcohol withdrawal, concerns for acute respiratory failure -Successfully extubated on 07/08/2020 -Fevers T-max 101.3 on 07/08/2020, -white blood cell count elevated to 26.9, with bandemia, CRP to 273.3, pro-Scott 0.99 -Still on 3 to 4 L nasal cannula -CT of the chest with did not show any pulmonary embolism, patchy infiltrates in the right upper lobe suspicious for pneumonia -Concerns for recurrent aspiration pneumonia, aspiration pneumonitis, other concerns for possible fungal infection -He is requiring 3 to 4 L nasal cannula -Is on vancomycin and Primaxin since admission -Patient is a high risk of reintubation -Change out Betts, send catheter tip so far showing yeast species -Central line removed, catheter tip sent for culture, so far showing coagulase- negative staph species -Repeat blood cultures, urine cultures no growth so far -C. difficile is negative -Patient's white blood cell count has decreased to 22.2 -Continue to monitor respiratory status closely -I believe that patient's increased oxygen requirements overnight, was likely secondary to fluid overload, will give 2 doses of Lasix 40 mg IV twice daily today, monitor urine output closely -unfortunately patient will be a poor candidate for BiPAP, given the risk of aspiration, I am not sure if he is able to tolerate BiPAP, high flow if needed -Continue broad-spectrum antibiotics vancomycin and Primaxin -I am still highly suspicious for C. difficile colitis, continue p.o. vancomycin -Follow blood cultures, sputum cultures, urine bacterial antigens, urine cultures, Betts catheter tip culture, central line tip culture -New PICC line in place -Encourage incentive spirometer use, inhaler therapy budesonide and DuoNeb -Aspiration precautions, keep head of bed elevated -Encourage ambulation, up out of bed as best as he can Status: Acute (2) Aspiration pneumonia: Status: Acute (3) Severe acute pancreatitis: -Severe pancreatitis -Splenic vein thrombosis seen on CAT scan, currently on heparin drip -NG-tube in place, m output 900cc -CT scan on 07/13/2020 shows pancreatitis, no worsening since previous exam, negative for pseudocyst or abscess, negative for small bowel obstruction, bilateral [id number] pleural effusions with underlying atelectasis -White blood cell count 22, glucose 128, CRP 241.2 -Serum calcium 8.0, ionized calcium 1.1 -Blood sugars were high this morning as high as 440, now down to 99, on sliding scale, continue to monitor -Stop IV fluids for now -NG tube continues to have significant output -New PICC line in place -This morning abdomen is still slightly distended, less rigid, minimal skin mottling, measured abdominal compartment was 12 on last shift -Will monitor for abdominal compartment syndrome, skin mottling -Repeat CT scan in the near future -Continue Librium for alcohol withdrawal -Pain control with Dilaudid -General surgery on consult -We will wean off Precedex today Status: Acute (4) Shock: Resolved- Status: Acute (5) Alcohol withdrawal: -Continue Librium, Precedex, Ativan as needed Status: Acute (6) Acute pancreatitis: Status: Acute (7) Alcohol abuse: Status: Chronic (8) Acute kidney injury: Status: Acute (9) Hypocalcemia: Status: Acute (10) Hyponatremia: Status: Acute (11) S/P CABG (coronary artery bypass graft): Status: Acute (12) Chronic obstructive pulmonary disease: Without acute exacerbation, oxygen per protocol Status: Chronic (13) CAD (coronary artery disease): With a history of coronary artery bypass grafting and stent placement Continue on aspirin, statin, metoprolol Status: Chronic Qualifiers: Coronary Disease-Associated Artery/Lesion type: [place] artery [place] vs. transplanted heart: [place] heart Associated angina: without angina Qualified Code(s): I25.10 - Atherosclerotic heart disease of [place] coronary artery without angina pectoris (14) Abdominal compartment syndrome: Status: Acute (15) Splenic vein thrombosis: Status: Acute Additional A&P Information 54-year-old gentleman past medical history of CAD with post CABG came in because of alcohol abuse found to be in pancreatitis. He was intubated after he started having abdominal distention and was in shock. Neurology: Acute metabolic encephalopathy, has mostly resolved, minimal agitation, Successfully extubated yesterday, currently on Precedex, NG tube in place Continue with IV thiamine. Cardiovascular: Shock resolved. Most likely a combination of hypovolemic and sepsis. Patient has history of CABG. Last echocardiogram in May 2019 shows an EF of 50% with global LV hypokinesis. Keep mean arterial pressure was 65 mmHg. Echocardiogram shows an EF of 45 to 50%, hypokinesia of septal wall. For now we will hold off on aspirin. Hold off on antihypertensives as patient is on inotropes at present. Pulmonology: Concerns for aspiration pneumonia, currently on 3 to 4 L nasal cannula Gastroenterology: Acute pancreatitis. Nephrology: Patient is in LENA. Resolved, monitor for now . Hyponatremia: Resolving. We will continue to monitor. High anion gap acidosis: Resolved. Infectious disease: Repeat blood cultures. Patient has remained hemodynamically stable, afebrile. For now we will continue on imipenem and vancomycin as patient is at high risk of developing infection. Nutrition: NG tube in place, to suction, continue TPN Left central line removed, PICC line in place Full code. Lovenox for DVT prophylaxis Protonix for PUD prophylaxis Patient's care discussed in detail with Alma on [phone]. She is patient's D POA. All the questions were answered. Attestations Medical Necessity Statement*: Patient requires hospitalization due to severe pancreatitis, aspiration pneumonia Coding Level of Care Code Acute Research Librarian for [facility] Diagnoses Acute respiratory failure with hypoxia J96.01 Aspiration pneumonia J69.0 Severe acute pancreatitis K85.90 Shock R57.9 Alcohol withdrawal F10.239 Acute pancreatitis K85.90 Alcohol abuse F10.10 Acute kidney injury N17.9 Hypocalcemia E83.51 Hyponatremia E87.1 S/P CABG (coronary artery bypass graft) Z95.1 Chronic obstructive pulmonary disease J44.9 CAD (coronary artery disease) I25.10 Coronary Disease-Associated Artery/Lesion type: [place] artery [place] vs. transplanted heart: [place] heart Associated angina: without angina Abdominal compartment syndrome T79.A3XA Splenic vein thrombosis I82.890
[2020-07-13] MEDS: fluconazole premix 200 MG/100 ML PREMIX 100 MG IV (15:09)
[2020-07-13 15:23] LABS: Glucose Point of Care 70 mg/dL (70-110)
[2020-07-13 16:12] LABS: Glucose Point of Care 77 mg/dL (70-110)
[2020-07-13 16:55] LABS: Glucose Point of Care > 600 mg/dL (70-110)
[2020-07-13 16:55] LABS: Glucose Point of Care 74 mg/dL (70-110)
[2020-07-13 17:28] LABS: Partial Thromboplastin Time 53.6 SECONDS (23.9-36.7)
[2020-07-13 17:57] LABS: Aspergillus AG,EIA,Serum NOT DETECTED; Aspergillus Galactomannan Inde <0.50
[2020-07-13 18:36] LABS: Glucose Point of Care 98 mg/dL (70-110)
[2020-07-13 18:36] LABS: Glucose Point of Care 82 mg/dL (70-110)
[2020-07-13] MEDS: ondansetron 2 mg/ML SDV 2 mL 4 MG IVP (20:49)
[2020-07-13 21:02] LABS: Glucose Point of Care 105 mg/dL (70-110)
[2020-07-13] MEDS: fentaNYL 50 mcg/mL INJ 2mL 25 MCG IVP (22:27)
[2020-07-13] MEDS: heparin drip 25,000 UNIT/500 ML PREMIX 51 UNIT IV (22:39)
--- NOTE | 2020-07-13 22:55 | P.EN_ITS ---
Event Note Event Note: Patient quite restless, off Precedex drip, constantly complaining of pain. Added fentanly pushes, will try to alternate this with dilaudid and Ativan. NGT remains in place, has pulled out peripheral IV and tugged at NGT. Will need to be vigilant about maintaining NGT. TPN and heparin drip running. Monitor for increased somnolence. Event Notes Attestations Time Spent in Patient Care: 16 - 35 minutes (>than 50% of time spent in counselling and/or direct pt care on unit) .
[2020-07-13] MEDS: LORazepam 1 mg Tablet PO (23:15)
[2020-07-13 23:25] LABS: Partial Thromboplastin Time 94.6 SECONDS (23.9-36.7)
[2020-07-14] VITALS (40 sets, daily range): BP systolic 91–153; BP diastolic 53–110; PULSE 102–123; RESP 16–35; TEMP 37.1–39; O2SAT 59–98; BMI 31.2
[2020-07-14] MEDS: haloperidol inj 5 mg/mL INJ 1 mL 2 MG IVP ×2 (00:29→04:37)
[2020-07-14] MEDS: fentaNYL 50 mcg/mL INJ 2mL 25 MCG IVP ×3 (00:29→04:37)
[2020-07-14] MEDS: chlordiazePOXIDE 25 mg Capsule 50 MG PO ×3 (02:04→16:45)
[2020-07-14] MEDS: LORazepam 1 mg Tablet PO ×2 (03:04→06:33)
[2020-07-14] MEDS: HYDROmorphone 1 mg/mL INJ 1 mL IVP ×3 (03:04→10:40)
[2020-07-14] MEDS: ipratropium-albuterol 3 mL Neb INHALATION ×6 (03:17→22:59)
[2020-07-14 05:07] LABS: Glucose Point of Care 154 mg/dL (70-110)
[2020-07-14] MEDS: metoclopramide 5 mg/mL SDV 2 mL IVP ×3 (05:37→21:52)
--- NOTE | 2020-07-14 07:00 | XRR_ITS ---
PROCEDURE INFORMATION: Exam: XR Chest, 1 View Exam date and time: 07/14/2020 6:59 AM Age: 54 years old Clinical indication: Shortness of breath; Additional info: SOB TECHNIQUE: Imaging protocol: XR of the chest Views: 1 view. COMPARISON: CR XR chest 1V portable [id number] 07/13/2020 5:57 AM FINDINGS: Tubes, catheters and devices: nasogastric tube extends below the diaphragm although the location of the tip not identified as it is outside of the [id number]. PICC line from the right with the tip projecting over the central venous structures/superior vena cava. Lungs: . Mild airspace consolidation within the lung bases left greater than right. Pleural space: Small effusions left greater than right. Heart/Mediastinum: cardiac silhouette enlarged. Bones/joints: Prior sternotomy XR/XR chest 1V portable [id number] IMPRESSION: Mild basilar consolidation and pleural effusions left greater than right. Layering pleural fluid on the right. Minimal change.
[2020-07-14 07:12] LABS: Partial Thromboplastin Time 78.2 SECONDS (23.9-36.7)
--- NOTE | 2020-07-14 07:13 | PC.NURSE ---
Staff called lab to request lab draw or to bring more supplies down.
[2020-07-14] MEDS: budesonide 0.5 mg/2 mL Neb INHALATION ×2 (07:50→20:18)
--- NOTE | 2020-07-14 07:57 | PM.PN ---
Subjective Subjective: Interval history: Patient continues to be agitated, had multiple bowel movements overnight, NG output is 100 cc overnight. C. difficile negative Vitals/I&O/Wt Last Vital Signs Temp 98.7 F 07/13/20 18:29 Pulse 107 H 07/14/20 04:01 Resp 17 07/14/20 04:01 BP 117/57 07/14/20 04:01 Pulse Ox 94 07/14/20 04:01 07/13/20 07/14/20 07/14/20 22:59 06:59 14:59 Intake Total 860.822 / 4362.155 1397.7 / 4362.155 Output Total 800 / 4925 2925 / 4925 Balance 60.822 / -562.845 -1527.3 / -562.845 Weight last 48 hrs Weight 224 lb Weight 229 lb 3.2 oz Physical Exam Narrative: EXAM NARRATIVE: Abdomen: Soft, nontender, minimally distended, no guarding or rigidity Urinary Catheter Management^: Betts: Cath Placed During This Visit: yes, but has since been removed by the nurse Reason for Continuing Indwelling Catheter: Accurate Measurement of Urinary Output in Critically Ill Patients Urinary Catheter Date of Insertion: 07/12/20 Urinary Catheter Time of Insertion: 09:50 Date Urinary Catheter Removed: 07/11/20 Time Urinary Catheter Discontinued: 12:00 Data : 07/13/20 04:41 07/13/20 08:30 Micro: Microbiology 07/10/20 14:00 Catheter Tip Culture - Preliminary Central Line Coagulase negativ staphylococc 07/11/20 11:45 Catheter Tip Culture - Preliminary Betts Tip Yeast species A&P Assessment and plan (1) Acute pancreatitis: 54-year-old gentleman with history of alcoholism who has now developed acute pancreatitis with agitation/delirium secondary to alcohol withdrawal. Ileus appears to be finally resolving with multiple bowel movements yesterday Clamp NG tube today, start full liquid diet, if tolerating DC NG tube at the end of the day No surgical intervention required at this point Patient continues to have leukocytosis though is been stable. CT abdomen pelvis done on 07/12/2020.any significant changes Splenic vein thrombosis: Continue heparin GTT Status: Acute Attestations Medical Necessity Statement*: Acute severe pancreatitis with alcohol withdrawal requiring continued ICU stay Coding Level of Care Code Acute Cake Knocker for [facility] Diagnoses Acute pancreatitis K85.90
[2020-07-14] MEDS: FUROsemide 10 mg/mL SDV 4mL 40 MG IVP ×2 (08:19→21:05)
[2020-07-14 08:20] LABS: Ionized Calcium 1.1 mmol/L (1.1-1.4)
[2020-07-14 08:21] LABS: Basophils # 0.1 10^3/uL (0.0-0.1); Basophils % 0.4 %; Eosinophils # 0.2 10^3/uL (0.0-0.8); Eosinophils % 0.8 %; Hemoglobin 9.9 g/dL (11.7-16.6); Lymphocytes # 2.2 10^3/uL (0.8-4.8); Lymphocytes % 8.5 %; Mean Corpuscular HGB Conc 31.9 g/dL (30.0-36.0); Mean Corpuscular Volume 100.3 fL (80-94); Mean Platelet Volume 12.5 fL (7.4-10.4); Monocytes # 1.3 10^3/uL (0.2-0.9); Monocytes % 5.2 %; Neutrophils # 20.72 10^3/uL (1.8-7.7); Neutrophils % 82.4 %; Nucleated Red Blood Cells % 0 %; Platelet Count 450 10^3/cmm (130-400); Red Blood Count 3.09 10^6/uL (4.1-5.3); Red Cell Distribution Width 14.2 % (12.1-15.1); White Blood Count 25.2 10^3/uL (4.0-10.0)
[2020-07-14 08:52] LABS: Alanine Aminotransferase 24 U/L (0-41); Albumin Level 2.6 g/dL (3.5-5.2); Alkaline Phosphatase 93 IU/L (40-130); Anion Gap 15.1 (5-19); Aspartate Amino Transferase 52 U/L (0-40); Blood Urea Nitrogen 18 mg/dL (6-20); Calcium 8.6 mg/dL (8.5-10.5); Carbon Dioxide 25 mmol/L (22-29); Chloride 111 mmol/L (98-107); Glomerular Filtration Rate 57.1 mL/min (90-130); Glucose 156 mg/dL (65-115); Magnesium 2.2 mg/dL (1.7-2.3); NT Pro B Type Natriuretic Pept 1416 pg/mL (0-125); Osmolality Calculated 306 mOsm/kg (285-295); Phosphorus 3.7 mg/dL (2.5-4.5); Potassium 3.1 mmol/L (3.5-5.1); Sodium 148 mmol/L (136-145); Total Bilirubin 2.1 mg/dL (0.15-1.2); Total Protein 6.6 g/dL (6.6-8.7)
[2020-07-14] MEDS: pantoprazole 40 mg SDV IVP ×2 (09:19→21:06)
[2020-07-14] MEDS: nicotine 14 mg Patch 1 PATCH TRANSDERMA (09:19)
[2020-07-14] MEDS: heparin drip 25,000 UNIT/500 ML PREMIX 51 UNIT IV ×2 (10:40→22:05)
[2020-07-14 11:26] LABS: Glucose Point of Care 169 mg/dL (70-110)
[2020-07-14 14:16] LABS: Procalcitonin 0.72 ng/mL (0-0.5)
[2020-07-14 14:28] LABS: C Reactive Protein 293.5 mg/L (0.0-4.9)
[2020-07-14 14:40] LABS: Partial Thromboplastin Time 65.2 SECONDS (23.9-36.7)
[2020-07-14] MEDS: fluconazole premix 200 MG/100 ML PREMIX IV (16:46)
--- NOTE | 2020-07-14 17:39 | PC.OT ---
OT tx attempted 2x today. Nursing reports pt worn out from working with Physical Therapy earlier today and pt not resting well last night. OT tx withheld at this time and will be attempted again tomorrow.
[2020-07-14 18:11] LABS: Glucose Point of Care 157 mg/dL (70-110)
[2020-07-14] MEDS: acetaminophen 325 mg Tablet 650 MG PO ×2 (18:52→22:24)
[2020-07-14 21:17] LABS: Partial Thromboplastin Time 60.8 SECONDS (23.9-36.7)
--- NOTE | 2020-07-14 21:46 | PM.PN ---
Subjective Subjective: Interval history: This morning patient was doing well, abdomen less distended, less mottled, was able to ambulate to the chair yesterday, seen by surgery, plan was to start clear liquid diet, tolerated well, if NG tube output decreases, might remove NG tube in the evening, currently on 4 to 5 L nasal cannula, no lightheadedness, no dizziness, no nausea, no vomiting, would like to try something substantial In the afternoon after he received Dilaudid, patient was a bit lethargic, vitals were within normal limits, patient's Dilaudid was stopped, Librium was held, switch to BTIG 5325, currently down to 3 L nasal cannula, diuresed roughly 4925 L Vitals/I&O/Wt Last Vital Signs Temp 98.7 F 07/14/20 12:01 Pulse 111 H 07/14/20 20:16 Resp 18 07/14/20 20:16 BP 132/67 07/14/20 14:00 Pulse Ox 94 07/14/20 20:16 07/14/20 07/14/20 07/14/20 06:59 14:59 22:59 Intake Total 1397.7 / 4362.155 1770 / 1770 50 / 1820 Output Total 2925 / 4925 Balance -1527.3 / -247.304 6340 / 1770 50 / 1820 Weight last 48 hrs Weight 101.605 kg Weight 103.963 kg Physical Exam Const: COMMON NORMALS: no acute distress and patient oriented x3 HENMT: COMMON NORMALS: normocephalic HEAD & SCALP: normocephalic Neck/C-Spine: COMMON NORMALS: no JVD Resp: COMMON NORMALS: normal respiratory effort, No retractions, No use of accessory muscles and clear to auscultation bilaterally AUSCULTATION: clear to auscultation bilaterally Cardio: COMMON NORMALS: no JVD, regular rate, regular rhythm, S1 normal heart sound present and S2 normal heart sound present RATE: regular rate RHYTHM: regular rhythm HEART SOUNDS: S1 normal heart sound present and S2 normal heart sound present GI: COMMON NORMALS: Soft to palpation INSPECTION: Yes normal to inspection and Yes abdominal distension AUSCULTATION: Yes normoactive bowel sounds PALPATION: Yes Soft to palpation, No Firmness to palpation present (GI), No Tenderness to palpation present (GI), No Guarding due to palpation present (GI) and No Rigid due to palpation OTHER: Minimal skin mottling Extremity: COMMON NORMALS: capillary refill normal, no clubbing, cyanosis or edema, no calf tenderness and no pedal edema Neuro: COMMON NORMALS: patient oriented x3 Psych: COMMON NORMALS: mental status grossly normal Urinary Catheter Management^: Betts: Cath Placed During This Visit: yes, but has since been removed by the nurse Reason for Continuing Indwelling Catheter: Accurate Measurement of Urinary Output in Critically Ill Patients Urinary Catheter Date of Insertion: 07/12/20 Urinary Catheter Time of Insertion: 09:50 Date Urinary Catheter Removed: 07/11/20 Time Urinary Catheter Discontinued: 12:00 Data : 07/14/20 08:00 07/14/20 08:00 Micro: Microbiology 07/09/20 13:24 Blood Culture - Final Blood NO GROWTH AFTER 5 DAYS 07/09/20 13:22 Blood Culture - Final Blood NO GROWTH AFTER 5 DAYS 07/10/20 14:00 Catheter Tip Culture - Final Central Line Coagulase negativ staphylococc 07/11/20 11:45 Catheter Tip Culture - Preliminary Betts Tip Yeast species A&P Assessment and plan (1) Acute respiratory failure with hypoxia: -Patient was intubated 07/03/2020 for acute encephalopathy secondary to alcohol withdrawal, concerns for acute respiratory failure -Successfully extubated on 07/08/2020 -Fevers T-max 101.3 on 07/08/2020, -white blood cell count elevated to 26.9, with bandemia, CRP to 273.3, pro-Scott 0.99 -Still on 3 to 4 L nasal cannula -CT of the chest with did not show any pulmonary embolism, patchy infiltrates in the right upper lobe suspicious for pneumonia -Concerns for recurrent aspiration pneumonia, aspiration pneumonitis, other concerns for possible fungal infection -He is requiring 3 to 4 L nasal cannula -Is on vancomycin and Primaxin since admission -Patient is a high risk of reintubation -Change out Betts, send catheter tip so far showing yeast species, currently on fluconazole -Central line removed, catheter tip sent for culture, so far showing coagulase-negative staph species -Repeat blood cultures, urine cultures no growth so far -C. difficile is negative -Patient's white blood cell count has decreased to 25.2 -Continue to monitor respiratory status closely -I believe that patient's increased oxygen requirements overnight, was likely secondary to fluid overload, will give 2 doses of Lasix 40 mg IV twice daily today, monitor urine output closely, potassium 3.1, give 40 mEq of p.o. potassium -unfortunately patient will be a poor candidate for BiPAP, given the risk of aspiration, I am not sure if he is able to tolerate BiPAP, high flow if needed -Continue broad-spectrum antibiotics vancomycin and Primaxin -I am still highly suspicious for C. difficile colitis, continue p.o. vancomycin -Continue flucanazole for yeast species -If patient continues to spike fevers, I have leukocytosis, consider aspergillosis -Follow blood cultures, sputum cultures, urine bacterial antigens, urine cultures, Betts catheter tip culture, central line tip culture -Repeat echocardiogram does not show any vegetations -New PICC line in place -Encourage incentive spirometer use, inhaler therapy budesonide and DuoNeb -Aspiration precautions, keep head of bed elevated -Encourage ambulation, up out of bed as best as he can Status: Acute (2) Aspiration pneumonia: Status: Acute (3) Severe acute pancreatitis: -Severe pancreatitis -Splenic vein thrombosis seen on CAT scan, currently on heparin drip -NG-tube in place, continues to have significant amount of output -CT scan on 07/13/2020 shows pancreatitis, no worsening since previous exam, negative for pseudocyst or abscess, negative for small bowel obstruction, bilateral [id number] pleural effusions with underlying atelectasis -White blood cell count 25.2, glucose 156, CRP 241.2 -Serum calcium 8.0, ionized calcium 1.1 -, on sliding scale, continue to monitor -Stop IV fluids for now -New PICC line in place -This morning abdomen is still slightly distended, less rigid, minimal skin mottling, measured abdominal compartment per shift -Will monitor for abdominal compartment syndrome, skin mottling -Repeat CT scantommorow morning -hold librium Librium for alcohol withdrawal -stop dilauded Dilaudid, change to norco 5 q6 prn -General surgery on consult -off Precedex today -Continue clear liquid diet, monitor NG tube output, likely removed tomorrow if output decreases, continue TPN due to poor oral intake but can wean tomorrow Status: Acute (4) Shock: Resolved- Status: Acute (5) Alcohol withdrawal: -Continue Librium, Precedex, Ativan as needed Status: Acute (6) Acute pancreatitis: Status: Acute (7) Alcohol abuse: Status: Chronic (8) Acute kidney injury: Status: Acute (9) Hypocalcemia: Status: Acute (10) Hyponatremia: Status: Acute (11) S/P CABG (coronary artery bypass graft): Status: Acute (12) Chronic obstructive pulmonary disease: Without acute exacerbation, oxygen per protocol Status: Chronic (13) CAD (coronary artery disease): With a history of coronary artery bypass grafting and stent placement Continue on aspirin, statin, metoprolol Status: Chronic Qualifiers: Coronary Disease-Associated Artery/Lesion type: [place] artery [place] vs. transplanted heart: [place] heart Associated angina: without angina Qualified Code(s): I25.10 - Atherosclerotic heart disease of [place] coronary artery without angina pectoris (14) Abdominal compartment syndrome: Status: Acute (15) Splenic vein thrombosis: Status: Acute Additional A&P Information 54-year-old gentleman past medical history of CAD with post CABG came in because of alcohol abuse found to be in pancreatitis. He was intubated after he started having abdominal distention and was in shock. Neurology: Acute metabolic encephalopathy, has mostly resolved, minimal agitation, Successfully extubated Cardiovascular: Shock resolved. Most likely a combination of hypovolemic and sepsis. Patient has history of CABG. Last echocardiogram in May 2019 shows an EF of 50% with global LV hypokinesis. Keep mean arterial pressure was 65 mmHg. Echocardiogram shows an EF of 45 to 50%, hypokinesia of septal wall. For now we will hold off on aspirin. Hold off on antihypertensives as patient is on inotropes at present. Pulmonology: Concerns for aspiration pneumonia, currently on 3 to 4 L nasal cannula Gastroenterology: Acute pancreatitis. Nephrology: Patient is in LENA. Resolved, monitor for now . Hyponatremia: Resolving. We will continue to monitor. High anion gap acidosis: Resolved. Infectious disease: Repeat blood cultures. Patient has remained hemodynamically stable, afebrile. For now we will continue on imipenem and vancomycin as patient is at high risk of developing infection. Nutrition: NG tube in place, to suction, continue TPN, wean as tolerated, clear liquid diet Left central line removed PICC line in place Full code. Lovenox for DVT prophylaxis Protonix for PUD prophylaxis Patient's care discussed in detail with Alma on [phone]. She is patient's D POA. All the questions were answered. Attestations Medical Necessity Statement*: Patient requires hospitalization for acute respiratory failure, severe pancreatitis Coding Level of Care Code Acute Medical Accounting Clerk for [facility] Diagnoses Acute respiratory failure with hypoxia J96.01 Aspiration pneumonia J69.0 Severe acute pancreatitis K85.90 Shock R57.9 Alcohol withdrawal F10.239 Acute pancreatitis K85.90 Alcohol abuse F10.10 Acute kidney injury N17.9 Hypocalcemia E83.51 Hyponatremia E87.1 S/P CABG (coronary artery bypass graft) Z95.1 Chronic obstructive pulmonary disease J44.9 CAD (coronary artery disease) I25.10 Coronary Disease-Associated Artery/Lesion type: [place] artery [place] vs. transplanted heart: [place] heart Associated angina: without angina Abdominal compartment syndrome T79.A3XA Splenic vein thrombosis I82.890
[2020-07-14] MEDS: potassium chloride ER 10 mEq Tablet 40 MEQ PO (21:52)
[2020-07-14] MEDS: HYDROcodone-acetaminophen 5-325 mg Tablet 1 TAB PO (22:23)
[2020-07-14 22:49] LABS: Alanine Aminotransferase 25 U/L (0-41); Albumin Level 2.4 g/dL (3.5-5.2); Alkaline Phosphatase 71 IU/L (40-130); Anion Gap 14.1 (5-19); Aspartate Amino Transferase 44 U/L (0-40); Blood Urea Nitrogen 18 mg/dL (6-20); Calcium 7.7 mg/dL (8.5-10.5); Carbon Dioxide 25 mmol/L (22-29); Chloride 105 mmol/L (98-107); Globulin 3.5 g/dL (1.3-4.6); Glomerular Filtration Rate 62.6 mL/min (90-130); Glucose 146 mg/dL (65-115); Osmolality Calculated 291 mOsm/kg (285-295); Potassium 3.1 mmol/L (3.5-5.1); Sodium 141 mmol/L (136-145); Total Bilirubin 1.6 mg/dL (0.15-1.2); Total Protein 5.9 g/dL (6.6-8.7)
[2020-07-15] VITALS (59 sets, daily range): BP systolic 89–152; BP diastolic 57–96; PULSE 97–120; RESP 16–29; TEMP 36.7–38.9; O2SAT 69–97
[2020-07-15] MEDS: HYDROcodone-acetaminophen 5-325 mg Tablet 1 TAB PO ×4 (02:31→21:11)
[2020-07-15] MEDS: ipratropium-albuterol 3 mL Neb INHALATION ×5 (03:04→19:58)
[2020-07-15 03:59] LABS: Ionized Calcium 1.1 mmol/L (1.1-1.4)
[2020-07-15 04:26] LABS: Basophils # 0.1 10^3/uL (0.0-0.1); Basophils % 0.3 %; Eosinophils # 0.2 10^3/uL (0.0-0.8); Eosinophils % 1.1 %; Hematocrit 24.8 % (42.0-52.0); Hemoglobin 8.1 g/dL (11.7-16.6); Lymphocytes # 2.2 10^3/uL (0.8-4.8); Lymphocytes % 10.3 %; Mean Corpuscular HGB Conc 32.7 g/dL (30.0-36.0); Mean Corpuscular Hemoglobin 32.7 pg (28.0-34.0); Mean Platelet Volume 12.7 fL (7.4-10.4); Monocytes # 1.2 10^3/uL (0.2-0.9); Monocytes % 5.5 %; Neutrophils # 17.23 10^3/uL (1.8-7.7); Nucleated Red Blood Cells % 0 %; Platelet Count 422 10^3/cmm (130-400); Red Blood Count 2.48 10^6/uL (4.1-5.3); Red Cell Distribution Width 14.2 % (12.1-15.1); White Blood Count 21.3 10^3/uL (4.0-10.0)
[2020-07-15 04:52] LABS: INR 1.28 (0.8-1.2)
[2020-07-15 04:59] LABS: Alanine Aminotransferase 21 U/L (0-41); Albumin Level 2.3 g/dL (3.5-5.2); Alkaline Phosphatase 98 IU/L (40-130); Anion Gap 14.2 (5-19); Aspartate Amino Transferase 37 U/L (0-40); Blood Urea Nitrogen 17 mg/dL (6-20); C Reactive Protein 219.1 mg/L (0.0-4.9); Calcium 7.7 mg/dL (8.5-10.5); Carbon Dioxide 26 mmol/L (22-29); Chloride 106 mmol/L (98-107); Globulin 3.5 g/dL (1.3-4.6); Glomerular Filtration Rate 62.6 mL/min (90-130); Glucose 165 mg/dL (65-115); Magnesium 2.2 mg/dL (1.7-2.3); Osmolality Calculated 296 mOsm/kg (285-295); Phosphorus 3.7 mg/dL (2.5-4.5); Potassium 3.2 mmol/L (3.5-5.1); Sodium 143 mmol/L (136-145); Total Bilirubin 1.3 mg/dL (0.15-1.2); Total Protein 5.8 g/dL (6.6-8.7)
[2020-07-15 05:00] LABS: Lactic Sepsis W/Reflex 0.9 mmol/L (0.5-2.2)
[2020-07-15] MEDS: metoclopramide 5 mg/mL SDV 2 mL IVP ×3 (05:33→21:35)
[2020-07-15 05:55] LABS: NT Pro B Type Natriuretic Pept 838 pg/mL (0-125); Procalcitonin 0.65 ng/mL (0-0.5)
[2020-07-15 07:05] LABS: NT Pro B Type Natriuretic Pept 755 pg/mL (0-125)
[2020-07-15 07:10] LABS: Vancomycin Trough 21.7 ug/mL (10-15)
[2020-07-15 07:48] LABS: Partial Thromboplastin Time 44.1 SECONDS (23.9-36.7)
[2020-07-15 08:23] LABS: Glucose Point of Care 151 mg/dL (70-110)
[2020-07-15 08:24] LABS: Glucose Point of Care 117 mg/dL (70-110)
[2020-07-15] MEDS: nicotine 14 mg Patch 1 PATCH TRANSDERMA (08:48)
[2020-07-15] MEDS: pantoprazole 40 mg SDV IVP (08:48)
[2020-07-15] MEDS: budesonide 0.5 mg/2 mL Neb INHALATION ×2 (08:53→19:58)
[2020-07-15 09:05] LABS: Partial Thromboplastin Time 54.4 SECONDS (23.9-36.7)
--- NOTE | 2020-07-15 10:00 | CT_ITS ---
WS: [id number] CT ABDOMEN AND PELVIS WITH CONTRAST HISTORY: Severe pancreatitis TECHNIQUE: Imaging performed of the abdomen and pelvis with IV contrast. Single phase imaging of the abdomen. Coronal and sagittal reformats are submitted. All CT scans at [facility] use at least one of these dose optimization techniques: automated exposure control; mA and/or kV adjustment per patient size (includes targeted exams where dose is matched to clinical indication); or iterativ e reconstruction. IV CONTRAST: Visipaque 320; 95 mL IV. Oral contrast: No DLP: 1469.94 mGy.cm COMPARISON: 07/13/2020 Lower thorax: Small bilateral pleural effusions with bibasilar areas of atelectasis. Similar to the p rior study with no improvement or progression. Mild cardiomegaly. No hiatal hernia. Liver/biliary system: Normal size with no intrahepatic dilatation. Gallbladder: Contracted gallbladder with a carious excretion of contrast. Pancreas: Markedly abnormal appearance of the pancreas. Significant peripancreatic fluid and strandin g. No hemorrhage identified. The pancreas does appear to enhance diffusely. The extent of peripancrea tic fluid does appear to have some progressed slightly. There is focal ascites in the central mesente ry without a definite wall enhancement. Spleen: Normal. Adrenal glands: Normal. Right kidney: Normal. Left kidney: Normal. Aorta: Mild atherosclerosis with no aneurysm. Lymphadenopathy: None. Free fluid: Moderate amount of central mesenteric free fluid and fluid surrounding the pancreas. Flui d extends along the paracolic gutters and a small amount of fluid in the pelvis. GI tract: Nasogastric tube is present with tip extending toward the antrum of the stomach. No obstruc tion of the GI tract. No free air. Abdominal wall: Fat-containing umbilical hernia. Pelvis: No GI tract obstruction. Betts catheter present in the urinary bladder. Small amount of free fluid. Bones: Straightening of the normal lumbar lordosis. CT/CT abdomen pelvis w con* [id number] IMPRESSION: 1. Severe acute pancreatitis with mild progression of peripancreatic fluid and edema since 07/09/2020. No evidence for hemorrhagic pancreatitis or necrotic roberson creatitis. 2. Increasing amount of fluid in the central mesentery but at this time there is no focal pseudocyst or abscess. 3. Nasogastric tube remains in good position. 4. Small bilateral pleural effusions and bibasilar atelectasis without progres kay since 07/13/2020.
[2020-07-15] MEDS: heparin drip 25,000 UNIT/500 ML PREMIX 47 UNIT IV ×2 (10:36→21:35)
[2020-07-15] MEDS: heparin 5,000 unit/mL INJ 1 mL IV ×2 (10:39→18:36)
[2020-07-15] MEDS: LORazepam 1 mg Tablet PO (12:19)
--- NOTE | 2020-07-15 12:49 | P.PN_ITS ---
Subjective Subjective: Interval history: COnttinues to have distended abdomen with discomfort. NGT to suction. U/o 2.9L. WBC 21 <--25. tmax 07/15 101.2F at 1AM. Tachycardiz 113. K 3.2, Ct abdomen/pelvis ordred for today, remains pending. Renal function stable. Medications: Reviewed: Yes Vitals/I&O/Wt Last Vital Signs Temp 98.1 F 07/15/20 08:01 Pulse 113 H 07/15/20 08:58 Resp 20 H 07/15/20 08:53 BP 120/67 07/15/20 08:01 Pulse Ox 93 07/15/20 08:53 07/14/20 07/15/20 07/15/20 22:59 06:59 14:59 Intake Total 2250 / 4020 850 / 4870 840 / 840 Output Total 400 / 400 2500 / 2900 Balance 1850 / 3620 -1650 / 1970 840 / 840 Weight last 48 hrs Weight 100.868 kg Weight 101.605 kg Physical Exam Narrative: EXAM NARRATIVE: GEN: Awake, alert and oriented, moderate discomfort 2/2 pain HEENT: NG in place to suction, bilious output CVS: S1S2N RS: CTA B/L Abd: Soft, distended, BS+ CHILD NUTRITION ASSISTANT: no focal neuro deficits Urinary Catheter Management^: Betts: Cath Placed During This Visit: yes, but has since been removed by the nurse Reason for Continuing Indwelling Catheter: Accurate Measurement of Urinary Output in Critically Ill Patients Urinary Catheter Date of Insertion: 07/12/20 Urinary Catheter Time of Insertion: 09:50 Date Urinary Catheter Removed: 07/11/20 Time Urinary Catheter Discontinued: 12:00 Data : 07/15/20 03:48 07/15/20 03:48 Micro: Microbiology 07/09/20 13:24 Blood Culture - Final Blood NO GROWTH AFTER 5 DAYS 07/09/20 13:22 Blood Culture - Final Blood NO GROWTH AFTER 5 DAYS 07/10/20 14:00 Catheter Tip Culture - Final Central Line Coagulase negativ staphylococc 07/11/20 11:45 Catheter Tip Culture - Preliminary Betts Tip Yeast species A&P Assessment and plan (1) Acute respiratory failure with hypoxia: Status: Acute (2) Aspiration pneumonia: Status: Acute (3) Severe acute pancreatitis: Status: Acute (4) Shock: Resolved- Status: Acute (5) Alcohol withdrawal: -Continue Librium, Precedex, Ativan as needed Status: Acute (6) Acute pancreatitis: Status: Acute (7) Alcohol abuse: Status: Chronic (8) Acute kidney injury: Status: Acute (9) Hypocalcemia: Status: Acute (10) Hyponatremia: Status: Acute (11) S/P CABG (coronary artery bypass graft): Status: Acute (12) Chronic obstructive pulmonary disease: Status: Chronic (13) CAD (coronary artery disease): Status: Chronic Qualifiers: Coronary Disease-Associated Artery/Lesion type: [place] artery [place] vs. transplanted heart: [place] heart Associated angina: without angina Qualified Code(s): I25.10 - Atherosclerotic heart disease of [place] coronary artery without angina pectoris (14) Abdominal compartment syndrome: Status: Acute (15) Splenic vein thrombosis: Status: Acute Additional A&P Information 54-year-old gentleman past medical history of CAD with post CABG, chronic pancreatitis, alcohol abuse, admitted since 07/03 for acute pancreatitis # Acute on chronic pancreatitis, admitted since 07/[address] of the abdomen with mild acute pancreatitis without pseudocyst or abscess. No free fluid. Contracted gallbladder. Follow-up CT on 07/08 with interval increase in peripancreatic edema on CAT scan and possibly developing transverse mesocolonic pseudocyst. CT on 07 09 also showed patchy infiltrates in the right upper lobe suspicious for pneumonia and also small bilateral pleural effusions with compressive atelectasis. There was poor flow in the distal splenic vein suspicious for thrombus with small filling defect in the SMV. On changes appear to be stable, no worsening since previous examination. They noted that there is no pseudocyst or abscess. No concern for small bowel obstruction. Overall hospital course with chronic pancreatitis has been remarkable for daily high-grade fever of 10 1-1 02 Fahrenheit., Splenic vein thrombosis, likely as a result of sepsis from pancreatitis. Some interval worsening noted on CAT scans, repeat CAT scan is planned for today morning. White count remains persistently elevated at 21. LFTs are stable. Blood cultures are negative to date, however no blood culture since 07/09. Repeat blood cultures now. Echocardiogram on with LVEF 55%, grade 2 diastolic dysfunction, moderately thickened mitral valve and moderately calcified aortic valve. No gross vegetations. Currently on empiric antibiotics with Primaxin since 07/08 and vancomycin since 07/10. fluconazole added empirically on 07/13 due to yeast seen in urine cx Picc line in place since 07/10 Risk factors for fungemeia include prolonged ICU admission, central lines and TPN c diff negative 07/12, stop po vancomycin # Splenic vein thrombosis as a result of pancreatitis Currently on heparin drip , will plan to change to lovenox if no surgical intevrnetions indicated # Ileus, as a complication of #1, On NGT to suction, appreciate surgery recommendations # Acute repisratory failure Evidence of hospital acquired pneumonia on CXR intubated 07/03-07/08 previously, has been on primaxin since 07/08 and vancomycin since 07/10 bacterial antigen panel negative , MRSA screen negative on 07/06 , sputum cx 07/06 /with respiratory arlyn B/L pleural effusions likely contributing along with aspiration 02 requirements [place] at 3lpm # H/o CAD with CABG: ASA, lipitor currently on hold , metorpolol po has been on hold. Resume metroprolol iv given tachycardia # DM: ISS # septic Shock, resolved # LENA. Resolved, monitor for now . #Hyponatremia: Resolving. 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 transplanted heart: [place] heart Associated angina: without angina Abdominal compartment syndrome T79.A3XA Splenic vein thrombosis I82.890
--- NOTE | 2020-07-15 12:56 | PC.CHAP ---
Pastoral Care Encounter/Spiritual Assessment Type of Contact [] Declined extruder operator horizontal visit [] Patient/Family/Request visit [] Outpatient visit [] Follow-up visit [] Physician referral [] Code/Alert [] Routine visit [] Staff referral [] Actively dying [x] Patient sleeping [] Family support [] [] Out of room [] Palliative care [] [] Receiving care in room [] Pre-surgical visit [] Trauma [x] Long length of stay [x] ICU visit [] Other: Relational/Emotional Strength [] Patient feels connected with others/family/visitors/staff [] Distress [] Loneliness/isolation [] Abandonment Spirituality of Patient [] Person of [place] [] Attends Druze of their [place] [] Believes in Prayer [] Reads Bible or Bahai materials [] There are Spiritual issues to be addressed Acid Polymerization Operator Interventions [] Prayer [] Active listening [] Non-anxious presence [] Spiritual/emotional support [] Crisis/trauma care [] Spiritual counseling [] Bereavement support [] Provided bereavement packet [] Provided Bible/devotional materials [] Provided toy/stuffed animal, coloring book to patient or family member [] Provided Communion [] Anointing/[place] [] Salvation [] Completed spiritual assessment [] Other: Impact on Illness or Injury [] Angry [] Fearful [] Anxious [] Often cries [] Exhaustion [] Unable to work [] Unable to attend baptism [] Unable to walk/stand [] Unable to read [] Unable to drive [] Unable to eat/drink [] Unable to sleep [] Unable to be with family [x] Patient intubated [] Other: Summary Patient was sleeping at the time of the extruder operator horizontal visit. Patient was referred to next extruder operator horizontal for a follow- up visit. Patient visit was attempted by Acid Polymerization Operator Gabriel Barnett. Time spent with patient 3 minutes
[2020-07-15 13:29] LABS: Glucose Point of Care 127 mg/dL (70-110)
[2020-07-15] MEDS: iodixanol 320 mg/mL 100mL Btl IV (13:56)
[2020-07-15] MEDS: metoprolol tartrate 1 mg/1 mL SDV 5 mL 2.5 MG IV ×3 (15:13→20:18)
[2020-07-15] MEDS: fluconazole premix 200 MG/100 ML PREMIX IV (15:14)
[2020-07-15 16:03] LABS: Partial Thromboplastin Time 43.3 SECONDS (23.9-36.7)
[2020-07-15 17:33] LABS: Glucose Point of Care 129 mg/dL (70-110)
[2020-07-15] MEDS: acetaminophen 325 mg Tablet 650 MG PO (18:51)
[2020-07-15] MEDS: pantoprazole DR 40 mg Tablet PO (20:17)
--- NOTE | 2020-07-15 22:05 | PC.NURSE ---
Received aPTT result at 2135 of 119. Decreased rate by 6units at 43ml/hr per protocol. Previous rate was 49ml/hr on the pump as listed on the Heparin flowsheet. However, the MAR shows patient heparin rate at 47ml/hr.
[2020-07-16] VITALS (31 sets, daily range): BP systolic 82–131; BP diastolic 43–77; PULSE 86–111; RESP 15–32; TEMP 37.7–38.9; O2SAT 83–95
[2020-07-16] MEDS: ipratropium-albuterol 3 mL Neb INHALATION ×5 (00:23→20:12)
[2020-07-16] MEDS: metoprolol tartrate 1 mg/1 mL SDV 5 mL 2.5 MG IV ×6 (02:28→21:35)
[2020-07-16 04:00] LABS: Basophils # 0.1 10^3/uL (0.0-0.1); Basophils % 0.4 %; Eosinophils # 0.3 10^3/uL (0.0-0.8); Eosinophils % 1.3 %; Hematocrit 25.2 % (42.0-52.0); Hemoglobin 8.1 g/dL (11.7-16.6); Lymphocytes # 2.2 10^3/uL (0.8-4.8); Lymphocytes % 11.4 %; Mean Corpuscular HGB Conc 32.1 g/dL (30.0-36.0); Mean Corpuscular Volume 99.6 fL (80-94); Mean Platelet Volume 12.5 fL (7.4-10.4); Monocytes # 1.1 10^3/uL (0.2-0.9); Monocytes % 5.8 %; Neutrophils # 15.43 10^3/uL (1.8-7.7); Neutrophils % 79.3 %; Nucleated Red Blood Cells % 0 %; Platelet Count 483 10^3/cmm (130-400); Red Blood Count 2.53 10^6/uL (4.1-5.3); Red Cell Distribution Width 13.9 % (12.1-15.1); White Blood Count 19.5 10^3/uL (4.0-10.0)
[2020-07-16 04:33] LABS: INR 1.35 (0.8-1.2); Partial Thromboplastin Time 62.3 SECONDS (23.9-36.7)
[2020-07-16 04:47] LABS: Alanine Aminotransferase 13 U/L (0-41); Albumin Level 2.2 g/dL (3.5-5.2); Alkaline Phosphatase 65 IU/L (40-130); Anion Gap 14.2 (5-19); Aspartate Amino Transferase 25 U/L (0-40); Blood Urea Nitrogen 16 mg/dL (6-20); Calcium 7.6 mg/dL (8.5-10.5); Carbon Dioxide 25 mmol/L (22-29); Chloride 103 mmol/L (98-107); Globulin 3.6 g/dL (1.3-4.6); Glomerular Filtration Rate 57.1 mL/min (90-130); Glucose 123 mg/dL (65-115); Lactic Sepsis W/Reflex 0.9 mmol/L (0.5-2.2); Magnesium 1.9 mg/dL (1.7-2.3); Osmolality Calculated 286 mOsm/kg (285-295); Potassium 3.2 mmol/L (3.5-5.1); Sodium 139 mmol/L (136-145); Total Protein 5.8 g/dL (6.6-8.7)
[2020-07-16 04:53] LABS: Glucose Point of Care 126 mg/dL (70-110)
[2020-07-16] MEDS: metoclopramide 5 mg/mL SDV 2 mL IVP ×3 (06:22→21:35)
--- NOTE | 2020-07-16 07:54 | PC.NURSE ---
recd. alert. confused. took abt. 3 bites pudding.
--- NOTE | 2020-07-16 08:28 | P.PN_ITS ---
Subjective Subjective: Interval history: Patient has been a bit distended today, had been on a full liquid diet Vitals/I&O/Wt Last Vital Signs Temp 99.8 F H 07/16/20 04:00 Pulse 97 07/16/20 07:01 Resp 21 H 07/16/20 07:01 BP 108/55 07/16/20 07:01 Pulse Ox 92 07/16/20 07:01 07/15/20 07/16/20 07/16/20 22:59 06:59 14:59 Intake Total 1280.183 / 2840.183 500 / 2840.183 Output Total 800 / 1550 750 / 1550 Balance 480.183 / 1290.183 -250 / 1290.183 Weight last 48 hrs Weight 223 lb 0.4 oz Weight 222 lb 6 oz Physical Exam Narrative: EXAM NARRATIVE: Abdomen: Soft, distended, nontender, NG tube is clamped Urinary Catheter Management^: Betts: Cath Placed During This Visit: yes, but has since been removed by the nurse Reason for Continuing Indwelling Catheter: Accurate Measurement of Urinary Output in Critically Ill Patients Urinary Catheter Date of Insertion: 07/12/20 Urinary Catheter Time of Insertion: 09:50 Date Urinary Catheter Removed: 07/11/20 Time Urinary Catheter Discontinued: 12:00 Data : 07/16/20 03:55 07/16/20 03:55 Micro: Microbiology 07/16/20 03:55 Blood Culture - Preliminary Blood SPECIMEN COLLECTED 07/16/20 03:40 Blood Culture - Preliminary Blood SPECIMEN COLLECTED 07/11/20 11:45 Catheter Tip Culture - Preliminary Betts Tip Yeast species 07/10/20 14:00 Catheter Tip Culture - Final Central Line Staphylococcus epidermidis 07/15/20 13:10 Blood Culture - Preliminary Blood SPECIMEN COLLECTED 07/15/20 13:18 Blood Culture - Preliminary Blood SPECIMEN COLLECTED A&P Assessment and plan (1) Splenic vein thrombosis: Continue heparin GTT though if he could be transitioned to therapeutic Lovenox since he has remained stable hemodynamically Status: Acute (2) Severe acute pancreatitis: 54-year-old gentleman with history of alcoholism who has now developed acute pancreatitis with agitation/delirium secondary to alcohol withdrawal. Patient had been on a full liquid diet and feels more distended today. We will therefore hold off on full liquid diet and reattach NG tube to low intermittent suction to see if that makes a difference CT abdomen pelvis done last night showed severe acute pancreatitis no evidence of pseudocyst or abscess , suggestive of ileus Leukocytosis: Stable Status: Acute (3) Acute pancreatitis: Status: Acute Attestations Medical Necessity Statement*: Acute severe pancreatitis requiring continued ICU stay Coding Level of Care Code Acute Consumer Experience Consultant for g Fwd Diagnoses Splenic vein thrombosis I82.890 Severe acute pancreatitis K85.90 Acute pancreatitis K85.90
[2020-07-16 09:00] LABS: Glucose Point of Care 139 mg/dL (70-110)
[2020-07-16] MEDS: piperacillin-tazobactam 3.375 GM in sodium chloride 0.9% (plus) 50 ML IV ×2 (09:23→16:45)
[2020-07-16] MEDS: nicotine 14 mg Patch 1 PATCH TRANSDERMA (09:25)
[2020-07-16] MEDS: pantoprazole DR 40 mg Tablet PO ×2 (09:25→21:35)
[2020-07-16] MEDS: budesonide 0.5 mg/2 mL Neb INHALATION ×2 (09:46→20:12)
--- NOTE | 2020-07-16 10:42 | PM.PN ---
Subjective Subjective: Interval history: Tmax 102F over last 24 hrs. Heart rate 104-108. Vitals/I&O/Wt Last Vital Signs Temp 100.3 F H 07/16/20 10:00 Pulse 108 H 07/16/20 10:00 Resp 24 H 07/16/20 10:00 BP 115/70 07/16/20 10:00 Pulse Ox 83 L 07/16/20 10:00 07/15/20 07/16/20 07/16/20 22:59 06:59 14:59 Intake Total 1280.183 / 2340.183 500 / 2840.183 250 / 250 Output Total 800 / 800 750 / 1550 Balance 480.183 / 1540.183 -250 / 1290.183 250 / 250 Weight last 48 hrs Weight 101.162 kg Weight 100.868 kg Physical Exam Urinary Catheter Management^: Betts: Cath Placed During This Visit: yes, but has since been removed by the nurse Reason for Continuing Indwelling Catheter: Accurate Measurement of Urinary Output in Critically Ill Patients Urinary Catheter Date of Insertion: 07/12/20 Urinary Catheter Time of Insertion: 09:50 Date Urinary Catheter Removed: 07/11/20 Time Urinary Catheter Discontinued: 12:00 Data : 07/16/20 03:55 07/16/20 03:55 Micro: Microbiology 07/16/20 03:55 Blood Culture - Preliminary Blood SPECIMEN COLLECTED 07/16/20 03:40 Blood Culture - Preliminary Blood SPECIMEN COLLECTED 07/11/20 11:45 Catheter Tip Culture - Preliminary Betts Tip Yeast species 07/10/20 14:00 Catheter Tip Culture - Final Central Line Staphylococcus epidermidis 07/15/20 13:10 Blood Culture - Preliminary Blood SPECIMEN COLLECTED 07/15/20 13:18 Blood Culture - Preliminary Blood SPECIMEN COLLECTED Coding Level of Care Code Acute Client Support Coordinator for Aislinn Swanson
[2020-07-16] MEDS: heparin drip 25,000 UNIT/500 ML PREMIX 43 UNIT IV ×2 (10:44→22:25)
[2020-07-16 12:13] LABS: SARS Covid-2 Antigen Negative (Negative)
[2020-07-16 14:36] LABS: Ionized Calcium 1.1 mmol/L (1.1-1.4)
[2020-07-16] MEDS: acetaminophen 325 mg Tablet 650 MG PO ×2 (14:58→21:59)
[2020-07-16] MEDS: HYDROcodone-acetaminophen 5-325 mg Tablet 1 TAB PO (15:17)
--- NOTE | 2020-07-16 15:31 | PC.NURSE ---
abd. pressure 7. prior to having large, green, congealed stool. spec to lab for ob. wek wt bearing. sat in chair abt. 15 min. then back to bed.
[2020-07-16] MEDS: fluconazole premix 200 MG/100 ML PREMIX 100 MG IV (15:37)
[2020-07-16 16:58] LABS: Partial Thromboplastin Time 57.5 SECONDS (23.9-36.7)
[2020-07-16 17:09] LABS: Glucose Point of Care 122 mg/dL (70-110)
[2020-07-16 17:09] LABS: Glucose Point of Care 129 mg/dL (70-110)
--- NOTE | 2020-07-16 17:52 | PC.NURSE ---
amt of ng output includes oral fluids
--- NOTE | 2020-07-16 18:05 | PC.NURSE ---
note qt interval. 444. c/o intermittent chest pain
--- NOTE | 2020-07-16 18:13 | PM.TDS ---
Transfer Summary Providers Date of Admission: 07/03/20 11:43 Date of Discharge: 07/16/20 Attending Provider at Admission: Ree Young DO Attending Provider at Transfer: Ruma Holloway MD Primary Care Provider: CECILY Mitchell Anticipated Date of Transfer: Anticipated date of transfer: 07/16/20 Receiving Facility & Provider: Receiving Provider: [] Receiving facility: [] Diagnoses at Discharge Discharge Diagnosis (1) Severe acute pancreatitis: Status: Acute (2) Splenic vein thrombosis: Status: Acute (3) Acute respiratory failure with hypoxia: Status: Acute (4) Aspiration pneumonia: Status: Acute Qualifiers: Aspiration pneumonia type: unspecified Laterality: unspecified laterality Lung location: unspecified part of lung Qualified Code(s): J69.0 - Pneumonitis due to inhalation of food and vomit (5) S/P CABG (coronary artery bypass graft): Status: Acute (6) Coronary artery disease: Status: Acute Qualifiers: Coronary Disease-Associated Artery/Lesion type: [place] artery [place] vs. transplanted heart: [place] heart Associated angina: without angina Qualified Code(s): I25.10 - Atherosclerotic heart disease of [place] coronary artery without angina pectoris (7) Alcohol withdrawal: Status: Acute Qualifiers: Complication of substance-induced condition: with unspecified complication Qualified Code(s): F10.239 - Alcohol dependence with withdrawal, unspecified (8) Acute kidney injury: Status: Acute (9) Chronic obstructive pulmonary disease: Status: Chronic Qualifiers: COPD type: unspecified COPD Qualified Code(s): J44.9 - Chronic obstructive pulmonary disease, unspecified (10) Alcohol abuse: Status: Chronic (11) Personal history of nicotine dependence: Status: Chronic Other Information Additional DC diagnoses/information: 54-year-old gentleman past medical history of CAD with post CABG, chronic pancreatitis, alcohol abuse, admitted since 07/03 for acute pancreatitis, initial course notable for SIRS/septic shock for which he was on pressor support and mechanical ventilation shortly after arrival, latter two have resolved. Active issues remain worsening pancreatitis, persistent daily fevers over the past week, persistent leukocytosis of 19-25, development of splenic vein thrombosis and ileus. # Acute on chronic pancreatitis, admitted since 07/[address] of the abdomen with mild acute pancreatitis without pseudocyst or abscess. No free fluid. Contracted gallbladder. Follow-up CT on 07/08 with interval increase in peripancreatic edema on CAT scan and possibly developing transverse mesocolonic pseudocyst. CT on 07/09 also showed patchy infiltrates in the right upper lobe suspicious for pneumonia and also small bilateral pleural effusions with compressive atelectasis. There was poor flow in the distal splenic vein suspicious for thrombus with small filling defect in the SMV. On 07/12 changes appear to be stable, no worsening since previous examination. They noted that there is no pseudocyst or abscess. Ct again on 07/15 for persistent fever and leukocytosis with Markedly abnormal appearance of the pancreas. Significant peripancreatic fluid and stranding. No hemorrhage identified. The pancreas does appear to enhance diffusely. The extent of peripancreatic fluid does appear to have some progressed since last scan. There is focal ascites in the central mesentery without a definite wall enhancement. Fluid extends along the paracolic gutters and a small amount of fluid in the pelvis. Overall hospital course with chronic pancreatitis has been remarkable for daily high-grade fever of 10 1-102 Fahrenheit , persistent since 07/10. White count remains persistently elevated between 19K-25K. LFTs are stable. No evidence of biliary dilattaion on any CT. Blood cultures are negative to date, however no blood culture between 07/09-07/15. On 07/15, thus far negative to date. Echocardiogram TTE on with LVEF 55%, grade 2 diastolic dysfunction, moderately thickened mitral valve and moderately calcified aortic valve. No gross vegetations. Currently on empiric antibiotics with Primaxin since 07/08 and vancomycin since 07/10. Fluconazole 200mg po daily added empirically on 07/13 due to yeast seen in urine cx---> change to caspofungin 07/[address] since 07/10 Previously placed central line was removed with placement of PICC. Risk factors for fungemeia include prolonged ICU admission, central lines and TPN c diff negative 07/12 # Splenic vein thrombosis as a result of pancreatitis Currently on heparin drip , will plan to change to lovenox if no surgical intevrnetions indicated # Ileus, as a complication of #1, On NGT to suction, appreciate surgery recommendations Earlier during course of admission there was concern for compartment syndrome, however this appears less likely now. Aspirate is bilious in nature, had one BM today. # Acute repiratory failure Evidence of hospital acquired pneumonia on CXR intubated 07/03-07/08 previously, has been on primaxin since 07/08 and vancomycin since 07/10 bacterial antigen panel negative , MRSA screen negative on 07/06 , sputum cx 07/06 /with respiratory alryn B/L pleural effusions likely contributing along with aspiration 02 requirements stbale at 3lpm # H/o CAD with CABG: ASA, lipitor currently on hold , metorpolol po has been on hold. Resume metroprolol iv given tachycardia # DM: ISS # septic Shock, resolved # LENA. Resolved, monitor for now . #Hyponatremia: Resolving. We will continue to monitor Nutrition: NG tube in place, to suction, continue TPN Overall patient has been having persistent leukocytosis, high grade fever over the past week without any gross improvement in clinical status. Would be best to include GI services to monitor for multiple complications resulting from severe pancreatitis. Since we are unable to provide GI services here, will attempt to transfer patient to higher level of care. DVt ppx: on heparin drip Protonix for PUD prophylaxis Reason for Visit Reason for Visit: N/V/D Physical Exam Urinary Catheter Management^: Betts: Cath Placed During This Visit: yes, but has since been removed by the nurse Reason for Continuing Indwelling Catheter: Accurate Measurement of Urinary Output in Critically Ill Patients Urinary Catheter Date of Insertion: 07/12/20 Urinary Catheter Time of Insertion: 09:50 Date Urinary Catheter Removed: 07/11/20 Time Urinary Catheter Discontinued: 12:00 TS Data Data Completed and Pending: Completed Studies During Hospitalization Category Date Time Status CT abdomen pelvis w con* [id number] Rout ine Cat Scan 07/04/20 10:[address] abdomen pelvis w con* [id number] Rout ine Cat Scan 07/15/20 10:[address] abdomen pelvis w con* [id number] Urge nt Cat Scan 07/03/20 10:[address] abdomen pelvis wo con [id number] QAM Cat Scan 07/08/20 06:[address] abdomen pelvis wo con [id number] Rout ine Cat Scan 07/12/20 23:[address] chest abd pel w con* Stat Cat Scan 07/09/20 11:34 Completed CXRP [XR chest 1V portable [id number]] S tat Exams 07/04/20 18:45 Completed XR abdomen 1V* [id number] Routine Exams 07/08/20 18:58 Completed XR abdomen 1V* 74 018 Routine Exams 07/09/20 14:01 Completed XR chest 1V onel ble [id number] Routine Exams 07/06/20 07:10 Completed XR chest 1V onel ble [id number] Routine Exams 07/07/20 07:50 Completed XR chest 1V onel ble [id number] Routine Exams 07/08/20 07:47 Completed XR chest 1V onel ble 25325 Routine Exams 07/09/20 07:50 Completed XR chest 1V onel ble [id number] Routine Exams 07/10/20 08:55 Completed XR chest 1V onel ble 23401 Routine Exams 07/10/20 23:29 Completed XR chest 1V onel ble [id number] Routine Exams 07/11/20 16:32 Completed XR chest 1V onel ble [id number] Routine Exams 07/12/20 07:00 Completed XR chest 1V onel ble 20326 Routine Exams 07/13/20 07:00 Completed XR chest 1V onel ble 25454 Routine Exams 07/14/20 07:00 Completed XR chest 1V onel ble [id number] Stat Exams 07/12/20 08:32 Completed CV echo complete* [id number] Routine Ultrasound 07/10/20 08:06 Completed CV echo limited 9 [id number] Routine Ultrasound 07/05/20 06:00 Completed Pending at discharge Category Date Time Status Blood Culture AM LABS Lab 07/16/20 03:55 Results Blood Culture Sta t Lab 07/15/20 13:10 Results CMP [Comprehensiv e Metabolic Panel] AM LABS Lab 07/17/20 04:00 Ordered Catheter Tip Cult ure Stat Lab 07/11/20 11:45 Results Complete Blood Co unt w/Auto AM LABS Lab 07/17/20 04:00 Ordered Complete Blood Co unt w/Auto AM LABS Lab 07/17/20 04:00 Ordered Comprehensive Met abolic Panel AM LA BS Lab 07/17/20 04:00 Ordered Lactic Sepsis W/R eflex AM LABS Lab 07/17/20 04:00 Ordered Magnesium AM LABS Lab 07/17/20 04:00 Ordered Prothrombin Time INR AM LABS Lab 07/17/20 04:00 Ordered Sputum Culture an d Gram Stain Stat Lab 07/09/20 11:31 Uncollected Vancomycin Trough Timed Lab 07/17/20 13:00 Ordered Labs from last 24 hours 07/16/20 07/16/20 07/16/20 17:06 16:28 11:51 WBC RBC Hgb Hct MCV MCH MCHC RDW Plt Count MPV Neut % (Auto) Lymph % (Auto) [place] % (Auto) Eos % (Auto) Baso % (Auto) Neut # (Auto) Lymph # (Auto) [place] # (Auto) Eos # (Auto) Baso # (Auto) Nucleated RBC % (a uto) Nucleated RBCs # PT INR APTT 57.5 H Sodium Potassium Chloride Carbon Dioxide Anion Gap BUN Creatinine GFR Calculation Glucose POC Glucose 122 129 Calculated Osmolal ity Lactic Acid Calcium Ionized Calcium Me as Magnesium Total Bilirubin AST ALT Alkaline Phosphata se Total Protein Albumin Globulin SARS-CoV-2 Ag (Rap id) 07/16/20 07/16/20 07/16/20 11:22 06:15 03:55 WBC RBC Hgb Hct MCV MCH MCHC RDW Plt Count MPV Neut % (Auto) Lymph % (Auto) [place] % (Auto) Eos % (Auto) Baso % (Auto) Neut # (Auto) Lymph # (Auto) [place] # (Auto) Eos # (Auto) Baso # (Auto) Nucleated RBC % (a uto) Nucleated RBCs # PT INR APTT 62.3 H Sodium Potassium Chloride Carbon Dioxide Anion Gap BUN Creatinine GFR Calculation Glucose POC Glucose Calculated Osmolal ity Lactic Acid Calcium Ionized Calcium Me as 1.1 Magnesium Total Bilirubin AST ALT Alkaline Phosphata se Total Protein Albumin Globulin SARS-CoV-2 Ag (Rap id) Negative 07/16/20 07/16/20 07/16/20 03:55 03:55 03:55 WBC RBC Hgb Hct MCV MCH MCHC RDW Plt Count MPV Neut % (Auto) Lymph % (Auto) [place] % (Auto) Eos % (Auto) Baso % (Auto) Neut # (Auto) Lymph # (Auto) [place] # (Auto) Eos # (Auto) Baso # (Auto) Nucleated RBC % (a uto) Nucleated RBCs # PT 16.90 H INR 1.35 H APTT Sodium 139 Potassium 3.2 L Chloride 103 Carbon Dioxide 25 Anion Gap 14.2 BUN 16 Creatinine 1.3 H GFR Calculation 57.1 L Glucose 123 H POC Glucose Calculated Osmolal ity 286 Lactic Acid 0.9 Calcium 7.6 L Ionized Calcium Me as Magnesium 1.9 Total Bilirubin 1.0 AST 25 ALT 13 Alkaline Phosphata se 65 Total Protein 5.8 L Albumin 2.2 L Globulin 3.6 SARS-CoV-2 Ag (Rap id) 07/16/20 07/15/20 07/15/20 03:55 20:50 20:16 WBC 19.5 H RBC 2.53 L Hgb 8.1 L Hct 25.2 L MCV 99.6 H MCH 32.0 MCHC 32.1 RDW 13.9 Plt Count 483 H MPV 12.5 H Neut % (Auto) 79.3 Lymph % (Auto) 11.4 [place] % (Auto) 5.8 Eos % (Auto) 1.3 Baso % (Auto) 0.4 Neut # (Auto) 15.43 H Lymph # (Auto) 2.2 [place] # (Auto) 1.1 H Eos # (Auto) 0.3 Baso # (Auto) 0.1 Nucleated RBC % (a uto) 0 Nucleated RBCs # 0.0 PT INR APTT 119.0 H D Sodium Potassium Chloride Carbon Dioxide Anion Gap BUN Creatinine GFR Calculation Glucose POC Glucose 126 Calculated Osmolal ity Lactic Acid Calcium Ionized Calcium Me as Magnesium Total Bilirubin AST ALT Alkaline Phosphata se Total Protein Albumin Globulin SARS-CoV-2 Ag (Rap id) 07/14/20 07:50 WBC RBC Hgb Hct MCV MCH MCHC RDW Plt Count MPV Neut % (Auto) Lymph % (Auto) [place] % (Auto) Eos % (Auto) Baso % (Auto) Neut # (Auto) Lymph # (Auto) [place] # (Auto) Eos # (Auto) Baso # (Auto) Nucleated RBC % (a uto) Nucleated RBCs # PT INR APTT Sodium Potassium Chloride Carbon Dioxide Anion Gap BUN Creatinine GFR Calculation Glucose POC Glucose 139 Calculated Osmolal ity Lactic Acid Calcium Ionized Calcium Me as Magnesium Total Bilirubin AST ALT Alkaline Phosphata se Total Protein Albumin Globulin SARS-CoV-2 Ag (Rap id) Vitals: Last Vital Signs Temp 102.1 F H 07/16/20 14:01 Pulse 100 07/16/20 15:31 Resp 18 07/16/20 15:31 BP 93/74 07/16/20 14:01 Pulse Ox 94 07/16/20 15:31 TS Medications Medications Home Medications aspirin 81 mg tablet,delayed release 81 mg PO DAILY 01/01/20 [History Confirmed 07/03/20] nitroglycerin 0.4 mg sublingual tablet 0.4 mg SUBLINGUAL Q5M PRN 01/01/20 [History Confirmed 07/03/20] albuterol sulfate 90 mcg/actuation aerosol inhaler 2 puff INHALATION Q6H PRN #18 gm 04/23/20 [Rx Confirmed 07/03/20] budesonide-formoterol HFA 80 mcg-4.5 mcg/actuation aerosol inhaler 2 puff INHALATION BID #10.2 gm 04/23/20 [Rx Confirmed 07/03/20] bupropion HCl 150 mg tablet,12 hr sustained-release 150 mg PO BID #60 tab 04/23/20 [Rx Confirmed 07/03/20] diltiazem HCl 60 mg tablet 60 mg PO BID #60 tab 04/23/20 [Rx Confirmed 07/03/20] metoprolol tartrate 50 mg tablet 25 mg PO BID #30 tab 04/23/20 [Rx Confirmed 07/03/20] pantoprazole 40 mg tablet,delayed release 40 mg PO DAILY #30 tab 04/23/20 [Rx Confirmed 07/03/20] Mylanta Maximum Strength See Rx Instructions .ROUTE .COMPLEX 07/03/20 [History Confirmed 07/03/20] Pepto-Bismol See Rx Instructions .ROUTE .COMPLEX 07/03/20 [History Confirmed 07/03/20] simvastatin 40 mg PO DAILY 07/03/20 [History Confirmed 07/03/20] Active Medications Acetaminophen (Tylenol) 650 mg PO Q6H PRN PRN Reason: MILD PAIN Last Admin: 07/16/20 14:58 Dose: 650 mg Documented by: Hydrocodone Bitart/Acetaminophen (Organ 5-325 Mg) 1 tab PO Q4H PRN PRN Reason: MODERATE PAIN Last Admin: 07/16/20 15:17 Dose: 1 tab Documented by: Albuterol Sulfate (Ventolin) 2 puff INHALATION Q6H.RESPIRATORY PRN PRN Reason: shortness of breath or wheezing Albuterol/Ipratropium (Duoneb) 3 ml INHALATION Q4H.RESPIRATORY [facility]AMERA Last Admin: 07/16/20 15:10 Dose: 3 ml Documented by: Aspirin (Aspirin Ec) 81 mg PO DAILY TAMERA Last Admin: 07/04/20 11:05 Dose: 81 mg Documented by: Atorvastatin Calcium (Lipitor) 20 mg PO DAILY [facility] Last Admin: 07/04/20 11:03 Dose: 20 mg Documented by: Budesonide (Pulmicort) 0.5 mg INHALATION BID.RESPIRATORY [facility] Last Admin: 07/16/20 09:46 Dose: 0.5 mg Documented by: Bupropion HCl (Wellbutrin Sr (12 Hr)) 150 mg PO BID [facility] Last Admin: 07/09/20 05:49 Dose: Not Given Documented by: Chlordiazepoxide (Librium) 50 mg PO Q6H [facility] Last Admin: 07/14/20 16:45 Dose: 50 mg Documented by: Dextrose (D50w) 25 ml IVP ONCE PRN; Protocol PRN Reason: hypoglycemia protocol Dextrose (D50w) 50 ml IVP PRN PRN; Protocol PRN Reason: hypoglycemia protocol Diltiazem HCl (Cardizem) 60 mg PO BID [facility] Last Admin: 07/04/20 15:16 Dose: 60 mg Documented by: Folic Acid (Folic Acid) 1 mg PO DAILY [facility] Last Admin: 07/04/20 11:08 Dose: 1 mg Documented by: Glucagon (Glucagen) 1 mg IM ONCE PRN; Protocol PRN Reason: Adult Acute Hypoglycemia Prot. Haloperidol Lactate (Haldol Inj) 2 mg IVP Q4H PRN PRN Reason: AGITATION Last Admin: 07/14/20 04:37 Dose: 2 mg Documented by: Heparin Sodium (Beef Lung) (Heparin) 0 unit IV PRN PRN; Protocol PRN Reason: Heparin weight-base protocol Last Admin: 07/15/20 18:36 Dose: 4,200 unit Documented by: Hydralazine HCl (Apresoline) 10 mg IVP Q4H PRN PRN Reason: SBP>180 or DBP>100 Last Admin: 07/04/20 10:54 Dose: 10 mg Documented by: Amino Acids/Electrolytes (Clinimix E 4.25%-10%) 1,000 mls @ 50 mls/hr IV .Q20H [facility] Last Admin: 07/16/20 10:46 Dose: 50 mls/hr Documented by: Dextrose (D5w) 500 mls @ 100 mls/hr IV ONCE PRN; Protocol PRN Reason: Adult Acute Hypoglycemia Prot Heparin Sodium/Sodium Chloride (Heparin Drip) 25,000 unit in 500 mls @ 0 mls/hr IV .Q0M [facility]AMERA; Protocol Last Admin: 07/16/20 10:44 Dose: 20.21 unit/kg/hr, 43 mls/hr Documented by: Sodium Chloride (Sodium Chloride 0.9%) 500 mls @ 0 mls/hr IV .Q0M [facility] Fluconazole (Diflucan Premix) 200 mg in 100 mls @ 100 mls/hr IV Q24H [facility] Last Infusion: 07/16/20 16:54 Dose: Infused Documented by: Piperacillin Sod/Tazobactam (Sod 3.375 gm/ Sodium Chloride) 50 mls @ 12.5 mls/hr IV Q8H [facility]; Protocol Last Admin: 07/16/20 16:45 Dose: 12.5 mls/hr Documented by: Insulin Aspart (Novolog) 0 unit SUBCUT WM&BEDTIME [facility]; Protocol Last Admin: 07/16/20 14:21 Dose: Not Given Documented by: Lanolin (Lanolin Oint) 1 applic TOPICAL PRN PRN PRN Reason: DRYNESS Lorazepam (Ativan) 2 mg IM PROTOCOL PRN; Protocol PRN Reason: ALCOWD Last Admin: 07/04/20 15:17 Dose: 2 mg Documented by: Lorazepam (Ativan) 1 mg PO Q4H PRN PRN Reason: Anxiety or agitation Last Admin: 07/15/20 12:19 Dose: 1 mg Documented by: Metoclopramide HCl (Reglan) 5 mg IVP Q8H [facility] Last Admin: 07/16/20 14:24 Dose: 5 mg Documented by: Metoprolol Tartrate (Lopressor) 25 mg PO BID [facility] Last Admin: 07/04/20 15:16 Dose: 25 mg Documented by: Metoprolol Tartrate (Metoprolol Tartrate) 2.5 mg IV Q4H [facility] Last Admin: 07/16/20 18:12 Dose: 2.5 mg Documented by: Multivitamins Therapeutic (Multivitamin Tab) 1 tab PO DAILY [facility] Last Admin: 07/04/20 11:08 Dose: 1 tab Documented by: Nicotine (Nicoderm 14 Mg Patch) 1 patch TRANSDERMA DAILY [facility] Last Admin: 07/16/20 09:25 Dose: 1 patch Documented by: Ondansetron HCl (Zofran) 4 mg IVP Q6H PRN PRN Reason: NAUSEA AND VOMITING Last Admin: 09/12/20 20:49 Dose: 4 mg Documented by: Pantoprazole Sodium (Protonix) 40 mg PO Q12H [facility] Last Admin: 07/16/20 09:25 Dose: 40 mg Documented by: Discharge Plan Discharge Patient Disposition: Home Condition: Stable Prescriptions: No Action aspirin [Adult Low Dose Aspirin] 81 mg tablet,delayed release (DR/EC) 81 mg PO DAILY RF: 0 nitroglycerin [Nitrostat] 0.4 mg tablet, sublingual 0.4 mg SUBLINGUAL Q5M PRN (Reason: Chest Pain) RF: 0 albuterol sulfate [ProAir HFA] 90 mcg/actuation HFA aerosol inhaler 2 puff INHALATION Q6H PRN (Reason: shortness of breath or wheezing) Qty: 18 RF: 2 Symbicort 80-4.5 mcg/actuation HFA aerosol inhaler 2 puff INHALATION BID Qty: 10.2 RF: 2 bupropion HCl 150 mg tablet sustained-release 12 hr 150 mg PO BID Qty: 60 RF: 2 diltiazem HCl [Cardizem] 60 mg tablet 60 mg PO BID Qty: 60 RF: 2 metoprolol tartrate 50 mg tablet 25 mg PO BID Qty: 30 RF: 2 pantoprazole 40 mg tablet,delayed release (DR/EC) 40 mg PO DAILY Qty: 30 RF: 2 simvastatin 40 mg tablet 40 mg PO DAILY RF: 0 Mylanta Maximum Strength See Rx Instructions .ROUTE .COMPLEX RF: 0 Pepto-Bismol See Rx Instructions .ROUTE .COMPLEX RF: 0 Transfer Attestations Time Spent in Transfer Care*: critical care time Critical Care Time (min): 90 Quality Metrics Clinical Quality Measures: During this hospital stay, did patient experience: None Coding Level of Care Code Acute Payroll Assistant for [facility] Fwd Diagnoses Severe acute pancreatitis K85.90 Splenic vein thrombosis I82.890 Acute respiratory failure with hypoxia J96.01 Aspiration pneumonia J69.0 Aspiration pneumonia type: unspecified Laterality: unspecified laterality Lung location: unspecified part of lung S/P CABG (coronary artery bypass graft) Z95.1 Coronary artery disease I25.10 Coronary Disease-Associated Artery/Lesion type: [place] artery [place] vs. transplanted heart: [place] heart Associated angina: without angina Alcohol withdrawal F10.239 Complication of substance-induced condition: with unspecified complication Acute kidney injury N17.9 Chronic obstructive pulmonary disease J44.9 COPD type: unspecified COPD Alcohol abuse F10.10 Personal history of nicotine dependence Z87.892
[2020-07-16 20:42] LABS: Glucose Point of Care 111 mg/dL (70-110)
[2020-07-17] VITALS: BP 118/58; PULSE 94; RESP 22; O2SAT 93
[2020-07-17 00:10] VITALS: PULSE 92; RESP 18; O2SAT 95
[2020-07-17] MEDS: ipratropium-albuterol 3 mL Neb INHALATION (00:10)
--- NOTE | 2020-07-17 00:50 | PC.NURSE ---
Report given to Usman Kelly RN with [facility] in [place], [place]. Will call when EMS arrives to transport patient and give Usman updated time of arrival.
[2020-07-17] MEDS: metoprolol tartrate 1 mg/1 mL SDV 5 mL 2.5 MG IV (01:18)
[2020-07-17] MEDS: HYDROcodone-acetaminophen 5-325 mg Tablet 1 TAB PO (01:56)
--- NOTE | 2020-07-17 02:17 | PC.NURSE ---
TRANSFER [facility] arrived to transport patient at 0205. Nurse gave bedside report to EMS. IV lines flushed, NG tube clamped, pumps secured, and IV patency ensured for TPN and Heparin gtt. called to notify of patient leaving facility with no answer twice. Will keep attempting to contact .
[2020-07-17 02:25] VITALS: BP 122/64; PULSE 96; RESP 20; TEMP 38.6; O2SAT 94
[2020-07-19 05:39] LABS: Glucose Point of Care 119 mg/dL (70-110)
== END 2020-07-17 02:05 | disposition short-term general hospital (02) | DRG 438 ==
LOC: ER 11:43 → MEDSURG 13:03 → ICU 07-04 17:08
PROVIDERS: Family Medicine; Internal Medicine; Internal Medicine Critical Care Medicine; Nurse Practitioner Family; Student in an Organized Health Care Education/Training Program; Admitting Provider Family Medicine; Emergency Provider Family Medicine; PCP Nurse Practitioner; Visit Provider Student in an Organized Health Care Education/Training Program
DX: K85.90 Acute pancreatitis without necrosis or infection, unspecified (principal); G93.41 Metabolic encephalopathy; N17.0 Acute kidney failure with tubular necrosis; R65.21 Severe sepsis with septic shock; A41.9 Sepsis, unspecified organism; R57.1 Hypovolemic shock; J96.01 Acute respiratory failure with hypoxia; J69.0 Pneumonitis due to inhalation of food and vomit; J98.11 Atelectasis; T79.A0XA Compartment syndrome, unspecified, initial encounter; E87.1 Hypo-osmolality and hyponatremia; E87.2 Acidosis; F10.239 Alcohol dependence with withdrawal, unspecified; K56.7 Ileus, unspecified; X58.XXXA Exposure to other specified factors, initial encounter; J44.9 Chronic obstructive pulmonary disease, unspecified; I25.10 Atherosclerotic heart disease of native coronary artery without angina pectoris; Z95.1 Presence of aortocoronary bypass graft; E11.9 Type 2 diabetes mellitus without complications; Z79.82 Long term (current) use of aspirin; I25.2 Old myocardial infarction; Z95.5 Presence of coronary angioplasty implant and graft; E78.5 Hyperlipidemia, unspecified; F41.8 Other specified anxiety disorders; F17.210 Nicotine dependence, cigarettes, uncomplicated
CPT/HCPCS: 12345; 36415; 36416; 36569; 36592; 36600; 51702; 71045; 71260; 74018; 74176; 74177; 80048; 80051; 80053; 80202; 81001; 82274; 82330; 82436; 82570; 82803; 82810; 82962; 83605; 83690; 83735; 83880; 83986; 84100; 84133; 84145; 84300; 85007; 85025; 85610; 85730; 85999; 86140; 86403; 86618; 86666; 86757; 87040; 87070; 87075; 87077; 87086; 87106; 87186; 87205; 87305; 87426; 87493; 87641; 93306; 93308; 94002; 94003; 94640; 94799; 96372; 96375; 97110; 97116; 97161; 97166; 97530; 97535; 99283; C1751; C9113; J0360; J0610; J0637; J0743; J1170; J1450; J1630; J1644; J1650; J1815; J1940; J2060; J2250; J2270; J2405; J2543; J2704; J2765; J2997; J3010; J3370; J3411; J3475; J3480; J3490; J7030; J7040; J7050; J7626; Q9967

== ENCOUNTER → 2020-10-02 10:37 | Outpatient (BNVA) | payer MEDICAID, SELFPAY | PROVIDERS: PCP Nurse Practitioner; Visit Provider Nurse Practitioner | DX: K85.90 Acute pancreatitis without necrosis or infection, unspecified (principal); Z95.1 Presence of aortocoronary bypass graft; F41.8 Other specified anxiety disorders; J44.9 Chronic obstructive pulmonary disease, unspecified | CPT/HCPCS: 80053; 81003; 85025; 87086 ==

== ENCOUNTER 2020-10-04 15:57 | Emergency (ER) | payer MEDICAID, SELFPAY ==
[2020-10-04 16:04] VITALS: BP 133/73; PULSE 91; RESP 18; TEMP 36.7; O2SAT 96; BMI 25.7
[2020-10-04 18:45] VITALS: BP 105/59; PULSE 90; RESP 20; O2SAT 95
[2020-10-04 18:55] LABS: Add Urine Microscopic? NO
[2020-10-04 18:56] LABS: Basophils # 0.1 10^3/uL (0.0-0.1); Basophils % 0.5 %; Eosinophils # 0.2 10^3/uL (0.0-0.8); Eosinophils % 1.6 %; Hematocrit 22.9 % (42.0-52.0); Hemoglobin 7.6 g/dL (11.7-16.6); Lymphocytes # 1.9 10^3/uL (0.8-4.8); Lymphocytes % 14.1 %; Mean Corpuscular HGB Conc 33.2 g/dL (30.0-36.0); Mean Corpuscular Hemoglobin 27.9 pg (28.0-34.0); Mean Corpuscular Volume 84.2 fL (80-94); Mean Platelet Volume 9.6 fL (7.4-10.4); Monocytes # 2.1 10^3/uL (0.2-0.9); Monocytes % 16.2 %; Neutrophils % 66.5 %; Nucleated Red Blood Cells % 0 %; Platelet Count 533 10^3/cmm (130-400); Red Blood Count 2.72 10^6/uL (4.1-5.3); Red Cell Distribution Width 14.3 % (12.1-15.1); White Blood Count 13.1 10^3/uL (4.0-10.0)
[2020-10-04 19:28] LABS: Bilirubin Urine Neg (Negative); Blood Urine Neg (Negative); Glucose Urine UA Norm (Normal); Ketones Urine Negative (Negative); Leukocyte Esterase Urine Negative (Negative); Nitrate Urine Negative (Negative); Protein Urine Neg (Negative); Specific Gravity, Urine 1.005 (1.005-1.030); Urine Appearance Clear (CLEAR); Urine Color Yellow (Yellow); Urobilinogen Urine Norm (Negative); pH Urine 5 (5-7)
--- NOTE | 2020-10-04 19:33 | CTR_ITS ---
PROCEDURE INFORMATION: Exam: CT Abdomen And Pelvis With Contrast Exam date and time: 10/04/2020 8:56 PM Age: 54 years old Clinical indication: Abdominal pain; Generalized; Prior surgery; Surgery type: Cabg. Cardiac stents; Patient HX: Diffuse abd pain. History of pancreatitis. TECHNIQUE: Imaging protocol: Computed tomography of the abdomen and pelvis with intravenous contrast. Radiation optimization: All CT scans at this facility use at least one of these dose optimization techniques: automated exposure control; mA and/or kV adjustment per patient size (includes targeted exams where dose is matched to clinical indication); or iterative reconstruction. Contrast material: OMNI 300; Contrast volume: 95 ml; Contrast route: INTRAVENOUS (IV); COMPARISON: CT abdomen pelvis w con* [id number] 07/15/2020 1:48 PM RADIATION DOSE METRICS: Total DLP (mGy-cm): 892.8 FINDINGS: Tubes, catheters and devices: Pacemaker leads along the inferior heart. Lungs: Discoid atelectasis in the right lung base. Pleural space: Trace right pleural effusion. Liver: Normal. No mass. Gallbladder and bile ducts: Contracted gallbladder with mild wall enhancement. Common bile duct stent with tip in the duodenum. Mild pneumobilia. Pancreas: The pancreatic body and tail are partially destroyed and thinned with surrounding fluid and gas bubbles with a peripheral enhancing rind. This fluid collection has increased in size extending anterior and medial to the spleen, anteriorly into the mesentery abutting the transverse colon, and inferiorly along the left pericolic gutter. This fluid collection communicates with the stomach through a marsupialization catheter with 2 pigtail catheters. The previous right retroperitoneal fluid collection is smaller measuring 2.4 cm in thickness with a marsupialization device and catheter extending into the 3rd portion of the duodenum. Spleen: Calcified granuloma in the spleen. Adrenal glands: Normal. No mass. Kidneys and ureters: Mild perinephric stranding is considered physiologic. No calculus or hydronephrosis. Stomach and bowel: There is mild wall thickening within the posterior descending colon, adjacent to the pancreatic fluid collection. There are a few mildly dilated loops of proximal small bowel measuring up to 2.8 cm without obstruction. Appendix: The appendix is normal. Intraperitoneal space: Mild ascites and pericholecystic fluid. Vasculature: The splenic vein is not well visualized and could possibly the occluded. There are mild splenic hilar and perigastric varices. Lymph nodes: Unremarkable. No enlarged lymph nodes. Urinary bladder: Unremarkable as visualized. Reproductive: Unremarkable as visualized. Bones/joints: Median sternotomy. Old right rib fractures. No compression fracture. Soft tissues: Unremarkable. CT/CT abdomen pelvis w con* [id number] IMPRESSION: 1. Necrotizing pancreatitis with interval partial destruction of the pancreatic body and tail. 2. Increased peripancreatic abscess with fluid and gas bubbles surrounding the pancreas, extending into the anterior mesentery, anteromedial to the spleen, and down the left pericolic gutter. This fluid collection communicates with the gastric lumen through marsupialization catheters. 3. Interval decrease in size of the right retroperitoneal fluid collection which communicates with the duodenum and through a marsupialization catheter. 4. Mild inflammation of the posterior descending colon wall, adjacent to the left pericolic gutter fluid collection. Radiation Dose CTDIVOL = (mGy): DLP = 892.8 (mGy-cm)
[2020-10-04 19:40] LABS: Alanine Aminotransferase 20 U/L (0-41); Albumin Level 2.7 g/dL (3.5-5.2); Alkaline Phosphatase 232 IU/L (40-130); Anion Gap 16.2 (5-19); Aspartate Amino Transferase 23 U/L (0-40); Blood Urea Nitrogen 9 mg/dL (6-20); Calcium 8.4 mg/dL (8.5-10.5); Carbon Dioxide 22 mmol/L (22-29); Chloride 90 mmol/L (98-107); Creatinine Clr Calc Pharmacy 130.9407; Globulin 3.7 g/dL (1.3-4.6); Glomerular Filtration Rate 116.7 mL/min (90-130); Glucose 122 mg/dL (65-115); Lipase 12 U/L (13-60); Osmolality Calculated 258 mOsm/kg (285-295); Potassium 4.2 mmol/L (3.5-5.1); Sodium 124 mmol/L (136-145); Total Bilirubin 0.3 mg/dL (0.15-1.2); Total Protein 6.4 g/dL (6.6-8.7)
[2020-10-04 19:56] VITALS: RESP 16; O2SAT 98
[2020-10-04] MEDS: HYDROmorphone 1 mg/mL INJ 1 mL IVP (19:56)
[2020-10-04] MEDS: sodium chloride 0.9% 1,000 ML 999 ML IV (19:57)
[2020-10-04] MEDS: ondansetron 2 mg/ML SDV 2 mL 4 MG IVP (19:57)
[2020-10-04 20:17] LABS: C Reactive Protein 159.1 mg/L (0.0-4.9)
--- NOTE | 2020-10-04 20:44 | ED_ITS ---
HPI - Abdominal Pain General: Chief Complaint: Abdominal Pain Stated Complaint: SEVERE PAIN AB AND RIBS Time Seen by Provider: 10/04/20 19:06 History of Present Illness: HPI narrative: 54-year-old male with a history of chronic alcoholic pancreatitis. He had a stent placed couple weeks ago at [facility] in [place]. Reports significant belly pain, radiating into his back and ribs. He has had significant hiccups with vomiting post take up episodes. No diarrhea. No fever, although he notes his belly seems really hot. They spoke with his physicians in [place], and the concern was a blockage of his stent. He is due to see them in 2 days as an outpatient. MD elicited complaint: abdominal pain Pertinent past history: other Onset (ago): day(s) (1) Pain Consistency: constant Location: Periumbilical Severity: similar to previous episodes Quality: cramping and stabbing Radiation: bilateral flank and back Migration to: no migration Exacerbating factors: movement Relieving factors: nothing Associated Symptoms: Reports anorexia and nausea; Denies change in stool character, coffee ground emesis, GI cramping, diarrhea, fever(s), hematochezia and hematemesis Review of Systems Const: Denies: fever(s) Eyes: Denies: change in vision Card: Denies: chest pain or palpitations Resp: Denies: dyspnea, productive cough or non-productive cough GI: Reports: nausea; Denies: hematemesis, coffee ground emesis, diarrhea, GI cramping, change in stool character or hematochezia Neuro: Denies: headache(s) or confusion PFSH ED PFSH: Medical History CAD (coronary artery disease) Chronic obstructive pulmonary disease Depression with anxiety History of TN (myocardial infarction) Hyperlipidemia Severe acute pancreatitis Surgical History S/P CABG (coronary artery bypass graft) S/P PTCA (percutaneous transluminal coronary angioplasty) Family History Other Diabetes Heart disease Social History Smoking and tobacco status: current every day smoker Second hand smoke exposure: Yes Smoking risk assessment/counseling performed?: Yes Alcohol intake: current Alcohol intake frequency: 3 or more drinks per day Alcohol type: hard liquor Desire information about alcohol rehabilitation?: No Counseling given: Yes Desire information about substance/drug rehabilitation?: No Counseling given: No Adopted: No Caregiver/support person: No Lives independently: Yes Household members: significant other Housing: House Marital status: Single Number of children: 2 service: No Current occupational status: employed Pets and animals: Yes History of recent travel: No Current gender identity: Male Physical Exam Const: GENERAL APPEARANCE: well developed ORIENTATION/CONSCIOUSNESS: Yes oriented to person, Yes oriented to place and Yes oriented to time HENMT: COMMON NORMALS: normocephalic, external ears normal and Normal external nose present HEAD & SCALP: normocephalic FACE & SINUS: normal facial exam NOSE: Normal external nose present and No nasal discharge present EXTERNAL EAR: Yes external ears normal Eye: COMMON NORMALS: Equal, round and reactive pupils present, EOMs intact bilaterally and conjunctivae normal EYELID: eyelids normal CONJUNCTIVA: Yes conjunctivae normal PUPIL: Yes Equal, round and reactive pupils present Neck/C-Spine: GENERAL: No tracheal deviation Chest: COMMONS NORMALS: normal inspection of the chest CHEST: No tenderness Resp: COMMON NORMALS: clear to auscultation bilaterally EFFORT & INSPECTION: No tachypneic, No respiratory distress, No retractions, No uses accessory muscles and No tracheal deviation AUSCULTATION: clear to auscultation bilaterally, no rhonchi, no wheezes and lung sounds not diminished Cardio: COMMON NORMALS: regular rate and regular rhythm RATE: regular rate RHYTHM: regular rhythm HEART SOUNDS: no murmurs PERIPHERAL PULSES: radial pulses present GI: INSPECTION: No abdominal distension AUSCULTATION: No Hyperactive bowel sounds present and No Hypoactive bowel sounds present PALPATION: Yes Guarding due to palpation present (GI) and No Rigid due to palpation PERCUSSION: dullness to percussion and no tympanic to percussion Neuro: SENSORIUM/ORIENTATION: Yes oriented to person, Yes oriented to place and Yes oriented to time Psych: COMMON NORMALS: mental status grossly normal Skin: COMMON NORMALS: no rashes or lesions noted GENERAL SKIN EXAM: no rashes or lesions noted Course Vital Signs: Vital signs: Vital Signs Temperature 99.2 F 12/05/20 02:18 Pulse Rate 84 10/05/20 04:25 Respiratory Rate 16 10/05/20 04:25 Blood Pressure 118/69 10/05/20 04:25 Pulse Oximetry 94 10/05/20 04:25 MDM - Abdominal Pain MDM Narrative: Medical decision making narrative: 54-year-old male with a history of chronic pancreatitis. He has 2 stents. He has apparent fluid collection surrounding the pancreas. He has a white blood cell count of 13. A sodium of 124. Hemoglobin of 7.6. He is anorexic. He has stents in place. The concern is that the pancreatic stent is not draining appropriately. I discussed with gastroenterology on-call at [facility] in [place]. They are willing to take the patient in transfer. His vital signs remained stable with heart rates in the 80s, blood pressures are normal. He will go by ground ambulance. Lab Data: Labs: Lab Results 10/04/20 10/04/20 10/04/20 Range/Units 18:33 18:33 18:33 WBC 13.1 H (4.0-10.0) 10^3/ uL RBC 2.72 L (4.1-5.3) 10^6/u L Hgb 7.6 L (11.7-16.6) g/dL Hct 22.9 L (42.0-52.0) % MCV 84.2 (80-94) fL MCH 27.9 L (28.0-34.0) pg MCHC 33.2 (30.0-36.0) g/dL RDW 14.3 (12.1-15.1) % Plt Count 533 H (130-400) 10^3/c mm MPV 9.6 (7.4-10.4) fL Neut % (Auto) 66.5 % Lymph % (Auto) 14.1 % [place] % (Auto) 16.2 % Eos % (Auto) 1.6 % Baso % (Auto) 0.5 % Neut # (Auto) 8.70 H (1.8-7.7) 10^3/u L Lymph # (Auto) 1.9 (0.8-4.8) 10^3/u L [place] # (Auto) 2.1 H (0.2-0.9) 10^3/u L Eos # (Auto) 0.2 (0.0-0.8) 10^3/u L Baso # (Auto) 0.1 (0.0-0.1) 10^3/u L Nucleated RBC % (a uto) 0 % Nucleated RBCs # 0.0 /100WBC Sodium 124 L (136-145) mmol/L Potassium 4.2 (3.5-5.1) mmol/L Chloride 90 L (98-107) mmol/L Carbon Dioxide 22 (22-29) mmol/L Anion Gap 16.2 (5-19) BUN 9 (6-20) mg/dL Creatinine 0.7 (0.7-1.2) mg/dL GFR Calculation 116.7 (90-130) mL/min Glucose 122 H (65-115) mg/dL Calculated Osmolal ity 258 L (285-295) mOsm/k g Calcium 8.4 L (8.5-10.5) mg/dL Total Bilirubin 0.3 (0.15-1.2) mg/dL AST 23 (0-40) U/L ALT 20 (0-41) U/L Alkaline Phosphata se 232 H (40-130) IU/L C-Reactive Protein (0.0-4.9) mg/L Total Protein 6.4 L (6.6-8.7) g/dL Albumin 2.7 L (3.5-5.2) g/dL Globulin 3.7 (1.3-4.6) g/dL Lipase 12 L (13-60) U/L Urine Color Yellow (Yellow) Urine Appearance Clear (CLEAR) Urine pH 5 (5-7) Ur Specific Gravit y 1.005 (1.005-1.030) Urine Protein Neg (Negative) Urine Glucose (UA) Norm (Normal) Urine Ketones Negative (Negative) Urine Blood Neg (Negative) Urine Nitrate Negative (Negative) Urine Bilirubin Neg (Negative) Urine Urobilinogen Norm (Negative) mg/dL Ur Leukocyte Alea ase Negative (Negative) 10/04/20 Range/Units 18:33 WBC (4.0-10.0) 10^3/ uL RBC (4.1-5.3) 10^6/u L Hgb (11.7-16.6) g/dL Hct (42.0-52.0) % MCV (80-94) fL MCH (28.0-34.0) pg MCHC (30.0-36.0) g/dL RDW (12.1-15.1) % Plt Count (130-400) 10^3/c mm MPV (7.4-10.4) fL Neut % (Auto) % Lymph % (Auto) % [place] % (Auto) % Eos % (Auto) % Baso % (Auto) % Neut # (Auto) (1.8-7.7) 10^3/u L Lymph # (Auto) (0.8-4.8) 10^3/u L [place] # (Auto) (0.2-0.9) 10^3/u L Eos # (Auto) (0.0-0.8) 10^3/u L Baso # (Auto) (0.0-0.1) 10^3/u L Nucleated RBC % (a uto) % Nucleated RBCs # /100WBC Sodium (136-145) mmol/L Potassium (3.5-5.1) mmol/L Chloride (98-107) mmol/L Carbon Dioxide (22-29) mmol/L Anion Gap (5-19) BUN (6-20) mg/dL Creatinine (0.7-1.2) mg/dL GFR Calculation (90-130) mL/min Glucose (65-115) mg/dL Calculated Osmolal ity (285-295) mOsm/k g Calcium (8.5-10.5) mg/dL Total Bilirubin (0.15-1.2) mg/dL AST (0-40) U/L ALT (0-41) U/L Alkaline Phosphata se (40-130) IU/L C-Reactive Protein 159.1 H (0.0-4.9) mg/L Total Protein (6.6-8.7) g/dL Albumin (3.5-5.2) g/dL Globulin (1.3-4.6) g/dL Lipase (13-60) U/L Urine Color (Yellow) Urine Appearance (CLEAR) Urine pH (5-7) Ur Specific Gravit y (1.005-1.030) Urine Protein (Negative) Urine Glucose (UA) (Normal) Urine Ketones (Negative) Urine Blood (Negative) Urine Nitrate (Negative) Urine Bilirubin (Negative) Urine Urobilinogen (Negative) mg/dL Ur Leukocyte Alea ase (Negative) Discharge Plan Discharge Patient Disposition: Xfer Other Clinical Impression: Pancreatitis Qualifiers: Chronicity: acute Pancreatitis type: alcohol induced Acute pancreatitis complication: infected necrosis Qualified Code(s): K85.22 - Alcohol induced acute pancreatitis with infected necrosis Referrals: Dylon Rosenthal FNP-C [Primary Care Provider] - Coding Level of Care Code ED Injection Molding Supervisor for g Fwd Exam Comprehensive
[2020-10-04] MEDS: iohexol 300 mg/mL 100 mL Btl IV (21:04)
[2020-10-04 22:10] VITALS: BP 94/61; PULSE 85; O2SAT 95
[2020-10-04] MEDS: lidocaine 2% viscous 15 ML, aluminum-mag hydrox-simethicon 30 ML, sucralfate oral liq 1 GM PO (22:50)
[2020-10-05] MEDS: HYDROmorphone 1 mg/mL INJ 1 mL IVP ×2 (00:28→04:21)
[2020-10-05 02:18] VITALS: TEMP 37.3
[2020-10-05 02:30] VITALS: BP 126/72; PULSE 99; RESP 16; O2SAT 97
[2020-10-05 03:00] VITALS: BP 112/59; PULSE 88; RESP 16; O2SAT 97
[2020-10-05 04:00] VITALS: BP 116/78; PULSE 84; RESP 16; O2SAT 97
[2020-10-05 04:21] VITALS: RESP 16; O2SAT 97
[2020-10-05] MEDS: HYDROmorphone 1 mg/mL INJ 1 mL 2 MG IVP (04:21)
[2020-10-05 04:25] VITALS: BP 118/69; PULSE 84; RESP 16; O2SAT 94
== END 2020-10-05 04:27 | disposition other institution (70) ==
PROVIDERS: Nurse Practitioner Family; Emergency Provider Emergency Medicine; PCP Nurse Practitioner
DX: K85.22 Alcohol induced acute pancreatitis with infected necrosis (principal); I25.10 Atherosclerotic heart disease of native coronary artery without angina pectoris; J44.9 Chronic obstructive pulmonary disease, unspecified; I25.2 Old myocardial infarction; E78.5 Hyperlipidemia, unspecified; Z95.1 Presence of aortocoronary bypass graft; F17.210 Nicotine dependence, cigarettes, uncomplicated
CPT/HCPCS: 12345; 74177; 80053; 81003; 83690; 85025; 86140; 96361; 96374; 96375; 96376; 99283; 99285; J1170; J2405; J7030; Q9967

== ENCOUNTER → 2021-03-13 16:29 | Outpatient (BNVA) | payer MEDICAID, SELFPAY | PROVIDERS: PCP Nurse Practitioner; Visit Provider Nurse Practitioner | DX: J44.9 Chronic obstructive pulmonary disease, unspecified (principal); K85.90 Acute pancreatitis without necrosis or infection, unspecified; Z86.79 Personal history of other diseases of the circulatory system; E78.5 Hyperlipidemia, unspecified | CPT/HCPCS: 80053; 84443; 85025 ==

== ENCOUNTER 2021-09-11 09:21 | Outpatient (CLI) | payer MEDICAID, SELFPAY ==
[2021-09-11 10:24] VITALS: BMI 29.7
--- NOTE | 2021-09-11 10:25 | NMCV_ITS ---
NM jessica perf SPECT r/s* [id number] Shadi Hill Age: 55 Gender: M : 1965 Exam Date: 09/11/2021 10:31 Ordering Phys: Moises Herring MD ([email or web address]) Technologist: HOLLIS Lindquist Exam Location: [facility] Indications: CHEST PAIN STRESS TEST Please see separate stress test report in [facility] for full findings IMAGE PROTOCOL Rest/Stress 1 Lexiscan Day Radiopharmaceutical Dose (mCi) Administration Site Administered by Rest: Tc-99m 10.8 IV HOLLIS Cooper Sestamibi Stress:Tc-99m 32.4 IV HOLLIS Cooper Sestamibi Rest: 11-Sep-2021 60 Discovery 630 Stress: 11-Sep-2021 30 Discovery 630 0.4mg Lexiscan. Images obtained in supine and prone position. SPECT RESULTS Technical Quality: Excellent Raw Data Analysis: Normal Image Corrections: No attenuation or motion correction applied Summed Stress Score: 7 Summed Rest Score: 6 Summed Difference Score: 1 PERFUSION FINDINGS Medium-sized area of fixed perfusion defect noted in mid to distal anterior, anteroseptal and apical wall suggestive of old myocardial infarction versus scarring in LAD territory. FUNCTIONAL RESULTS (calculated via Gated SPECT) Stress Image LV EF (%): 39 Stress EDV (mL):197 TID: 1.14 Stress ESV (mL):121 Rest Image LV EF (%): 39 FUNCTIONAL FINDINGS: Mid to distal anterior and apical wall akinesia IMPRESSIONS Old myocardial infarction versus scarring noted in mid to distal anterior and apical wall suggestive of myocardial infarction in mid LAD territory. EKG segment was documented separately. Moises Herring MD (Electronically Signed) Final Date: 11 September 2021 19:49 S
--- NOTE | 2021-09-11 10:25 | ECG_ITS ---
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 The perfusion scan will be documented separately. DATA: Baseline heart rate was 58 beats per minute. Baseline blood pressure was 128/91 millimeters of mercury. Target heart rate was 163. Maximum heart rate achieved was 80. which was 49 % of the predicted target heart rate. Maximum blood pressure was 128/91 millimeters of mercury. The reason for ending the test was completion of the protocol. The patient did not experience any symptoms. ELECTROCARDIOGRAM: BASELINE: Sinus rhythm. Normal axis. Old anterior wall myocardial infarction otherwise,lateral wall ST-T changes would be nonspecific cannot rule out ischemia After Lexiscan injection, no ST-T changes suggestive of ischemic noted. No arrhythmia noted. CONCLUSION: Please note due to baseline abnormality of the EKG specificity and sensitivity of the EKG portion of LexiScan MIBI stress test will be low 1. EKG not suggestive of ischemia 2. Lexiscan injection unremarkable. 3. Perfusion scan will be documented separately. Electronically Signed On 09-17-2021 19:58:33 BRIDGE CLUB MANAGER by GAGAN HERRING [id number]
[2021-09-11] MEDS: regadenoson 0.4 Mg/5 ml Syringe IVP (11:06)
[2021-09-11 11:19] VITALS: BP 100/52; PULSE 71
== END 2021-09-11 09:22 | disposition home or self-care (01) ==
LOC: CDL 09:22
PROVIDERS: PCP Nurse Practitioner; Visit Provider Internal Medicine Cardiovascular Disease
DX: R07.9 Chest pain, unspecified (principal); R06.02 Shortness of breath
CPT/HCPCS: 78452; 93017; A9500; J2785

== ENCOUNTER → 2021-09-15 16:26 | Outpatient (BNVA) | payer MEDICAID, SELFPAY | PROVIDERS: PCP Nurse Practitioner; Visit Provider Nurse Practitioner | DX: J44.9 Chronic obstructive pulmonary disease, unspecified (principal); K86.0 Alcohol-induced chronic pancreatitis; E78.5 Hyperlipidemia, unspecified; I10 Essential (primary) hypertension; Z86.79 Personal history of other diseases of the circulatory system | CPT/HCPCS: 80053; 80061; 85025 ==

== ENCOUNTER → 2022-02-11 14:23 | Outpatient (BNVA) | payer MEDICAID, SELFPAY | PROVIDERS: PCP Nurse Practitioner; Visit Provider Internal Medicine Cardiovascular Disease | DX: I25.10 Atherosclerotic heart disease of native coronary artery without angina pectoris (principal); Z95.1 Presence of aortocoronary bypass graft; I10 Essential (primary) hypertension; J44.9 Chronic obstructive pulmonary disease, unspecified; F41.8 Other specified anxiety disorders; I48.20 Chronic atrial fibrillation, unspecified; I25.2 Old myocardial infarction; F17.210 Nicotine dependence, cigarettes, uncomplicated | CPT/HCPCS: 99214 ==

== ENCOUNTER → 2022-04-06 16:11 | Outpatient (BNVA) | payer MEDICAID, SELFPAY | PROVIDERS: PCP Nurse Practitioner; Visit Provider Nurse Practitioner | DX: E78.5 Hyperlipidemia, unspecified (principal); K86.0 Alcohol-induced chronic pancreatitis; I10 Essential (primary) hypertension; J44.9 Chronic obstructive pulmonary disease, unspecified; K85.90 Acute pancreatitis without necrosis or infection, unspecified; Z86.79 Personal history of other diseases of the circulatory system | CPT/HCPCS: 80053; 80061; 82150; 83690; 85025 ==

== ENCOUNTER → 2022-08-19 13:45 | Outpatient (BNVA) | payer MEDICAID, SELFPAY | PROVIDERS: PCP Nurse Practitioner; Visit Provider Internal Medicine Cardiovascular Disease | DX: I48.91 Unspecified atrial fibrillation (principal); I25.10 Atherosclerotic heart disease of native coronary artery without angina pectoris; Z95.1 Presence of aortocoronary bypass graft; I10 Essential (primary) hypertension; F17.200 Nicotine dependence, unspecified, uncomplicated | CPT/HCPCS: 99214 ==

== ENCOUNTER → 2022-09-28 16:08 | Outpatient (BNVA) | payer MEDICAID, SELFPAY | PROVIDERS: PCP Nurse Practitioner; Visit Provider Nurse Practitioner | DX: J44.9 Chronic obstructive pulmonary disease, unspecified (principal); K86.0 Alcohol-induced chronic pancreatitis; E78.5 Hyperlipidemia, unspecified; I10 Essential (primary) hypertension; K85.90 Acute pancreatitis without necrosis or infection, unspecified | CPT/HCPCS: 80053; 80061; 84443 ==

== ENCOUNTER → 2022-09-30 15:27 | Outpatient (BNVA) | payer MEDICAID, SELFPAY | PROVIDERS: PCP Nurse Practitioner; Visit Provider Nurse Practitioner | DX: I10 Essential (primary) hypertension (principal); J44.9 Chronic obstructive pulmonary disease, unspecified | CPT/HCPCS: 71046 ==

== ENCOUNTER → 2023-03-02 16:12 | Outpatient (BNVA) | payer MEDICAID, SELFPAY | PROVIDERS: PCP Nurse Practitioner; Visit Provider Nurse Practitioner | DX: K86.0 Alcohol-induced chronic pancreatitis (principal); J44.9 Chronic obstructive pulmonary disease, unspecified | CPT/HCPCS: 80053; 80061; 81000; 85025 ==

== ENCOUNTER → 2023-07-15 16:01 | Outpatient (BNVA) | payer MEDICAID, SELFPAY | PROVIDERS: PCP Nurse Practitioner; Visit Provider Nurse Practitioner | DX: N18.2 Chronic kidney disease, stage 2 (mild); I12.9 Hypertensive chronic kidney disease with stage 1 through stage 4 chronic kidney disease, or unspecified chronic kidney disease | CPT/HCPCS: 80053; 80061; 81000; 85025 ==

== ENCOUNTER → 2023-08-04 15:35 | Outpatient (BNVA) | payer SELFPAY | PROVIDERS: PCP Nurse Practitioner; Visit Provider Internal Medicine Cardiovascular Disease | DX: Z86.79 Personal history of other diseases of the circulatory system (principal); I25.10 Atherosclerotic heart disease of native coronary artery without angina pectoris; Z95.1 Presence of aortocoronary bypass graft; I10 Essential (primary) hypertension; J44.9 Chronic obstructive pulmonary disease, unspecified; F41.8 Other specified anxiety disorders; F17.210 Nicotine dependence, cigarettes, uncomplicated; I25.2 Old myocardial infarction | CPT/HCPCS: 99214 ==

== ENCOUNTER → 2023-11-29 16:23 | Outpatient (BNVA) | payer SELFPAY | PROVIDERS: PCP Nurse Practitioner; Visit Provider Nurse Practitioner | DX: N18.2 Chronic kidney disease, stage 2 (mild) (principal) | CPT/HCPCS: 80053; 81000; 85025 ==

== ENCOUNTER 2024-10-11 16:08 | Observation (INO) | payer SELFPAY ==
[2024-10-11] VITALS (56 sets, daily range): BP systolic 105–152; BP diastolic 81–114; PULSE 75–110; RESP 9–24; TEMP 36.9; O2SAT 92–99; BMI 25.1
--- NOTE | 2024-10-11 16:09 | ECG_ITS ---
[facility] Test Date: 2024-10-11 Pat Name: Shadi Hill Department: Room: Gender: Male Smalltalk Developer: : 1965 Requested By: Esteban Schroeder Order Number: [id number] Gu MD: Leobardo Samuel M.D. Measurements Intervals [place] Rate: 110 P: 82 ID: [id number] QRS: 59 QRSD: 96 T: 92 QT: 325 QTc: 440 Interpretive Statements SINUS TACHYCARDIA WITH OCCASIONAL VENTRICULAR PREMATURE COMPLEXES POSSIBLE LEFT ATRIAL ENLARGEMENT [-0.1mV P-WAVE IN V1/V2] ST DEVIATION AND MODERATE T-WAVE ABNORMALITY, CONSIDER LATERAL ISCHEMIA [-0.1+ mV T-WAVE IN I/aVL/V5/V6 Compared to ECG 08/19/2018 21:38:37 Ventricular premature complex(es) now present T-wave abnormality now present Possible ischemia now present ST (T wave) deviation no longer present Electronically Signed On 10-13-2024 22:17:16 WEIGHT CLERK by Leobardo Samuel M.D. [email or web address]
--- NOTE | 2024-10-11 16:34 | XRR_ITS ---
PROCEDURE INFORMATION: Exam: XR Chest Exam date and time: 10/11/2024 5:00 PM Age: 58 years old Clinical indication: Pain; Chest pressure; Prior surgery; Surgery date: 6+ months; Surgery type: Open heart 10 years ago. ; Additional info: Chest pain TECHNIQUE: Imaging protocol: Radiologic exam of the chest. Views: 1 view. COMPARISON: CR XR chest 2V* [id number] 09/30/2022 3:33 PM FINDINGS: Lungs: Unremarkable. No consolidation or mass. Pleural spaces: Unremarkable. No pleural effusion. No pneumothorax. Heart/Mediastinum: Unremarkable. No cardiomegaly. Bones/joints: Sternal sutures are noted. XR/XR chest 1V portable [id number] IMPRESSION: No acute findings.
--- NOTE | 2024-10-11 16:38 | ED_ITS ---
HPI - Chest Pain 2 General: Chief Complaint: Chest Pain Stated Complaint: CHest Pain Time Seen by Provider: 10/11/24 16:34 History of Present Illness: 58-year-old man with a history of tobacc o dependence, hypertension and coronary artery disease status post CABG about 10 years ago who is currently not taking any medications. He says he stopped those recently. He arrives to the emergency room by private vehicle with complaint of chest pain. This been going on for couple of days. Send his left chest. Became much worse today. Does not radiate. He describes it as an ache or pressure. No fevers. No cough. No shortness of breath. No altered mental status. No focal motor deficits. No abdominal pain. No nausea or vomiting. He says he quit taking his medications because he just got tired of worrying about them. Related Data Home Medications Medication Instructions Recorded Confirmed aspirin 81 mg tablet,delayed 81 mg PO DAILY@19 01/01/20 11/29/23 release (Adult Low Dose Aspirin) acetaminophen 325 mg tablet 650 mg PO Q4H PRN Pain 10/02/20 11/29/23 simethicone 80 mg chewable tablet 80 mg PO Q6H PRN flatulence 10/02/20 11/29/23 (Gas Relief (simethicone)) hydrochlorothiazide 12.5 mg tablet 12.5 mg PO .every other day 08/04/23 11/29/23 Previous Rx's Medication Instructions Recorded lisinopril 2.5 mg tablet 2.5 mg PO DAILY@08 #90 tabs 08/19/22 nitroglycerin 0.4 mg sublingual 0.4 mg sublingual Q5M PRN Chest 08/19/22 tablet (Nitrostat) Pain #25 tabs ranolazine 500 mg tablet,extended 500 mg PO BID #180 tabs 08/19/22 release,12 hr (Ranexa) amiodarone 200 mg tablet 200 mg PO DAILY@08 #90 tabs 01/25/23 metoprolol tartrate 25 mg tablet 12.5 mg (1/2 x 25 mg) PO BID@08,20 06/14/23 #45 tabs albuterol sulfate 90 mcg/actuation 2 puff inhalation QID PRN 11/29/23 aerosol inhaler shortness of breath or wheezing #8.5 grams chlorhexidine gluconate 0.12 % 15 ml buccal BID #473 mL 11/29/23 mouthwash (Peridex) dapagliflozin propanediol 10 mg 10 mg PO QAM #30 tabs 11/29/23 tablet (Farxiga) dicyclomine 20 mg tablet 20 mg PO .HS #30 tabs 11/29/23 famotidine 20 mg tablet (Pepcid) 20 mg PO BID@08,20 #60 tabs 11/29/23 fenofibrate nanocrystallized 145 145 mg PO DAILY #30 tabs 11/29/23 mg tablet (Tricor) pregabalin 75 mg capsule (Lyrica) 75 mg PO BID #60 caps 11/29/23 thiamine HCl (vitamin B1) 100 mg 100 mg PO DAILY #30 tabs 11/29/23 tablet tiotropium bromide 18 mcg capsule 1 cap inhalation DAILY #30 11/29/23 with inhalation device (Spiriva inhalations with HandiHaler) Allergies Allergy/AdvReac Type Severity Reaction Status Date / Time No Known Allergies Allergy Verified 10/11/24 16:19 Review of Systems 2 Narrative: Constitutional symptoms: Negative except as documented in HPI. Skin symptoms: Negative except as documented in HPI. Eye symptoms: Negative except as documented in HPI. ENMT symptoms: Negative except as documented in HPI. Respiratory symptoms: Negative except as documented in HPI. Cardiovascular symptoms: Negative except as documented in HPI. Gastrointestinal symptoms: Negative except as documented in HPI. Genitourinary symptoms: Negative except as documented in HPI. Musculoskeletal symptoms: Negative except as documented in HPI. Neurologic symptoms: Negative except as documented in HPI. Psychiatric symptoms: Negative except as documented in HPI. Endocrine symptoms: Negative except as documented in HPI. PFSH ED 2 PFSH: Medical History Chronic alcoholic pancreatitis Severe acute pancreatitis Chronic obstructive pulmonary disease Depression with anxiety CAD (coronary artery disease) Hyperlipidemia History of UT (myocardial infarction) Surgical History S/P PTCA (percutaneous transluminal coronary angioplasty) S/P CABG (coronary artery bypass graft) Family History Other Diabetes Heart disease Social History Smoking and tobacco/nicotine status: current every day tobacco/nicotine user Second hand smoke exposure: Yes Alcohol intake: current Alcohol intake frequency: 3 or more drinks per day Alcohol type: hard liquor Substance/Drug Use: unknown Adopted: No Caregiver/support person: No Lives independently: Yes Household members: significant other Housing: House Marital status: Single Number of children: 2 service: No Current occupational status: employed Pets and animals: Yes Do you think of yourself as: Straight/Heterosexual Current gender identity: Male Physical Exam 2 Narrative: EXAM NARRATIVE: General: Alert, no acute distress. Skin: Warm, dry. Head: Normocephalic, atraumatic. Neck: Supple, trachea midline. Eye: Extraocular movements are intact. Ears, nose, mouth and throat: mucosa moist. Cardiovascular: Regular, Normal peripheral perfusion. Respiratory: Lungs are clear to auscultation, respirations are non-labored, breath sounds are equal, Symmetrical chest wall expansion. Gastrointestinal: Soft, Nontender, Non distended Musculoskeletal: Normal ROM, no deformity. Neurological: Alert and oriented, No focal neurological deficit observed. Psychiatric: Cooperative, appropriate mood & affect. Course 2 Vital Signs: Vital signs: Vital Signs Temperature 98.5 F 10/11/24 16:15 Pulse Rate 104 H 10/11/24 20:00 Respiratory Rate 13 10/11/24 20:03 Blood Pressure 124/83 10/11/24 20:00 Pulse Oximetry 97 10/11/24 20:03 Oxygen Delivery Me thod Room Air 10/11/24 20:00 MDM - Chest Pain Medical Decision Making Differential diagnosis for patient with chest pain includes but is not limited to and based on the above HPI, review of systems and physical exam: Pneumonia. unstable angina. angina. Acute coronary syndrome / UT. Pulmonary embolism. Costochondritis / musculoskeletal. Pleurisy. Pericarditis. Esophageal spasm. Pancreatis. Cholecystitis. Orders placed to evaluate differential diagnosis based on the above differential, HPI and physical exam EKG: Time 1612. Rate 110. Sinus tachycardia. nonspecific lateral ST-T changes, PVCs, normal MA & QRS intervals, This was reviewed and interpreted by myself the ER physician at 1615. Lab Review: Laboratory results were reviewed and interpreted by myself the emergency room physician. Mild leukocytosis. No anemia. No renal failure. Initial troponin is elevated at 30. The next troponin actually went down around 5. His chest pain had resolved but then came back. Chest x-ray: No acute process. No infiltrate. No pneumothorax. This was reviewed and interpreted by myself the emergency room physician. I also reviewed the radiology report. I reviewed the patient's medical record. HEART Pathway for Early Discharge in Acute Chest Pain [facility] 10/11/2024 All calculations should be rechecked by clinician prior to use RESULT SUMMARY: 7 points HEART Pathway Score High risk 12-65% 30-day MACE Cardiology consultation and admission recommended. Further testing indicated. INPUTS: History ?> 2 = Highly suspicious EKG ?> 1 = Non-specific repolarization disturbance Age ?> 1 = 45-64 Risk factors ?> 2 = >= risk factors or history of atherosclerotic disease Initial troponin ?> 1 = 1-3x normal limit Reexamination: Patient remained stable. No increased work of breathing. No altered mental status. No focal motor deficits. Patient was having some chest pain so has been given some morphine. Pressure was little soft for nitro I felt. Consultation: I spoke with Dr. Gan who is on-call for the hospitalist service who agrees to admission. Assessment and plan: Chest pain Coronary artery disease Tobacco dependence ?Patient has a heart score of 7. I recommended admission. Of also recommended tobacco cessation. - Aspirin, IV morphine and IV Zofran in the emergency room. -I discussed the patient with the hospitalist on-call who is admitting the patient. - Discussed findings and plan with patient. Answered any questions. - All laboratory values were reviewed and interpreted personally by myself, the ER physician - All imaging was reviewed and interpreted personally by myself, the ER physician. - Evaluation and treatment of this problem were appropriate in the emergency setting Lab Data 10/11/24 17:15 10/11/24 17:15 Radiology Impressions Chest X-Ray 10/11/24 16:34 IMPRESSION: No acute findings. Laboratory Results WBC 12.65 10^3/uL (3.29-11.43) H 10/11/24 17:15 RBC 5.31 10^6/uL (3.85-5.65) 10/11/24 17:15 Hgb 15.60 g/dL (11.27-16.99) 10/11/24 17:15 Hct 47.3 % (37-53) 10/11/24 17:15 MCV 89.1 fl (82-101) 10/11/24 17:15 MCH 29.4 pg (27-33) 10/11/24 17:15 MCHC 33.0 g/dL (30-55) 10/11/24 17:15 RDW 13.2 % (12.1-15.1) 10/11/24 17:15 Plt Count 338 10^3/cmm (157-399) 10/11/24 17:15 MPV 9.7 fL (7.4-10.4) 10/11/24 17:15 Neut % (Auto) 64.6 % 10/11/24 17:15 Lymph % (Auto) 27.7 % 10/11/24 17:15 [place] % (Auto) 5.2 % 10/11/24 17:15 Eos % (Auto) 1.2 % 10/11/24 17:15 Baso % (Auto) 0.7 % 10/11/24 17:15 Neut # (Auto) 8.17 10^3/uL (1.8-7.7) H 10/11/24 17:15 Lymph # (Auto) 3.5 10^3/uL (0.8-4.8) 10/11/24 17:15 [place] # (Auto) 0.7 10^3/uL (0.2-0.9) 10/11/24 17:15 Eos # (Auto) 0.2 10^3/uL (0.0-0.8) 10/11/24 17:15 Baso # (Auto) 0.1 10^3/uL (0.0-0.1) 10/11/24 17:15 Nucleated RBC % (auto) 0 % 10/11/24 17:15 Nucleated RBCs # 0.0 /100WBC 10/11/24 17:15 Sodium 138 mmol/L (136-145) 10/11/24 17:15 Potassium 4.5 mmol/L (3.5-5.1) 10/11/24 17:15 Chloride 95 mmol/L (98-107) L 10/11/24 17:15 Carbon Dioxide 31 mmol/L (22-29) H 10/11/24 17:15 Anion Gap 16.5 (5-19) 10/11/24 17:15 BUN 14 mg/dL (8-23) 10/11/24 17:15 Creatinine 1.0 mg/dL (0.7-1.2) 10/11/24 17:15 GFR Calculation 76.2 mL/min (90-130) L 10/11/24 17:15 Glucose 121 mg/dL (65-115) H 10/11/24 17:15 Calculated Osmolality 288 mOsm/kg (285-295) 10/11/24 17:15 Calcium 10.7 mg/dL (8.5-10.5) H 10/11/24 17:15 Total Bilirubin 0.2 mg/dL (0.15-1.2) 10/11/24 17:15 AST 14 U/L (0-40) 10/11/24 17:15 ALT 12 U/L (0-41) 10/11/24 17:15 Alkaline Phosphatase 83 U/L (40-130) 10/11/24 17:15 Troponin T Baseline 30 ng/L (0-15) H 10/11/24 17:15 Troponin T 120 Minute 25.86 ng/L (0-15) H 10/11/24 19:11 Delta Troponin T -4.14 ABS# (0-10) L 10/11/24 19:11 NT-Pro-B Natriuret Pep 827 pg/mL (0-125) H 10/11/24 17:15 Total Protein 7.1 g/dL (6.6-8.7) 10/11/24 17:15 Albumin 4.4 g/dL (3.5-5.2) 10/11/24 17:15 Globulin 2.7 g/dL (1.3-4.6) 10/11/24 17:15 All radiology interpretation(s) finalized by discharge Clincial Decision Support The following clinical decision support tools were used to aid in care of the patient HEART Score -> History: Highly Suspicious, EKG: Non-specific Changes, Age: 45-64 yrs, Risk Factors: >/=3 Risk Factors, Troponin: Baseline Trop 16-45 ng/L. Resulting HEART Score: 7. Discharge Plan Discharge Patient Disposition: Placed in Observation Clinical Impression: Chest pain, S/P CABG (coronary artery bypass graft), Personal history of nicotine dependence Coronary artery disease Qualifiers: Coronary Disease-Associated Artery/Lesion type: [place] artery [place] vs. transplanted heart: comanche heart Associated angina: without angina Qualified Code(s): I25.10 - Atherosclerotic heart disease of comanche coronary artery without angina pectoris Coding Level of Care Code ED Biomedical Engineering Director for Aislinn Swanson
[2024-10-11 17:54] LABS: Basophils # 0.1 10^3/uL (0.0-0.1); Basophils % 0.7 %; Eosinophils # 0.2 10^3/uL (0.0-0.8); Eosinophils % 1.2 %; Hematocrit 47.3 % (37-53); Lymphocytes # 3.5 10^3/uL (0.8-4.8); Lymphocytes % 27.7 %; Mean Corpuscular Hemoglobin 29.4 pg (27-33); Mean Corpuscular Volume 89.1 fl (82-101); Mean Platelet Volume 9.7 fL (7.4-10.4); Monocytes # 0.7 10^3/uL (0.2-0.9); Monocytes % 5.2 %; Neutrophils # 8.17 10^3/uL (1.8-7.7); Neutrophils % 64.6 %; Nucleated Red Blood Cells % 0 %; Platelet Count 338 10^3/cmm (157-399); Red Blood Count 5.31 10^6/uL (3.85-5.65); Red Cell Distribution Width 13.2 % (12.1-15.1); White Blood Count 12.65 10^3/uL (3.29-11.43)
[2024-10-11 18:17] LABS: Troponin(5th) Baseline 30 ng/L (0-15)
--- NOTE | 2024-10-11 18:35 | ECG_ITS ---
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 Measurements Intervals [place] Rate: 100 P: 70 NV: 160 QRS: 50 QRSD: 90 T: 104 QT: 329 QTc: 425 Interpretive Statements SINUS TACHYCARDIA POSSIBLE LEFT ATRIAL ENLARGEMENT [-0.1mV P-WAVE IN V1/V2] MODERATE T-WAVE ABNORMALITY, CONSIDER LATERAL ISCHEMIA [-0.1+ mV T-WAVE IN I/aVL/V5/V6] Compared to ECG 10/11/2024 16:12:52 Ventricular premature complex(es) no longer present T-wave abnormality still present Possible ischemia still present Electronically Signed On 10-13-2024 22:14:47 GLOBAL SALES DIRECTOR by Leobardo Samuel M.D. [id number]
[2024-10-11 18:37] LABS: Alanine Aminotransferase 12 U/L (0-41); Albumin Level 4.4 g/dL (3.5-5.2); Alkaline Phosphatase 83 U/L (40-130); Anion Gap 16.5 (5-19); Aspartate Amino Transferase 14 U/L (0-40); Blood Urea Nitrogen 14 mg/dL (8-23); Calcium 10.7 mg/dL (8.5-10.5); Carbon Dioxide 31 mmol/L (22-29); Chloride 95 mmol/L (98-107); Creatinine Clr Calc Pharmacy 86.4876; Globulin 2.7 g/dL (1.3-4.6); Glomerular Filtration Rate 76.2 mL/min (90-130); NT Pro B Type Natriuretic Pept 827 pg/mL (0-125); Potassium 4.5 mmol/L (3.5-5.1); Sodium 138 mmol/L (136-145); Total Bilirubin 0.2 mg/dL (0.15-1.2); Total Protein 7.1 g/dL (6.6-8.7)
[2024-10-11 18:45] LABS: Glucose 121 mg/dL (65-115); Osmolality Calculated 288 mOsm/kg (285-295)
[2024-10-11 19:57] LABS: Troponin 5 2HR 25.86 ng/L (0-15)
[2024-10-11] MEDS: aspirin 81 mg Chew Tablet 324 MG PO (19:58)
[2024-10-11 19:59] LABS: Troponin 5 2HR Delta -4.14 ABS# (0-10)
[2024-10-11] MEDS: ondansetron 2 mg/ML SDV 2 mL 4 MG IVP (19:59)
[2024-10-11] MEDS: morphine 4 mg/mL SDV 1 mL IVP (20:03)
--- NOTE | 2024-10-11 20:28 | P.HP_ITS ---
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 Patient is stating that since his CABG he never experienced chest pain until few days ago. He has been noticing chest pain at rest and on exertion he gets short of breath, he has not noticed any nausea vomiting but endorsed diaphoresis. Pain is not radiating. He is describing pain as dull constant pain. No aggravating or relieving factors but stating that sometimes a change in position he would feel slightly better but pain would never completely vanish. Endorsing to smoking 6 to 7 cigarettes a day. Lives with his girlfriend. In the ER troponins are trending down EKG showing T wave inversion anterolateral leads, deep S waves I have started him on ACS protocol, loaded with Plavix started therapeutic Lovenox Patient previous medications included amiodarone, chronic kidney disease, A-fib, splenic vein thrombosis, patient has not taken any medication for last few years, not endorsing to drinking alcohol recently Patient is stating that he is not diabetic although Farxiga as mentioned in his previous home meds Review of Systems 2 Const: Denies: fever(s) Eyes: Denies: change in vision ENMT: Denies: throat pain Card: Reports: chest pain Resp: Denies: dyspnea GI: Reports: abdominal pain : Denies: flank pain Medications/Allergies Home Medications Medication Instructions Recorded Confirmed Last Taken Type aspirin 81 mg tablet,delayed 81 mg PO DAILY@01/01/20 11/29/23 10/03/20 History release (Adult Low Dose Aspirin) acetaminophen 325 mg tablet 650 mg PO Q4H PRN Pain 10/02/20 11/29/23 10/04/20 14:00 History simethicone 80 mg chewable tablet 80 mg PO Q6H PRN flatulence 10/02/20 11/29/23 Unknown History (Gas Relief (simethicone)) lisinopril 2.5 mg tablet 2.5 mg PO DAILY@08 #90 tabs 08/19/22 11/29/23 Unknown Rx nitroglycerin 0.4 mg sublingual 0.4 mg sublingual Q5M PRN Chest 08/19/22 11/29/23 Unknown Rx tablet (Nitrostat) Pain #25 tabs ranolazine 500 mg tablet,extended 500 mg PO BID #180 tabs 08/19/22 11/29/23 Unknown Rx release,12 hr (Ranexa) amiodarone 200 mg tablet 200 mg PO DAILY@08 #90 tabs 01/25/23 11/29/23 Unknown Rx metoprolol tartrate 25 mg tablet 12.5 mg (1/2 x 25 mg) PO BID@08,20 06/14/23 11/29/23 Unknown Rx #45 tabs hydrochlorothiazide 12.5 mg tablet 12.5 mg PO .every other day 08/04/23 11/29/23 Unknown History albuterol sulfate 90 mcg/actuation 2 puff inhalation QID PRN 11/29/23 11/29/23 Unknown Rx aerosol inhaler shortness of breath or wheezing #8.5 grams chlorhexidine gluconate 0.12 % 15 ml buccal BID #473 mL 11/29/23 11/29/23 Unknown Rx mouthwash (Peridex) dapagliflozin propanediol 10 mg 10 mg PO QAM #30 tabs 11/29/23 11/29/23 Unknown Rx tablet (Farxiga) dicyclomine 20 mg tablet 20 mg PO .HS #30 tabs 11/29/23 11/29/23 Unknown Rx famotidine 20 mg tablet (Pepcid) 20 mg PO BID@08,20 #60 tabs 11/29/23 11/29/23 Unknown Rx fenofibrate nanocrystallized 145 145 mg PO DAILY #30 tabs 11/29/23 11/29/23 Unknown Rx mg tablet (Tricor) pregabalin 75 mg capsule (Lyrica) 75 mg PO BID #60 caps 11/29/23 11/29/23 Unknown Rx thiamine HCl (vitamin B1) 100 mg 100 mg PO DAILY #30 tabs 11/29/23 11/29/23 Unknown Rx tablet tiotropium bromide 18 mcg capsule 1 cap inhalation DAILY #30 11/29/23 11/29/23 Unknown Rx with inhalation device (Spiriva inhalations with HandiHaler) Allergies Allergy/AdvReac Type Severity Reaction Status Date / Time No Known Allergies Allergy Verified 10/11/24 16:19 PFSH Acute 2 PFSH: Medical History Chronic alcoholic pancreatitis Severe acute pancreatitis Chronic obstructive pulmonary disease Depression with anxiety CAD (coronary artery disease) Hyperlipidemia History of [place] (myocardial infarction) Surgical History S/P PTCA (percutaneous transluminal coronary angioplasty) S/P CABG (coronary artery bypass graft) Family History Other Diabetes Heart disease Social History Smoking and tobacco/nicotine status: current every day tobacco/nicotine user Second hand smoke exposure: Yes Alcohol intake: current Alcohol intake frequency: 3 or more drinks per day Alcohol type: hard liquor Substance/Drug Use: unknown Adopted: No Caregiver/support person: No Lives independently: Yes Household members: significant other Housing: House Marital status: Single Number of children: 2 service: No Current occupational status: employed Pets and animals: Yes Do you think of yourself as: Straight/Heterosexual Current gender identity: Male Vitals/I&O/Wt Last Vital Signs Temp 98.5 F 10/11/24 16:15 Pulse 104 H 10/11/24 20:00 Resp 13 10/11/24 20:03 BP 124/83 10/11/24 20:00 Pulse Ox 97 10/11/24 20:03 O2 Del Method Room Air 10/11/24 20:00 Weight last 48 hrs Weight 81.647 kg Physical Exam 2 Narrative: Patient is awake and alert Complaining of pain chest discomfort dull 2/10 Hypertensive, currently on room air Euvolemic No sign of fluid overload S1, S2 No audible stridor or wheezing Pleasant during evaluation Nonfocal neuroexam Does not seem to be in distress, sitting comfortably in his bed Data 10/11/24 17:15 10/11/24 17:15 A&P Assessment and plan (1) S/P CABG (coronary artery bypass graft): (2) Chest pain: (3) Atrial fibrillation, currently in sinus rhythm: (4) Chronic alcoholic pancreatitis: (5) CKD (chronic kidney disease) stage 2, GFR 60-89 ml/min: (6) Chronic obstructive pulmonary disease: Qualifiers: COPD type: unspecified COPD Qualified Code(s): J44.9 - Chronic obstructive pulmonary disease, unspecified (7) Personal history of nicotine dependence: Plan Unstable angina Previous history of coronary artery disease with CABG 10 years ago Active smoker, noncompliant has not taken any medication for last 2 years Complaining of dull pain left-sided, dyspnea on exertion Request echo Start therapeutic dose of Plavix, aspirin, statin and therapeutic Lovenox Requested echo Will get cardiology consultation as well Hypertension: I will add metoprolol along lisinopril Considering history of alcohol-induced pancreatitis I will also check lipase and drug screen Will request hemoglobin A1c level, patient is stating that he has not taken any medication and he is not diabetic Smoking sick cigarettes a day, Start nicotine patch N.p.o. after midnight Currently on ACS protocol Attestations 2 Medical Necessity Statement*: Anticipating discharge within 48 hours Diagnoses S/P CABG (coronary artery bypass graft) Z95.1 Chest pain R07.9 Atrial fibrillation, currently in sinus rhythm Z86.79 Chronic alcoholic pancreatitis K86.0 CKD (chronic kidney disease) stage 2, GFR 60-89 ml/min N18.2 Chronic obstructive pulmonary disease, unspecified COPD type J44.9 COPD type: unspecified COPD Personal history of nicotine dependence Z87.891
--- NOTE | 2024-10-11 20:30 | USCV_ITS ---
Shadi Hill Age: 58 Gender: M : 1965 Exam Date: 10/11/2024 21:13 Ordering Phys: Moises Gan MD Technologist: NINO Exam Location: [facility] [place] Indication: UA history of CAD s/p CABG 2013, Hx HTN, long- term smoker, continues smoking BP: 124 / 83 HR: 73 Rhythm: some sinus rhythm with strings of Atrial fibrillation Technical Quality: Adequate MEASUREMENTS (Male / Female) Normal Values 2D ECHO LV Diastolic Diameter PLAX 5.7 cm 4.2 - 5.9 / 3.9 - 5.3 cm IVS Diastolic Thickness 1.0 cm 0.6 - 1.0 / 0.6 - 0.9 cm IVS Systolic Thickness 1.2 cm LVPW Diastolic Thickness 1.4 cm 0.6 - 1.0 / 0.6 - 0.9 cm LVPW Systolic Thickness 1.8 cm LVOT Diameter 2.3 cm LV Ejection Fraction 2D Teich 32.6 % LV Ejection Fraction MOD 4C 39.6 % LV Ejection Fraction MOD 2C 28.5 % LV Ejection Fraction 2C AL 27.1 % LA Diameter 4.0 cm Aorta at Sinotubular Diameter 3.6 cm IVC Diameter 1.8 cm M-MODE LA Ao Ratio MM 1.4 AV Cusp Separation MM 1.9 cm DOPPLER AV Peak Velocity 85.0 cm/s LVOT Peak Velocity 57.0 cm/s AV Area Cont Eq vti 3.0 cm squared AV Area Cont Eq pk 2.7 cm squared MV Peak Velocity 79.0 cm/s MV Area PHT 4.8 cm squared Mitral E to A Ratio 0.6 TV Peak E Velocity 36.0 cm/s PV Peak Velocity 62.0 cm/s FINDINGS Left Ventricle Left ventricle is mildly dilated. LV systolic function is severely reduced with EF of 25-30%. Moderate to severe global hypokinesis with apical severe hypokinesis to akinesis. Echogenic structure seen in apex of left ventricle. Cannot rule out organized thrombus. Grade 1 diastolic dysfunction Right Ventricle Moderately hypokinetic Right Atrium Normal in size Left Atrium Normal in size Mitral Valve Mild mitral annular calcification. Mild mitral regurgitation. Aortic Valve Aortic valve is thickened. No significant stenosis or regurgitation. Tricuspid Valve Insufficient TR jet to calculate RVSP. Pulmonic Valve Trace pulmonic regurgitation. Pericardium Normal Aorta Normal in size IVC Appears to be normal CONCLUSIONS Left ventricle is mildly dilated. LV systolic function is severely reduced with EF of 25 to 30%. Above-mentioned regional wall motion normalities. Echogenic structure seen in apex of left ventricle. Cannot rule out apical thrombus. Recommend a limited echo with contrast to better assess. Mild mitral regurgitation Trace pulmonic regurgitation. Compared to prior echocardiogram from 2019, LV systolic function has significantly decreased and has possible apical thrombus. Recommend limited echocardiogram with contrast to assess it. Leobardo Samuel MD (Electronically Signed) Final Date: 12 October 2024 07:54 S
[2024-10-11] MEDS: clopidogrel 300 mg Tablet PO (20:56)
[2024-10-11] MEDS: enoxaparin 40 mg/0.4 mL Syringe 80 MG SUBCUT (20:57)
[2024-10-11 21:02] LABS: D Dimer 0.33 ug/mLFEU (0-0.59)
[2024-10-11 21:21] LABS: Estmated Average Glucose 123; Hemoglobin A1C 5.9 % (4.0-6.0)
[2024-10-11 21:43] LABS: Lipase 70 U/L (13-60)
[2024-10-11 21:51] LABS: Glucose Point of Care 98 mg/dL (70-110)
[2024-10-11] MEDS: lisinopril 5 mg Tablet PO (22:04)
[2024-10-11] MEDS: lidocaine 2% viscous 15 ML, aluminum-mag hydrox-simethicon 30 ML, sucralfate oral liq 1 GM PO (22:04)
[2024-10-11] MEDS: nitroglycerin 1 gm/inch oint Pkt 0.5 INCH TOPICAL (22:05)
[2024-10-11 22:06] LABS: Alcohol Level < 10 mg/dL (0-10)
[2024-10-11 22:27] LABS: Amphetamines Screen Urine Positive (Negative); Barbiturates Screen Urine Negative (Negative); Benzodiazepines Screen Urine Negative (Negative); Cocaine Screen Urine Negative (Negative); Opiate Screen Urine Positive (Negative); PCP Screen Urine Negative (Negative); THC Screen Urine Positive (Negative)
--- NOTE | 2024-10-11 22:43 | ECG_ITS ---
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 Measurements Intervals [place] Rate: 89 P: 72 ID: [id number] QRS: 40 QRSD: 94 T: 94 QT: 369 QTc: 450 Interpretive Statements SINUS RHYTHM POSSIBLE LEFT ATRIAL ENLARGEMENT [-0.1mV P-WAVE IN V1/V2] SEPTAL MYOCARDIAL INFARCTION , AGE INDETERMINATE Compared to ECG 10/11/2024 19:07:23 Myocardial infarct finding now present Sinus tachycardia no longer present T-wave abnormality no longer present Possible ischemia no longer present Electronically Signed On 10-13-2024 22:13:48 SPECIAL SERVICES DIRECTOR by Leobardo Samuel M.D. [id number]
[2024-10-11 23:29] LABS: Troponin 5 6HR 24.65 ng/L (0-15); Troponin 5 6HR Delta -5.35 ng/L (0-12)
[2024-10-12] VITALS (43 sets, daily range): BP systolic 102–150; BP diastolic 61–103; PULSE 67–99; RESP 12–20; TEMP 37.3; O2SAT 89–100; BMI 25.2
[2024-10-12] MEDS: morphine 4 mg/mL SDV 1 mL 2 MG IVP (02:24)
--- NOTE | 2024-10-12 03:44 | PC.NURSE ---
Pt refused nitro paste at this time. States it gives him a headache.
[2024-10-12 03:45] LABS: Basophils # 0.1 10^3/uL (0.0-0.1); Basophils % 0.7 %; Eosinophils # 0.2 10^3/uL (0.0-0.8); Eosinophils % 1.2 %; Hematocrit 46.6 % (37-53); Lymphocytes % 22.9 %; Mean Corpuscular HGB Conc 33.9 g/dL (30-55); Mean Corpuscular Hemoglobin 29.5 pg (27-33); Mean Corpuscular Volume 87.1 fl (82-101); Mean Platelet Volume 10.2 fL (7.4-10.4); Monocytes % 7.8 %; Neutrophils # 8.62 10^3/uL (1.8-7.7); Neutrophils % 66.9 %; Nucleated Red Blood Cells % 0 %; Platelet Count 328 10^3/cmm (157-399); Red Blood Count 5.35 10^6/uL (3.85-5.65); Red Cell Distribution Width 13.3 % (12.1-15.1)
[2024-10-12 04:24] LABS: Anion Gap 13.3 (5-19); Blood Urea Nitrogen 14 mg/dL (8-23); Calcium 9.9 mg/dL (8.5-10.5); Carbon Dioxide 27 mmol/L (22-29); Chloride 98 mmol/L (98-107); Creatinine Clr Calc Pharmacy 86.4876; Glomerular Filtration Rate 76.2 mL/min (90-130); Glucose 120 mg/dL (65-115); Magnesium 1.8 mg/dL (1.7-2.3); Osmolality Calculated 280 mOsm/kg (285-295); Potassium 4.3 mmol/L (3.5-5.1); Sodium 134 mmol/L (136-145)
[2024-10-12] MEDS: ondansetron 2 mg/ML SDV 2 mL 4 MG IVP (06:08)
[2024-10-12 08:24] LABS: Glucose Point of Care 114 mg/dL (70-110)
[2024-10-12] MEDS: metoprolol tartrate 25 mg Tablet 12.5 MG PO ×2 (09:16→19:43)
[2024-10-12] MEDS: pantoprazole 40 mg SDV IVP ×2 (09:41→19:43)
[2024-10-12] MEDS: nicotine 21 mg Patch 1 PATCH TRANSDERMA (09:41)
[2024-10-12] MEDS: aspirin 325 mg Tablet PO (09:42)
[2024-10-12] MEDS: clopidogrel 300 mg Tablet 600 MG PO (09:43)
--- NOTE | 2024-10-12 10:22 | XACV_ITS ---
Exam Room: [facility] Ht: 180 cm Wt: 82 kg BSA: 2.03 m2 Gender: Male : 1965 Any Known Allergies: No known allergies Exam Priority: Routine Indication(s): - Chest pain - Unstable angina Procedure(s): Procedure Description: Diagnostic procedure Procedure Description: PCI procedure Procedure Description: STOVER Graft Catheterization Procedure Description: Drug Eluting Coronary Stent Procedure Description: PTCA Procedure Description: Miscellaneous Procedure Description: ACT Procedure Description: [facility] Diagnostic Cath Status: Urgent Diagnostic Findings * Left Anterior Descending has no disease. * Circumflex has no disease. * Left Main to Proximal Left Anterior Descending: total occlusion, STONE: 3 flow. * Mid Right Coronary Artery: significant 80% stenosis, STONE: 3 flow. * Left Internal Mammary Artery to 1st Diagonal graft: patent. * One graft visualized. * Coronary angiography shows right dominance. PCI Indication: NSTE - ACS Interventional Findings * Mid Right Coronary Artery: 80% stenosis treated with a AB TREK 2.50X12 RX BALLOON, AFSANEH Lawrence ALYSSA 3.5X12 DAVID, and AFSANEH MILLER EUPHORA RX [id number] BALLOON. 0% residual stenosis, STONE: 3 flow. Conclusions 1. There is total occlusion coronary artery disease with two vessel disease. 2. One coronary graft visualized: all grafts patent. 3. Patient has prior CABG. 4. Mid Right Coronary Artery was treated with a Balloon, Drug Eluting Stent, and Balloon. Recommendations * 1-Return to inpatient for close monitoring and routine cath care 2-Risk factor modification for secondary prevention 3-Statin and aspirin 81 mg life-long, if tolerated 4-Patient was pre-loaded with 600 mg of Plavix, continue Plavix 75mg p.o. daily for at least one year. We will assess at the end of one year again to continue if further or not 5-Continue optimal medical management 6-Follow up with Dr. Herring in four weeks and your primary care in 10 days. Interventional RX Recommendation: PCI w/o planned CABG Diagnostic RX Recommendation: PCI w/o planned CABG Pressures Phase:Rest AO : 85 / 83 ( 83 ) @ 5:48:00 PM Clinical Evaluation EBL: 5mL-10mL Procedural Details Procedure Consent Obtained. Admit Source: In Patient. Current Diagnosis : Chest Pain. Pre-Procedure Time Out. Identified patient by full name and date of as verbalized by the patient/guarantor. Does the consent match the physician's order: Yes. Accurate & Complete Informed Consent: Yes. Inpatient/Outpatient History & Physical on Chart: Yes. If H&P is completed, is and addenduem needed: No; If yes, is the addendum complete: N/A. Visualize and Verify Site with Patient/Guarantor: N/A. Relevant Radiology Images available: N/A. The risks, benefits, and alternatives of sedation and/or procedure were discussed by physician. The patient agrees to continue. Procedure started. [facility] Clinical Fraility Score: 3: Managing Well. Bank Representative Indications: Worsening Angina. Chest Pain Symptom Assessment: Typical Angina Symptoms. Cardiovascular Instability: No. Correct patient, site and procedure confirmed by cath team. Current diagnosis: Unstable angina. PERRLA. 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 Lungs clear x 5 lobes. IV Site on Arrival: 20 gauge in the left forearm. IV Fluids: 0.9% NaCl at KVO. 0 mL infused prior to agriculture laborer. Pre Procedural Pulses: bilateral posterior tibial was Doppled. Pre Procedural Pulses: bilateral dorsalis pedis was Doppled. Pre Procedural Pulses: bilateral radial was 3+. Oxygen started at 3liters/min via nasal canula. bilateral groins was prepped with chloroprep then draped in the usual sterile fashion. Physician notified. Baseline sample Acquired. HR: 79 BPM. Physician arrived. Family updated by MD prior to the start of the procedure. Current Diagnosis : Unstable angina. Physician scrubbed in. Immediate Pre-Procedure Time Out. Correct Patient: Yes; Correct Procedure: Yes; Correct Site: Yes; Correct Patient Position: Yes; Correct Supplies: Yes; Dried Flammable Prep: Yes; Blood Products Available: N/A;. Lidocaine 1% infiltrated to the right groin. Arterial access obtained. A 5 luxembourgish JL4 catheter in over wire. Multiple views taken of left coronary artery. Catheter removed over the standard wire. A 5 luxembourgish JR4 catheter in over wire. Multiple views taken of right coronary artery. Catheter redirected to STOVER. STOVER to Diagonal visualized. Catheter removed over the standard wire. Starting Intervention. 6 luxembourgish JR 4 guide catheter was inserted over the wire. Guide seated in the RCA. Runthrough guidewire was advanced through the guide catheter to lesion in the mid RCA. Guidewire advanced across lesion. Inflation number : 1 A AB TREK 2.50X12 RX BALLOON was prepped and advanced across the Mid RCA , then inflated to 14 МАРИЯ for 0:20 seconds. Balloon out. Results checked. Inflation Number : 2 A MDT R ALYSSA 3.5X12 DAVID -Lot Number# [id number] was prepped and advanced across the Mid RCA. The stent was deployed at 14 МАРИЯ for 0:17 seconds. EXP 02/18/2025. Stent Balloon out over the wire. Results checked. Inflation number : 3 A MDT NC EUPHORA RX [id number] BALLOON was prepped and advanced across the Mid RCA , then inflated to 14 МАРИЯ for 0:16 seconds. Inflation number: 4 The MDT NC EUPHORA RX [id number] BALLOON was reinflated across the Mid RCA, to 14 МАРИЯ for 0:17 seconds. Inflation number: 5 The MDT NC EUPHORA RX [id number] BALLOON was reinflated across the Mid RCA, to 14 МАРИЯ for 0:13 seconds. Inflation number: 6 The MDT NC EUPHORA RX [id number] BALLOON was reinflated across the Mid RCA, to 14 МАРИЯ for 0:14 seconds. ACT drawn. Results 383 seconds. Therapeutic limits - pre-heparin administration 90-150 seconds and monitoring heparin during a vascular procedure >250 seconds. Balloon out. Results checked. Results checked. Wire out. Results checked. Physician review of films. Contrast type used: Visipaque 320 mgI/mL, 200 mL bottle. [id number]. A Right femoral angiogram was performed to determine safe placement of closure device. A Suture was successful obtaining hemostatsis at the Right Femoral artery insertion site. Angioseal attempted without complications. No signs or symptoms of hematoma noted. Sterile dressing applied per usual sterile fashion. LOT [id number] EXP 05/09/2025. Physician Scrubbed Out. Sheath(s) sutured into position with 2-0 silk and sterile 4x4's and Op-site applied over the site. No oozing or signs and symptoms of hematoma noted. Arterial sheath flushed and connected to tranducer and pressure bag with heparinized saline. Post Procedure: Pulses reassessed and unchanged. PERRLA. 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 No VTE prophylaxis required. Medication wasted: Lidocaine- 10 ml Heparin- 1000 units Versed- 1 mg Fentanyl- 50 mcg Nitro- 49.8 mg. Total IV fluids: 55 mL. Fluoro: 8:02. Post-op diagnosis: Obstuctive CAD; RCA stenosis- s/p david x1. Complications: None. Estimated blood loss: 5mL-10mL. Responsiveness - Normal response to verbal stimuli; alert and oriented, PERRLA. Airway - Unaffected, no intervention required; spontaneous ventilation. Circulation: W/N/L, pulses unchanged. Nausea/Vomiting: No. Procedure completed. Patient transferred by bed to 1st floor. Vital chart was stopped. Access Site Site: Right Femoral artery Sheath Size: 6 Fr Hemostasis Method: Suture Hemostasis Success: Successful Procedure Medications Start: 5:28 PM Stop: 5:28 PM Medication: Benadryl Amount: 25 mg Route: I.V. Start: 5:38 PM Stop: 5:38 PM Medication: Versed 1 mg and Fentanyl 25 mcg Amount: 1 Route: I.V. Start: 5:42 PM Stop: 5:42 PM Medication: Versed Amount: 1 mg Route: I.V. Start: 5:43 PM Stop: 5:43 PM Medication: Fentanyl Amount: 25 mcg Route: I.V. Start: 5:48 PM Stop: 5:48 PM Medication: Versed Amount: 1 mg Route: I.V. Start: 5:57 PM Stop: 5:57 PM Medication: Heparin Amount: 8000 units Route: I.V. Start: 6:13 PM Stop: 6:13 PM Medication: Nitrogylcerin Amount: 200 mcg Route: I.C. I, the attending physician, have reviewed and verified all procedure medications. Yes, all medications given per verbal order History/Risk Factors Hypertension: Yes Dyslipidemia: Yes Peripheral Arterial Disease (PAD): No Myocardial Infarction (DC): No Obesity: No Renal Disease: No Tobacco Use: Current/Recent(w/in 1 year) Prior Interventions PCI: Yes CABG: Yes Valve Surgery: No Report Signatures Finalized by Moises Herring MD on 10/15/2024 07:29 PM
--- NOTE | 2024-10-12 12:47 | USCV_ITS ---
RadhamesShadi yang Age: 58 Gender: M : 1965 Exam Date: 10/12/2024 13:54 Ordering Phys: Pablo Muse MD Technologist: Exam Location: [facility] [place] Indication: ? LV THROMBUS BP: / HR: Rhythm: Sinus Technical Quality: Adequate MEASUREMENTS (Male / Female) Normal Values 2D ECHO LV Ejection Fraction MOD 4C 33.2 % LV Ejection Fraction MOD 2C 44.2 % LV Ejection Fraction 2C AL 40.0 % RA Systolic Volume 4C AL 103.2 ml RA Systolic Volume 4C MOD 103.8 ml FINDINGS Left Ventricle Right Ventricle Right Atrium Left Atrium Mitral Valve Aortic Valve Tricuspid Valve Pulmonic Valve Pericardium Aorta IVC CONCLUSIONS Limited echocardiogram performed to assess for LV systolic function and rule out LV thrombus. LV systolic function is severely reduced with EF of 30 to 35%. Apical wall is akinetic. Echogenic structure seen in apex consistent with organized thrombus. Leobardo Samuel MD (Electronically Signed) Final Date: 13 October 2024 07:40 S
--- NOTE | 2024-10-12 12:50 | P.PN_ITS ---
Subjective 2 Subjective: Admitted overnight. Has remained medically stable and afebrile. Denies any chest pain currently. Denies any nausea, vomiting, headache or difficulty in breathing. Vitals/I&O/Wt Last Vital Signs Temp 98.5 F 10/11/24 16:15 Pulse 73 10/12/24 08:35 Resp 18 10/12/24 08:35 BP 110/78 10/12/24 08:35 Pulse Ox 96 10/12/24 08:35 O2 Del Method Room Air 10/12/24 08:35 10/11/24 10/12/24 10/12/24 22:59 06:59 14:59 Intake Total 200 / 200 Output Total 300 / 300 Balance -100 / -100 Weight last 48 hrs Weight 81.647 kg Physical Exam 2 Narrative: General: No acute distress, AO x3 HEENT: PERRLA, pupils bilaterally equal and reactive Chest: Normal vesicular breath sounds, no added sounds, equal good air entry bilaterally CVS: S1-S2 regular, Soft pansystolic murmur at apex, no tachycardia, no gallops, no rubs Abdomen: Soft, nontender, no organomegaly, bowel sounds present Neuro: No focal deficits, no facial deformity, AO x3, power 5/5 in all limbs Data 10/12/24 03:32 10/12/24 04:03 A&P Assessment and plan (1) Chest pain: (2) Ischemic cardiomyopathy: (3) Systolic congestive heart failure: (4) LV (left ventricular) mural thrombus: (5) S/P CABG (coronary artery bypass graft): (6) Atrial fibrillation, currently in sinus rhythm: (7) Chronic alcoholic pancreatitis: (8) CKD (chronic kidney disease) stage 2, GFR 60-89 ml/min: (9) Chronic obstructive pulmonary disease: Qualifiers: COPD type: unspecified COPD Qualified Code(s): J44.9 - Chronic obstructive pulmonary disease, unspecified (10) Personal history of nicotine dependence: (11) Amphetamine abuse: Plan Unstable angina: History of CABG. Not on any medication. Echocardiogram consistent with regional wall motion abnormality, EF of 25% with concerns for possible organized LV thrombus. Cardiology on board. Plan for angiogram later in the day today. Keep NPO. Continue aspirin, Plavix. Start on atorvastatin 20 mg oral daily. Check A1c, lipid panel. Continue with lisinopril and metoprolol at 12.5 mg twice daily. Will uptitrate guideline directed medical therapy for heart failure. Continue with full dose Lovenox 1 mg/kg body weight Q12 hourly. Congestive heart failure: Ischemic cardiomyopathy: Fairly compensated for now. Continue lisinopril and metoprolol as above. Will uptitrate guideline directed medical therapy accordingly. Possible LV thrombus: Will check limited echocardiogram with and without contrast. History of alcohol induced pancreatitis Amphetamine positive. Discussed in detail about smoking cessation. Nicotine patch. N.p.o. Full code Full dose Lovenox if sufficient for DVT prophylaxis Protonix for PUD prophylaxis Attestations 2 Medical Necessity Statement*: Requires further hospitalization for management of unstable angina in setting of post CABG, ischemic cardiomyopathy, congestive heart failure Diagnoses Chest pain R07.9 Ischemic cardiomyopathy I25.5 Systolic congestive heart failure I50.20 LV (left ventricular) mural thrombus I51.3 S/P CABG (coronary artery bypass graft) Z95.1 Atrial fibrillation, currently in sinus rhythm Z86.79 Chronic alcoholic pancreatitis K86.0 CKD (chronic kidney disease) stage 2, GFR 60-89 ml/min N18.2 Chronic obstructive pulmonary disease, unspecified COPD type J44.9 COPD type: unspecified COPD Personal history of nicotine dependence Z87.891 Amphetamine abuse F15.10
[2024-10-12 13:42] LABS: Iron 93 ug/dL (59-158); Percent Saturation 28.7 % (20-50); Thyroid Stimulating Hormone 3.18 uIU/mL (0.27-4.20); Total Iron Binding Capacity 323 mcg/dl; Unsaturated Iron Binding 230 ug/dL (112-347); Vitamin B12 434 pg/mL (232-1245)
[2024-10-12] MEDS: perflutren protein-a microsphr 0.22 mg/mL SDV 3 mL IV (14:07)
--- NOTE | 2024-10-12 16:07 | P.CONIM_ITS ---
<Statement entered by Moises Herring MD - 10/12/24 21:05> Patient was evaluated and cared for in conjunction with an advanced practice practitioner. I personally examined the patient and reviewed the chart and all pertinent data including imaging, telemetry, and laboratory results. I discussed the patient in detail with the advanced practice practitioner. Please see their note for complete H&P testing result and agreed upon plan of care for the patient. 58-year-old male past medical history significant for continues tobacco abuse coronary artery disease history of CABG STOVER to diagonal branch, known to have occluded chronic LAD presented with what appeared to me unstable angina GENERAL: Patient is alert, awake and oriented x3. HEART: Regular S1 and S2. No murmur, rub or gallop. LUNGS: Clear to auscultate bilaterally. CENTRAL NERVOUS SYSTEM: Grossly nonfocal. EXTREMITIES: Lower extremities with out edema bilaterally. Assessment and plan History of LV dysfunction History of coronary artery bypass surgery Unstable angina Questionable compliance Continues tobacco abuse Discussed in detail with the patient, patient and his family says that he will be compliant and will try to quit smoking. Echocardiogram will be obtained Will proceed with left heart cath, will load patient with Plavix aspirin and statin guideline medical therapy for heart failure Guideline medical therapy for heart failure Providers/Reason For Consult 2 Consulting Physician/Specialty*: Dr. Herring Reason for Consult*: chest pain Requesting Physician: Dr. Gan Attending Physician: Pablo Muse MD Primary Care Provider: ALPHONSE Mitchell-Jam History of Present Illness History of Present Illness Shadi Hill is a 58 year old male who has history of CABG 10 years ago, active smoker, positive for amphetamines, does not take any medication (his states he quit about 2 years ago). He had a cath in 2018 that showed ostial occlusion of the LAD. He had CABG here Coronary artery bypass grafting ?1 utilizing in situ left internal mammary artery to the proximal first diagonal artery. Patient is somewhat of a poor historian at the time of visit. He has been noticing chest pain at rest and on exertion he gets short of breath, he has not noticed any nausea vomiting but endorsed diaphoresis. Pain is not radiating. He is a current smoker with hx of amphetamine abuse, CKD, afib. At the time of visit, he denies chest pain. In the ER troponins are trending down EKG showing T wave inversion anterolateral leads, unchanged from old EKG. He was loaded with plavix and started on lovenox. 30-25.86-24.65. Echo was done that showed EF severely reduced at 25-30% Possible apical thrombus. Compared to prior echo in 2020, LV systolic function has significantly decreased and has possible apical thrombus. VSS. Review of Systems 2 Narrative: Consitutional: denies fever, chills, body aches, or changes in appetite, denies abnormal weight loss Eyes: Denies changes in vision Card: Denies current chest pain, palpitations, irregular heart rhythm, edema, syncope, shortness of breath, orthopnea, leg pain with exertion Resp: Denies shortness of breath, denies hemoptysis, denies cough GI: denies abdominal pain, denies nausea or vomiting, denies blood in stool : denies blood in urine, denies dysuria Musc: Denies extremity pain, denies limited range of motion or recent injury Skin: Denies rash, lesions, or wounds, denies changes to skin color Neuro: Denies nubmness in extremities, h/a, s/s of stroke Jah: Denies easy bruiding/bleeding All: Denies s/s of allergies Medications/Allergies Home Medications Medication Instructions Recorded Confirmed Last Taken Type acetaminophen 325 mg tablet 650 mg PO Q4H PRN Pain 10/02/20 10/12/24 10/04/20 14:00 History Allergies Allergy/AdvReac Type Severity Reaction Status Date / Time No Known Allergies Allergy Verified 10/11/24 16:19 Current Medications Generic Name Dose Route Start Last Admin Trade Name Amy PRN Reason Stop Dose Admin Aspirin 81 mg 10/12/24 09:00 10/12/24 09:24 Aspirin 81 Mg Ec Tablet PO Not Given DAILY [facility] Clopidogrel Bisulfate 75 mg 10/12/24 09:00 10/12/24 09:24 Clopidogrel 75 Mg Tablet PO Not Given DAILY [facility] Insulin Human Lispro 0 unit 10/11/24 21:07 10/12/24 14:58 Insulin Lispro 100 Unit/1 Ml SUBCUT Not Given WM&BEDTIME [facility] Protocol Lisinopril 5 mg 10/11/24 21:45 10/12/24 09:13 Lisinopril 5 Mg Tablet PO Not Given DAILY@08 [facility] Metoprolol Tartrate 12.5 mg 10/11/24 21:31 10/12/24 09:16 Metoprolol Tartrate 25 Mg Tablet PO 12.5 mg BID@08,20 TAMERA Administration Nicotine 1 patch 10/12/24 09:45 10/12/24 09:41 Nicotine 21 Mg Patch TRANSDERMA 1 patch DAILY TAMERA Administration Nitroglycerin 0.5 inch 10/11/24 21:30 10/12/24 09:47 Nitroglycerin 1 Gm/Inch Oint Pkt TOPICAL Not Given Q6H TAMERA Ondansetron HCl 4 mg 10/11/24 20:29 10/12/24 06:08 Ondansetron 2 Mg/Ml Sdv 2 Ml IVP 4 mg Q6H PRN Administration NAUSEA AND VOMITING Pantoprazole Sodium 40 mg 10/12/24 09:00 10/12/24 09:41 Pantoprazole 40 Mg Sdv IVP 40 mg BID TAMERA Administration Ranolazine 500 mg 10/12/24 09:00 10/12/24 09:33 Ranolazine (12hr) 500 Mg Tablet PO Not Given BID TAMERA PFSH Acute 2 PFSH: Medical History Chronic alcoholic pancreatitis Severe acute pancreatitis Chronic obstructive pulmonary disease Depression with anxiety CAD (coronary artery disease) Hyperlipidemia History of ID (myocardial infarction) Surgical History S/P PTCA (percutaneous transluminal coronary angioplasty) S/P CABG (coronary artery bypass graft) Family History Other Diabetes Heart disease Social History Smoking and tobacco/nicotine status: current every day tobacco/nicotine user Second hand smoke exposure: Yes Alcohol intake: current Alcohol intake frequency: 3 or more drinks per day Alcohol type: hard liquor Substance/Drug Use: unknown Adopted: No Caregiver/support person: No Lives independently: Yes Household members: significant other Housing: House Marital status: Single Number of children: 2 service: No Current occupational status: employed Pets and animals: Yes Do you think of yourself as: Straight/Heterosexual Current gender identity: Male Vitals/I&O/Wt Last Vital Signs Temp 98.5 F 10/11/24 16:15 Pulse 90 10/12/24 15:08 Resp 15 10/12/24 15:08 BP 120/70 10/12/24 15:08 Pulse Ox 98 10/12/24 15:08 O2 Del Method Room Air 10/12/24 08:35 Weight last 48 hrs Weight 180 lb Physical Exam 2 Narrative: General: No apparent distress, healthy appearing, well nourished HENMT: normoceophalic Eye: PERRL Neck: No carotid bruit bilaterally Muskuloskeletal: Full ROM Lymphatic: no lymphedema noted Respiratory: Normal respiratory effort, clear to auscultation bilaterally throughout all lung dockery, no use of accessory muscles Cardio: No JVD, regular rate, regular rhythm, S1 S2 normal, no murmurs, peripheral pulses 2+ throughout GI: Normal to inspection, nondistended Extremities: Full ROM, normal, normal capillary refill, no cyanosis or edema Neuro: Alert and oriented x4, no focal motor deficits Psych: Affect normal, denies suicidal ideation, mental status grossly normal Skin: No rashes or lesions noted, no wounds Data 10/12/24 03:32 10/12/24 04:03 Other data: Echo complete CONCLUSIONS 1-Normal left ventricular cavity size. Normal left ventricular systolic function. No regional wall motion abnormalities. Left ventricular ejection fraction is estimated at 55 %. Grade II/IV diastolic dysfunction, moderately elevated filling pressures. 2-Moderate aortic valve calcification. No aortic valve stenosis. Trace aortic valve regurgitation. 3-Moderately thickened mitral valve. Moderate mitral annular calcification. No mitral valve stenosis. No mitral valve regurgitation. 4-There is no pericardial effusion. 5-Pulmonary artery systolic pressure is within normal limits. 6-When compared to the prior echocardiogram dated 07/05/2020 left ventricle ejection fraction has slightly improved from 45 to 50% to 55% now. A&P Assessment and plan (1) Chest pain: (2) S/P CABG (coronary artery bypass graft): (3) Personal history of nicotine dependence: (4) CAD (coronary artery disease): Qualifiers: Coronary Disease-Associated Artery/Lesion type: [place] artery [place] vs. transplanted heart: [place] heart Associated angina: without angina Qualified Code(s): I25.10 - Atherosclerotic heart disease of [place] coronary artery without angina pectoris (5) Coronary artery disease: Qualifiers: Coronary Disease-Associated Artery/Lesion type: [place] artery [place] vs. transplanted heart: [place] heart Associated angina: without angina Qualified Code(s): I25.10 - Atherosclerotic heart disease of [place] coronary artery without angina pectoris (6) Ischemic cardiomyopathy: Plan At this time patient is without chest pain. Patient has been loaded with Plavix aspirin initiated. Vital signs are stable. Patient is getting metoprolol. Patient has new onset severely reduced ejection fraction at 25 to 30%. He is global and apical hypokinesis. At this time coronary angiogram possible PCI is indicated to rule out acute coronary ischemia with previously placed STOVER to diagonal or worsening underlying coronary disease. Patient will go today around 5:00. N.p.o. at this time. Continue to monitor for worsening chest pain or acute EKG changes. Thank you for allowing us to take care of this gentleman Consult Attestations 2 Medical Necessity Statement: Patient stay expected to cross 2 midnights due to chest pain with NSTEMI. Coding Level of Care Code Acute Code for [facility] Diagnoses Chest pain R07.9 S/P CABG (coronary artery bypass graft) Z95.1 Personal history of nicotine dependence Z87.891 Coronary artery disease involving [place] coronary artery of [place] heart without angina pectoris I25.10 Coronary Disease-Associated Artery/Lesion type: [place] artery [place] vs. transplanted heart: [place] heart Associated angina: without angina Ischemic cardiomyopathy I25.5
[2024-10-12 17:12] LABS: Glucose Point of Care 100 mg/dL (70-110)
--- NOTE | 2024-10-12 17:39 | W.PM.OPSUD ---
Surgery/Procedure H&P Update DATE OF PROCEDURE: October 12, 2024 DATE H&P PERFORMED: 10/12/24 H&P UPDATE INFORMATION: I have reviewed H&P completed within last 30 days, I have examined patient prior to procedure and No changes to prior documentation PREOP DIAGNOSIS: Unstable angina PATIENT REASSESSED PRIOR TO SEDATION, WITH NO CHANGE NOTED: Yes PHYSICAL EXAM: alert, oriented x 3, clear to auscultation bilaterally and regular rate & rhythm
--- NOTE | 2024-10-12 18:27 | PM.PROC ---
Procedure Note: Date of procedure: 10/12/24 Pre-procedure diagnosis: Unstable angina Post-procedure diagnosis: same Procedure: Left heart cath/coronary angiogram for unstable angina. Patient was noted to have patent STOVER to diagonal branch. He has known chronically occluded LAD. He has ramus intermedius and nondominant circumflex patent. RCA has mid significant 80% eccentric lesion treated with single drug-eluting stent postdilated with noncompliant balloon. Plan: Patient has right common femoral sheath in place Once PTT below 45 will pull out the sheath bedrest for 5 hours. Continue IV fluid 100 mL/h for next 5 hours Continue dual antiplatelet therapy aspirin and Plavix from tomorrow Complication none Total of blood loss less than 10 mL Full dictated note to follow Coding Level of Care Code Acute Code for Aislinn Swanson
[2024-10-12] MEDS: sodium chloride 0.9% 1,000 ML 100 ML IV (18:50)
[2024-10-12] MEDS: ranolazine (12HR) 500 mg Tablet PO (19:43)
[2024-10-12 21:13] LABS: Partial Thromboplastin Time 166.7 SECONDS (23.9-36.7)
[2024-10-12 21:14] LABS: Glucose Point of Care 117 mg/dL (70-110)
[2024-10-12] MEDS: nicotine 4 mg lozenge MUCOUS MEM (22:47)
[2024-10-12 23:20] LABS: Partial Thromboplastin Time 34.6 SECONDS (23.9-36.7)
[2024-10-13] VITALS (17 sets, daily range): BP systolic 104–135; BP diastolic 59–95; PULSE 67–88; RESP 10–21; TEMP 36.6–37; O2SAT 94–99
--- NOTE | 2024-10-13 01:20 | PC.NURSE ---
Shealth pull shealth was pulled at 2350 with a ptt of 34.6, quit holding manual pressure at 0010, no hematoma present, dressing in place and dry/intact.
[2024-10-13] MEDS: sodium chloride 0.9% 1,000 ML 100 ML IV (03:46)
[2024-10-13 04:04] LABS: Basophils # 0.1 10^3/uL (0.0-0.1); Basophils % 0.5 %; Eosinophils # 0.1 10^3/uL (0.0-0.8); Hematocrit 43.5 % (37-53); Lymphocytes # 2.1 10^3/uL (0.8-4.8); Lymphocytes % 23.3 %; Mean Corpuscular Hemoglobin 30.1 pg (27-33); Mean Corpuscular Volume 88.6 fl (82-101); Mean Platelet Volume 9.6 fL (7.4-10.4); Monocytes # 0.6 10^3/uL (0.2-0.9); Monocytes % 6.6 %; Neutrophils # 6.25 10^3/uL (1.8-7.7); Neutrophils % 68.3 %; Nucleated Red Blood Cells % 0 %; Platelet Count 235 10^3/cmm (157-399); Red Blood Count 4.91 10^6/uL (3.85-5.65); Red Cell Distribution Width 13.1 % (12.1-15.1); White Blood Count 9.15 10^3/uL (3.29-11.43)
[2024-10-13] MEDS: HYDROcodone-acetaminophen 5-325 mg Tablet 1 TAB PO (04:28)
[2024-10-13 04:50] LABS: Alanine Aminotransferase 10 U/L (0-41); Albumin Level 3.6 g/dL (3.5-5.2); Alkaline Phosphatase 74 U/L (40-130); Blood Urea Nitrogen 15 mg/dL (8-23); Calcium 8.6 mg/dL (8.5-10.5); Carbon Dioxide 21 mmol/L (22-29); Chloride 102 mmol/L (98-107); Creatinine Clr Calc Pharmacy 78.8541; Globulin 2.6 g/dL (1.3-4.6); Glomerular Filtration Rate 68.3 mL/min (90-130); Glucose 99 mg/dL (65-115); Osmolality Calculated 275 mOsm/kg (285-295); Sodium 132 mmol/L (136-145); Total Bilirubin 0.4 mg/dL (0.15-1.2); Total Protein 6.2 g/dL (6.6-8.7)
[2024-10-13 04:53] LABS: Chol HDL Ratio 4.06 mg/dL (1.0-5.00); Cholesterol 130 mg/dL (0-200); HDL Cholesterol 32 mg/dL (60-100); LDL Cholesterol Calculated 70 mg/dL (50-129); Magnesium 1.8 mg/dL (1.7-2.3); Triglycerides 140 mg/dL (0-150); VLDL Cholestrol Calculation 28 mg/dL (0-30)
[2024-10-13 04:55] LABS: Anion Gap 13.9 (5-19); Aspartate Amino Transferase 15 U/L (0-40); Potassium 4.9 mmol/L (3.5-5.1)
[2024-10-13 05:02] LABS: Folate Level 5.6 ng/mL (4.5-32.2)
[2024-10-13 06:29] LABS: Glucose Point of Care 103 mg/dL (70-110)
[2024-10-13] MEDS: pantoprazole 40 mg SDV IVP (08:52)
[2024-10-13] MEDS: metoprolol tartrate 25 mg Tablet 12.5 MG PO (08:53)
[2024-10-13] MEDS: ranolazine (12HR) 500 mg Tablet PO (08:54)
[2024-10-13] MEDS: nicotine 21 mg Patch 1 PATCH TRANSDERMA (08:54)
[2024-10-13] MEDS: aspirin 81 mg EC Tablet PO (08:54)
[2024-10-13] MEDS: lisinopril 5 mg Tablet PO (08:54)
[2024-10-13] MEDS: clopidogrel 75 mg Tablet PO (08:54)
--- NOTE | 2024-10-13 08:55 | PC.CHAP ---
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 [] Patient/Family/Request visit [] Outpatient visit [] Follow-up visit [] Physician referral [] Code/Alert [x] Routine visit [] Staff referral [] Actively dying [] Patient sleeping [x] Family support [] [] Out of room [] Palliative care [] [] Receiving care in room [] Pre-surgical visit [] Trauma [] Long length of stay [] ICU visit [] Other: Relational/Emotional Strength [x] Patient feels connected with others/family/visitors/staff [] Distress [] Loneliness/isolation [] Abandonment Spirituality of Patient [x] Person of [place] [] Attends Sikhism of their [place] [x] Believes in Prayer [] Reads Bible or Christian materials [] There are Spiritual issues to be addressed Director Strategic Planning Interventions [x] Prayer x] Active listening [x] Non-anxious presence [x] Spiritual/emotional support [] Crisis/trauma care [] Spiritual counseling [] Bereavement support [] Provided bereavement packet [] Provided Bible/devotional materials [] Provided toy/stuffed animal, coloring book to patient or family member [] Provided Communion [] Anointing/[place] [] Salvation [x] Completed spiritual assessment [] Other: Impact on Illness or Injury [] Angry [] Fearful [] Anxious [] Often cries [] Exhaustion [] Unable to work [] Unable to attend baptist [] Unable to walk/stand [] Unable to read [] Unable to drive [] Unable to eat/drink [] Unable to sleep [] Unable to be with family [] Patient intubated [] Other: Summary Time spent with patient 5 min
--- NOTE | 2024-10-13 12:06 | PM.DCS ---
Discharge Providers Date of Admission: 10/11/24 20:30 Date of Discharge: October 13, 2024 Attending Provider at Admission: Moises Gan MD Attending Provider at Discharge: Pablo Muse MD Consults: Cardiology:Dr. Herring Primary Care Provider: CECILY Mitchell Diagnoses at Discharge Discharge Diagnosis (1) Chest pain: Status: Acute (2) S/P CABG (coronary artery bypass graft): Status: Acute (3) Personal history of nicotine dependence: Status: Chronic (4) CAD (coronary artery disease): Status: Chronic Qualifiers: Associated angina: without angina Coronary Disease-Associated Artery/Lesion type: [place] artery [place] vs. 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 Patient is stating that since his CABG he never experienced chest pain until few days ago. He has been noticing chest pain at rest and on exertion he gets short of breath, he has not noticed any nausea vomiting but endorsed diaphoresis. Pain is not radiating. He is describing pain as dull constant pain. No aggravating or relieving factors but stating that sometimes a change in position he would feel slightly better but pain would never completely vanish. Endorsing to smoking 6 to 7 cigarettes a day. Lives with his girlfriend. In the ER troponins are trending down EKG showing T wave inversion anterolateral leads, deep S waves I have started him on ACS protocol, loaded with Plavix started therapeutic Lovenox Patient previous medications included amiodarone, chronic kidney disease, A-fib, splenic vein thrombosis, patient has not taken any medication for last few years, not endorsing to drinking alcohol recently Patient is stating that he is not diabetic although Farxiga as mentioned in his previous home meds Hospital Course Hospital Course Patient was admitted to the hospital further evaluation and management of unstable angina in setting of being post CABG. Cardiology was consulted. He underwent echocardiogram which showed EF of 25 to 30% with possible echogenic structure at LV apex with concerns for apical thrombus, mild MR. He underwent echocardiogram with contrast which showed organized thrombus. He underwent cardiac angiogram on 10/12 in which he was noted to have patent STOVER to diagonal branch. He has known chronically occluded LAD. He has ramus intermedius and nondominant circumflex patent. RCA has mid significant 80% eccentric lesion treated with single drug-eluting stent post-dilated with noncompliant balloon. Patient's hospital stay was otherwise unremarkable. LifeVest has been arranged. He has been discharged hemodynamically stable condition back home with advised to follow-up with his primary care provider within next 2 weeks, nurse by pressure from cardiology office in 1 week and with enrolled nurse in 1 month. He is to take dual antiplatelet therapy with aspirin, Plavix, lisinopril and metoprolol as prescribed. Physical Exam Narrative: General: No acute distress, AO x3 HEENT: PERRLA, pupils bilaterally equal and reactive Chest: Normal vesicular breath sounds, no added sounds, equal good air entry bilaterally CVS: S1-S2 regular, Soft pansystolic murmur at apex, no tachycardia, no gallops, no rubs Abdomen: Soft, nontender, no organomegaly, bowel sounds present Neuro: No focal deficits, no facial deformity, AO x3, power 5/5 in all limbs Discharge Data Studies Completed and Pending Completed Studies During Hospitalization Category Date Time Status XR chest 1V portable [id number] Stat Exams 10/11/24 16:34 Completed CV. echo complete* [id number] Routine Ultrasound 10/11/24 20:30 Completed US echo limited with contrast [CV. 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 Laboratory Results WBC 9.15 10^3/uL (3.29-11.43) 10/13/24 03:44 RBC 4.91 10^6/uL (3.85-5.65) 10/13/24 03:44 Hgb 14.80 g/dL (11.27-16.99) 10/13/24 03:44 Hct 43.5 % (37-53) 10/13/24 03:44 MCV 88.6 fl (82-101) 10/13/24 03:44 MCH 30.1 pg (27-33) 10/13/24 03:44 MCHC 34.0 g/dL (30-55) 10/13/24 03:44 RDW 13.1 % (12.1-15.1) 10/13/24 03:44 Plt Count 235 10^3/cmm (157-399) 10/13/24 03:44 MPV 9.6 fL (7.4-10.4) 10/13/24 03:44 Neut % (Auto) 68.3 % 10/13/24 03:44 Lymph % (Auto) 23.3 % 10/13/24 03:44 [place] % (Auto) 6.6 % 10/13/24 03:44 Eos % (Auto) 1.0 % 10/13/24 03:44 Baso % (Auto) 0.5 % 10/13/24 03:44 Neut # (Auto) 6.25 10^3/uL (1.8-7.7) 10/13/24 03:44 Lymph # (Auto) 2.1 10^3/uL (0.8-4.8) 10/13/24 03:44 [place] # (Auto) 0.6 10^3/uL (0.2-0.9) 10/13/24 03:44 Eos # (Auto) 0.1 10^3/uL (0.0-0.8) 10/13/24 03:44 Baso # (Auto) 0.1 10^3/uL (0.0-0.1) 10/13/24 03:44 Nucleated RBC % (auto) 0 % 10/13/24 03:44 Nucleated RBCs # 0.0 /100WBC 10/13/24 03:44 APTT 34.6 SECONDS (23.9-36.7) D 10/12/24 22:58 D-Dimer 0.33 ug/mLFEU (0-0.59) 10/11/24 17:15 Sodium 132 mmol/L (136-145) L 10/13/24 03:44 Potassium 4.9 mmol/L (3.5-5.1) 10/13/24 03:44 Chloride 102 mmol/L (98-107) 10/13/24 03:44 Carbon Dioxide 21 mmol/L (22-29) L 10/13/24 03:44 Anion Gap 13.9 (5-19) 10/13/24 03:44 BUN 15 mg/dL (8-23) 10/13/24 03:44 Creatinine 1.1 mg/dL (0.7-1.2) 10/13/24 03:44 GFR Calculation 68.3 mL/min (90-130) L 10/13/24 03:44 Glucose 99 mg/dL (65-115) 10/13/24 03:44 POC Glucose 103 mg/dL (70-110) 10/13/24 06:23 Estimat Average Glucose 123 10/11/24 17:15 Hemoglobin A1c 5.9 % (4.0-6.0) 10/11/24 17:15 Calculated Osmolality 275 mOsm/kg (285-295) L 10/13/24 03:44 Calcium 8.6 mg/dL (8.5-10.5) 10/13/24 03:44 Magnesium 1.8 mg/dL (1.7-2.3) 10/13/24 03:44 Iron 93 ug/dL (59-158) 10/12/24 04:03 TIBC 323 mcg/dl 10/12/24 04:03 % Saturation 28.7 % (20-50) 10/12/24 04:03 Unsat Iron Binding 230 ug/dL (112-347) 10/12/24 04:03 Total Bilirubin 0.4 mg/dL (0.15-1.2) 10/13/24 03:44 AST 15 U/L (0-40) 10/13/24 03:44 ALT 10 U/L (0-41) 10/13/24 03:44 Alkaline Phosphatase 74 U/L (40-130) 10/13/24 03:44 Troponin T Baseline 30 ng/L (0-15) H 10/11/24 17:15 Troponin T 120 Minute 25.86 ng/L (0-15) H 10/11/24 19:11 Delta Troponin T -4.14 ABS# (0-10) L 10/11/24 19:11 Troponin T Hi Sens 6Hr 24.65 ng/L (0-15) H 10/11/24 23:07 Troponin T Hi Sens 6Hr Delta -5.35 ng/L (0-12) L 10/11/24 23:07 NT-Pro-B Natriuret Pep 827 pg/mL (0-125) H 10/11/24 17:15 Total Protein 6.2 g/dL (6.6-8.7) L 10/13/24 03:44 Albumin 3.6 g/dL (3.5-5.2) 10/13/24 03:44 Globulin 2.6 g/dL (1.3-4.6) 10/13/24 03:44 Triglycerides 140 mg/dL (0-150) 10/13/24 03:44 Cholesterol 130 mg/dL (0-200) 10/13/24 03:44 LDL Cholesterol, Calc 70 mg/dL (50-129) 10/13/24 03:44 Total VLDL Cholesterol 28 mg/dL (0-30) 10/13/24 03:44 HDL Cholesterol 32 mg/dL (60-100) L 10/13/24 03:44 Cholesterol/HDL Ratio 4.06 mg/dL (1.0-5.00) 10/13/24 03:44 Lipase 70 U/L (13-60) H 10/11/24 19:11 Vitamin B12 434 pg/mL (232-1245) 10/12/24 04:03 Folate 5.6 ng/mL (4.5-32.2) 10/13/24 03:44 TSH 3.18 uIU/mL (0.27-4.20) 10/12/24 04:03 Urine Opiates Screen Positive ng/mL (Negative) H 10/11/24 21:58 Ur Barbiturates Screen Negative ng/mL (Negative) 10/11/24 21:58 Ur Phencyclidine Scrn Negative ng/mL (Negative) 10/11/24 21:58 Ur Amphetamines Screen Positive ng/mL (Negative) H 10/11/24 21:58 U Benzodiazepines Scrn Negative ng/mL (Negative) 10/11/24 21:58 Urine Cocaine Screen Negative ng/mL (Negative) 10/11/24 21:58 U Marijuana (THC) Screen Positive ng/mL (Negative) H 10/11/24 21:58 Ethyl Alcohol < 10 mg/dL (0-10) 10/11/24 19:11 Vitals Last Vital Signs Temp 98.3 F 10/13/24 08:07 Pulse 78 10/13/24 08:07 Resp 14 10/13/24 08:07 BP 117/76 10/13/24 08:07 Pulse Ox 96 10/13/24 08:07 O2 Del Method Room Air 10/13/24 08:07 Discharge Plan Discharge Patient Disposition: Home Condition: Stable Prescriptions: New ranolazine 500 mg Tablet Extended Release 12 Hr 500 mg PO BID Qty: 60 0RF aspirin 81 mg Tablet,Delayed Release (Dr/Ec) 81 mg PO DAILY Qty: 30 0RF clopidogrel 75 mg Tablet 75 mg PO DAILY Qty: 30 0RF atorvastatin 10 mg tablet 10 mg PO DAILY Qty: 30 0RF lisinopril 5 mg Tablet 5 mg PO DAILY@08 Qty: 30 0RF metoprolol tartrate 25 mg Tablet 12.5 mg PO BID@08,20 Qty: 30 0RF Continued acetaminophen 325 mg tablet 650 mg PO Q4H PRN (Reason: Pain) Discharge Orders: Discharge Order (Routine); Ordered 10/13/24 Ordered By: Pablo Muse Referrals: Dipti Mane NP [Nurse Practitioner] - 10/16/24 1:45 pm ([facility] will call [facility] to make follow up appt ) Dylon Rosenthal FNP-C [Primary Care Provider] - 10/23/24 8:20 am () Moises Herring MD [Physician] - 12/21/24 12:30 pm ( ) Discharge Diet: Cardiac Discharge Activity: Resume usual activity Patient Instructions: Metoprolol (By mouth), Lisinopril (By mouth), Aspirin (By mouth), Atorvastatin (By mouth), Clopidogrel (By mouth), Ranolazine (By mouth), Heart Failure (DC), Chest Pain (DC), Pancreatitis (DC), Chronic Kidney Disease (DC), Methamphetamine Use Disorder (DC), CHF Stoplight, Chest Pain Stoplight, Opioid Safety, Post Angiogram Home Care Instructions Discharge Attestations Time Spent in Discharge Care*: greater than 30 min Specific Discharge Activities: educating patient, educating and/or supporting family/caregiver, discussing with pcp/other providers, discussing with case briefer/social workers/dc planners, documenting/other paperwork and evaluating patient/reviewing data Status at Discharge: Cognitive status at discharge: cognitively intact, Behavioral status at discharge: cooperative, Functional status at discharge: independent ambulation, Overall status at discharge: patient is back to baseline Quality Metrics Clinical Quality Measures [ No reported AMI, CVA or VTE this stay] Coding Level of Care Code 90741 Total time (in minutes) for Discharge: 60 Diagnoses Chest pain R07.9 S/P CABG (coronary artery bypass graft) Z95.1 Personal history of nicotine dependence Z87.891 Coronary artery disease involving [place] coronary artery of [place] heart without angina pectoris I25.10 Associated angina: without angina Coronary Disease-Associated Artery/Lesion type: [place] artery [place] vs. transplanted heart: [place] heart Ischemic cardiomyopathy I25.5 LV (left ventricular) mural thrombus I51.3 Systolic congestive heart failure I50.20
--- NOTE | 2024-10-13 14:56 | PM.PN ---
Subjective Subjective: Status post drug-eluting stent to mid RCA. No overnight events.. Left ventricular ejection fraction reduced severely 35%, apex was consistent with organized thrombus which may be chronic we will continue dual antiplatelet therapy. Vitals/I&O/Wt Last Vital Signs Temp 97.9 F 10/13/24 12:08 Pulse 72 10/13/24 13:52 Resp 20 H 10/13/24 13:52 BP 108/74 10/13/24 13:52 Pulse Ox 98 10/13/24 13:52 O2 Del Method Room Air 10/13/24 12:08 10/12/24 10/13/24 10/13/24 22:59 06:59 14:59 Intake Total 1600 / 1600 340 / 340 Output Total 200 / 200 380 / 580 Balance -200 / -200 1220 / 1020 340 / 340 Weight last 48 hrs Weight 185 lb 1.6 oz Weight 181 lb 4 oz Weight 180 lb Physical Exam Const: COMMON NORMALS: alert Resp: COMMON NORMALS: clear to auscultation bilaterally AUSCULTATION: clear to auscultation bilaterally Neuro: SENSORIUM/ORIENTATION: Yes alert Data 10/13/24 03:44 10/13/24 03:44 A&P Assessment and plan (1) Chest pain: (2) S/P CABG (coronary artery bypass graft): (3) Personal history of nicotine dependence: (4) CAD (coronary artery disease): Qualifiers: Coronary Disease-Associated Artery/Lesion type: [place] artery [place] vs. transplanted heart: [place] heart Associated angina: without angina Qualified Code(s): I25.10 - Atherosclerotic heart disease of [place] coronary artery without angina pectoris (5) Ischemic cardiomyopathy: Plan Status post drug-eluting stent to mid RCA for unstable angina Patient STOVER to diagonal Severely depressed left ventricular ejection fraction less than 35% with suspicion of organized thrombus in the left ventricle apex. Compensated systolic heart failure Continue aspirin statin beta-fidencio lisinopril clopidogrel. Since thrombus is organized and chronic no need of anticoagulation with warfarin or apixaban. Add Lasix 40 mg along with 20 mg of potassium chloride. LifeVest ordered patient would like to faded at home. Patient understand risk for sudden cardiac he chose to not to wait for the LifeVest to quit during this hospital stay. Attestations Medical Necessity Statement*: Patient can be discharged from cardiovascular perspective. Coding Level of Care Code Acute Code for Chg Fwd Diagnoses Chest pain R07.9 S/P CABG (coronary artery bypass graft) Z95.1 Personal history of nicotine dependence Z87.891 Coronary artery disease involving [place] coronary artery of [place] heart without angina pectoris I25.10 Coronary Disease-Associated Artery/Lesion type: [place] artery [place] vs. transplanted heart: [place] heart Associated angina: without angina Ischemic cardiomyopathy I25.5
--- NOTE | 2024-10-13 15:17 | PC.NURSE ---
dr brock states that pt may be fitted with the lifevest at home.
--- NOTE | 2024-10-13 15:57 | PC.NURSE ---
discharge meds provided by meds to beds program.discharge instructions given and explained.pt and s.o. verb understanding of instructions .discharged at this time.s.o. to drive pt home
== END 2024-10-13 15:59 | disposition home or self-care (01) ==
LOC: ER 20:31 → ER IP 21:04 → CSU 10-12 14:26
PROVIDERS: Internal Medicine Cardiovascular Disease; Student in an Organized Health Care Education/Training Program; Admitting Provider Internal Medicine; Emergency Provider Emergency Medicine; PCP Nurse Practitioner; Visit Provider Student in an Organized Health Care Education/Training Program
DX: I25.10 Atherosclerotic heart disease of native coronary artery without angina pectoris (principal); I25.82 Chronic total occlusion of coronary artery; I11.0 Hypertensive heart disease with heart failure; I50.20 Unspecified systolic (congestive) heart failure; Z95.1 Presence of aortocoronary bypass graft; I25.5 Ischemic cardiomyopathy; I51.3 Intracardiac thrombosis, not elsewhere classified; I48.91 Unspecified atrial fibrillation; F15.21 Other stimulant dependence, in remission; N18.9 Chronic kidney disease, unspecified; E78.5 Hyperlipidemia, unspecified; I25.2 Old myocardial infarction; F17.200 Nicotine dependence, unspecified, uncomplicated; Z79.82 Long term (current) use of aspirin
CPT/HCPCS: 36415; 36416; 71045; 80048; 80053; 80061; 80306; 80307; 82607; 82746; 82962; 83036; 83540; 83550; 83690; 83735; 83880; 84443; 84484; 85025; 85347; 85378; 85730; 93005; 93306; 93455; 96374; 96375; 96376; 99152; 99153; 99285; C1725; C1760; C1769; C1874; C1887; C1894; C8924; C9600; G0378; J1200; J1644; J1650; J2250; J2270; J2405; J2470; J3010; J3490; J7030; Q9967

== ENCOUNTER → 2024-10-23 09:05 | Outpatient (BNVA) | payer SELFPAY | PROVIDERS: PCP Nurse Practitioner; Visit Provider Nurse Practitioner | DX: N18.2 Chronic kidney disease, stage 2 (mild) (principal) | CPT/HCPCS: 80048 ==

== ENCOUNTER → 2025-03-12 15:57 | Outpatient (BNVA) | payer MEDICAID, SELFPAY | PROVIDERS: PCP Nurse Practitioner; Visit Provider Nurse Practitioner | DX: E78.5 Hyperlipidemia, unspecified (principal); N18.2 Chronic kidney disease, stage 2 (mild) | CPT/HCPCS: 80053 ==

== ENCOUNTER → 2025-09-12 08:44 | Outpatient (BNVA) | payer MEDICAID, SELFPAY | PROVIDERS: PCP Nurse Practitioner; Visit Provider Nurse Practitioner | DX: I50.20 Unspecified systolic (congestive) heart failure (principal); E55.9 Vitamin D deficiency, unspecified | CPT/HCPCS: 80053; 80061; 82306; 82607; 83036; 84425; 84443; 85025 ==